=== PATIENT | female | born 1950 | race Caucasian/White ===

== ENCOUNTER 2017-03-09 10:30 | Outpatient (RCR) | payer SELFPAY | END 2017-03-15 23:59 | LOC: NS 10:30 | PROVIDERS: Family Provider Internal Medicine; PCP Internal Medicine; Visit Provider Physician Assistant | DX: E66.9 Obesity, unspecified (principal); Z68.42 Body mass index [BMI] 45.0-49.9, adult; Z71.3 Dietary counseling and surveillance | CPT/HCPCS: 97803 ==

== ENCOUNTER → 2017-03-24 15:15 | Outpatient (CLI) | payer MEDICARE, OTHER, SELFPAY ==
[2017-01-16 12:50] VITALS: BMI 50.8
[2017-01-16 14:20] VITALS: BP 115/55
--- NOTE | 2017-03-24 15:20 | RAD_ITS ---
STUDY: X-RAY - LUMBAR SPINE REASON FOR EXAM: Female, 66 years old. Pain TECHNIQUE: 5 view(s) of the lumbar spine were obtained. COMPARISON: None FINDINGS: Normal lumbar lordosis. There is no substantial scoliosis. There is a grade 1 spondylolisthesis at L4-5. Mild degenerative changes of the vertebral bodies with spurring at the endplates. Slightly narrowed disc space heights, more significant at L2-3. Vacuum phenomena at the disc spaces. The soft tissue structures are unremarkable. Colonic fecal retention. Mildly calcified aorta. RAD/L/S Spine Min 4 Views IMPRESSION: Grade 1 spondylolisthesis at L4-5. Degenerative changes of the lumbar spine, more significant at L2-3. Electronically Signed: Jose Skinner DO at 10:35 EST Tel [phone], Service support ,
== END ==
PROVIDERS: Family Provider Internal Medicine; PCP Internal Medicine; Visit Provider Nurse Practitioner Family
DX: M54.5 Low back pain (principal)
CPT/HCPCS: 72110

== ENCOUNTER 2017-04-03 10:27 | Day surgery (SDC) | payer MEDICARE, OTHER, SELFPAY ==
[2017-04-03] VITALS (7 sets, daily range): BP systolic 101–129; BP diastolic 56–75; PULSE 69–82; RESP 16–18; TEMP 37.2–37.4; O2SAT 93–98; BMI 50.3
--- NOTE | 2017-04-03 11:50 | RAD_ITS ---
STUDY: X-RAY - SACRUM/COCCYX REASON FOR EXAM: Female, 66 years old. Caudal block. TECHNIQUE: Single lateral coned-down view view(s) of the sacrum and coccyx were obtained. COMPARISON: None. FINDINGS: Fluoroscopic images provided for caudal block. RAD/Fluor Guidance for Spine Inj IMPRESSION: Fluoroscopic services provided for caudal block. Electronically Signed: Contreras Cook MD at 12:39 EST Tel [phone], Service support ,
[2017-04-03] MEDS: Bupivacaine 0.25% 30 ML Vial (11:51)
[2017-04-03] MEDS: MethylPREDNISolone Acetate 80 MG/ML Vial (11:51)
--- NOTE | 2017-04-03 15:59 | PCM.OPRPT ---
Problem List (1) Lumbosacral radiculopathy Status: Chronic (2) Disc disease, degenerative, lumbar or lumbosacral Status: Chronic Report of Operation Date of Procedure: 04/03/17 Pre-Operative Diagnosis: Lumbosacral radiculopathy, lumbosacral degenerative disc disease, lumbosacral spinal stenosis Post-Operative Diagnosis: Lumbosacral radiculopathy, lumbosacral degenerative disc disease, lumbosacral spinal stenosis Surgery/Procedure Performed:: Diagnostic/therapeutic caudal epidural steroid injection Description of Surgical Findings:: PROCEDURE: Diagnostic/therapeutic caudal epidural steroid injection PREOPERATIVE DIAGNOSIS: Lumbosacral radiculopathy, lumbosacral degenerative disc disease, lumbosacral spinal stenosis POSTOPERATIVE DIAGNOSIS: Lumbosacral radiculopathy, lumbosacral degenerative disc disease, lumbosacral spinal stenosis ANESTHESIA: MAC COMPLICATIONS: None BLOOD LOSS: Minimal PROCEDURE IN DETAIL: History and physical today was reviewed. Risks and benefits of the procedure were explained. The patient understood, agreed to our procedure, and informed consent was obtained. IV inserted per routine protocol. The patient was taken to the operating room, placed in a prone position with a pillow positioned underneath the abdomen. Under direct physician fluoroscopy on the lateral view the caudal space was identified the skin and subcutaneous tissue were anesthetized approximately 3 cc of 1% lidocaine using a 25-gauge regular needle under direct visualization with fluoroscopy on the lateral view using a 22-gauge 3-1/2 inch spinal needle the needle was advanced via the skin through the sacral hiatus tip of the needle passed through the sacrococcygeal ligament advanced approximately S4 area after negative aspiration for blood or CSF a total of 3 cc of contrast were injected to confirm correct placement of the needle as well as cephalad spread the spread was followed to approximately L5 area after confirmation AP as well as lateral view and repeated negative aspiration a total of 15 cc of preservative-free 0.125% Marcaine with 80 mg of Depo-Medrol were injected easily. The needles were then removed intact.The patient experienced no signs or symptoms intrathecal, intravascular injection. The patient experienced no paraesthesia. The procedure was completed without any apparent difficult, any complication. The patient appeared to tolerate well. ASSESSMENT AND PLAN: This is a 66-year-old female with lumbosacral radiculopathy, lumbosacral degenerative disc disease, lumbosacral spinal stenosis status post diagnostic/therapeutic caudal epidural steroid injection. The patient will continue his current medications. The patient will follow in approximately 2 weeks for possible repeat of the procedure if indicated.
--- NOTE | 2017-04-03 16:02 | OP.PCM_ITS ---
Problem List (1) Lumbosacral radiculopathy Status: Chronic (2) Disc disease, degenerative, lumbar or lumbosacral Status: Chronic Report of Operation Date of Procedure: 04/03/17 Pre-Operative Diagnosis: Lumbosacral radiculopathy, lumbosacral degenerative disc disease, lumbosacral spinal stenosis Post-Operative Diagnosis: Lumbosacral radiculopathy, lumbosacral degenerative disc disease, lumbosacral spinal stenosis Surgery/Procedure Performed:: Diagnostic/therapeutic caudal epidural steroid injection Description of Surgical Findings:: PROCEDURE: Diagnostic/therapeutic caudal epidural steroid injection PREOPERATIVE DIAGNOSIS: Lumbosacral radiculopathy, lumbosacral degenerative disc disease, lumbosacral spinal stenosis POSTOPERATIVE DIAGNOSIS: Lumbosacral radiculopathy, lumbosacral degenerative disc disease, lumbosacral spinal stenosis ANESTHESIA: MAC COMPLICATIONS: None BLOOD LOSS: Minimal PROCEDURE IN DETAIL: History and physical today was reviewed. Risks and benefits of the procedure were explained. The patient understood, agreed to our procedure, and informed consent was obtained. IV inserted per routine protocol. The patient was taken to the operating room, placed in a prone position with a pillow positioned underneath the abdomen. Under direct physician fluoroscopy on the lateral view the caudal space was identified the skin and subcutaneous tissue were anesthetized approximately 3 cc of 1% lidocaine using a 25-gauge regular needle under direct visualization with fluoroscopy on the lateral view using a 22- gauge 3-1/2 inch spinal needle the needle was advanced via the skin through the sacral hiatus tip of the needle passed through the sacrococcygeal ligament advanced approximately S4 area after negative aspiration for blood or CSF a total of 3 cc of contrast were injected to confirm correct placement of the needle as well as cephalad spread the spread was followed to approximately L5 area after confirmation AP as well as lateral view and repeated negative aspiration a total of 15 cc of preservative-free 0.125% Marcaine with 80 mg of Depo-Medrol were injected easily. The needles were then removed intact.The patient experienced no signs or symptoms intrathecal, intravascular injection. The patient experienced no paraesthesia. The procedure was completed without any apparent difficult, any complication. The patient appeared to tolerate well. ASSESSMENT AND PLAN: This is a 66-year-old female with lumbosacral radiculopathy, lumbosacral degenerative disc disease, lumbosacral spinal stenosis status post diagnostic/ therapeutic caudal epidural steroid injection. The patient will continue his current medications. The patient will follow in approximately 2 weeks for possible repeat of the procedure if indicated.
== END 2017-04-03 13:05 | disposition home or self-care (01) ==
LOC: SDC 10:28 → AC 10:29
PROVIDERS: Family Provider Internal Medicine; PCP Internal Medicine; Visit Provider Anesthesiology Pain Medicine
PROC: 3E0S3BZ Introduction of Anesthetic Agent into Epidural Space, Percutaneous Approach (ICD-10-PCS; CPT 62282; principal; 2017-04-03 11:45)
DX: M51.17 Intervertebral disc disorders with radiculopathy, lumbosacral region (principal); M47.27 Other spondylosis with radiculopathy, lumbosacral region; M43.16 Spondylolisthesis, lumbar region; M48.07 Spinal stenosis, lumbosacral region; M16.12 Unilateral primary osteoarthritis, left hip; M17.10 Unilateral primary osteoarthritis, unspecified knee; M79.7 Fibromyalgia; I10 Essential (primary) hypertension; E78.00 Pure hypercholesterolemia, unspecified; E07.9 Disorder of thyroid, unspecified; G47.30 Sleep apnea, unspecified; K21.9 Gastro-esophageal reflux disease without esophagitis; Z78.0 Asymptomatic menopausal state; Z79.891 Long term (current) use of opiate analgesic; Z79.82 Long term (current) use of aspirin; Z79.899 Other long term (current) drug therapy; Z87.891 Personal history of nicotine dependence; Z87.19 Personal history of other diseases of the digestive system; Z98.51 Tubal ligation status
CPT/HCPCS: 62323; 64483; 77003; J7120; J3490

== ENCOUNTER 2017-04-06 13:30 | Outpatient (RCR) | payer SELFPAY ==
[2017-01-16 12:50] VITALS: BMI 50.8
[2017-01-16 14:20] VITALS: BP 115/55
== END 2017-04-12 23:59 ==
LOC: NS 13:30
PROVIDERS: Family Provider Internal Medicine; PCP Internal Medicine; Visit Provider Physician Assistant
DX: E66.9 Obesity, unspecified (principal); Z68.42 Body mass index [BMI] 45.0-49.9, adult; Z71.3 Dietary counseling and surveillance
CPT/HCPCS: 97803

== ENCOUNTER 2017-05-04 14:00 | Outpatient (RCR) | payer MEDICARE, OTHER, SELFPAY | END 2017-05-13 23:59 | LOC: NS 14:00 | PROVIDERS: Family Provider Internal Medicine; PCP Internal Medicine; Visit Provider Physician Assistant | DX: E66.9 Obesity, unspecified (principal); Z68.42 Body mass index [BMI] 45.0-49.9, adult; Z71.3 Dietary counseling and surveillance | CPT/HCPCS: 97803 ==

== ENCOUNTER 2017-06-05 14:00 | Outpatient (RCR) | payer MEDICARE, OTHER, SELFPAY | END 2017-06-12 23:59 | LOC: NS 14:00 | PROVIDERS: Family Provider Internal Medicine; PCP Internal Medicine; Visit Provider Physician Assistant | DX: E66.9 Obesity, unspecified (principal); Z68.42 Body mass index [BMI] 45.0-49.9, adult; Z71.3 Dietary counseling and surveillance | CPT/HCPCS: 97803 ==

== ENCOUNTER 2017-06-19 09:16 | Day surgery (SDC) | payer MEDICARE, OTHER, SELFPAY ==
[2017-06-19] VITALS (7 sets, daily range): BP systolic 93–153; BP diastolic 57–74; PULSE 68–74; RESP 16–18; TEMP 36.6; O2SAT 95–99; BMI 50.8
--- NOTE | 2017-06-19 09:40 | RAD_ITS ---
PROCEDURE: Left L3-S1 facet joint block. DATE OF EXAMINATION: June 19, 2017. INDICATION: Female, 66 years old. Chronic low back pain. FLUOROSCOPY TIME (if supplied): (0:14) minutes/seconds Intraoperative fluoroscopic imaging provided for left L3-S1 facet joint block. RAD/L/S Spine Min 4 Views IMPRESSION: Intraoperative imaging provided for left L3-S1 facet joint block. Electronically Signed: Contreras Cook MD at 10:59 EDT Tel [phone], Service support ,
[2017-06-19] MEDS: Bupivacaine 0.25% 30 ML Vial (10:01)
[2017-06-19] MEDS: MethylPREDNISolone Acetate 80 MG/ML Vial (10:01)
--- NOTE | 2017-06-19 10:18 | OP.PCM_ITS ---
Problem List (1) Lumbosacral spondylosis Status: Chronic (2) Disc disease, degenerative, lumbar or lumbosacral Status: Chronic Report of Operation Date of Procedure: 06/19/17 Pre-Operative Diagnosis: Lumbosacral spondylosis, lumbosacral degenerative disc disease, lumbar facet arthropathy Post-Operative Diagnosis: Lumbosacral spondylosis, lumbosacral degenerative disc disease, lumbar facet arthropathy Surgery/Procedure Performed:: Left sided lumbar facet steroid injection L3, L4, L5, S1 Description of Surgical Findings:: PROCEDURE: Left-sided lumbar facet steroid injection L3, L4, L5, S1 PREOPERATIVE DIAGNOSIS: Lumbosacral spondylosis, lumbosacral degenerative disc disease, and lumbar facet arthropathy POSTOPERATIVE DIAGNOSIS: Lumbosacral spondylosis, lumbosacral degenerative disc disease, and lumbar facet arthropathy ANESTHESIA: MAC COMPLICATIONS: None BLOOD LOSS: Minimal PROCEDURE IN DETAIL: History and physical today was reviewed. Risks and benefits of the procedure were explained. The patient understood, agreed to our procedure, and informed consent was obtained. IV inserted per routine protocol. The patient was taken to the operating room, placed in a prone position with a pillow positioned underneath the abdomen. The left side of her lower back was prepped and draped in a sterile fashion using iodine x3. Under fluoroscopy guidance, on AP view, L3 through S1 vertebral bodies were visualized. Skin and subcutaneous tissues were anesthetized with approximately 5 mL of 1% lidocaine using a 25-gauge regular needle. Under direct visualization with fluoroscopy at approximately 25-degree angle, starting on the left L3, ending on the left S1, passing through the L4-L5 using a 22-gauge 5-inch spinal needle, the needle was advanced via the skin. The tip of the needle was maneuvered and directed towards the superior and medial gutter of the transverse process at the vicinity of the medial branch. Once the tip of the needle was in contact with the bone, the needle pulled approximately 2 mm off the bone. After negative aspiration of blood with CSF and confirmation of AP as well as oblique view, a total of 8 mL of preservative-free 0.25% Marcaine with 80 mg of Depo- Medrol was injection in divided doses between those 4 levels. The needles were then removed intact. The patient experienced no signs or symptoms intrathecal, intravascular injection. The patient experienced no paraesthesia. The procedure was completed without any apparent difficult, any complication. The patient appeared to tolerate well. ASSESSMENT AND PLAN: This is a 66-year-old female with lumbosacral spondylosis, lumbosacral degenerative disc disease and lumbar facet arthropathy, status post left-sided lumbar facet steroid injection L3 through S1. The patient will continue her current medications. The patient will follow in approximately 2 weeks for possible repeat of the procedure if indicated.
== END 2017-06-19 10:57 | disposition home or self-care (01) ==
LOC: SDC 09:16
PROVIDERS: Family Provider Internal Medicine; PCP Internal Medicine; Visit Provider Anesthesiology Pain Medicine
PROC: 3E0T3BZ Introduction of Anesthetic Agent into Peripheral Nerves and Plexi, Percutaneous Approach (ICD-10-PCS; CPT 64493; principal; 2017-06-19 10:05)
DX: M51.17 Intervertebral disc disorders with radiculopathy, lumbosacral region (principal); M47.27 Other spondylosis with radiculopathy, lumbosacral region; M48.07 Spinal stenosis, lumbosacral region; M17.10 Unilateral primary osteoarthritis, unspecified knee; M16.12 Unilateral primary osteoarthritis, left hip; I10 Essential (primary) hypertension; G47.30 Sleep apnea, unspecified; M79.7 Fibromyalgia; E78.00 Pure hypercholesterolemia, unspecified; K21.9 Gastro-esophageal reflux disease without esophagitis; Z78.0 Asymptomatic menopausal state; Z79.891 Long term (current) use of opiate analgesic; Z79.82 Long term (current) use of aspirin; Z79.899 Other long term (current) drug therapy; Z87.891 Personal history of nicotine dependence; Z98.51 Tubal ligation status
CPT/HCPCS: 64493; 64494; 64495; 64483; 72110; J7120

== ENCOUNTER 2017-06-20 14:05 | Outpatient (RCR) | payer MEDICARE, OTHER, SELFPAY | END 2017-06-20 14:06 | disposition home or self-care (01) | LOC: NS 14:05 | PROVIDERS: Family Provider Internal Medicine; PCP Internal Medicine; Visit Provider Physician Assistant | DX: E66.9 Obesity, unspecified (principal); Z68.42 Body mass index [BMI] 45.0-49.9, adult; Z71.3 Dietary counseling and surveillance | CPT/HCPCS: 97803 ==

== ENCOUNTER 2017-08-14 09:28 | Day surgery (SDC) | payer MEDICARE, OTHER, SELFPAY ==
[2017-08-14] VITALS (7 sets, daily range): BP systolic 96–141; BP diastolic 59–83; PULSE 63–72; RESP 16; TEMP 36.3–36.8; O2SAT 95–100; BMI 48.9
--- NOTE | 2017-08-14 10:50 | RAD_ITS ---
STUDY: INTRAOPERATIVE IMAGING FOR TRANSFORAMINAL BLOCK. REASON FOR EXAM: Female, 67 years old. Chronic back pain. FLUOROSCOPY TIME (if supplied): (0:23) minutes/seconds TECHNIQUE: Imaging provided for left L3-S5 transforaminal block. COMPARISON: None. FINDINGS: Imaging provided for left L3-L5 transforaminal block. RAD/Lumbar Spine 2 or 3 Views IMPRESSION: Imaging provided for left L3-L5 transforaminal block. Electronically Signed: Contreras Cook MD at 11:22 EDT Tel [phone], Service support ,
[2017-08-14] MEDS: Bupivacaine 0.25% 30 ML Vial (11:03)
[2017-08-14] MEDS: MethylPREDNISolone Acetate 80 MG/ML Vial (11:03)
--- NOTE | 2017-08-14 11:59 | OP.PCM_ITS ---
Problem List (1) Disc disease, degenerative, lumbar or lumbosacral Status: Chronic (2) Lumbosacral radiculopathy Status: Chronic Report of Operation Date of Procedure: 08/14/17 Pre-Operative Diagnosis: Lumbosacral radiculopathy, lumbosacral degenerative disc disease, lumbosacral spinal stenosis Post-Operative Diagnosis: Lumbosacral radiculopathy, lumbosacral degenerative disc disease, lumbosacral spinal stenosis Surgery/Procedure Performed:: Left-sided lumbar transforaminal epidural steroid injection L3-4, L4-5 Description of Surgical Findings:: PROCEDURE: Left sided lumbar transforaminal epidural steroid injection L3-4, L4-5 PREOPERATIVE DIAGNOSIS: Lumbosacral radiculopathy, lumbosacral degenerative disc disease, lumbosacral spinal stenosis POSTOPERATIVE DIAGNOSIS: Lumbosacral radiculopathy, lumbosacral degenerative disc disease, lumbosacral spinal stenosis ANESTHESIA: MAC COMPLICATIONS: None BLOOD LOSS: Minimal PROCEDURE IN DETAIL: History and physical today was reviewed. Risks and benefits of the procedure were explained. The patient understood, agreed to our procedure, and informed consent was obtained. IV inserted per routine protocol. The patient was taken to the operating room, placed in a prone position with a pillow positioned underneath the abdomen. The left side of her lower back was prepped and draped in a sterile fashion using iodine x3. Under fluoroscopy guidance, on AP view, L3 through S1 vertebral bodies were visualized. Skin and subcutaneous tissues were anesthetized with approximately 5 mL of 1% lidocaine using a 25-gauge regular needle. Under direct visualization with fluoroscopy at approximately 25-degree angle, starting on the left L3, ending on the left L4, using a 22- gauge 5-inch spinal needle, the needle was advanced via the skin. The tip of the needle was maneuvered and directed towards the inferior and medial gutter of the transverse process at the superiormost aspect of the neuroforamen once the tip of the needle is at the vicinity of the once the tip of the needle at the superiormost aspect of the neuroforamen on lateral as well as AP view after negative aspiration for blood or CSF a total of 1 cc of contrast were injected in divided doses between both levels to confirm correct placement of the needle as well as medial spread the confirmation was obtained on AP as well as lateral view after repeated negative aspiration and confirmation, a total of 6 mL of preservative-free 0.25% Marcaine with 80 mg of Depo-Medrol was injection in divided doses between those 2 levels. The needles were then removed intact. The patient experienced no signs or symptoms intrathecal, intravascular injection. The patient experienced no paraesthesia. The procedure was completed without any apparent difficult, any complication. The patient appeared to tolerate well. ASSESSMENT AND PLAN: This is a 67-year-old Female with lumbosacral radiculopathy lumbosacral degenerative disc disease lumbosacral spinal stenosis status post left-sided lumbar transforaminal epidural steroid injection L3-4, L4-5 the patient will continue her current medications. The patient will follow in approximately 2 weeks for possible repeat of the procedure if indicated.
== END 2017-08-14 12:15 | disposition home or self-care (01) ==
LOC: SDC 09:29 → AC 09:29
PROVIDERS: Family Provider Student in an Organized Health Care Education/Training Program; PCP Student in an Organized Health Care Education/Training Program; Visit Provider Anesthesiology Pain Medicine
PROC: 3E0S3BZ Introduction of Anesthetic Agent into Epidural Space, Percutaneous Approach (ICD-10-PCS; CPT 64484; principal; 2017-08-14 10:45)
DX: M51.17 Intervertebral disc disorders with radiculopathy, lumbosacral region (principal); M43.16 Spondylolisthesis, lumbar region; M48.07 Spinal stenosis, lumbosacral region; M51.37 Other intervertebral disc degeneration, lumbosacral region; M16.12 Unilateral primary osteoarthritis, left hip; M79.7 Fibromyalgia; I10 Essential (primary) hypertension; E07.9 Disorder of thyroid, unspecified; G47.30 Sleep apnea, unspecified; K21.9 Gastro-esophageal reflux disease without esophagitis; Z87.19 Personal history of other diseases of the digestive system; Z79.891 Long term (current) use of opiate analgesic; Z79.899 Other long term (current) drug therapy; Z96.651 Presence of right artificial knee joint; Z96.641 Presence of right artificial hip joint; Z87.891 Personal history of nicotine dependence; Z79.82 Long term (current) use of aspirin; E78.00 Pure hypercholesterolemia, unspecified
CPT/HCPCS: 01935; 64484; 64483; 72100; J7120

== ENCOUNTER 2017-09-18 09:26 | Day surgery (SDC) | payer MEDICARE, OTHER, SELFPAY ==
[2017-09-18] VITALS (7 sets, daily range): BP systolic 105–124; BP diastolic 57–81; PULSE 65–71; RESP 16–18; TEMP 36.4–36.8; O2SAT 96–100; BMI 49.1
--- NOTE | 2017-09-18 10:30 | RAD_ITS ---
STUDY: X-RAY - PELVIS AND LEFT HIP FLUOROSCOPY FOR PAIN MANAGEMENT INTRA-ARTICULAR STEROID INJECTION REASON FOR EXAM: Female, 67 years old. Intra-articular injection TECHNIQUE: Fluoroscopy for localization of needle tip and left hip joint space provided under supervision, direction and review of the intraoperative physician. Single AP fluoroscopic spot image submitted. COMPARISON: 01/16/2017. FINDINGS: A total of 27.2 seconds of fluoroscopy time along with accumulative dose 14.67 mGy was utilized. Contrast is seen in the left hip joint space with left lateral needle approach. RAD/Fluoro Guided Needle Placement IMPRESSION: Fluoroscopy for left hip injection as described. Please see intraoperative report for additional details. Electronically Signed: Cristi Gooden, at 9:35 EDT Tel , Service support ,
[2017-09-18] MEDS: Bupivacaine 0.25% 30 ML Vial (10:52)
[2017-09-18] MEDS: MethylPREDNISolone Acetate 80 MG/ML Vial (10:52)
--- NOTE | 2017-09-18 13:20 | PCM.OPRPT ---
Problem List (1) Primary osteoarthritis of left hip Status: Chronic Report of Operation Date of Procedure: 09/18/17 Pre-Operative Diagnosis: Osteoarthritis of the left hip Post-Operative Diagnosis: Osteoarthritis of the left hip Surgery/Procedure Performed:: Left hip intra-articular steroid injection under fluoroscopic guidance Description of Surgical Findings:: PROCEDURE: Left hip intra-articular steroid injection under fluoroscopic guidance PREOPERATIVE DIAGNOSIS: Osteoarthritis of the left hip POSTOPERATIVE DIAGNOSIS: Osteoarthritis of the left hip ANESTHESIA: MAC COMPLICATIONS: None BLOOD LOSS: Minimal PROCEDURE IN DETAIL: History and physical today was reviewed. Risks and benefits of the procedure were explained. The patient understood, agreed to our procedure, and informed consent was obtained. IV inserted per routine protocol. The patient was taken to the operating room, placed in a supine position the left hip area was prepped and draped in a sterile fashion using iodine ?3 under fluoroscopy guidance on AP view the left hip joint was visualized the skin and subcutaneous tissue and size approximately 3 cc of 1% lidocaine using a 25-gauge regular needle under direct visualization fluoroscopy on AP view using a 22-gauge 6 inch spinal needle using the lateral approach at approximately 3 cm cephalad to the left greater trochanter of the needle was advanced via the skin the tip of the needle was maneuvered and directed towards the superiormost aspect of the joint once the tip of the needle is at the vicinity of the joint after confirmation of AP as well as oblique view a total of 1 cc of contrast were injected to confirm correct placement of the needle as well as halo spread around the hip joint after repeated negative aspiration and confirmation a total of 10 cc of preservative-free 0.25% Marcaine with 80 mg of Depo-Medrol were injected easily. The needles were then removed intact. The patient experienced no signs or symptoms intrathecal, intravascular injection. The patient experienced no paraesthesia. The procedure was completed without any apparent difficult, any complication. The patient appeared to tolerate well. ASSESSMENT AND PLAN: This is a 67-year-old female with osteoarthritis of the left hip status post left hip intra-articular steroid injection under fluoroscopic guidance. The patient will continue her current medications. The patient will follow in approximately 2 weeks for reevaluation.
== END 2017-09-18 11:57 | disposition home or self-care (01) ==
LOC: SDC 09:27 → AC 09:28
PROVIDERS: Family Provider Student in an Organized Health Care Education/Training Program; PCP Student in an Organized Health Care Education/Training Program; Visit Provider Anesthesiology Pain Medicine
PROC: 3E0U3GC Introduction of Other Therapeutic Substance into Joints, Percutaneous Approach (ICD-10-PCS; CPT 20610; principal; 2017-09-18 10:25)
DX: M16.12 Unilateral primary osteoarthritis, left hip (principal); M51.17 Intervertebral disc disorders with radiculopathy, lumbosacral region; M48.07 Spinal stenosis, lumbosacral region; I10 Essential (primary) hypertension; M79.7 Fibromyalgia; E78.00 Pure hypercholesterolemia, unspecified; E07.9 Disorder of thyroid, unspecified; G47.30 Sleep apnea, unspecified; K21.9 Gastro-esophageal reflux disease without esophagitis; Z79.82 Long term (current) use of aspirin; Z79.891 Long term (current) use of opiate analgesic; Z79.899 Other long term (current) drug therapy; Z96.641 Presence of right artificial hip joint; Z96.651 Presence of right artificial knee joint; Z87.891 Personal history of nicotine dependence; Z87.19 Personal history of other diseases of the digestive system
CPT/HCPCS: 01200; 20610; 76000; 77002; J7120

== ENCOUNTER 2017-11-13 09:59 | Day surgery (SDC) | payer MEDICARE, OTHER, SELFPAY ==
[2017-11-13] VITALS (7 sets, daily range): BP systolic 104–152; BP diastolic 62–94; PULSE 67–72; RESP 16; TEMP 36.4–37.3; O2SAT 93–100; BMI 51.8
--- NOTE | 2017-11-13 11:00 | RAD_ITS ---
STUDY: X-RAY - LUMBAR SPINE REASON FOR EXAM: Female, 67 years old. Lumbar facet lock. TECHNIQUE: For cone-down intraoperative view(s) of the lumbar spine were obtained. COMPARISON: None FINDINGS: Intraoperative imaging was provided for left L3-S1 facet joint block. RAD/L/S Spine Min 4 Views IMPRESSION: Imaging provided for left L3-S1 facet joint block. Electronically Signed: Contreras Cook MD at 13:06 EDT Tel [phone], Service support ,
[2017-11-13] MEDS: MethylPREDNISolone Acetate 80 MG/ML Vial (11:05)
[2017-11-13] MEDS: Bupivacaine Mpf 0.5% 30 ML VIAL (11:07)
--- NOTE | 2017-11-13 15:29 | OP.PCM_ITS ---
Problem List (1) Disc disease, degenerative, lumbar or lumbosacral Status: Chronic (2) Lumbosacral spondylosis Status: Chronic Report of Operation Date of Procedure: 11/13/17 Pre-Operative Diagnosis: Lumbosacral spondylosis, lumbosacral degenerative disc disease, lumbar facet arthropathy Post-Operative Diagnosis: Lumbosacral spondylosis, lumbosacral degenerative disc disease, lumbar facet arthropathy Surgery/Procedure Performed:: Left-sided lumbar facet steroid injection L3, L4, L5, S1 Description of Surgical Findings:: PROCEDURE: Left-sided lumbar facet steroid injection L3, L4, L5, S1 PREOPERATIVE DIAGNOSIS: Lumbosacral spondylosis, lumbosacral degenerative disc disease, and lumbar facet arthropathy POSTOPERATIVE DIAGNOSIS: Lumbosacral spondylosis, lumbosacral degenerative disc disease, and lumbar facet arthropathy ANESTHESIA: MAC COMPLICATIONS: None BLOOD LOSS: Minimal PROCEDURE IN DETAIL: History and physical today was reviewed. Risks and benefits of the procedure were explained. The patient understood, agreed to our procedure, and informed consent was obtained. IV inserted per routine protocol. The patient was taken to the operating room, placed in a prone position with a pillow positioned underneath the abdomen. The left side of his lower back was prepped and draped in a sterile fashion using iodine x3. Under fluoroscopy guidance, on AP view, L3 through S1 vertebral bodies were visualized. Skin and subcutaneous tissues were anesthetized with approximately 5 mL of 1% lidocaine using a 25-gauge regular needle. Under direct visualization with fluoroscopy at approximately 25-degree angle, starting on the left L3, ending on the left S1, passing through the L4-L5 using a 22-gauge 3 1/2-inch spinal needle, the needle was advanced via the skin. The tip of the needle was maneuvered and directed towards the superior and medial gutter of the transverse process at the vicinity of the medial branch. Once the tip of the needle was in contact with the bone, the needle pulled approximately 2 mm off the bone. After negative aspiration of blood with CSF and confirmation of AP as well as oblique view, a total of 8 mL of preservative-free 0.25% Marcaine with 80 mg of Depo- Medrol was injection in divided doses between those 4 levels. The needles were then removed intact. The patient experienced no signs or symptoms intrathecal, intravascular injection. The patient experienced no paraesthesia. The procedure was completed without any apparent difficult, any complication. The patient appeared to tolerate well. ASSESSMENT AND PLAN: This is a 67-year-old female with lumbosacral spondylosis, lumbosacral degenerative disc disease, and lumbar facet arthropathy, status post left-sided lumbar facet steroid injection L3 through S1. The patient will continue her current medications. The patient will follow in approximately 2 weeks for possible repeat of the procedure if indicated.
== END 2017-11-13 11:56 | disposition home or self-care (01) ==
LOC: SDC 10:00 → AC 10:05
PROVIDERS: Family Provider Student in an Organized Health Care Education/Training Program; PCP Student in an Organized Health Care Education/Training Program; Referring Provider Anesthesiology Pain Medicine; Visit Provider Anesthesiology Pain Medicine
PROC: 3E0T3BZ Introduction of Anesthetic Agent into Peripheral Nerves and Plexi, Percutaneous Approach (ICD-10-PCS; CPT 64493; principal; 2017-11-13 10:55)
DX: M47.27 Other spondylosis with radiculopathy, lumbosacral region (principal); M51.17 Intervertebral disc disorders with radiculopathy, lumbosacral region; M46.96 Unspecified inflammatory spondylopathy, lumbar region; M50.30 Other cervical disc degeneration, unspecified cervical region; M47.812 Spondylosis without myelopathy or radiculopathy, cervical region; M43.16 Spondylolisthesis, lumbar region; M48.07 Spinal stenosis, lumbosacral region; M16.12 Unilateral primary osteoarthritis, left hip; M17.10 Unilateral primary osteoarthritis, unspecified knee; I10 Essential (primary) hypertension; G47.30 Sleep apnea, unspecified; M79.7 Fibromyalgia; G25.81 Restless legs syndrome; E78.00 Pure hypercholesterolemia, unspecified; E06.9 Thyroiditis, unspecified; K44.9 Diaphragmatic hernia without obstruction or gangrene; K58.9 Irritable bowel syndrome, unspecified; K21.9 Gastro-esophageal reflux disease without esophagitis; Z87.19 Personal history of other diseases of the digestive system; Z90.49 Acquired absence of other specified parts of digestive tract; Z79.891 Long term (current) use of opiate analgesic; Z79.82 Long term (current) use of aspirin; Z79.899 Other long term (current) drug therapy; Z87.891 Personal history of nicotine dependence
CPT/HCPCS: 64493; 64494; 64495; 64483; 72110; J7120; J3490

== ENCOUNTER → 2017-11-30 13:56 | Outpatient (CLI) | payer MEDICARE, OTHER, SELFPAY ==
--- NOTE | 2017-11-30 13:56 | FLU_PTH ---
PATIENT: CHAU KING LOC: [facility] U#:[id number] AGE/SX: 74/F ROOM: RE11/30/[address]: Dr. Judith Spaulding MD : 1950 BED: DIS: SPEC #: [id number] RECD: 12/01/17 10:57 STATUS: NATALEE EN #: [id number] ERMA: 11/30/17 13:[address]: Judith Spaulding DEPT: CYTOLOGY RECD BY: Sekou Rodney ENTERED: 12/01/17 10:58 SP TYPE: Fluid OTHR DR: Dr. Josep Huggins DO Tissues: A - Thyroid gland, NOS B - Thyroid gland, NOS C - Thyroid gland, NOS D - Thyroid gland, NOS Procedures: Pap Stain (control) Special Stain Group II Surgery Specimen Level IV Cell Block Cytospin Fluid Cytology Other HEADER OPERATION: Ultrasound-guided bilateral fine needle aspiration of thyroid PRE-OP DIAGNOSIS: Thyroid nodules, bilateral TISSUE SUBMITTED: A - FNA right thyroid fluid for cytology, B - FNA right thyroid 6 slides, C - FNA left thyroid fluid for cytology, D - FNA left thyroid 6 slides DIAGNOSIS CYTOLOGY A. Right thyroid nodule fluid for cytology, FNA (cytospin and cell block): A few benign follicular cells noted. B. Right thyroid nodule, FNA (smears): Consistent with benign follicular nodule. Adequate for evaluation. C. Left thyroid nodule fluid for cytology, FNA (cytospin and cell block): A few benign follicular cells noted. D. Left thyroid nodule, FNA (smears): Nondiagnostic specimen. See comment. SJ:rg 12/04/17 COMMENT D. The smears are bloody. Follicular cells are not identified. Correlation with clinical, radiologic findings and appropriate follow up are necessary. CYTOLOGY STUDY Slides are reviewed. CYTOLOGY GROSS A - Received is 60 ml of red cloudy fluid labeled with the patient's name and and designated per the requisition as right thyroid. Submitted for cytology preparation including cell block. B - Received are six smears labeled with the patient's name and designated per the requisition as right thyroid. Submitted for staining. C - Received is 60 ml of red cloudy fluid labeled with the patient's name and and designated per the requisition as left thyroid. Submitted for cytology preparation including cell block. D - Received are six smears labeled with the patient's name and designated per the requisition as left thyroid. Submitted for staining. 12/01/17 TC:5 CPT: 54827 x2, 57806 x2, 31482 x2
== END ==
PROVIDERS: Family Provider Student in an Organized Health Care Education/Training Program; PCP Student in an Organized Health Care Education/Training Program; Referring Provider Surgery; Visit Provider Surgery
DX: E04.1 Nontoxic single thyroid nodule (principal)
CPT/HCPCS: 88108; 88161; 88305; 88313

== ENCOUNTER 2018-01-21 23:41 | Inpatient (IN) | payer MEDICARE, OTHER, SELFPAY ==
[2018-01-16 11:44] VITALS: BMI 51.0
[2018-01-21 23:45] VITALS: BP 156/105; PULSE 91; RESP 26; TEMP 37.3; O2SAT 99; BMI 45.1
--- NOTE | 2018-01-21 23:50 | RAD_ITS ---
HISTORY: C/O BACK PAIN EXAM: XR Chest 1 View: Portable COMPARISON: None FINDINGS: EKG leads in place. Large body habitus. Minor elevation of the right hemidiaphragm. Normal heart size. No vascular congestion, pleural effusion, or pulmonary consolidation. No pneumothorax. Atherosclerotic thoracic aorta. The bony thorax appears intact. IMPRESSION: No acute cardiopulmonary disease. at 0016 Reported and signed by: Philip Bill MD Electronically Signed: Philip Bill, at 0:14 EST Tel , Service support , RAD/Chest 1 View (Portable)
--- NOTE | 2018-01-21 23:50 | EKG12_ITS ---
Test Reason : NEURO S/SX Blood Pressure : / mmHG Vent. Rate : 074 BPM Atrial Rate : 074 BPM P-R Int : 140 ms QRS Dur : 082 ms QT Int : 418 ms P-R-T Axes : 059 056 048 degrees QTc Int : 463 ms Normal sinus rhythm Nonspecific ST abnormality Abnormal ECG Confirmed by ELISA LEON, JOE ([id number]), editorial project manager JANNA CHIU ([id number] on 01/23/2018 9:00:32 AM Referred By: Nik Price Confirmed By:JOE PÉREZ MD
--- NOTE | 2018-01-21 23:50 | CT_ITS ---
HISTORY: PT STATED GENERALIZED BACK PAIN, UNABLE TO CONTROL PATIENT MOTION TECHNIQUE: Multiple axial images were obtained of the brain without intravenous contrast. A radiation dose optimization technique was used for this scan. IV Contrast dosage and agent: None. COMPARISON: None FINDINGS: Patient motion which partly limits detail. Normal ventricles. Mild cerebral cortical atrophy. No intracranial mass, hemorrhage, or acute disease identified. Evaluation of the posterior fossa is somewhat limited secondary to patient motion and streak artifact. No suspicious extra-axial fluid collection. As visualized, the mastoids and paranasal sinuses are clear. CT/Brain/Head without Contrast IMPRESSION: 1. No hemorrhage or acute disease identified. 2. Mild cerebral cortical atrophy. 3. Exam partly limited from patient motion. 4. If symptoms persist and remain unexplained, suggest follow-up CT or MRI exam. Individualized dose optimization techniques were used for this CT. at 0216 Reported and signed by: Philip Bill MD Electronically Signed: Philip Bill, at 2:14 EST Tel , Service support ,
--- NOTE | 2018-01-21 23:51 | CT_ITS ---
HISTORY: PT STATED GENERALIZED BACK PAIN, UNABLE TO CONTROL PATIENT MOTION TECHNIQUE: Helically acquired images were obtained of the abdomen and pelvis without oral or IV contrast as per renal stone protocol. A radiation dose optimization technique was used for this scan. IV Contrast dosage and agent: None. Oral contrast: None. COMPARISON: None FINDINGS: Large body habitus. Lower thorax: Small hiatal hernia. No pleural effusion. The gallbladder is nonvisualized. No biliary dilatation. Evaluation of the major abdominal organs is partly limited secondary to lack of IV contrast. Allowing for this, the liver, spleen, and pancreas show no CT abnormality. Both kidneys are normal in position. Right renal midpole 3.4 cm parapelvic cyst and additional smaller cortical cyst at the lower pole. Small exophytic cortical cyst at the lower pole of left kidney. No renal or ureteral calculi and no hydronephrosis or hydroureter. The adrenal glands are not enlarged. Abdominal aorta is atherosclerotic and is normal in caliber. No ascites or retroperitoneal lymphadenopathy. GI tract: Constipation pattern. No obstruction. Normal appendix. Diverticulosis coli. Pelvis: Right total hip prosthesis with secondary streak artifact. Hysterectomy. The pelvis shows no free fluid or lymphadenopathy. Bones: No acute osseous abnormality. CT/Abdomen/Pelvis without Cont IMPRESSION: 1. Constipation pattern. No acute disease seen. 2. Chronic findings include small hiatal hernia, bilateral renal cysts, and diverticulosis coli. 3. Postsurgical changes. Details above. Individualized dose optimization techniques were used for this CT. at 0923 Reported and signed by: Philip Bill MD Electronically Signed: Philip Bill, at 2:34 EST Tel , Service support ,
[2018-01-21 23:55] LABS: Bedside Glucose 119 mg/dL (70-110)
[2018-01-21] MEDS: Ondansetron 4 MG/2 ML Vial IV (23:59)
[2018-01-22] VITALS (9 sets, daily range): BP systolic 129–158; BP diastolic 65–96; PULSE 66–84; RESP 14–18; TEMP 36.7–37.2; O2SAT 94–99; BMI 46.4
[2018-01-22] MEDS: 0.9% Normal Saline 1,000 ML 1000 ML IV
[2018-01-22 00:08] LABS: Absolute Lymphocyte Count 1.89 X10^3/ul (0.83-4.51); Absolute Neutrophil Count 8.8 X10^3/uL (2.0-7.7); Basophil# 0.02 X10^3/uL; Basophil% 0.2 % (0-1); Hematocrit 41.1 % (37-47); Hemoglobin 13.6 g/dl (12.0-15.0); Lymphocyte # 1.89 X10^3/ul (4.0); Lymphocyte % 16.7 % (19-41); Mean Corp Hgb Conc 33.1 g/gl (32-36); Mean Corpuscular Hgb 29.8 pg (27.0-32.0); Mean Corpuscular Volume 89.9 fL (81-99); Mean Platelet Vol. 11.1 fl (6.2-12.0); Monocyte# 0.65 X10^3/uL; Monocyte% 5.7 % (0-10); Neutrophil # 8.75 X10^3/uL (2.7-7.7); Neutrophil % 77.2 % (47-70); Platelet Count 253 K/mm3 (150-450); RBC Distribution Width CV 14.8 % (11.6-14.6); Red Blood Count 4.57 M/mm3 (4.2-5.4); White Blood Count 11.3 K/mm3 (4.4-11.0)
[2018-01-22 00:09] LABS: POSITIVE COUNT NO; POSITIVE DIFFERENTIAL NO; POSITIVE MORPHOLOGY NO
[2018-01-22 00:16] LABS: AST(SGOT) 22 U/L (15-37); Alanine Aminotransfer ALT/SGPT 32 U/L (13-56); Albumin, Serum 3.6 g/dL (3.2-5.0); Alkaline Phosphatase 98 U/L (45-117); Anion Gap 9 (5-15); BUN 31 mg/dL (7-18); BUN/Creat Ratio 32.2 RATIO (10-20); Bilirubin, Direct 0.17 mg/dL (0.00-0.30); Calcium,Total 9.1 mg/dL (8.5-10.1); Chloride 105 mmol/L (98-107); Creatinine, Serum 0.96 mg/dL (0.55-1.02); EST Glomerular Filtration Rate 61 mL/min (>60); Est Glom Filt Rate - Afr Amer 74 mL/min (>60); Estimated Creatinine Clearance 53.23 ml/min; Globulin 3.8 g/dL (2.2-4.2); Glucose 129 mg/dL (74-106); Lipase 78 U/L (73-393); Potassium 3.1 mmol/L (3.5-5.1); Protein, Total 7.4 g/dL (6.4-8.2); Sodium Level 141 mmol/L (136-145)
[2018-01-22 00:30] LABS: International Normalized Ratio 1.1; Prothrombin Time (Protime)PT. 13.7 SECONDS (11.7-14.9)
[2018-01-22 00:34] LABS: Squamous Epithelial Cells - UA 0 SEEN /hpf (5-10)
--- NOTE | 2018-01-22 00:34 | ED.DCSUM_ITS ---
- ER Visit Summary Date of Service: 01/22/18 Chief Complaint: Back pain, vomiting History of Present Illness: The patient is a 67 F presenting with vomiting and back pain. She presented per EMS. On her arrival she was having garbled speech and difficulty finding words. This resolved after a few minutes. She states she has had vomiting all day today. She denies blood in her emesis. She has multiple bruises and is unsure if she has fallen at home. She complains of headache, back pain. She denies fever. She denies chest pain or shortness of breath. Her arrived and states that her back pain started on Monday. She had refused to come to the hospital until today. Today she had vomiting every hour and he had difficulty caring for her at home. She is in pain management for chronic back pain. He states this seemed worse than usual. He states that she has not fallen. Physical Examination: Vitals are stable. Temperature 99.1. Alert no acute distress. HEENT exam is unremarkable. Neck is supple. No meningismus Lungs are clear and equal bilaterally. Heart is regular rate and rhythm. Abdomen is soft diffuse tenderness with no rebound or guarding Back: diffuse tenderness with no stepoff Extremities are unremarkable. Skin is warm and dry. No focal neurologic deficit. NIH 0. Remainder of exam is unremarkable. Emergency Department Course and Treatment: Patient given IV fluids, Zofran. EKG is sinus rate is 74 with no acute ischemic changes. CBC shows white count 11.3. Chemistries show potassium 3.1, glucose 129, BUN 31. INR is 1.1. Troponin is negative. Urinalysis shows 10-25 white blood cells, 5-10 red blood cells, 0 epithelial cells. Urine culture was sent. She was given Rocephin IV. Chest x- ray shows no acute process. TLS spine shows no acute process, degenerative changes. CT abdomen pelvis shows chronic changes. CT head shows no acute process. Patient continues to have pain and was given a dose of Dilaudid IV. Discussed with the hospitalist for admission. Disposition: Admission Impression: UTI, intractable vomiting, chronic back pain This note was generated with [employer] dictation software. It may contain incorrect words, spelling, and punctuation that were not noted in review of the chart prior to signing ED Disposition - Plan for ED Patient: Chief Complaint: Neuro S/Sx Referrals: Josep Huggins DO [Primary Care Provider] -
--- NOTE | 2018-01-22 00:35 | RAD_ITS ---
HISTORY: C/O BACK PAIN FOR MORE THAN A MONTH. DENIES ANY FALL OR INJURYBEST IMAGES POSSIBLE DUE TO PATIENT NOT HOLDING STILL COMPARISON: None FINDINGS: XR Spine Lumbar 3 Views: Lower thoracic and upper lumbar minimal dextroscoliosis. Lumbar vertebra are normal in height. No fracture or acute disease. L-2-3 marked disc space narrowing accompanied by endplate spurring, reactive endplate sclerosis, and vacuum disc phenomenon. Degenerative disc disease to a lesser extent involving the L4-5 and L5-S1 levels. Lower lumbar facet joint arthritis with mild anterolisthesis of L4 on L5. Right total hip prosthesis. Atherosclerotic abdominal aorta. RAD/Lumbar Spine 2 or 3 Views IMPRESSION: 1. Multilevel degenerative changes, greatest at the L2-3 level. 2. Facet joint arthritis with mild anterolisthesis of L4 on L5. 3. Right total hip prosthesis. at 0134 Reported and signed by: Philip Bill MD Electronically Signed: Philip Bill, at 1:32 EST Tel , Service support ,
--- NOTE | 2018-01-22 00:35 | RAD_ITS ---
HISTORY: C/O BACK PAIN FOR MORE THAN A MONTH. DENIES ANY FALL OR INJURYBEST IMAGES POSSIBLE DUE TO PATIENT NOT HOLDING STILL COMPARISON: None FINDINGS: XR Spine Thoracic 3 Views: Minor thoracic levoscoliosis. Thoracic vertebra are normal in height. No fracture, acute disease, or suspicious lesion. Pedicles are preserved. Disc space narrowing of the mid and lower dorsal spine accompanied by anterolateral endplate spurring. RAD/Thoracic Spine 3 Views IMPRESSION: 1. No fracture or acute disease. 2. Degenerative disc disease and spondylosis of the mid and lower dorsal spine. at 0128 Reported and signed by: Philip Bill MD Electronically Signed: Philip Bill, at 1:26 EST Tel , Service support ,
[2018-01-22 00:37] LABS: Color, Urine Yellow (Yellow); Glucose, Dipstick Normal (Normal); Ketone-Dipstick 15 mg/dl (Negative); Leukocyte Esterase-Dipstick 100 /ul (Negative); Nitrite-Dipstick Negative (Negative); Occult Blood-Urine 250 /ul (Negative); Protein-Dipstick 30 mg/dl (Negative); Urine Bilirubin Dipstick Negative (Negative); Urine Clarity Cloudy (Clear); Urine Urobilinogen Normal (Normal); Urine pH 6.5 (5.0 - 8.0)
[2018-01-22 00:40] LABS: Lactic Acid 1.8 mmol/L (0.4-2.0)
[2018-01-22 00:46] LABS: Bacteria 3+ /hpf (None Seen); Mucous, Urine 2+ /hpf (<or=2+); Red Blood Cells-Urine 5-10 SEEN /hpf (0-5); White Blood Cells 10-25 SEEN /hpf (0-5)
[2018-01-22] MEDS: HYDROmorphone 1 MG/ML Syringe IV (02:48)
--- NOTE | 2018-01-22 03:06 | PCM.HP.STD ---
Problem List (1) Hypothyroidism Status: Chronic (2) Depression Status: Chronic (3) HTN (hypertension) Status: Chronic (4) HLD (hyperlipidemia) Status: Chronic (5) Lumbosacral radiculopathy Status: Chronic (6) Disc disease, degenerative, lumbar or lumbosacral Status: Chronic (7) UTI (urinary tract infection) Status: Acute History of Present Illness Date of Admission: 01/22/18 Chief Complaint: Back Pain The patient is a 67 year old F with PMH as below who presents with a 2-day history of worsening low back pain and a 1 day history of significant nausea and vomiting. She has had previous back surgeries for her back pain and she has chronic pain however on Monday the pain began to worsen. She has chronic urinary incontinence so was unable to say that she had increasing urinary frequency, she denies any fecal incontinence or saddle anesthesia. No fevers, chills, lightheadedness, dizziness, chest pain, shortness of breath. In the ER she was found to have a urinary tract infection based on the UA with positive leukocytosis, WBC, urine bacteria, 0 squamous cells. She was given IV fluids and a dose of Rocephin in the ER, CT of the abdomen and pelvis was negative for any acute pathology, CT brain was negative, thoracic spine and lumbar spine x-rays were also negative for any acute pathology did demonstrate chronic disc disease. Past Medical History Past Medical History (Chronic Problems): Chronic Problems Lumbosacral radiculopathy (Chronic) Disc disease, degenerative, lumbar or lumbosacral (Chronic) Lumbosacral spondylosis (Chronic) Hypothyroidism (Chronic) Depression (Chronic) HTN (hypertension) (Chronic) HLD (hyperlipidemia) (Chronic) Primary osteoarthritis of left hip (Chronic) Allergies morphine Adverse Reaction (Verified 01/21/18 23:49) Itching tetracycline Adverse Reaction (Verified 01/21/18 23:49) Other SKIN DISCOLORATION Home Medications: Ambulatory Orders Medication Instructions Recorded Amitriptyline HCl [Elavil] 30 mg PO QHS 12/05/12 Aspirin [Aspirin, Baby] 81 mg PO DAILY@0800 12/05/12 Biofiber 750 mg PO BID 12/05/12 Ergocalciferol [Vitamin D] 50,000 unit PO Q7D 12/05/12 Fluoxetine [Prozac] 60 mg PO DAILY 12/05/12 Fluticasone 0.05% [Flonase Nasal 2 spray NASAL BID 12/05/12 [place]] Gabapentin [Neurontin] 800 mg PO TIDCM 12/05/12 Levothyroxine [Synthroid] 75 mcg PO DAILY 12/05/12 Multivitamins,Therapeutic 1 tablet PO DAILY 12/05/12 [Multivitamin] [place]-3 Fatty Acids/Fish Oil [Fish 1 each PO BID 12/05/12 Oil 1,000 mg Capsule] Polyethylene Glycol 3350 [Miralax] 17 gm PO DAILY 12/05/12 Vitamin C Rocio 1,000 mg PO DAILY 12/05/12 Chromium/Herbal Complex No.238 1 each PO DAILY 05/26/16 [Green Tea Caplet] Curcumin 500 mg PO DAILY 05/26/16 Dicyclomine HCl [Bentyl] 10 mg PO PRN PRN 05/26/16 Lactobacillus Combination No.4 1 each PO DAILY 05/26/16 [Probiotic] Lisinopril/Hydrochlorothiazide 1 tablet PO DAILY 05/26/16 [Zestoretic 11/24.5 Tablet] Ranitidine [Zantac] 300 mg PO BID 05/26/16 Celecoxib [Celebrex] 200 mg PO BID 01/16/17 Azelastine HCl [Astelin] 1 spray NASAL BID 06/19/17 Lovastatin [Mevacor] 40 mg PO QHS 06/19/17 Ipratropium [place] 0.06% 2 spray NASAL 4X/DAY PRN 08/14/17 [ATROVENT NASAL SPRAY (g)] Surgical History: arthroscopy, knee, hysterectomy CASE FOLDER History: ovarian cysts Lives: Spouse/ Significant Other Smoking Status: Former smoker Alcohol: None Drugs: None - *Family History Maternal History Items: Cancer Review of Systems Constitutional: Denies: Chills, Fever, Weight Change HEENT: Denies: Head Aches, Sinus Congestion, Sinus Drainage Cardiovascular: Denies: Chest Pain, Palpitations Respiratory: Denies: Cough, Shortness of breath at rest, Sputum production Gastrointestinal: Reports: Nausea, Vomiting. Denies: Abdominal Pain Genitourinary: Reports: Incontinence. Denies: Dysuria Musculoskeletal: Reports: Back Pain. Denies: Joint Pain, Joint Tenderness Skin: Denies: Rash, Wounds Neurological: Denies: Numbness, Tingling, Focal weakness Psychiatric: Denies: Anxiety, Depression Hematologic/ Lymphatic: Denies: Easy Bruising, Easy Bleeding VTE Information - Inpt Only VTE Present on Admission: No Patient Problems: Active and Suspected Problems UTI (urinary tract infection) (Acute) - Physical Exam General: Alert, Oriented x3, Cooperative, No apparent distress HEENT: Atraumatic, PERRLA, EOMI, Normocephalic Oral: Dry Mucosa Neck: Supple, No JVD Lungs: Clear to auscultation, Normal air movement, No rhonchi, No wheeze, No rales Cardiovascular: Regular rate, Regular Rhythm, Normal S1, Normal S2, No murmurs Abdomen: Soft, Non Tender, Non-Distended, No Hepato-splenomegaly, Obese, - - Right CVA tenderness Extremities: No edema, Capillary Refill Less than 3 Seconds Skin: No rashes, No breakdown Neurological: Neuro grossly intact, Sensory exam intact to light touch and pain Psych/Mental Status: Normal Affect, Appropriate Vital Signs Temp Pulse Resp BP Pulse Ox 99.1 F 83 16 148/69 H 96 01/21/18 23:45 01/22/18 03:02 01/22/18 03:02 01/22/18 03:02 01/22/18 03:02 Oxygen Delivery Method Room Air Weight: 279 lb 5.211 oz Body Mass Index (BMI) 45.1 Finger Stick Blood Glucose 119 Laboratory Tests Past 24 Hrs 01/21/18 01/21/18 01/21/18 23:54 23:54 23:54 WBC 11.3 H RBC 4.57 Hgb 13.6 Hct 41.1 MCV 89.9 MCH 29.8 MCHC 33.1 RDW 14.8 H RDW Differential 48.0 H Plt Count 253 MPV 11.1 Immature Gran % (Auto) 0.200 Neut % (Auto) 77.2 H Lymph % (Auto) 16.7 L [place] % (Auto) 5.7 Eos % (Auto) 0.0 Baso % (Auto) 0.2 Absolute Neuts (auto) 8.8 H Absolute Lymphs (auto) 1.89 Total Counted Not Reportable PT 13.7 INR 1.1 Sodium 141 Potassium 3.1 L Chloride 105 Carbon Dioxide 27.0 Anion Gap 9 BUN 31 H Creatinine 0.96 Estim Creat Clear Calc 53.23 Est GFR (MDRD) Af Amer 74 Est GFR (MDRD) Non-Af 61 BUN/Creatinine Ratio 32.2 H Glucose 129 H Lactic Acid Calcium 9.1 Total Bilirubin 0.40 Direct Bilirubin 0.17 AST 22 ALT 32 Alkaline Phosphatase 98 Troponin I < 0.015 Total Protein 7.4 Albumin 3.6 Globulin 3.8 Lipase 78 Urine Color Urine Clarity Urine pH Ur Specific [place] Urine Protein Urine Glucose (UA) Urine Ketones Urine Occult Blood Urine Nitrite Urine Bilirubin Urine Urobilinogen Ur Leukocyte Esterase Urine RBC Urine WBC Ur Squamous Epith Cells Urine Bacteria Urine Mucus 01/21/18 01/22/18 23:56 00:18 WBC RBC Hgb Hct MCV MCH MCHC RDW RDW Differential Plt Count MPV Immature Gran % (Auto) Neut % (Auto) Lymph % (Auto) [place] % (Auto) Eos % (Auto) Baso % (Auto) Absolute Neuts (auto) Absolute Lymphs (auto) Total Counted PT INR Sodium Potassium Chloride Carbon Dioxide Anion Gap BUN Creatinine Estim Creat Clear Calc Est GFR (MDRD) Af Amer Est GFR (MDRD) Non-Af BUN/Creatinine Ratio Glucose Lactic Acid 1.8 Calcium Total Bilirubin Direct Bilirubin AST ALT Alkaline Phosphatase Troponin I Total Protein Albumin Globulin Lipase Urine Color Yellow Urine Clarity Cloudy Urine pH 6.5 Ur Specific [place] 1.020 Urine Protein 30 H Urine Glucose (UA) Normal Urine Ketones 15 H Urine Occult Blood 250 H Urine Nitrite Negative Urine Bilirubin Negative Urine Urobilinogen Normal Ur Leukocyte Esterase 100 H Urine RBC 5-10 SEEN Urine WBC 10-25 SEEN Ur Squamous Epith Cells 0 SEEN Urine Bacteria 3+ Urine Mucus 2+ POC Glucose 01/21/18 23:50 POC Glucose 119 H Assessment/Plan All Active Problems UTI (urinary tract infection) (Acute) 1. Nausea and vomiting/UTI/Hypokalemia - IVF@150 - Ancef 2 gm TID - She is due to have knee surgery next week , which she should still be able to have with treatment of her UTI - Zofran - Will replace potassium and check mag and phos 2. Chronic low back pain - back pain could be worse d/t UTI - Will resume her home pain medications 3. Hypothyroidism - Stable - c/w home synthroid 4. HTN/HLD - Stable - Will c/w lisinopril, HCTZ, Lovastatin DVT: Heparin/SCDs Code Visit Inpatient E&M: 73285 Init Hosp L3
[2018-01-22] MEDS: Ceftriaxone 1 GM/50 ML BAG IV (03:08)
--- NOTE | 2018-01-22 04:45 | NURSING ---
Pt stated she was just in here for PAT testing so I obtained her home med list from that visit. The home med list lines up with the one that was entered by ER for this visit, but we really cannot verify these meds are correct since pt is not a good historian at this time. Will need to verify with when he comes in along with date of her flu vaccination.
[2018-01-22] MEDS: Cefazolin 2 GM in 0.9% Normal Saline 100 ML IV (05:22)
[2018-01-22] MEDS: Heparin Injection (Vial) 5,000 UNIT/ML VIAL 5000 UNIT SC ×3 (06:09→21:13)
[2018-01-22 06:10] LABS: Absolute Lymphocyte Count 2.19 X10^3/ul (0.83-4.51); Basophil# 0.02 X10^3/uL; Basophil% 0.2 % (0-1); Eosinophil# 0.01 X10^3/uL; Eosinophils% 0.1 % (0-5); Hematocrit 38.7 % (37-47); Hemoglobin 12.6 g/dl (12.0-15.0); Lymphocyte # 2.19 X10^3/ul (4.0); Mean Corp Hgb Conc 32.6 g/gl (32-36); Mean Corpuscular Hgb 29.9 pg (27.0-32.0); Mean Corpuscular Volume 91.7 fL (81-99); Mean Platelet Vol. 11.1 fl (6.2-12.0); Monocyte# 0.77 X10^3/uL; Neutrophil # 7.95 X10^3/uL (2.7-7.7); Neutrophil % 72.5 % (47-70); Platelet Count 225 K/mm3 (150-450); RBC Distribution Width CV 14.8 % (11.6-14.6); RBC Distribution Width SD 48.6 fl (35.1-43.9); Red Blood Count 4.22 M/mm3 (4.2-5.4)
[2018-01-22 06:14] LABS: POSITIVE COUNT NO; POSITIVE DIFFERENTIAL NO; POSITIVE MORPHOLOGY NO
[2018-01-22] MEDS: 0.9% Normal Saline 1,000 ML 150 ML IV (06:19)
--- NOTE | 2018-01-22 06:30 | NURSING ---
Dr. Price came up to check on pt. He feels that it is her UTI that is causing her slowness and does not feel that she is experiencing anything like a stroke. He wants us to continue to monitor her but is hoping the antibiotic will help.
[2018-01-22 06:35] LABS: Anion Gap 9 (5-15); BUN 31 mg/dL (7-18); BUN/Creat Ratio 33.7 RATIO (10-20); Calcium,Total 8.6 mg/dL (8.5-10.1); Chloride 107 mmol/L (98-107); Creatinine, Serum 0.92 mg/dL (0.55-1.02); EST Glomerular Filtration Rate 65 mL/min (>60); Est Glom Filt Rate - Afr Amer 78 mL/min (>60); Estimated Creatinine Clearance 55.55 ml/min; Glucose 108 mg/dL (74-106); Magnesium 2.2 mg/dL (1.6-2.6); Phosphorus 3.4 mg/dL (2.5-4.9); Potassium 3.3 mmol/L (3.5-5.1); Sodium Level 145 mmol/L (136-145)
--- NOTE | 2018-01-22 09:24 | NURSING ---
requested med list from dr. rosas's office.
--- NOTE | 2018-01-22 10:50 | CASEMGMT ---
RN JACKLYN Face to Face with patient for initial transition planning/care coordination assessment. RN CM introduced self and role at [facility]. Patient lying in bed, alert and oriented. Patient willing to participate in assessment and is able to answer all questions appropriately. Care providers, pharmacy, and demographics verified. Patient wishes to discharge home, denies need for home health at this time. Patient states she has no further needs or concerns at this time. CM to follow for discharge planning needs that may arise. PCP: Joseluis Specialists: edwin Tanner Pharmacy: Last Insurance: [facility] [facility] [place]: yes Living Will/HPOA: Yes, HPOA LNOK: Living Arrangements: Patient lives with in 1 story house. assists with care Transportation: DME/HHC: Patient has shower chair, cane, walker, rollator, WC, cpap at home. Disposition Plan: Patient to discharge home with family support and follow-up plans in place. Will monitor for need for HHC Deepti CORREA, LIT, CM
--- NOTE | 2018-01-22 11:01 | PCM.PN.HOSP ---
Patient Problems: Active and Suspected Problems UTI (urinary tract infection) (Acute) Back pain (Acute) Subjective: still with back pain. Vitals/I&O's: Vital Signs Temp Pulse Resp BP Pulse Ox 36.8 C 76 18 129/77 H 98 01/22/18 08:28 01/22/18 08:28 01/22/18 08:28 01/22/18 08:28 01/22/18 08:28 Oxygen Delivery Method Room Air Weight: 131.1 kg Body Mass Index (BMI) 46.4 Finger Stick Blood Glucose 119 Intake and Output for Last 24 Hours 01/20/18 01/21/18 01/22/18 23:59 23:59 23:59 Intake Total 600 / 600 Balance 600 / 600 General: Confused, - - somnolent. afebrile. HEENT: Atraumatic, Normocephalic Oral: Moist Mucosa, No Gingival or Mucosal Lesions/ Ulcerations Abdomen: Obese Musculoskeletal: - - exquisite paraspinal muscle tenderness--out of proportion to exam. Laboratory Results 01/21/18 23:50: POC Glucose 119 H 01/21/18 23:54: WBC 11.3 H, RBC 4.57, Hgb 13.6, Hct 41.1, MCV 89.9, MCH 29.8, MCHC 33.1, RDW 14.8 H, RDW Differential 48.0 H, Plt Count 253, MPV 11.1, Immature Gran % (Auto) 0.200, Neut % (Auto) 77.2 H, Lymph % (Auto) 16.7 L, Jay % (Auto) 5.7, Eos % (Auto) 0.0, Baso % (Auto) 0.2, Absolute Neuts (auto) 8.8 H, Absolute Lymphs (auto) 1.89, Total Counted Not Reportable 01/21/18 23:54: PT 13.7, INR 1.1 01/21/18 23:54: Sodium 141, Potassium 3.1 L, Chloride 105, Carbon Dioxide 27.0, Anion Gap 9, BUN 31 H, Creatinine 0.96, Estim Creat Clear Calc 53.23, Est GFR (MDRD) Af Amer 74, Est GFR (MDRD) Non-Af 61, BUN/Creatinine Ratio 32.2 H, Glucose 129 H, Calcium 9.1, Total Bilirubin 0.40, Direct Bilirubin 0.17, AST 22, ALT 32, Alkaline Phosphatase 98, Troponin I < 0.015, Total Protein 7.4, Albumin 3.6, Globulin 3.8, Lipase 78 01/21/18 23:56: Lactic Acid 1.8 01/22/18 00:18: Urine Color Yellow, Urine Clarity Cloudy, Urine pH 6.5, Ur Specific [place] 1.020, Urine Protein 30 H, Urine Glucose (UA) Normal, Urine Ketones 15 H, Urine Occult Blood 250 H, Urine Nitrite Negative, Urine Bilirubin Negative, Urine Urobilinogen Normal, Ur Leukocyte Esterase 100 H, Urine RBC 5-10 SEEN, Urine WBC 10-25 SEEN, Ur Squamous Epith Cells 0 SEEN, Urine Bacteria 3+, Urine Mucus 2+ 01/22/18 05:53: Sodium 145, Potassium 3.3 L, Chloride 107, Carbon Dioxide 29.0, Anion Gap 9, BUN 31 H, Creatinine 0.92, Estim Creat Clear Calc 55.55, Est GFR (MDRD) Af Amer 78, Est GFR (MDRD) Non-Af 65, BUN/Creatinine Ratio 33.7 H, Glucose 108 H, Calcium 8.6, Phosphorus 3.4, Magnesium 2.2 01/22/18 05:53: WBC 11.0, RBC 4.22, Hgb 12.6, Hct 38.7, MCV 91.7, MCH 29.9, MCHC 32.6, RDW 14.8 H, RDW Differential 48.6 H, Plt Count 225, MPV 11.1, Immature Gran % (Auto) 0.200, Neut % (Auto) 72.5 H, Lymph % (Auto) 20.0, Jay % (Auto) 7.0, Eos % (Auto) 0.1, Baso % (Auto) 0.2, Absolute Neuts (auto) 8.0 H, Absolute Lymphs (auto) 2.19, Total Counted Not Reportable Current Medications Heparin Sodium (Porcine) (Heparin Na) 5,000 unit SC Q8 [facility] Last Admin: 01/22/18 06:09 Dose: 5,000 unit Sodium Chloride () 1,000 mls @ 150 mls/hr IV .[id number] [facility] Last Admin: 01/22/18 06:19 Dose: 150 mls/hr Cefazolin Sodium 2 gm/ Sodium (Chloride) 110 mls @ 150 mls/hr IV Q8 [facility] Last Admin: 01/22/18 05:22 Dose: 150 mls/hr Magnesium Hydroxide (Milk Of Magnesia) 30 ml PO DAILY PRN PRN PRN Reason: Constipation Ondansetron HCl (Zofran) 4 mg IV Q8H PRN PRN PRN Reason: NAUSEA/VOMITING Sodium Chloride () 5 - 15 ml IV UD PRN PRN Reason: SALINE FLUSH Medical Necessity - Tobacco Use Smoking Status: Former smoker Assessment/Plan All Active Problems UTI (urinary tract infection) (Acute) Back pain (Acute) 1. acute back pain Patient has had intermittent back pain similar to this for several years. Patient had been seeing Dr. Rogers but was having no relief with injections so was referred to Dr. Tanner. Patient has had 2 facet injections, most recently this summer. Patient told that she was can have an ablation if that failed. I spoke with Dr. Hernandez and explained the patient's case. He did recommend an MRI but stated that the patient previously stated that she could not do an MRI due to the pain. I told her that given her pain situation as it is right now that there is no possible way that she would lie still for an MRI at this time and sugar since we do not have conscious sedation available at this facility at this time. I did suggest steroids stated that he would follow-up with her as outpatient. Will try to optimize pain control early with no narcotics given her confused state at this time. 2. Toxic encephalopathy Very difficult to get history out of patient has responses were very delayed and patient would perseverate on bring up certain issues. Patient's states that she is normally very alert and with it. Patient did receive some hydromorphone around 2 AM. Patient does not take narcotics on a routine basis at home and but the stated that she did take an oxycodone that did cause her to be confused while she was at home. Patient may be very hypersensitive to narcotics as it appears that she may be opiate na?ve. Explained to the patient's as the patient is confused that it is a matter of pain control and function and right now with her confusion, patient is not functional. 3. Possible urinary tract infection Urinalysis was unimpressive patient is a continent Will change patient over to oral Cipro and follow-up culture results 4. Debility Physical and occupational therapy evaluate and treat may need SNF baseline poor performance status. 5. DVT proph: SQ heparin. Code Visit Procedures: Other Procedure - See Report - Non-billable rounding.
--- NOTE | 2018-01-22 11:08 | PN_ITS ---
Patient Problems: Active and Suspected Problems UTI (urinary tract infection) (Acute) Back pain (Acute) Subjective: still with back pain. Vitals/I&O's: Vital Signs Temp Pulse Resp BP Pulse Ox 36.8 C 76 18 129/77 H 98 01/22/18 08:28 01/22/18 08:28 01/22/18 08:28 01/22/18 08:28 01/22/18 08:28 Oxygen Delivery Method Room Air Weight: 131.1 kg Body Mass Index (BMI) 46.4 Finger Stick Blood Glucose 119 Intake and Output for Last 24 Hours 01/20/18 01/21/18 01/22/18 23:59 23:59 23:59 Intake Total 600 / 600 Balance 600 / 600 General: Confused, - - somnolent. afebrile. HEENT: Atraumatic, Normocephalic Oral: Moist Mucosa, No Gingival or Mucosal Lesions/ Ulcerations Abdomen: Obese Musculoskeletal: - - exquisite paraspinal muscle tenderness--out of proportion to exam. Laboratory Results 01/21/18 23:50: POC Glucose 119 H 01/21/18 23:54: WBC 11.3 H, RBC 4.57, Hgb 13.6, Hct 41.1, MCV 89.9, MCH 29.8, MCHC 33.1, RDW 14.8 H, RDW Differential 48.0 H, Plt Count 253, MPV 11.1, Immature Gran % (Auto) 0.200, Neut % (Auto) 77.2 H, Lymph % (Auto) 16.7 L, Door % (Auto) 5.7, Eos % (Auto) 0.0, Baso % (Auto) 0.2, Absolute Neuts (auto) 8.8 H, Absolute Lymphs (auto) 1.89, Total Counted Not Reportable 01/21/18 23:54: PT 13.7, INR 1.1 01/21/18 23:54: Sodium 141, Potassium 3.1 L, Chloride 105, Carbon Dioxide 27.0, Anion Gap 9, BUN 31 H, Creatinine 0.96, Estim Creat Clear Calc 53.23, Est GFR (MDRD) Af Amer 74, Est GFR (MDRD) Non-Af 61, BUN/Creatinine Ratio 32.2 H, Glucose 129 H, Calcium 9.1, Total Bilirubin 0.40, Direct Bilirubin 0.17, AST 22, ALT 32, Alkaline Phosphatase 98, Troponin I < 0.015, Total Protein 7.4, Albumin 3.6, Globulin 3.8, Lipase 78 01/21/18 23:56: Lactic Acid 1.8 01/22/18 00:18: Urine Color Yellow, Urine Clarity Cloudy, Urine pH 6.5, Ur Specific [place] 1.020, Urine Protein 30 H, Urine Glucose (UA) Normal, Urine Ketones 15 H, Urine Occult Blood 250 H, Urine Nitrite Negative, Urine Bilirubin Negative, Urine Urobilinogen Normal, Ur Leukocyte Esterase 100 H, Urine RBC 5-10 SEEN, Urine WBC 10-25 SEEN, Ur Squamous Epith Cells 0 SEEN, Urine Bacteria 3+, Urine Mucus 2+ 01/22/18 05:53: Sodium 145, Potassium 3.3 L, Chloride 107, Carbon Dioxide 29.0, Anion Gap 9, BUN 31 H, Creatinine 0.92, Estim Creat Clear Calc 55.55, Est GFR (MDRD) Af Amer 78, Est GFR (MDRD) Non-Af 65, BUN/Creatinine Ratio 33.7 H, Glucose 108 H, Calcium 8.6, Phosphorus 3.4, Magnesium 2.2 01/22/18 05:53: WBC 11.0, RBC 4.22, Hgb 12.6, Hct 38.7, MCV 91.7, MCH 29.9, MCHC 32.6, RDW 14.8 H, RDW Differential 48.6 H, Plt Count 225, MPV 11.1, Immature Gran % (Auto) 0.200, Neut % (Auto) 72.5 H, Lymph % (Auto) 20.0, Door % (Auto) 7.0, Eos % (Auto) 0.1, Baso % (Auto) 0.2, Absolute Neuts (auto) 8.0 H, Absolute Lymphs (auto) 2.19, Total Counted Not Reportable Current Medications Heparin Sodium (Porcine) (Heparin Na) 5,000 unit SC Q8 [facility] Last Admin: 01/22/18 06:09 Dose: 5,000 unit Sodium Chloride () 1,000 mls @ 150 mls/hr IV .[id number] [facility] Last Admin: 01/22/18 06:19 Dose: 150 mls/hr Cefazolin Sodium 2 gm/ Sodium (Chloride) 110 mls @ 150 mls/hr IV Q8 [facility] Last Admin: 01/22/18 05:22 Dose: 150 mls/hr Magnesium Hydroxide (Milk Of Magnesia) 30 ml PO DAILY PRN PRN PRN Reason: Constipation Ondansetron HCl (Zofran) 4 mg IV Q8H PRN PRN PRN Reason: NAUSEA/VOMITING Sodium Chloride () 5 - 15 ml IV UD PRN PRN Reason: SALINE FLUSH Medical Necessity - Tobacco Use Smoking Status: Former smoker Assessment/Plan All Active Problems UTI (urinary tract infection) (Acute) Back pain (Acute) 1. acute back pain * Patient has had intermittent back pain similar to this for several years. * Patient had been seeing Dr. Rogers but was having no relief with injections so was referred to Dr. Tanner. Patient has had 2 facet injections, most recently this summer. Patient told that she was can have an ablation if that failed. * I spoke with Dr. Hernandez and explained the patient's case. He did recommend an MRI but stated that the patient previously stated that she could not do an MRI due to the pain. I told her that given her pain situation as it is right now that there is no possible way that she would lie still for an MRI at this time and sugar since we do not have conscious sedation available at this facility at this time. I did suggest steroids stated that he would follow-up with her as outpatient. * Will try to optimize pain control early with no narcotics given her confused state at this time. 2. Toxic encephalopathy * Very difficult to get history out of patient has responses were very delayed and patient would perseverate on bring up certain issues. Patient's states that she is normally very alert and with it. Patient did receive some hydromorphone around 2 AM. * Patient does not take narcotics on a routine basis at home and but the stated that she did take an oxycodone that did cause her to be confused while she was at home. Patient may be very hypersensitive to narcotics as it appears that she may be opiate na?ve. * Explained to the patient's as the patient is confused that it is a matter of pain control and function and right now with her confusion, patient is not functional. 3. Possible urinary tract infection * Urinalysis was unimpressive patient is a continent * Will change patient over to oral Cipro and follow-up culture results 4. Debility * Physical and occupational therapy evaluate and treat * may need SNF * baseline poor performance status. 5. DVT proph: SQ heparin. Code Visit Procedures: Other Procedure - See Report - Non-billable rounding.
[2018-01-22] MEDS: predniSONE 20 MG Tablet 60 MG PO (11:52)
[2018-01-22] MEDS: Lidocaine 5% Patch 1 PATCH TOPICAL (11:52)
[2018-01-22] MEDS: Gabapentin 800 MG Tablet PO ×2 (11:52→17:05)
[2018-01-22] MEDS: Acetaminophen 500 MG Tablet 1000 MG PO ×2 (14:10→21:13)
[2018-01-22] MEDS: Ciprofloxacin 500 MG Tablet PO ×2 (14:11→21:14)
[2018-01-22] MEDS: Amitriptyline 10 MG Tablet 30 MG PO (21:14)
[2018-01-22] MEDS: Famotidine 20 MG Tablet 40 MG PO (21:14)
[2018-01-22] MEDS: Atorvastatin Calcium 10 MG Tablet PO (21:14)
[2018-01-22] MEDS: Celecoxib 200 MG Capsule PO (21:15)
[2018-01-22] MEDS: Azelastine HCl NASAL.SRY 1 SPRAY NASAL (21:16)
[2018-01-22] MEDS: Fluticasone 0.05% 1 SPRAY NASAL.SRY NASAL (21:26)
[2018-01-23 03:00] VITALS: BP 116/57; PULSE 60; RESP 16; TEMP 37; O2SAT 94
[2018-01-23] MEDS: Levothyroxine 75 MCG Tablet PO (06:10)
[2018-01-23] MEDS: Heparin Injection (Vial) 5,000 UNIT/ML VIAL 5000 UNIT SC (06:10)
[2018-01-23] MEDS: Acetaminophen 500 MG Tablet 1000 MG PO (06:10)
[2018-01-23 09:00] VITALS: BP 131/75; PULSE 72; RESP 18; TEMP 36.7; O2SAT 100
--- NOTE | 2018-01-23 09:47 | NURSING ---
BREAKFAST DIET ORDERED FOR PT THAT HAS RECEIVED NONE-
[2018-01-23] MEDS: Aspirin 81 MG TAB.CHEW PO (10:04)
[2018-01-23] MEDS: predniSONE 20 MG Tablet 40 MG PO (10:05)
[2018-01-23] MEDS: Gabapentin 800 MG Tablet PO (10:05)
[2018-01-23] MEDS: Ciprofloxacin 500 MG Tablet PO (10:06)
[2018-01-23] MEDS: Famotidine 20 MG Tablet 40 MG PO (10:06)
[2018-01-23] MEDS: hydroCHLOROthiazide 12.5mg 12.5 MG PO (10:06)
[2018-01-23] MEDS: Celecoxib 200 MG Capsule PO (10:06)
[2018-01-23] MEDS: Lidocaine 5% Patch 1 PATCH TOPICAL (10:07)
[2018-01-23] MEDS: Azelastine HCl NASAL.SRY 1 SPRAY NASAL (10:07)
[2018-01-23] MEDS: Fluticasone 0.05% 1 SPRAY NASAL.SRY NASAL (10:08)
[2018-01-23] MEDS: Lisinopril 10 MG Tablet PO (10:09)
[2018-01-23] MEDS: FLUoxetine 20 MG Capsule 60 MG PO (10:10)
--- NOTE | 2018-01-23 10:17 | DCINST_ITS ---
- Discharge Diagnoses Current Active Problems: Current Active and Chronic Problems Back pain (Acute) Hypothyroidism (Chronic) Depression (Chronic) HTN (hypertension) (Chronic) HLD (hyperlipidemia) (Chronic) UTI (urinary tract infection) (Acute) You will use the following diet at home:: No restrictions Your food should be the consistency of: Regular Your liquids should be the consistency of: Regular/Thin Discharge Activity: Return to Normal Activity, May not drive while taking narcotic pain medications., - - activity as tolerated Call your doctor if you observe: Uncontrolled pain - increased back pain. Allergies/Adverse Reactions: Allergies morphine Adverse Reaction (Verified 01/21/18 23:49) Itching tetracycline Adverse Reaction (Verified 01/21/18 23:49) Other SKIN DISCOLORATION Medications to take at Discharge Amitriptyline HCl [Elavil] 30 mg PO QHS 12/05/12 Aspirin [Aspirin, Baby] 81 mg PO DAILY@0800 12/05/12 Biofiber 750 mg PO BID 12/05/12 Ergocalciferol [Vitamin D] 50,000 unit PO Q7D 12/05/12 Fluoxetine [Prozac] 60 mg PO DAILY 12/05/12 Fluticasone 0.05% [Flonase Nasal [place]] 1 spray NASAL BID 12/05/12 Gabapentin [Neurontin] 800 mg PO TIDCM 12/05/12 Levothyroxine [Synthroid] 75 mcg PO DAILY 12/05/12 Multivitamins,Therapeutic [Multivitamin] 1 tablet PO DAILY 12/05/12 [place]-3 Fatty Acids/Fish Oil [Fish Oil 1,000 mg Capsule] 1 each PO BID 12/05/12 Polyethylene Glycol 3350 [Miralax] 17 gm PO DAILY 12/05/12 Vitamin C Rocio 1,000 mg PO DAILY 12/05/12 Chromium/Herbal Complex No.238 [Green Tea Caplet] 500 mg PO DAILY 05/26/16 Curcumin 500 mg PO DAILY 05/26/16 Dicyclomine HCl [Bentyl] 10 mg PO PRN PRN 05/26/16 Lactobacillus Combination No.4 [Probiotic] 1 each PO DAILY 05/26/16 Lisinopril/Hydrochlorothiazide [Zestoretic 11/24.5 Tablet] 1 tablet PO DAILY 05/26/16 Ranitidine [Zantac] 300 mg PO BID 04/13/17 Celecoxib [Celebrex] 200 mg PO BID 01/16/17 Azelastine HCl [Astelin] 1 spray NASAL BID 06/19/17 Lovastatin [Mevacor] 40 mg PO QHS 06/19/17 Ipratropium [place] 0.06% [ATROVENT NASAL SPRAY] 2 spray NASAL 4X/DAY PRN 08/14/17 Baclofen [Lioresal] 10 mg PO TID PRN PRN 01/22/18 Econazole [Spectazole] 1 applic TOPICAL DAILY 01/22/18 Ciprofloxacin [Cipro] 500 mg PO BID #10 tablet 01/23/18 predniSONE tablet 2 tab PO DAILY@0800 #6 tablet 01/23/18 The following prescriptions were given: predniSONE tablet 2 tab PO DAILY@0800 #6 tablet Ciprofloxacin [Cipro] 500 mg PO BID #10 tablet Orders to be completed after discharge: Physical Therapy Evaluation Time Frame: 1 Week, Location: None Selected Primary Care Physician: Josep Huggins DO [Primary Care Provider] - Within 2 Weeks Test Results: Test results from this visit will be discussed in further detail at your follow- up appointment, if applicable. Please Follow Up With: Pete Méndez DO - Left knee replacement When: 01/29/18 Please Follow Up With: Teo Tanner - pain management. When: 1-2 weeks. Proposed Discharge Date: 01/23/18
--- NOTE | 2018-01-23 10:18 | PCM.DC.SUM ---
Discharge Date and Diagnosis - Problem List Patient Problems: Active and Suspected Problems Back pain (Acute) UTI (urinary tract infection) (Acute) Date of Admission: 01/22/18 Date of Discharge: 01/23/18 - Primary Discharge Diagnosis Active and Suspected Problems Back pain (Acute) UTI (urinary tract infection) (Acute) - Secondary Discharge Diagnosis Chronic Problems Lumbosacral radiculopathy (Chronic) Disc disease, degenerative, lumbar or lumbosacral (Chronic) Lumbosacral spondylosis (Chronic) Hypothyroidism (Chronic) Depression (Chronic) HTN (hypertension) (Chronic) HLD (hyperlipidemia) (Chronic) Primary osteoarthritis of left hip (Chronic) Hospital Course and Treatment Imaging Results: Clinical Impression(s) from Imaging Studies Brain CT 01/21/18 23:50 IMPRESSION: 1. No hemorrhage or acute disease identified. 2. Mild cerebral cortical atrophy. 3. Exam partly limited from patient motion. 4. If symptoms persist and remain unexplained, suggest follow-up CT or MRI exam. Individualized dose optimization techniques were used for this CT. at 0216 Reported and signed by: Philip Bill MD Electronically Signed: Philip Bill, at 2:14 EST Tel , Service support , Chest X-Ray 01/21/18 23:50 Abdomen/Pelvis CT 01/21/18 23:51 IMPRESSION: 1. Constipation pattern. No acute disease seen. 2. Chronic findings include small hiatal hernia, bilateral renal cysts, and diverticulosis coli. 3. Postsurgical changes. Details above. Individualized dose optimization techniques were used for this CT. at 0923 Reported and signed by: Philip Bill MD Electronically Signed: Philip Bill, at 2:34 EST Tel , Service support , Lumbar Spine X-Ray 01/22/18 00:35 IMPRESSION: 1. Multilevel degenerative changes, greatest at the L2-3 level. 2. Facet joint arthritis with mild anterolisthesis of L4 on L5. 3. Right total hip prosthesis. at 0134 Reported and signed by: Philip Bill MD Electronically Signed: Philip Bill, at 1:32 EST Tel , Service support , Thoracic Spine X-Ray 01/22/18 00:35 IMPRESSION: 1. No fracture or acute disease. 2. Degenerative disc disease and spondylosis of the mid and lower dorsal spine. at 0128 Reported and signed by: Philip Bill MD Electronically Signed: Philip Bill, at 1:26 EST Tel , Service support , Operations: None Procedures: None Summary of Care Provided: The patient is a 67 year old F presents with back pain. Patient had issues with his back pain before but was having exacerbation of this. Patient received hydromorphone and then be came somnolent with that. Patient received no further hydromorphone and mental status improved but also her back pain improved. Did discuss case with Dr. Tanner, pain management, who is in agreement with prednisone and said that he would have follow-up the patient as outpatient. Additionally, patient did have possible urinary tract infection that showed E. coli. Patient will continue with ciprofloxacin. Patient does have a left knee replacement scheduled for January 29. Patient will be completed on antibiotics and steroids by then and would see no reason to hold surgery. 1. acute back pain improved Patient has had intermittent back pain similar to this for several years. Patient had been seeing Dr. Rogers but was having no relief with injections so was referred to Dr. Tanner. Patient has had 2 facet injections, most recently this summer. Patient told that she was can have an ablation if that failed. I spoke with Dr. Hernandez and explained the patient's case. He did recommend an MRI but stated that the patient previously stated that she could not do an MRI due to the pain. I told her that given her pain situation as it is right now that there is no possible way that she would lie still for an MRI at this time and sugar since we do not have conscious sedation available at this facility at this time. I did suggest steroids stated that he would follow-up with her as outpatient. follow up with Dr. Tanner 2. Toxic encephalopathy resolved Patient does not take narcotics on a routine basis at home and but the stated that she did take an oxycodone that did cause her to be confused while she was at home. Patient may be very hypersensitive to narcotics as it appears that she may be opiate na?ve. 3. Possible urinary tract infection Urinalysis was unimpressive patient is a continent +E.coli, sensitivities pending. Cipro 4. Debility Physical and occupational therapy evaluate and treat pt declines [facility], prefers outpt PT.. [] Patient Problems: Active and Suspected Problems Back pain (Acute) UTI (urinary tract infection) (Acute) Subjective: feeling much better. - Physical Exam General: Alert HEENT: Atraumatic, Normocephalic Musculoskeletal: - - no paraspinal muscle tenderness. Neurological: Neuro grossly intact, Motor Exam 5/5 strength throughout Vital Signs Temp Pulse Resp BP Pulse Ox 36.7 C 72 18 131/75 H 100 01/23/18 09:00 01/23/18 09:00 01/23/18 09:00 01/23/18 09:00 01/23/18 09:00 Oxygen Delivery Method Room Air Weight: 131.1 kg Body Mass Index (BMI) 46.4 Finger Stick Blood Glucose 119 Intake and Output for Last 24 Hours 01/21/18 01/22/18 01/23/18 23:59 23:59 23:59 Intake Total 2639 / 2639 1300 / 1300 Output Total 450 / 450 200 / 200 Balance 2189 / 2189 1100 / 1100 Microbiology Past 72 Hours 01/22/18 00:18 Urine Culture - Preliminary Urine Catheter - [place] Presumptive E. coli Discharge Diet: No Restrictions Discharge Activity: Return to Normal Activity, May not drive while taking narcotic pain medications., - - activity as tolerated Call your doctor if you observe: Uncontrolled pain - increased back pain. Home Medications: Medications to take at Discharge Amitriptyline HCl [Elavil] 30 mg PO QHS 12/05/12 Aspirin [Aspirin, Baby] 81 mg PO DAILY@0800 12/05/12 Biofiber 750 mg PO BID 12/05/12 Ergocalciferol [Vitamin D] 50,000 unit PO Q7D 12/05/12 Fluoxetine [Prozac] 60 mg PO DAILY 12/05/12 Fluticasone 0.05% [Flonase Nasal [place]] 1 spray NASAL BID 12/05/12 Gabapentin [Neurontin] 800 mg PO TIDCM 12/05/12 Levothyroxine [Synthroid] 75 mcg PO DAILY 12/05/12 Multivitamins,Therapeutic [Multivitamin] 1 tablet PO DAILY 12/05/12 [place]-3 Fatty Acids/Fish Oil [Fish Oil 1,000 mg Capsule] 1 each PO BID 12/05/12 Polyethylene Glycol 3350 [Miralax] 17 gm PO DAILY 12/05/12 Vitamin C Rocio 1,000 mg PO DAILY 12/05/12 Chromium/Herbal Complex No.238 [Green Tea Caplet] 500 mg PO DAILY 05/26/16 Curcumin 500 mg PO DAILY 05/26/16 Dicyclomine HCl [Bentyl] 10 mg PO PRN PRN 05/26/16 Lactobacillus Combination No.4 [Probiotic] 1 each PO DAILY 05/26/16 Lisinopril/Hydrochlorothiazide [Zestoretic 11/24.5 Tablet] 1 tablet PO DAILY 05/26/16 Ranitidine [Zantac] 300 mg PO BID 05/26/16 Celecoxib [Celebrex] 200 mg PO BID 01/16/17 Azelastine HCl [Astelin] 1 spray NASAL BID 06/19/17 Lovastatin [Mevacor] 40 mg PO QHS 06/19/17 Ipratropium [place] 0.06% [ATROVENT NASAL SPRAY] 2 spray NASAL 4X/DAY PRN 08/14/17 Baclofen [Lioresal] 10 mg PO TID PRN PRN 01/22/18 Econazole [Spectazole] 1 applic TOPICAL DAILY 01/22/18 Ciprofloxacin [Cipro] 500 mg PO BID #10 tablet 01/23/18 predniSONE tablet 2 tab PO DAILY@0800 #6 tablet 01/23/18 Following Prescrptions Were Given to Patient: predniSONE tablet 2 tab PO DAILY@0800 #6 tablet Ciprofloxacin [Cipro] 500 mg PO BID #10 tablet Other Amb Orders: Physical Therapy Evaluation Time Frame: 1 Week, Location: None Selected Primary Care Physician: Josep Huggins DO [Primary Care Provider] - Within 2 Weeks Please Follow Up With: Pete Méndez DO - Left knee replacement When: 01/29/18 Please Follow Up With: Teo Tanner - pain management. When: 1-2 weeks. Disposition: Home Minutes spent on discharge:: 32 Patient Condition:: Good Medical Necessity - Tobacco Use Smoking Status: Former smoker Meaningful Use Info Meaningful Use Diagnoses (Choose all that apply): None applicable Code Visit OBSV E&M: 67286 Observation care discharge
--- NOTE | 2018-01-23 10:23 | DS.PCM_ITS ---
Discharge Date and Diagnosis - Problem List Patient Problems: Active and Suspected Problems Back pain (Acute) UTI (urinary tract infection) (Acute) Date of Admission: 01/22/18 Date of Discharge: 01/23/18 - Primary Discharge Diagnosis Active and Suspected Problems Back pain (Acute) UTI (urinary tract infection) (Acute) - Secondary Discharge Diagnosis Chronic Problems Lumbosacral radiculopathy (Chronic) Disc disease, degenerative, lumbar or lumbosacral (Chronic) Lumbosacral spondylosis (Chronic) Hypothyroidism (Chronic) Depression (Chronic) HTN (hypertension) (Chronic) HLD (hyperlipidemia) (Chronic) Primary osteoarthritis of left hip (Chronic) Hospital Course and Treatment Imaging Results: Clinical Impression(s) from Imaging Studies Brain CT 01/21/18 23:50 IMPRESSION: 1. No hemorrhage or acute disease identified. 2. Mild cerebral cortical atrophy. 3. Exam partly limited from patient motion. 4. If symptoms persist and remain unexplained, suggest follow-up CT or MRI exam. Individualized dose optimization techniques were used for this CT. at 0216 Reported and signed by: Philip Bill MD Electronically Signed: Philip Bill, at 2:14 EST Tel , Service support , Chest X-Ray 01/21/18 23:50 Abdomen/Pelvis CT 01/21/18 23:51 IMPRESSION: 1. Constipation pattern. No acute disease seen. 2. Chronic findings include small hiatal hernia, bilateral renal cysts, and diverticulosis coli. 3. Postsurgical changes. Details above. Individualized dose optimization techniques were used for this CT. at 0923 Reported and signed by: Philip Bill MD Electronically Signed: Philip Bill, at 2:34 EST Tel , Service support , Lumbar Spine X-Ray 01/22/18 00:35 IMPRESSION: 1. Multilevel degenerative changes, greatest at the L2-3 level. 2. Facet joint arthritis with mild anterolisthesis of L4 on L5. 3. Right total hip prosthesis. at 0134 Reported and signed by: Philip Bill MD Electronically Signed: Philip Bill, at 1:32 EST Tel , Service support , Thoracic Spine X-Ray 01/22/18 00:35 IMPRESSION: 1. No fracture or acute disease. 2. Degenerative disc disease and spondylosis of the mid and lower dorsal spine. at 0128 Reported and signed by: Philip Bill MD Electronically Signed: Philip Bill, at 1:26 EST Tel , Service support , Operations: None Procedures: None Summary of Care Provided: The patient is a 67 year old F presents with back pain. Patient had issues with his back pain before but was having exacerbation of this. Patient received hydromorphone and then be came somnolent with that. Patient received no further hydromorphone and mental status improved but also her back pain improved. Did discuss case with Dr. Tanner, pain management, who is in agreement with prednisone and said that he would have follow-up the patient as outpatient. Additionally, patient did have possible urinary tract infection that showed E. coli. Patient will continue with ciprofloxacin. Patient does have a left knee replacement scheduled for January 29. Patient will be completed on antibiotics and steroids by then and would see no reason to hold surgery. 1. acute back pain * improved * Patient has had intermittent back pain similar to this for several years. * Patient had been seeing Dr. Rogers but was having no relief with injections so was referred to Dr. Tanner. Patient has had 2 facet injections, most recently this summer. Patient told that she was can have an ablation if that failed. * I spoke with Dr. Hernandez and explained the patient's case. He did recommend an MRI but stated that the patient previously stated that she could not do an MRI due to the pain. I told her that given her pain situation as it is right now that there is no possible way that she would lie still for an MRI at this time and sugar since we do not have conscious sedation available at this facility at this time. I did suggest steroids stated that he would follow-up with her as outpatient. * follow up with Dr. Tanner 2. Toxic encephalopathy * resolved * Patient does not take narcotics on a routine basis at home and but the stated that she did take an oxycodone that did cause her to be confused while she was at home. Patient may be very hypersensitive to narcotics as it appears that she may be opiate na?ve. 3. Possible urinary tract infection * Urinalysis was unimpressive patient is a continent * +E.coli, sensitivities pending. * Cipro 4. Debility * Physical and occupational therapy evaluate and treat * pt declines C, prefers outpt PT.. [] Patient Problems: Active and Suspected Problems Back pain (Acute) UTI (urinary tract infection) (Acute) Subjective: feeling much better. - Physical Exam General: Alert HEENT: Atraumatic, Normocephalic Musculoskeletal: - - no paraspinal muscle tenderness. Neurological: Neuro grossly intact, Motor Exam 5/5 strength throughout Vital Signs Temp Pulse Resp BP Pulse Ox 36.7 C 72 18 131/75 H 100 01/23/18 09:00 01/23/18 09:00 01/23/18 09:00 01/23/18 09:00 01/23/18 09:00 Oxygen Delivery Method Room Air Weight: 131.1 kg Body Mass Index (BMI) 46.4 Finger Stick Blood Glucose 119 Intake and Output for Last 24 Hours 01/21/18 01/22/18 01/23/18 23:59 23:59 23:59 Intake Total 2639 / 2639 1300 / 1300 Output Total 450 / 450 200 / 200 Balance 2189 / 2189 1100 / 1100 Microbiology Past 72 Hours 01/22/18 00:18 Urine Culture - Preliminary Urine Catheter - Wiley Presumptive E. coli Discharge Diet: No Restrictions Discharge Activity: Return to Normal Activity, May not drive while taking narcotic pain medications., - - activity as tolerated Call your doctor if you observe: Uncontrolled pain - increased back pain. Home Medications: Medications to take at Discharge Amitriptyline HCl [Elavil] 30 mg PO QHS 12/05/12 Aspirin [Aspirin, Baby] 81 mg PO DAILY@0800 12/05/12 Biofiber 750 mg PO BID 12/05/12 Ergocalciferol [Vitamin D] 50,000 unit PO Q7D 12/05/12 Fluoxetine [Prozac] 60 mg PO DAILY 12/05/12 Fluticasone 0.05% [Flonase Nasal [place]] 1 spray NASAL BID 12/05/12 Gabapentin [Neurontin] 800 mg PO TIDCM 12/05/12 Levothyroxine [Synthroid] 75 mcg PO DAILY 12/05/12 Multivitamins,Therapeutic [Multivitamin] 1 tablet PO DAILY 12/05/12 [place]-3 Fatty Acids/Fish Oil [Fish Oil 1,000 mg Capsule] 1 each PO BID 12/05/12 Polyethylene Glycol 3350 [Miralax] 17 gm PO DAILY 12/05/12 Vitamin C Roc[place] 1,000 mg PO DAILY 12/05/12 Chromium/Herbal Complex No.238 [Green Tea Caplet] 500 mg PO DAILY 05/26/16 Curcumin 500 mg PO DAILY 05/26/16 Dicyclomine HCl [Bentyl] 10 mg PO PRN PRN 05/26/16 Lactobacillus Combination No.4 [Probiotic] 1 each PO DAILY 05/26/16 Lisinopril/Hydrochlorothiazide [Zestoretic 11/24.5 Tablet] 1 tablet PO DAILY 05/26/16 Ranitidine [Zantac] 300 mg PO BID 05/26/16 Celecoxib [Celebrex] 200 mg PO BID 01/16/17 Azelastine HCl [Astelin] 1 spray NASAL BID 06/19/17 Lovastatin [Mevacor] 40 mg PO QHS 06/19/17 Ipratropium [place] 0.06% [ATROVENT NASAL SPRAY] 2 spray NASAL 4X/DAY PRN 08/14/17 Baclofen [Lioresal] 10 mg PO TID PRN PRN 01/22/18 Econazole [Spectazole] 1 applic TOPICAL DAILY 01/22/18 Ciprofloxacin [Cipro] 500 mg PO BID #10 tablet 01/23/18 predniSONE tablet 2 tab PO DAILY@0800 #6 tablet 01/23/18 Following Prescrptions Were Given to Patient: predniSONE tablet 2 tab PO DAILY@0800 #6 tablet Ciprofloxacin [Cipro] 500 mg PO BID #10 tablet Other Amb Orders: Physical Therapy Evaluation Time Frame: 1 Week, Location: None Selected Primary Care Physician: Josep Huggins DO [Primary Care Provider] - Within 2 Weeks Please Follow Up With: Pete Méndez DO - Left knee replacement When: 01/29/18 Please Follow Up With: Teo Tanner - pain management. When: 1-2 weeks. Disposition: Home Minutes spent on discharge:: 32 Patient Condition:: Good Medical Necessity - Tobacco Use Smoking Status: Former smoker Meaningful Use Info Meaningful Use Diagnoses (Choose all that apply): None applicable Code Visit OBSV E&M: 70652 Observation care discharge
== END 2018-01-23 16:00 | disposition home or self-care (01) | DRG 551 ==
LOC: ED 01-22 03:28 → MS3 01-22 03:35
PROVIDERS: Admitting Provider Family Medicine; Emergency Provider Emergency Medicine; Family Provider Student in an Organized Health Care Education/Training Program; PCP Student in an Organized Health Care Education/Training Program; Referring Provider Family Medicine
DX: M54.9 Dorsalgia, unspecified (principal); G92 Toxic encephalopathy; N39.0 Urinary tract infection, site not specified; Z68.42 Body mass index [BMI] 45.0-49.9, adult; M51.17 Intervertebral disc disorders with radiculopathy, lumbosacral region; G89.29 Other chronic pain; E03.9 Hypothyroidism, unspecified; E87.6 Hypokalemia; I10 Essential (primary) hypertension; E78.5 Hyperlipidemia, unspecified; Z79.899 Other long term (current) drug therapy; M47.27 Other spondylosis with radiculopathy, lumbosacral region; F32.9 Major depressive disorder, single episode, unspecified; R53.81 Other malaise; T40.2X5A Adverse effect of other opioids, initial encounter; Z87.891 Personal history of nicotine dependence; B96.20 Unspecified Escherichia coli [E. coli] as the cause of diseases classified elsewhere; E66.9 Obesity, unspecified
CPT/HCPCS: 36415; 70450; 71045; 72072; 72100; 74176; 80048; 80076; 81001; 82962; 83605; 83690; 83735; 84100; 84484; 85025; 85610; 87086; 87088; 87186; 93005; 97161; 97165; 97530; 99285; J7030; A4216; J2405

== ENCOUNTER 2018-02-09 17:11 | Observation (INO) | payer MEDICARE, OTHER, SELFPAY ==
[2018-01-22 04:00] VITALS: BMI 46.4
[2018-02-09] VITALS (7 sets, daily range): BP systolic 130–160; BP diastolic 67–86; PULSE 74–84; RESP 13–22; TEMP 36.6–36.9; O2SAT 95–99; BMI 50.6; BMI 49.2
[2018-02-09 18:13] LABS: Anion Gap 7 (5-15); BUN 17 mg/dL (7-18); BUN/Creat Ratio 17.6 RATIO (10-20); Calcium,Total 9.4 mg/dL (8.5-10.1); Chloride 107 mmol/L (98-107); Creatinine, Serum 0.97 mg/dL (0.55-1.02); EST Glomerular Filtration Rate 61 mL/min (>60); Est Glom Filt Rate - Afr Amer 74 mL/min (>60); Glucose 90 mg/dL (74-106); Potassium 3.6 mmol/L (3.5-5.1); Sodium Level 142 mmol/L (136-145)
[2018-02-09] MEDS: MethylPREDNISolone 125 MG/2 ML Vial IV (18:14)
[2018-02-09] MEDS: 0.9% Normal Saline 1,000 ML 150 ML IV (18:14)
[2018-02-09 18:31] LABS: Bacteria 0 SEEN /hpf (None Seen); Mucous, Urine 0 SEEN /hpf (<or=2+); Red Blood Cells-Urine 0 SEEN /hpf (0-5)
[2018-02-09 18:49] LABS: Color, Urine Yellow (Yellow); Glucose, Dipstick Normal (Normal); Ketone-Dipstick Negative (Negative); Leukocyte Esterase-Dipstick 25 /ul (Negative); Nitrite-Dipstick Negative (Negative); Occult Blood-Urine Negative /ul (Negative); Protein-Dipstick Negative (Negative); Urine Bilirubin Dipstick Negative (Negative); Urine Clarity Sl. Cloudy (Clear); Urine Urobilinogen Normal (Normal)
[2018-02-09 18:55] LABS: Squamous Epithelial Cells - UA 0-5 SEEN /hpf (5-10); White Blood Cells 0-5 SEEN /hpf (0-5)
[2018-02-09 18:55] LABS: Absolute Neutrophil Count 5.1 X10^3/uL (2.0-7.7); Basophil# 0.04 X10^3/uL; Basophil% 0.5 % (0-1); Eosinophil# 0.18 X10^3/uL; Eosinophils% 2.3 % (0-5); Hematocrit 43.3 % (37-47); Hemoglobin 14.1 g/dl (12.0-15.0); Lymphocyte % 24.5 % (19-41); Mean Corp Hgb Conc 32.6 g/gl (32-36); Mean Corpuscular Hgb 29.4 pg (27.0-32.0); Mean Corpuscular Volume 90.4 fL (81-99); Mean Platelet Vol. 10.4 fl (6.2-12.0); Monocyte# 0.48 X10^3/uL; Monocyte% 6.2 % (0-10); Neutrophil # 5.13 X10^3/uL (2.7-7.7); Neutrophil % 66.4 % (47-70); Platelet Count 231 K/mm3 (150-450); RBC Distribution Width CV 14.2 % (11.6-14.6); RBC Distribution Width SD 46.8 fl (35.1-43.9); Red Blood Count 4.79 M/mm3 (4.2-5.4); White Blood Count 7.7 K/mm3 (4.4-11.0)
[2018-02-09 18:58] LABS: POSITIVE COUNT NO; POSITIVE DIFFERENTIAL NO; POSITIVE MORPHOLOGY NO
--- NOTE | 2018-02-09 19:30 | CT_ITS ---
STUDY: CT BRAIN WITHOUT CONTRAST REASON FOR EXAM: Female, 67 years old. Headache. Dizziness. RADIATION DOSAGE (If Supplied By Facility): CTDIvol = ( 44.99 ) mGy, DLP = ( 779.24 ) mGycm TECHNIQUE: Transaxial CT imaging of the brain was performed without administration of intravenous contrast material. Individualized dose optimization techniques were used for this CT. COMPARISON: 01/22/2018 FINDINGS: There is no acute bleed or infarct. There are stable mild chronic ischemic changes. The ventricles are normal in configuration. There is no hydrocephalus. The visualized paranasal sinuses are clear. The mastoid air cells are well aerated. There is no skull fracture. CT/Brain/Head without Contrast IMPRESSION: No acute intracranial abnormality. Stable mild chronic ischemic changes. Electronically Signed: Jesus Schwarz, at 20:58 EST Tel , Service support ,
--- NOTE | 2018-02-09 21:45 | HP.PCM_ITS ---
Problem List (1) Generalized weakness Status: Acute (2) Hypothyroidism Status: Chronic (3) Depression Status: Chronic (4) HTN (hypertension) Status: Chronic (5) Back pain Status: Chronic (6) UTI (urinary tract infection) Status: Resolved History of Present Illness Date of Admission: 02/09/18 Chief Complaint: Generalized weakness The patient is a 67 year old F with a significant history of degenerative degenerative disc disease; lumbosacral radiculopathy; fibromyalgia; hypertension; hyperlipidemia; who was admitted at the hospital on 02/01/2018 and discharged on 01/23/2018 for UTI and back pain returning because of persistent weakness. Reportedly patient went to her PCPs office on the same of admission; and because she was so weak to the extent that she could not get up from her wheelchair; she was sent to the emergency department for further evaluation. Patient reported that on her previous admission she was discharged home on prednisone taper and as soon as her prednisone finished her symptoms returned. She reports lightheadedness; headache; and forgetfulness. When patient reached the [facility], her Nurse called stating that patient was having a headache and she had vomited. She sees Dr. Tanner for pain management. Past Medical History Past Medical History (Chronic Problems): Chronic Problems Back pain (Chronic) Lumbosacral radiculopathy (Chronic) Disc disease, degenerative, lumbar or lumbosacral (Chronic) Lumbosacral spondylosis (Chronic) Hypothyroidism (Chronic) Depression (Chronic) HTN (hypertension) (Chronic) HLD (hyperlipidemia) (Chronic) Primary osteoarthritis of left hip (Chronic) Allergies atorvastatin Allergy (Verified 02/09/18 17:12) Unknown morphine Adverse Reaction (Verified 02/09/18 17:12) Itching tetracycline Adverse Reaction (Verified 02/09/18 17:54) skin discoloration SKIN DISCOLORATION Home Medications: Ambulatory Orders Medication Instructions Recorded Amitriptyline HCl [Elavil] 30 mg PO QHS 12/05/12 Biofiber 750 mg PO BID 12/05/12 Ergocalciferol [Vitamin D] 50,000 unit PO MO 12/05/12 Fluoxetine [Prozac] 60 mg PO DAILY 12/05/12 Fluticasone 0.05% [Flonase Nasal 1 spray NASAL BID 12/05/12 [place]] Gabapentin [Neurontin] 800 mg PO TIDCM 12/05/12 Levothyroxine [Synthroid] 75 mcg PO DAILY 12/05/12 [place]-3 Fatty Acids/Fish Oil [Fish 1 each PO BID 12/05/12 Oil 1,000 mg Capsule] Polyethylene Glycol 3350 [Miralax] 17 gm PO DAILY 12/05/12 Chromium/Herbal Complex No.238 500 mg PO DAILY 05/26/16 [Green Tea Caplet] Curcumin 500 mg PO DAILY 05/26/16 Dicyclomine HCl [Bentyl] 10 mg PO PRN PRN 05/26/16 Lisinopril/Hydrochlorothiazide 1 tablet PO DAILY 05/26/16 [Zestoretic 11/24.5 Tablet] Ranitidine [Zantac] 300 mg PO BID 05/26/16 Celecoxib [Celebrex] 200 mg PO BID 01/16/17 Azelastine HCl [Astelin] 1 spray NASAL BID 06/19/17 Lovastatin [Mevacor] 40 mg PO QHS 06/19/17 Ipratropium [place] 0.06% 2 spray NASAL 4X/DAY PRN PRN 08/14/17 [ATROVENT NASAL SPRAY] Baclofen [Lioresal] 10 mg PO TID PRN PRN 01/22/18 Ascorbate Calcium/Bioflavonoid 1 tab PO DAILY 02/09/18 [Rocio-C 500 mg Tablet] Aspirin E.C. [Ecotrin] 81 mg PO DAILY@0800 02/09/18 Lactobacillus Acidophilus 1 cap PO DAILY 02/09/18 [Acidophilus] Multivitamin/Iron/Folic Acid 1 each PO DAILY 02/09/18 [Centrum Women Tablet] Surgical History: arthroscopy, knee, hysterectomy [employer] History: ovarian cysts Lives: Spouse/ Significant Other Smoking Status: Former smoker - *Family History Maternal History Items: Cancer Paternal History Items: Heart Disease Review of Systems Constitutional: Reports: Weakness HEENT: Reports: Head Aches. Denies: Sinus Congestion, Sinus Drainage Cardiovascular: Denies: Chest Pain, Palpitations Respiratory: Denies: Cough, Shortness of breath at rest, Sputum production Gastrointestinal: Reports: Nausea, Vomiting. Denies: Abdominal Pain Genitourinary: Denies: Dysuria Musculoskeletal: Reports: Back Pain Skin: Denies: Rash, Wounds Neurological: Reports: Headaches, Tremor Psychiatric: Reports: Depression - chronic. Denies: Homicidal Ideations, Suicidal Ideations Hematologic/ Lymphatic: Denies: Adenopathy VTE Information - Inpt Only VTE Present on Admission: No VTE Mechan Device Prophylaxis: None VTE Pharm Prophylaxis ordered?: Yes Patient Problems: Active and Suspected Problems Generalized weakness (Acute) - Physical Exam General: Alert, Oriented x3, Cooperative HEENT: Atraumatic, PERRLA, EOMI, Normocephalic Neck: Supple, No JVD, Negative Carotid Bruits Lungs: Clear to auscultation, Normal air movement Cardiovascular: Regular rate, No murmurs Abdomen: Bowel Sounds Present, Soft, Non Tender Extremities: No edema, Capillary Refill Less than 3 Seconds Skin: No rashes, No breakdown Musculoskeletal: Tenderness - Lower spinal process and paraspinal area. Neurological: Neuro grossly intact Psych/Mental Status: Normal Affect, Appropriate Vital Signs Temp Pulse Resp BP Pulse Ox 98.0 F 78 16 151/67 H 95 02/09/18 20:00 02/09/18 20:00 02/09/18 20:00 02/09/18 20:00 02/09/18 20:00 Oxygen Delivery Method Room Air Weight: 133.81 kg Body Mass Index (BMI) 50.6 Finger Stick Blood Glucose 119 Laboratory Tests Past 24 Hrs 02/09/18 02/09/18 02/09/18 17:55 17:55 18:15 WBC 7.7 RBC 4.79 Hgb 14.1 Hct 43.3 MCV 90.4 MCH 29.4 MCHC 32.6 RDW 14.2 RDW Differential 46.8 H Plt Count 231 MPV 10.4 Immature Gran % (Auto) 0.100 Neut % (Auto) 66.4 Lymph % (Auto) 24.5 [place] % (Auto) 6.2 Eos % (Auto) 2.3 Baso % (Auto) 0.5 Absolute Neuts (auto) 5.1 Absolute Lymphs (auto) 1.90 Total Counted Not Reportable Sodium 142 Potassium 3.6 Chloride 107 Carbon Dioxide 28.0 Anion Gap 7 BUN 17 Creatinine 0.97 Estim Creat Clear Calc 48.60 Est GFR (MDRD) Af Amer 74 Est GFR (MDRD) Non-Af 61 BUN/Creatinine Ratio 17.6 Glucose 90 Calcium 9.4 Urine Color Yellow Urine Clarity Sl. Cloudy Urine pH 6.0 Ur Specific [place] 1.010 Urine Protein Negative Urine Glucose (UA) Normal Urine Ketones Negative Urine Occult Blood Negative Urine Nitrite Negative Urine Bilirubin Negative Urine Urobilinogen Normal Ur Leukocyte Esterase 25 H Urine RBC 0 SEEN Urine WBC 0-5 SEEN Ur Squamous Epith Cells 0-5 SEEN Urine Bacteria 0 SEEN Urine Mucus 0 SEEN Assessment/Plan All Active Problems Generalized weakness (Acute) UTI (urinary tract infection) (Resolved) The patient is a 67 year old F with a significant history of degenerative degenerative disc disease; lumbosacral radiculopathy; fibromyalgia; hypertension; hyperlipidemia; who was admitted at the hospital on 02/01/2018 and discharged on 01/23/2018 for UTI and back pain returning because of nonspecific findings of persistent weakness; lightheadedness; nausea and headache. Generalized weakness The etiology of her generalized weakness and the rest of her symptoms is nonspecific at this time. Will consider debility at this time. PT and OT to work with patient for strengthening and balance. Vitamin D level ordered especially as patient is on home vitamin D. Vitamin B12 ordered. TSH ordered. We will check CPK and aldolase. Emergency department doctor discussed with me the possibility of patient having multiple sclerosis. Consider further evaluation for MS. Patient received NSS IV hydration at the emergency department. Patient placed on normal saline with 40 of potassium maintenance infusion for 1 L. Nausea and Vomiting Likely viral illness. IV hydration as above. We will get a comprehensive respiratory pathogen panel. Hypertension At admission blood pressure was not within goal. Home lisinopril continued As needed hydralazine added. Trend blood pressure and adjust blood pressure medication. Depression Elavil and Fluoxetine continued. Fibromyalgia and chronic back pain Elavil continued continued. Baclofen continued Gabapentin continued Tylenol as needed Received Solu-Medrol at emergency department. Because of concern for statin myopathy would hold off steroid at this time. Headache As needed Tylenol as above. Vitamin D Deficiency Vitamin D continued Hypothyroidism Synthroid continued GERD Pepcid continue Hyperlipidemia Lovastatin continued DVT prophylaxis Subcutaneous Lovenox 40 mg twice daily because of a high body mass index. Code Visit Inpatient E&M: 23003 Init Hosp L3
[2018-02-09] MEDS: 0.9% Normal Saline 1,000 ML 75 ML IV (23:21)
[2018-02-09] MEDS: Famotidine 20 MG Tablet 40 MG PO (23:38)
[2018-02-09] MEDS: Amitriptyline 10 MG Tablet 30 MG PO (23:38)
[2018-02-09] MEDS: Gabapentin 800 MG Tablet PO (23:38)
[2018-02-09] MEDS: Celecoxib 200 MG Capsule PO (23:38)
[2018-02-09] MEDS: Enoxaparin 40 MG/0.4 ML Syringe SC (23:39)
[2018-02-09] MEDS: Fluticasone 0.05% 1 SPRAY NASAL.SRY NASAL (23:39)
[2018-02-09] MEDS: Azelastine HCl NASAL.SRY 1 SPRAY NASAL (23:39)
[2018-02-09] MEDS: 0.9% NaCl Peripheral Flush Adult/Peds IV (23:41)
[2018-02-10] MEDS: Ondansetron 4 MG/2 ML Vial IV (00:03)
[2018-02-10] MEDS: 0.9% NaCl Peripheral Flush Adult/Peds IV (00:03)
[2018-02-10] MEDS: Acetaminophen 325 MG Tablet 650 MG PO (00:03)
[2018-02-10] MEDS: Potassium Chloride 40 MEQ in 0.9% Normal Saline 1,000 ML 75 MEQ IV (00:09)
--- NOTE | 2018-02-10 00:39 | ED.VISSUMM ---
- ER Visit Summary Date of Service: 02/09/18 Chief Complaint: Weakness History of Present Illness: The patient is a 67 F with generalized weakness, nausea, back pain. Patient was admitted January 2010 to the with UTI, back pain, and intractable vomiting. She was sent home with Cipro and prednisone for her back pain. She states her back pain was significantly improved while the prednisone, but since stopping that it is worsened. She is an appointment to see Dr. Tanner from pain management in the coming weeks. Has been noted intermittent confusion and increased weakness recently. She has had difficulty ambulating even with her walker. These were the same symptoms she had prior to being diagnosed with a UTI. She went to primary care's office today and reported was in so much pain she could not get out of her wheelchair. She was having chills and tremors. Physical Examination: Vital signs unremarkable. Patient is lying in bed no acute distress. She is nontoxic appearing. Head neck examination is normal. Heart is regular rate and rhythm. Lung sounds clear. Abdomen is soft with mild suprapubic tenderness. She reports chronic lower abdominal bladder irritation. Back examination was mild tenderness along the left sacral region. Neuro exam reveals no focal deficits. Test Results: CBC and chemistry studies are normal. Urinalysis is unremarkable. Emergency Department Course and Treatment: Patient was given IV fluids and Solu-Medrol as the steroids that helped her back pain significantly previously. On repeat evaluation she reported ongoing weakness and was complaining of more dizziness. CT the head was obtained at that time that showed no acute abnormality. At this time patient and do not feel that she is strong enough to go home without significant risk of fall. I spoke with hospitalist for overnight observation and evaluation by PT. Treatment Plan: [] Disposition: Discharge Impression: 1. Dizziness 2. Generalized weakness This note was generated with Retargetlyation software. It may contain incorrect words, spelling, and punctuation that were not noted in review of the chart prior to signing ED Disposition - Plan for ED Patient: Disposition: Acute Care Hospital [facility] Chief Complaint: General Illness
[2018-02-10 05:00] VITALS: BP 132/65; PULSE 78; RESP 16; TEMP 36.9; O2SAT 100
[2018-02-10] MEDS: Levothyroxine 75 MCG Tablet PO (05:08)
[2018-02-10 06:57] LABS: Basophil# 0.01 X10^3/uL; Basophil% 0.1 % (0-1); Hematocrit 39.7 % (37-47); Hemoglobin 12.8 g/dl (12.0-15.0); Lymphocyte % 19.4 % (19-41); Mean Corp Hgb Conc 32.2 g/gl (32-36); Mean Corpuscular Hgb 29.4 pg (27.0-32.0); Mean Corpuscular Volume 91.1 fL (81-99); Mean Platelet Vol. 10.5 fl (6.2-12.0); Monocyte# 0.17 X10^3/uL; Monocyte% 2.2 % (0-10); Neutrophil # 6.03 X10^3/uL (2.7-7.7); Platelet Count 225 K/mm3 (150-450); RBC Distribution Width CV 14.1 % (11.6-14.6); RBC Distribution Width SD 46.6 fl (35.1-43.9); Red Blood Count 4.36 M/mm3 (4.2-5.4); White Blood Count 7.7 K/mm3 (4.4-11.0)
[2018-02-10 07:00] LABS: POSITIVE COUNT NO; POSITIVE DIFFERENTIAL NO; POSITIVE MORPHOLOGY NO
[2018-02-10 07:27] LABS: Anion Gap 10 (5-15); BUN 17 mg/dL (7-18); BUN/Creat Ratio 17.4 RATIO (10-20); Calcium,Total 8.7 mg/dL (8.5-10.1); Chloride 108 mmol/L (98-107); Creatinine, Serum 0.98 mg/dL (0.55-1.02); EST Glomerular Filtration Rate 60 mL/min (>60); Est Glom Filt Rate - Afr Amer 73 mL/min (>60); Glucose 144 mg/dL (74-106); Sodium Level 144 mmol/L (136-145); Thyroid Stim Hormone (TSH) 0.39 uIU/mL (0.358-3.74)
[2018-02-10 07:59] VITALS: O2SAT 100
[2018-02-10] MEDS: Gabapentin 800 MG Tablet PO ×2 (08:36→11:13)
[2018-02-10] MEDS: Famotidine 20 MG Tablet 40 MG PO (08:37)
[2018-02-10] MEDS: Multivitamins,Ther W-Minerals Tablet 1 TABLET PO (08:37)
[2018-02-10] MEDS: Azelastine HCl NASAL.SRY 1 SPRAY NASAL (08:38)
[2018-02-10] MEDS: Omega-3 Acid Ethyl Esters 1 GM Capsule PO (08:38)
[2018-02-10] MEDS: FLUoxetine 20 MG Capsule 60 MG PO (08:39)
[2018-02-10] MEDS: Celecoxib 200 MG Capsule PO (08:39)
[2018-02-10] MEDS: Fluticasone 0.05% 1 SPRAY NASAL.SRY NASAL (08:39)
[2018-02-10] MEDS: Aspirin E.C. 81 MG Tablet PO (08:40)
[2018-02-10] MEDS: hydroCHLOROthiazide 12.5mg 12.5 MG PO (08:40)
[2018-02-10] MEDS: Enoxaparin 40 MG/0.4 ML Syringe SC (08:41)
[2018-02-10] MEDS: Lisinopril 10 MG Tablet PO (08:45)
[2018-02-10] MEDS: Ascorbic Acid 500 MG Tablet PO (08:48)
[2018-02-10 08:52] VITALS: BP 129/71; PULSE 73; RESP 16; TEMP 36.8; O2SAT 94
[2018-02-10 11:16] VITALS: BP 111/53; PULSE 75; RESP 16; TEMP 36.4; O2SAT 96
[2018-02-10 14:52] VITALS: BP 132/76; PULSE 77; RESP 16; TEMP 36.8; O2SAT 98
--- NOTE | 2018-02-10 15:15 | PCM.DC ---
- Discharge Diagnoses Current Active Problems: Current Active and Chronic Problems Generalized weakness (Acute) You will use the following diet at home:: Calorie/Carbohydrate Controlled (specify 1200, 1400, etc), Cardiac Your food should be the consistency of: Regular Your liquids should be the consistency of: Regular/Thin Discharge Activity: Return to Normal Activity Call your doctor if you observe: Numbness or Tingling, Change in Color, Inability to urinate, Inability to have a bowel movement, Shortness of breath, Dizziness, Fainting spells, Chest pain, Increased palpitations (irregular heartbeat) Allergies/Adverse Reactions: Allergies atorvastatin Allergy (Verified 02/09/18 17:12) Unknown morphine Adverse Reaction (Verified 02/09/18 17:12) Itching tetracycline Adverse Reaction (Verified 02/09/18 17:54) skin discoloration SKIN DISCOLORATION Medications to take at Discharge Amitriptyline HCl [Elavil] 30 mg PO QHS 12/05/12 Biofiber 750 mg PO BID 12/05/12 Ergocalciferol [Vitamin D] 50,000 unit PO MO 12/05/12 Fluoxetine [Prozac] 60 mg PO DAILY 12/05/12 Fluticasone 0.05% [Flonase Nasal [place]] 1 spray NASAL BID 12/05/12 Gabapentin [Neurontin] 800 mg PO TIDCM 12/05/12 Levothyroxine [Synthroid] 75 mcg PO DAILY 12/05/12 [place]-3 Fatty Acids/Fish Oil [Fish Oil 1,000 mg Capsule] 1 each PO BID 12/05/12 Polyethylene Glycol 3350 [Miralax] 17 gm PO DAILY 12/05/12 Chromium/Herbal Complex No.238 [Green Tea Caplet] 500 mg PO DAILY 05/26/16 Curcumin 500 mg PO DAILY 05/26/16 Dicyclomine HCl [Bentyl] 10 mg PO PRN PRN 05/26/16 Lisinopril/Hydrochlorothiazide [Zestoretic 11/24.5 Tablet] 1 tablet PO DAILY 05/26/16 Ranitidine [Zantac] 300 mg PO BID 05/26/16 Celecoxib [Celebrex] 200 mg PO BID 01/16/17 Azelastine HCl [Astelin] 1 spray NASAL BID 06/19/17 Lovastatin [Mevacor] 40 mg PO QHS 06/19/17 Ipratropium [place] 0.06% [ATROVENT NASAL SPRAY] 2 spray NASAL 4X/DAY PRN PRN 08/14/17 Baclofen [Lioresal] 10 mg PO TID PRN PRN 01/22/18 Ascorbate Calcium/Bioflavonoid [Rocio-C 500 mg Tablet] 1 tab PO DAILY 02/09/18 Aspirin E.C. [Ecotrin] 81 mg PO DAILY@0800 02/09/18 Lactobacillus Acidophilus [Acidophilus] 1 cap PO DAILY 02/09/18 Multivitamin/Iron/Folic Acid [Centrum Women Tablet] 1 each PO DAILY 02/09/18 Primary Care Physician: Josep Huggins DO [Primary Care Provider] - Please follow up with your Primary Care Physician in: 3-5 days Test Results: Test results from this visit will be discussed in further detail at your follow-up appointment, if applicable.
--- NOTE | 2018-02-10 16:00 | DS.PCM_ITS ---
Discharge Date and Diagnosis Date of Admission: 02/09/18 Date of Discharge: 02/10/18 - Secondary Discharge Diagnosis Chronic Problems Back pain (Chronic) Lumbosacral radiculopathy (Chronic) Disc disease, degenerative, lumbar or lumbosacral (Chronic) Lumbosacral spondylosis (Chronic) Hypothyroidism (Chronic) Depression (Chronic) HTN (hypertension) (Chronic) HLD (hyperlipidemia) (Chronic) Primary osteoarthritis of left hip (Chronic) Hospital Course and Treatment Imaging Results: CT Brain: IMPRESSION: No acute intracranial abnormality. Stable mild chronic ischemic changes. Consults: None Operations: None Procedures: None Summary of Care Provided: Per HPI: The patient is a 67 year old F with a significant history of degenerative degenerative disc disease; lumbosacral radiculopathy; fibromyalgia; hypertension; hyperlipidemia; who was admitted at the hospital on 02/01/2018 and discharged on 01/23/2018 for UTI and back pain returning because of persistent weakness. Reportedly patient went to her PCPs office on the same of admission; and because she was so weak to the extent that she could not get up from her wheelchair; she was sent to the emergency department for further evaluation. Patient reported that on her previous admission she was discharged home on pre dnisone taper and as soon as her prednisone finished her symptoms returned. She reports lightheadedness; headache; and forgetfulness. When patient reached the [facility], her Nurse called stating that patient was having a headache and she had vomited. She sees Dr. Tanner for pain management. General: Alert, Oriented x3, Cooperative, No apparent distress HEENT: Atraumatic, PERRLA, EOMI, Normocephalic Oral: Moist Mucosa Neck: Supple, No JVD Lungs: Clear to auscultation, Normal air movement, No rhonchi, No wheeze, No rales Cardiovascular: Regular rate, Regular Rhythm, Normal S1, Normal S2, No murmurs Abdomen: Soft, Non Tender, Non-Distended, No Hepato-splenomegaly Extremities: No edema, Capillary Refill Less than 3 Seconds Skin: No rashes, No breakdown Musculoskeletal: No Tenderness to Palpation of Joints or Extremities Neurological: Cranial nerves II-XII grossly intact, Motor Exam 5/5 strength throughout, Sensory exam intact to light touch and pain, no ataxia and she is able to ambulate with her walker as usual Psych/Mental Status: Normal Affect, Appropriate Hospital Course: 1. Viral gastritis/generalized weakness - She had a very similar episode to thi s earlier in January which was secondary to an acute UTI. After she completed her antibiotic course she did return somewhat to baseline though she has had a chronic low level of a headache since that time. Yesterday when she presented she had had 2 episodes of vomiting and had not been eating or drinking very well since [place]. This morning she states that she has been back to where she was before this illness, and all she has received his IV fluids indicating the likelihood of dehydration given that her renal function is stable at 0.98. She denies any muscle pain that she does have chronic fibromyalgia, and she denies having any difficulty getting up from a seated position, no proximal muscle weakness. Vitamin B12, aldolase, and CK isoenzymes are all pending however given her improvement with rehydration I discussed with her the possibility of going home and if any labs came back positive it would be communicated to her or she could spend the night for further observation and evaluation in the morning. She and her opted to go home. I did discuss with her she needs to follow-up with her primary care physician for these issues. We discussed possible diagnostic routes going forward, the majority of which can be done as an outpatient, including an MRI of the brain, possible heavy metal levels, referral to a neurologist. 2. Hypothyroidism - Her TSH was checked in an effort to determine a diagnosis for her symptoms, and her TSH was found to be 0.39, we have no other level in our system for comparison. 3. Headache -she has a history of migraines which she has not had in a while, but she does take Elavil which can help with migraines as well as the fibromyalgia and her chronic back pain. On admission her blood pressure was elevated and is uncertain if this is secondary to pain or if it was the cause of her headache. She was continued on her lisinopril and her hydrochlorothiazide and her blood pressure returned to goal on the day of discharge. 4. Her other medical diagnoses were evaluated and her home medications were continued where appropriate - Physical Exam Vital Signs Temp Pulse Resp BP Pulse Ox 98.3 F 77 16 132/76 H 98 02/10/18 14:52 02/10/18 14:52 02/10/18 14:52 02/10/18 14:52 02/10/18 14:52 Oxygen Delivery Method Room Air Weight: 286 lb 13.142 oz Body Mass Index (BMI) 49.2 Finger Stick Blood Glucose 119 Intake and Output for Last 24 Hours 02/08/18 02/09/18 02/10/18 23:59 23:59 23:59 Intake Total 1833 / 1833 Output Total 800 / 800 Balance 1033 / 1033 Microbiology Past 72 Hours 02/10/18 05:35 Respiratory Panel (PCR) - Final Mucosa - Nasopharyngeal Laboratory Tests Past 24 Hrs 02/09/18 02/09/18 02/09/18 17:55 17:55 18:15 WBC 7.7 RBC 4.79 Hgb 14.1 Hct 43.3 MCV 90.4 MCH 29.4 MCHC 32.6 RDW 14.2 RDW Differential 46.8 H Plt Count 231 MPV 10.4 Immature Gran % (Auto) 0.100 Neut % (Auto) 66.4 Lymph % (Auto) 24.5 [place] % (Auto) 6.2 Eos % (Auto) 2.3 Baso % (Auto) 0.5 Absolute Neuts (auto) 5.1 Absolute Lymphs (auto) 1.90 Total Counted Not Reportable Sodium 142 Potassium 3.6 Chloride 107 Carbon Dioxide 28.0 Anion Gap 7 BUN 17 Creatinine 0.97 Estim Creat Clear Calc 48.60 Est GFR (MDRD) Af Amer 74 Est GFR (MDRD) Non-Af 61 BUN/Creatinine Ratio 17.6 Glucose 90 Calcium 9.4 CK Isoenzymes CK-MM (CK-3) CK-MB (CK-2) CK-BB (CK-1) Aldolase Vitamin B12 Vitamin D 25-Hydroxy TSH Urine Color Yellow Urine Clarity Sl. Cloudy Urine pH 6.0 Ur Specific [place] 1.010 Urine Protein Negative Urine Glucose (UA) Normal Urine Ketones Negative Urine Occult Blood Negative Urine Nitrite Negative Urine Bilirubin Negative Urine Urobilinogen Normal Ur Leukocyte Esterase 25 H Urine RBC 0 SEEN Urine WBC 0-5 SEEN Ur Squamous Epith Cells 0-5 SEEN Urine Bacteria 0 SEEN Urine Mucus 0 SEEN 02/10/18 02/10/18 02/10/18 06:35 06:35 06:35 WBC 7.7 RBC 4.36 Hgb 12.8 Hct 39.7 MCV 91.1 MCH 29.4 MCHC 32.2 RDW 14.1 RDW Differential 46.6 H Plt Count 225 MPV 10.5 Immature Gran % (Auto) 0.300 Neut % (Auto) 78.0 H Lymph % (Auto) 19.4 [place] % (Auto) 2.2 Eos % (Auto) 0.0 Baso % (Auto) 0.1 Absolute Neuts (auto) 6.0 Absolute Lymphs (auto) 1.50 Total Counted Not Reportable Sodium 144 Potassium 4.0 Chloride 108 H Carbon Dioxide 26.0 Anion Gap 10 BUN 17 Creatinine 0.98 Estim Creat Clear Calc 48.10 Est GFR (MDRD) Af Amer 73 Est GFR (MDRD) Non-Af 60 BUN/Creatinine Ratio 17.4 Glucose 144 H Calcium 8.7 CK Isoenzymes CK-MM (CK-3) CK-MB (CK-2) CK-BB (CK-1) Aldolase Vitamin B12 Pending Vitamin D 25-Hydroxy Pending TSH 0.39 Urine Color Urine Clarity Urine pH Ur Specific [place] Urine Protein Urine Glucose (UA) Urine Ketones Urine Occult Blood Urine Nitrite Urine Bilirubin Urine Urobilinogen Ur Leukocyte Esterase Urine RBC Urine WBC Ur Squamous Epith Cells Urine Bacteria Urine Mucus 02/10/18 02/10/18 06:35 06:35 WBC RBC Hgb Hct MCV MCH MCHC RDW RDW Differential Plt Count MPV Immature Gran % (Auto) Neut % (Auto) Lymph % (Auto) [place] % (Auto) Eos % (Auto) Baso % (Auto) Absolute Neuts (auto) Absolute Lymphs (auto) Total Counted Sodium Potassium Chloride Carbon Dioxide Anion Gap BUN Creatinine Estim Creat Clear Calc Est GFR (MDRD) Af Amer Est GFR (MDRD) Non-Af BUN/Creatinine Ratio Glucose Calcium CK Isoenzymes Pending CK-MM (CK-3) Pending CK-MB (CK-2) Pending CK-BB (CK-1) Pending Aldolase Pending Vitamin B12 Vitamin D 25-Hydroxy TSH Urine Color Urine Clarity Urine pH Ur Specific [place] Urine Protein Urine Glucose (UA) Urine Ketones Urine Occult Blood Urine Nitrite Urine Bilirubin Urine Urobilinogen Ur Leukocyte Esterase Urine RBC Urine WBC Ur Squamous Epith Cells Urine Bacteria Urine Mucus Discharge Activity: Return to Normal Activity Call your doctor if you observe: Numbness or Tingling, Change in Color, Inability to urinate, Inability to have a bowel movement, Shortness of breath, Dizziness, Fainting spells, Chest pain, Increased palpitations (irregular heartbeat) Home Medications: Medications to take at Discharge Amitriptyline HCl [Elavil] 30 mg PO QHS 12/05/12 Biofiber 750 mg PO BID 12/05/12 Ergocalciferol [Vitamin D] 50,000 unit PO MO 12/05/12 Fluoxetine [Prozac] 60 mg PO DAILY 12/05/12 Fluticasone 0.05% [Flonase Nasal [place]] 1 spray NASAL BID 12/05/12 Gabapentin [Neurontin] 800 mg PO TIDCM 12/05/12 Levothyroxine [Synthroid] 75 mcg PO DAILY 12/05/12 [employer]-3 Fatty Acids/Fish Oil [Fish Oil 1,000 mg Capsule] 1 each PO BID 12/05/12 Polyethylene Glycol 3350 [Miralax] 17 gm PO DAILY 12/05/12 Chromium/Herbal Complex No.238 [Green Tea Caplet] 500 mg PO DAILY 05/26/16 Curcumin 500 mg PO DAILY 05/26/16 Dicyclomine HCl [Bentyl] 10 mg PO PRN PRN 05/26/16 Lisinopril/Hydrochlorothiazide [Zestoretic 11/24.5 Tablet] 1 tablet PO DAILY 05/26/16 Ranitidine [Zantac] 300 mg PO BID 05/26/16 Celecoxib [Celebrex] 200 mg PO BID 01/16/17 Azelastine HCl [Astelin] 1 spray NASAL BID 06/19/17 Lovastatin [Mevacor] 40 mg PO QHS 06/19/17 Ipratropium Antler 0.06% [ATROVENT NASAL SPRAY] 2 spray NASAL 4X/DAY PRN PRN 08/14/17 Baclofen [Lioresal] 10 mg PO TID PRN PRN 01/22/18 Ascorbate Calcium/Bioflavonoid [Rocio-C 500 mg Tablet] 1 tab PO DAILY 02/09/18 Aspirin E.C. [Ecotrin] 81 mg PO DAILY@0800 02/09/18 Lactobacillus Acidophilus [Acidophilus] 1 cap PO DAILY 02/09/18 Multivitamin/Iron/Folic Acid [Centrum Women Tablet] 1 each PO DAILY 02/09/18 Primary Care Physician: Josep Huggins DO [Primary Care Provider] - Please follow up with your Primary Care Physician in: 3-5 days Disposition: Home Minutes spent on discharge:: 35 Patient Condition:: Good Medical Necessity - Tobacco Use Smoking Status: Former smoker Meaningful Use Info Meaningful Use Diagnoses (Choose all that apply): None applicable Code Visit OBSV E&M: 21616 Observation care discharge
[2018-02-12 12:19] LABS: Vitamin B12 1095 pg/mL (211-911); Vitamin D,25 Hydroxy 64.3 ng/mL (29.95-100.01)
[2018-02-12 14:05] LABS: Creatine Kinase MB 0 % (0-3); Creatine Kinase MM 100 % (97-100); Creatine Kinase,Total,Serum 132 U/L (24-173); Macro I 0 % (Not Observed); Macro II 0 % (Not Observed)
[2018-02-13 13:22] LABS: Aldolase 4.1 U/L (3.3-10.3); Creatine Kinase BB 0 % (0)
== END 2018-02-10 15:37 | disposition home or self-care (01) ==
LOC: ED 18:28 → MS2 22:10
PROVIDERS: Admitting Provider Hospitalist; Emergency Provider Emergency Medicine; Family Provider Student in an Organized Health Care Education/Training Program; PCP Student in an Organized Health Care Education/Training Program; Visit Provider Family Medicine
DX: A08.4 Viral intestinal infection, unspecified (principal); R53.1 Weakness; E03.9 Hypothyroidism, unspecified; G43.909 Migraine, unspecified, not intractable, without status migrainosus; F32.9 Major depressive disorder, single episode, unspecified; I10 Essential (primary) hypertension; M79.7 Fibromyalgia; E78.5 Hyperlipidemia, unspecified; M51.16 Intervertebral disc disorders with radiculopathy, lumbar region; M16.12 Unilateral primary osteoarthritis, left hip; Z79.899 Other long term (current) drug therapy; Z79.82 Long term (current) use of aspirin; Z87.891 Personal history of nicotine dependence; E55.9 Vitamin D deficiency, unspecified; K21.9 Gastro-esophageal reflux disease without esophagitis; Z87.440 Personal history of urinary (tract) infections
CPT/HCPCS: 36415; 70450; 80048; 81001; 82085; 82306; 82550; 82552; 82607; 84443; 85025; 87633; 96361; 96372; 96374; 96375; 97162; 97166; 97802; 99218; 99251; 99283; J7030; A4216; G0378; G0463; J2405

== ENCOUNTER 2018-02-19 07:49 | Day surgery (SDC) | payer MEDICARE, OTHER, SELFPAY ==
[2018-01-22 04:00] VITALS: BMI 46.4
[2018-02-09 23:05] VITALS: BMI 49.2
[2018-02-19 08:20] VITALS: BP 138/78; PULSE 95; RESP 20; TEMP 36.4; O2SAT 98; BMI 49.8
--- NOTE | 2018-02-19 08:50 | RAD_ITS ---
PROCEDURE: Left L3-S1 radiofrequency ablation. DATE OF EXAMINATION: February 19, 2018. INDICATION: Female, 67 years old. Chronic low back pain. FLUOROSCOPY TIME (if supplied): (0:28) minutes/seconds. 8 images were obtained. Intraoperative imaging was provided for left L3-S1 radiofrequency ablation. The spinal needles are seen at the appropriate levels. RAD/L/S Spine Min 4 Views IMPRESSION: Intraoperative imaging provided for left L3-S1 radiofrequency ablation. Electronically Signed: Contreras Cook MD at 9:29 EST Tel [phone], Service support ,
[2018-02-19] MEDS: MethylPREDNISolone Acetate 80 MG/ML Vial (09:05)
[2018-02-19] MEDS: Bupivacaine 0.25% 30 ML Vial (09:05)
[2018-02-19 09:25] VITALS: BP 120/72; BP 138/78; PULSE 91; RESP 16; TEMP 36.6; O2SAT 99
[2018-02-19 09:30] VITALS: BP 128/83; BP 138/78; PULSE 88; RESP 16; O2SAT 94
[2018-02-19 09:35] VITALS: BP 128/74; BP 138/78; PULSE 88; RESP 16; O2SAT 98
[2018-02-19 09:40] VITALS: BP 126/62; BP 138/78; PULSE 87; RESP 16; TEMP 36.5; O2SAT 97
[2018-02-19 09:50] VITALS: BP 138/78
--- NOTE | 2018-02-19 09:58 | PCM.OPRPT ---
Problem List (1) Disc disease, degenerative, lumbar or lumbosacral Status: Chronic (2) Lumbosacral spondylosis Status: Chronic Report of Operation Date of Procedure: 02/19/18 Pre-Operative Diagnosis: Lumbosacral spondylosis, lumbosacral degenerative disc disease, lumbar facet arthropathy Post-Operative Diagnosis: Lumbosacral spondylosis, lumbosacral degenerative disc disease, lumbar facet arthropathy Surgery/Procedure Performed:: Left-sided lumbar radiofrequency ablation of the medial branch at L3,L4, L5, S1 Description of Surgical Findings:: PROCEDURE: Left-sided radiofrequency ablation of the medial branch L3, L4, L5, S1 PREOPERATIVE DIAGNOSES: Lumbosacral spondylosis, lumbosacral degenerative disc disease, lumbar facet arthropathy POSTOPERATIVE DIAGNOSES: Lumbosacral spondylosis, lumbosacral degenerative disc disease, lumbar facet arthropathy ANESTHESIA: MAC COMPLICATIONS: None BLOOD LOSS: Minimal PROCEDURE IN DETAIL: History and physical today was reviewed. Risks and benefits of procedure explained. The patient understood, agreed to the procedure and informed consent was obtained. IV inserted per routine protocol. The patient was taken to the operating room, placed in the prone position with a pillow positioned underneath the abdomen. The left side of the lower back was prepped and draped in a sterile fashion using iodine x 3. Under fluoroscopy guidance, on an oblique view, the L3 through S1 vertebral bodies were visualized. The skin and subcutaneous tissue was anesthetized with approximately 10 mL of 1% lidocaine using a 25-gauge regular needle. Under direct visualization with fluoroscopy at approximately 25-degree angle, starting on the left L3, ending on the left S1 passing through the L4-L5 using a 20-gauge 15 cm with a 10 mm curved active tip radiofrequency ablation needle the needle passed through the skin. The tip of the needle was maneuvered and directed towards the superior and medial gutter of the transverse process at the vicinity of the medial branch. Once the tip of the needle was in contact with the bone, the needle pulled approximately 2 mm up the bone. The stylet of each needle was then removed. After negative aspiration of blood with CSF and confirmation of AP as well as oblique view, radiofrequency ablation probe was then inserted at each level. Impedance was then recorded at L3 to be 278, at L4 297, at L5 211, at S1 256 ohm. Motor-evoked potential was then initiated to 1.5 volt without any motor response at each corresponding level. The probe was then removed intact and a total of 6 mL preservative-free 1% lidocaine was injected in divided doses between those 4 levels after negative aspiration of blood with CSF. The radiofrequency ablation probe was then reinserted after confirmation of AP, oblique as well as lateral view. Radiofrequency ablation was then initiated to 80 degrees Celsius for 90 seconds at each level. Once concluded, the probe was then removed intact and a total of 6 mL of preservative-free 0.25% Marcaine with 40 mg Depo-Medrol was injected in divided doses between those 4 levels. The needles were then removed intact. The patient experienced no signs or symptoms of intrathecal, intravascular injection. The patient experienced no paraesthesia. The procedure was completed without any apparent difficulty, any complication. The patient appeared to tolerate well. Sensory as well as motor exam was unchanged from prior to procedure. ASSESSMENT AND PLAN: This is a 67-year-old Female with lumbosacral spondylosis, lumbosacral degenerative disc disease, lumbar facet arthropathy, status post left-sided radiofrequency ablation of the medial branch L3 through S1. The patient will continue her current medications. The patient will follow up in approximately 2 weeks for reevaluation.
== END 2018-02-19 10:00 | disposition home or self-care (01) ==
LOC: SDC 07:50 → AC 07:52
PROVIDERS: Family Provider Student in an Organized Health Care Education/Training Program; PCP Student in an Organized Health Care Education/Training Program; Referring Provider Anesthesiology Pain Medicine; Visit Provider Anesthesiology Pain Medicine
PROC: (CPT 64635; principal; 2018-02-19 08:40)
DX: M47.817 Spondylosis without myelopathy or radiculopathy, lumbosacral region (principal); M51.37 Other intervertebral disc degeneration, lumbosacral region; M16.12 Unilateral primary osteoarthritis, left hip; M50.30 Other cervical disc degeneration, unspecified cervical region; M47.812 Spondylosis without myelopathy or radiculopathy, cervical region; M17.10 Unilateral primary osteoarthritis, unspecified knee; M46.96 Unspecified inflammatory spondylopathy, lumbar region; M43.16 Spondylolisthesis, lumbar region; I10 Essential (primary) hypertension; E07.9 Disorder of thyroid, unspecified; M79.7 Fibromyalgia; K58.0 Irritable bowel syndrome with diarrhea; M48.07 Spinal stenosis, lumbosacral region; E78.00 Pure hypercholesterolemia, unspecified; M79.10 Myalgia, unspecified site; Z78.0 Asymptomatic menopausal state; Z96.651 Presence of right artificial knee joint; Z79.82 Long term (current) use of aspirin; Z79.891 Long term (current) use of opiate analgesic; Z79.899 Other long term (current) drug therapy; Z87.891 Personal history of nicotine dependence; Z96.641 Presence of right artificial hip joint
CPT/HCPCS: 64635; 64636 ×2; 72110; 76000; J7120

== ENCOUNTER → 2018-02-20 05:21 | Outpatient (CLI) | payer MEDICARE, OTHER, SELFPAY ==
[2018-01-16 11:44] VITALS: BP 147/69; PULSE 71; RESP 18; TEMP 36.9; O2SAT 96; BMI 51.0
[2018-02-19 08:20] VITALS: BMI 49.8
== END ==
PROVIDERS: Family Provider Student in an Organized Health Care Education/Training Program; PCP Student in an Organized Health Care Education/Training Program; Referring Provider Orthopaedic Surgery; Visit Provider Orthopaedic Surgery
DX: Z01.818 Encounter for other preprocedural examination (principal); Z53.9 Procedure and treatment not carried out, unspecified reason
CPT/HCPCS: 87081

== ENCOUNTER → 2018-04-11 10:26 | Outpatient (CLI) | payer MEDICARE, OTHER, SELFPAY ==
[2018-04-06 13:20] VITALS: BMI 47.7
--- NOTE | 2018-04-11 13:20 | NEURO ---
NCS and/or EMG Patient Report Ordering Doctor: Teo Tanner DATE OF SERVICE: 04/11/18 Marlee Shin is a 67-year-old female who presents for electrodiagnostic testing of the upper limbs. She reports numbness and tingling in both hands. Electrodiagnostic findings: On nerve conduction study, the right median motor nerve demonstrates normal distal latency and amplitude. Left median motor nerve demonstrates normal distal latency, amplitude with reduced conduction velocity. Right ulnar motor distal latency is prolonged with reduced amplitude. Normal conduction velocity across the elbow. Left ulnar motor nerve demonstrates normal distal latency and amplitude with an approximately 23% drop in conduction velocity across the elbow. Prolonged left median sensory distal latency at the wrist is noted. Borderline prolonged left median left ulnar F wave. On needle EMG, all muscles tested in upper limb show no evidence of denervation with normal motor unit action potentials. Electrodiagnostic assessment: This is an abnormal study. 1. Electrodiagnostic findings demonstrate left-sided median mononeuropathy. This is consistent with a mild left carpal tunnel syndrome. 2. Electrodiagnostic findings are consistent with bilateral ulnar neuropathy. There is evidence of axonal loss on the right side. There is no evidence of conduction block at the elbow on the right side. The left side demonstrates a drop in conduction across the elbow, consistent with a mild left cubital tunnel syndrome. 3. No electrodiagnostic evidence for cervical radiculopathy. If there are any further questions, please do not hesitate to contact me.
== END ==
PROVIDERS: Family Provider Student in an Organized Health Care Education/Training Program; PCP Student in an Organized Health Care Education/Training Program; Referring Provider Nurse Practitioner Family; Visit Provider Nurse Practitioner Family
DX: R29.898 Other symptoms and signs involving the musculoskeletal system (principal)
CPT/HCPCS: 95886; 95913

== ENCOUNTER 2018-04-16 09:37 | Inpatient (IN) | payer MEDICARE, OTHER, SELFPAY ==
[2018-04-06 13:20] VITALS: BP 137/76; PULSE 74; RESP 18; TEMP 37; O2SAT 97; BMI 47.7
--- NOTE | 2018-04-06 13:45 | SDCEKG_ITS ---
Test Reason : Blood Pressure : / mmHG Vent. Rate : 074 BPM Atrial Rate : 074 BPM P-R Int : 130 ms QRS Dur : 078 ms QT Int : 400 ms P-R-T Axes : -19 063 037 degrees QTc Int : 444 ms Normal sinus rhythm Normal ECG Confirmed by SOHEILA LEON, BRANT ([id number]), commercial production editor ANUSHA KEENAN ([id number] on 04/11/2018 10:17:27 AM Referred By: Pete Méndez Confirmed By:BRANT PARNELL MD
[2018-04-06 14:26] LABS: Absolute Lymphocyte Count 2.11 X10^3/ul (0.83-4.51); Absolute Neutrophil Count 3.8 X10^3/uL (2.0-7.7); Basophil# 0.04 X10^3/uL; Basophil% 0.6 % (0-1); Eosinophil# 0.18 X10^3/uL; Eosinophils% 2.7 % (0-5); Hemoglobin 13.3 g/dl (12.0-15.0); Lymphocyte # 2.11 X10^3/ul (4.0); Lymphocyte % 32.1 % (19-41); Mean Corp Hgb Conc 31.7 g/gl (32-36); Mean Corpuscular Hgb 29.2 pg (27.0-32.0); Mean Corpuscular Volume 92.1 fL (81-99); Mean Platelet Vol. 10.8 fl (6.2-12.0); Monocyte# 0.44 X10^3/uL; Monocyte% 6.7 % (0-10); Neutrophil # 3.79 X10^3/uL (2.7-7.7); Neutrophil % 57.6 % (47-70); Platelet Count 210 K/mm3 (150-450); RBC Distribution Width SD 50.7 fl (35.1-43.9); Red Blood Count 4.56 M/mm3 (4.2-5.4); White Blood Count 6.6 K/mm3 (4.4-11.0)
[2018-04-06 14:27] LABS: POSITIVE COUNT NO; POSITIVE DIFFERENTIAL NO; POSITIVE MORPHOLOGY NO
[2018-04-06 14:45] LABS: Anion Gap 7 (5-15); BUN 17 mg/dL (7-18); Calcium,Total 8.9 mg/dL (8.5-10.1); Chloride 108 mmol/L (98-107); EST Glomerular Filtration Rate 67 mL/min (>60); Est Glom Filt Rate - Afr Amer 80 mL/min (>60); Estimated Creatinine Clearance 54.58 ml/min; Glucose 92 mg/dL (74-106); Potassium 3.9 mmol/L (3.5-5.1); Sodium Level 141 mmol/L (136-145); Thyroid Stim Hormone (TSH) 1.65 uIU/mL (0.358-3.74)
--- NOTE | 2018-04-10 12:49 | CASEMGMT ---
Call placed to patient to discuss discharge needs after upcoming surgery. Patient plans to return home with assistance from . Has initial outpatient physical therapy visit set up at [facility]. Patient has had previous hip and knee surgeries - has walker, toilet riser, grabber, shower seat. There are 2 steps into home from garage and a handrail to hold onto. Bedroom and bathroom are on 1st level of the home. Informed patient that RN-CM would likely follow up after surgery. Whitley Espino LPN Clinical Support
[2018-04-16] VITALS (11 sets, daily range): BP systolic 102–137; BP diastolic 51–83; PULSE 65–89; RESP 14–18; TEMP 36.3–37.7; O2SAT 97–100; BMI 47.7
[2018-04-16] MEDS: Celecoxib 200 MG Capsule 400 MG PO (10:30)
[2018-04-16] MEDS: oxyCODONE HCl Cr 10 MG Tablet PO (10:30)
[2018-04-16] MEDS: Acetaminophen 500 MG Tablet 1000 MG PO ×3 (10:31→20:52)
--- NOTE | 2018-04-16 11:35 | KNEE_PTH ---
PATIENT: CHAU KING LOC: [facility]3 U#:[id number] AGE/SX: 67/F ROOM: MS322 RE04/17/[address]: Dr. Pete Méndez DO : 1950 BED: 1 DIS: 04/18/2018 SPEC #: [id number] RECD: 04/16/18 15:18 STATUS: NATALEE REQ #: [id number] ERMA: 04/16/18 11:[address]: Pete Méndez DEPT: SURGICAL PATHOLOGY RECD BY: Beth Gardner ENTERED: 04/17/18 08:24 SP TYPE: TOTAL KNEE OTHR DR: Dr. Josep Huggins DO Tissues: Knee, NOS Procedures: Decalcification bone/plaque Surgery Specimen Level IV HEADER OPERATION: Total knee replacement PRE-OP DIAGNOSIS: Osteoarthritis, left knee TISSUE SUBMITTED: Bone and soft tissue MICROSCOPIC DIAGNOSIS Bone and soft tissue of left knee, total knee resection: Severe degenerative joint disease. Mild synovial hyperplasia with associated mild chronic inflammation. AM:radha 04/18/18 MICROSCOPIC DESCRIPTION Slides are reviewed. GROSS DESCRIPTION Received is one container designated bone and soft tissue left knee. The specimen consists of multiple fragments of hazel-yellow bone measuring in aggregate 12 x 10 x 4 cm. Also in the specimen container are multiple fragments of yellow-white soft tissue measuring in aggregate 10 x 9 x 3.5 cm. A number of bony fragments contain articular surfaces consistent with tibial plateau and femoral condyle and displaying prominent osteophyte formation, eburnation, and bone erosion. Booking Prizer sections are submitted in two cassettes as follows: 1 - soft tissue, 2 - bone after decalcification. / SJ:radha 04/17/18 TC:5 [facility]: [id number], [id number]
[2018-04-16] MEDS: Scopolamine 1mg/72hr Patch 1 PATCH TD (11:45)
--- NOTE | 2018-04-16 12:49 | PCM.OPRPT ---
Report of Operation Date of Procedure: 04/16/18 Pre-Operative Diagnosis: OA left knee Post-Operative Diagnosis: same Surgery/Procedure Performed:: Left TKR development consultant: Issa Estrada Type of Anesthesia:: Spinal Anesthesiologist: Daniel Hudson Specimen's removed: bone Drains: none Estimated Blood Loss (mL): 25 cc Description of Procedure: Primary Surgeon/Physician: Pete Méndez development consultant: Issa Estrada PA-C development consultant: Pre-Operative Diagnosis: OA left knee Post-Operative Diagnosis: same Surgery/Procedure Performed: Left TKR Estimated Blood Loss: 25 cc Specimen's Removed: bone Type of Anesthesia: spinal ASA Class: 3 Implants: [[place] Triathlon size 5 PS femur, size 5 tibia, 1 mm polyethylene spacer, 32 mm patella (all components cemented) ] Indications: Patient has severe end-stage osteoarthritis diagnosed via x-rays in the knee. They have failed all forms of conservative measures including activity modification, injections, anti-inflammatories, use of assistive device. The patient has pain that affects on a daily basis and prevents him from doing things that they enjoyed. They have elected to undergo the above procedure. The risks of the procedure were discussed at length and their questions were answered. Procedure Description: The patient was greeted in the preoperative area. The [left ] knee was then marked with a surgical marker. Patient was then taken to or Suite 1. They were administered a dose of antibiotics as well as tranexamic acid. Once adequate anesthesia was obtained and airway was secured to placed in supine position on the operating room table. A well-padded tourniquet was placed on the affected extremity. Leg was then prepped and draped in the usual sterile fashion from the knee down. Ioban was used on the skin. Surgical timeout was then performed and confirmed with all present. Six-inch Esmarch was used to examine the limb and tourniquet was then inflated to 300 mmHg. A longitudinal incision was then planned and carried out in the anterior aspect of the knee. The dissection was then carried the length of the incision the extensor mechanism was identified. Standard medial parapatellar arthrotomy was then performed revealing severe eburnation of bone and periarticular osteophytes. There is complete loss of cartilage especially in the medial compartment with varus alignment. Anterior fat pad was removed for visualization purposes and the anterior medial aspect of the tibia was skeletonized for exposure to the knee. The knee was then flexed the patella was inverted. Opening reamer was then used in the femur approximately 1 cm anterior to the attachment of the PCL. The intramedullary valgus wand was then placed in the femur set at 5? of valgus. The distal femoral cutting jig was then applied to the femur with anticipated resection of approximately 8 mm. This was then made with a oscillating saw. The sizing guide was then placed referencing off the posterior condyles and also reference off the epicondylar axis. This was measured and the appropriate size 4-in-1 cutting jig was then applied to the distal femur. Anterior posterior cuts were made followed by the anterior and posterior chamfer cuts. These bony pieces and fragments were removed and placed on the back table. Posterior retractor was then utilized and the tibia was subluxed anteriorly. Intramedullary tibial alignment jig was then applied to the tibia referencing off the medial one third of the tibial tubercle the anterior tibial spine the middle aspect of the tibiotalar joint. Also reference off patient's [place] slope. The tibial cutting jig was then pinned with anticipated resection of 2 mm off of the deficient medial tibial condyle. This cut was made with the oscillating saw. Once this was complete a laminar information officer was utilized in both medial lateral meniscus were removed and a posterior capsular osteophytes were also removed. Posterior capsule release was performed in the posterior capsule as well as the geniculate arteries are treated with the aqua Meryl. The tibia was incised and the appropriate sized tibial tray was then pinned. The femoral box cutting jig was then applied to the femur and the box was prepared removing a portion of the intercondylar notch. The femoral trial was then placed and the knee was trialed. Full flexion-extension were easily achieved. The knee seemed to balance quite nicely. Any remaining osteophytes were removed at this time. Once this was complete the patella was everted and the Alex patella reaming device was then utilized the patella was then placed in the appropriate jig and reamer was then used to remove approximately 9 mm of the undersurface of the patella. A soft tissue remaining was in the way was removed and patella trial was then placed listed maintain excellent tracking using the no thumbs technique. The tibial tray at this point was punched to accommodate the fins of the final implant. At this point cement was mixed on the back table. The trial components were removed and the knee was copiously irrigated. Did use a cocktail of injection for postoperative pain control. The final components were then cemented in the standard fashion and excess cement was removed with cement removal tools and patellar clamp is placed in the patella. As the cement had cured in full extension tourniquet was deflated and hemostasis was perfect with Bovie cautery as well as the aqua Manus. Needle is once again trialed with different size polyethylenes to ensure the full range of motion was achieved as well as excellent balancing ligamentously was achieved. At this point the knee was copiously irrigated. Final implant was then inserted locking mechanism was engaged and confirmed to be locked. The arthrotomy was then closed with #1 Vicryl aggravate type fashion interrupted. Subcutaneous tissue was closed with 0 Vicryl and surgical kendrick were placed in the skin. A occlusive silver impregnated dressing was then applied followed by well-padded sterile dressing secured with an Rivera wrap. The patient was taken to the PACU in stable condition. No complications known at this time. Postoperatively we will maintain standard total knee postoperative protocol. The use of the physician therapeutic assistant was integral during this procedure. They assisted with positioning placement of the tourniquet retracting closure and placement of the dressing. The procedure would have been much more difficult without their expertise and assistance - Admit VTE Documentation VTE Present on Admission: No VTE Mechan Device Prophylaxis: SCD's, Thigh High RYLAND Hose VTE Pharm Prophylaxis ordered?: Yes
--- NOTE | 2018-04-16 12:55 | OP.PCM_ITS ---
Report of Operation Date of Procedure: 04/16/18 Pre-Operative Diagnosis: OA left knee Post-Operative Diagnosis: same Surgery/Procedure Performed:: Left TKR waste minimization technician: Issa Estrada Type of Anesthesia:: Spinal Anesthesiologist: Daniel Hudson Specimen's removed: bone Drains: none Estimated Blood Loss (mL): 25 cc Description of Procedure: Primary Surgeon/Physician: Pete Méndez waste minimization technician: Issa Estrada PA-C waste minimization technician: Pre-Operative Diagnosis: OA left knee Post-Operative Diagnosis: same Surgery/Procedure Performed: Left TKR Estimated Blood Loss: 25 cc Specimen's Removed: bone Type of Anesthesia: spinal ASA Class: 3 Implants: [[place] Triathlon size 5 PS femur, size 5 tibia, 1 mm polyethylene spacer, 32 mm patella (all components cemented) ] Indications: Patient has severe end-stage osteoarthritis diagnosed via x-rays in the knee. They have failed all forms of conservative measures including activity modification, injections, anti-inflammatories, use of assistive device. The patient has pain that affects on a daily basis and prevents him from doing things that they enjoyed. They have elected to undergo the above procedure. The risks of the procedure were discussed at length and their questions were answered. Procedure Description: The patient was greeted in the preoperative area. The [left ] knee was then marked with a surgical marker. Patient was then taken to or Suite 1. They were administered a dose of antibiotics as well as tranexamic acid. Once adequate anesthesia was obtained and airway was secured to placed in supine position on the operating room table. A well-padded tourniquet was placed on the affected extremity. Leg was then prepped and draped in the usual sterile fashion from the knee down. Ioban was used on the skin. Surgical timeout was then performed and confirmed with all present. Six-inch Esmarch was used to examine the limb and tourniquet was then inflated to 300 mmHg. A longitudinal incision was then planned and carried out in the anterior aspect of the knee. The dissection was then carried the length of the incision the extensor mechanism was identified. Standard medial parapatellar arthrotomy was then performed revealing severe eburnation of bone and periarticular osteophytes. There is complete loss of cartilage especially in the medial compartment with varus alignment. Anterior fat pad was removed for visualization purposes and the anterior medial aspect of the tibia was skeletonized for exposure to the knee. The knee was then flexed the patella was inverted. Opening reamer was then used in the femur approximately 1 cm anterior to the attachment of the PCL. The intramedullary valgus wand was then placed in the femur set at 5? of valgus. The distal femoral cutting jig was then applied to the femur with anticipated resection of approximately 8 mm. This was then made with a oscillating saw. The sizing guide was then placed referencing off the posterior condyles and also reference off the epicondylar axis. This was measured and the appropriate size 4-in-1 cutting jig was then applied to the distal femur. Anterior posterior cuts were made followed by the anterior and posterior chamfer cuts. These bony pieces and fragments were removed and placed on the back table. Posterior retractor was then utilized and the tibia was subluxed anteriorly. Intramedullary tibial alignment jig was then applied to the tibia referencing off the medial one third of the tibial tubercle the anterior tibial spine the middle aspect of the tibiotalar joint. Also reference off patient's [place] slope. The tibial cutting jig was then pinned with anticipated resection of 2 mm off of the deficient medial tibial condyle. This cut was made with the oscillating saw. Once this was complete a laminar congregational care pastor was utilized in both medial lateral meniscus were removed and a posterior capsular osteophytes were also removed. Posterior capsule release was performed in the posterior capsule as well as the geniculate arteries are treated with the aqua Meryl. The tibia was incised and the appropriate sized tibial tray was then pinned. The femoral box cutting jig was then applied to the femur and the box was prepared removing a portion of the intercondylar notch. The femoral trial was then placed and the knee was trialed. Full flexion-extension were easily achieved. The knee seemed to balance quite nicely. Any remaining osteophytes were removed at this time. Once this was complete the patella was everted and the Alex patella reaming device was then utilized the patella was then placed in the appropriate jig and reamer was then used to remove approximately 9 mm of the undersurface of the patella. A soft tissue remaining was in the way was removed and patella trial was then placed listed maintain excellent tracking using the no thumbs technique. The tibial tray at this point was punched to accommodate the fins of the final implant. At this point cement was mixed on the back table. The trial components were removed and the knee was copiously irrigated. Did use a cocktail of injection for postoperative pain control. The final components were then cemented in the standard fashion and excess cement was removed with cement removal tools and patellar clamp is placed in the patella. As the cement had cured in full extension tourniquet was deflated and hemostasis was perfect with Bovie cautery as well as the aqua Manus. Needle is once again trialed with different size polyethylenes to ensure the full range of motion was achieved as well as e xcellent balancing ligamentously was achieved. At this point the knee was copiously irrigated. Final implant was then inserted locking mechanism was engaged and confirmed to be locked. The arthrotomy was then closed with #1 Vicryl aggravate type fashion interrupted. Subcutaneous tissue was closed with 0 Vicryl and surgical kendrick were placed in the skin. A occlusive silver impregnated dressing was then applied followed by well-padded sterile dressing secured with an Rivera wrap. The patient was taken to the PACU in stable condition. No complications known at this time. Postoperatively we will maintain standard total knee postoperative protocol. The use of the physician training and development assistant was integral during this procedure. They assisted with positioning placement of the tourniquet retracting closure and placement of the dressing. The procedure would have been much more difficult without their expertise and assistance - Admit VTE Documentation VTE Present on Admission: No VTE Mechan Device Prophylaxis: SCD's, Thigh High RYLAND Hose VTE Pharm Prophylaxis ordered?: Yes
[2018-04-16] MEDS: Lactated Ringers 1,000 ML 999 ML IV (13:30)
[2018-04-16 13:52] LABS: Hematocrit 39.8 % (37-47); Hemoglobin 12.5 g/dl (12.0-15.0); Mean Corp Hgb Conc 31.4 g/gl (32-36); Mean Corpuscular Hgb 29.6 pg (27.0-32.0); Mean Corpuscular Volume 94.1 fL (81-99); Mean Platelet Vol. 10.7 fl (6.2-12.0); Platelet Count 212 K/mm3 (150-450); RBC Distribution Width CV 14.9 % (11.6-14.6); RBC Distribution Width SD 49.7 fl (35.1-43.9); Red Blood Count 4.23 M/mm3 (4.2-5.4)
[2018-04-16 13:53] LABS: Scan Indicated on CBC? Y/N NO
[2018-04-16] MEDS: Lactated Ringers 1,000 ML 125 ML IV (15:31)
[2018-04-16] MEDS: Gabapentin 800 MG Tablet PO (15:35)
[2018-04-16] MEDS: Cefazolin 1 GM/50 ML BAG IV (19:13)
[2018-04-16] MEDS: Azelastine HCl NASAL.SRY 1 SPRAY NASAL (20:50)
[2018-04-16] MEDS: Fluticasone 0.05% 1 SPRAY NASAL.SRY NASAL (20:51)
[2018-04-16] MEDS: Senna/Docusate Sodium 1 Tablet 2 TABLET PO (20:53)
[2018-04-16] MEDS: Famotidine 20 MG Tablet 40 MG PO (20:53)
[2018-04-16] MEDS: Amitriptyline 10 MG Tablet 30 MG PO (20:54)
[2018-04-17 02:10] VITALS: BP 116/53; PULSE 64; RESP 18; TEMP 36.6; O2SAT 98
[2018-04-17] MEDS: Cefazolin 1 GM/50 ML BAG IV (03:54)
[2018-04-17] MEDS: Levothyroxine 75 MCG Tablet PO (06:11)
[2018-04-17] MEDS: Rivaroxaban 10 MG Tablet PO (06:11)
[2018-04-17] MEDS: 0.9% NaCl Peripheral Flush Adult/Peds IV (06:12)
[2018-04-17] MEDS: Acetaminophen 500 MG Tablet 1000 MG PO ×3 (06:12→22:13)
[2018-04-17 06:22] LABS: Hematocrit 36.1 % (37-47); Hemoglobin 11.3 g/dl (12.0-15.0); Mean Corp Hgb Conc 31.3 g/gl (32-36); Mean Corpuscular Hgb 29.3 pg (27.0-32.0); Mean Corpuscular Volume 93.5 fL (81-99); Mean Platelet Vol. 10.5 fl (6.2-12.0); Platelet Count 185 K/mm3 (150-450); RBC Distribution Width SD 50.9 fl (35.1-43.9); Red Blood Count 3.86 M/mm3 (4.2-5.4); White Blood Count 8.4 K/mm3 (4.4-11.0)
[2018-04-17 06:28] LABS: Scan Indicated on CBC? Y/N NO
[2018-04-17 06:33] LABS: Anion Gap 7 (5-15); BUN 19 mg/dL (7-18); Calcium,Total 7.9 mg/dL (8.5-10.1); Chloride 108 mmol/L (98-107); EST Glomerular Filtration Rate 66 mL/min (>60); Est Glom Filt Rate - Afr Amer 80 mL/min (>60); Estimated Creatinine Clearance 54.58 ml/min; Glucose 118 mg/dL (74-106); Potassium 3.8 mmol/L (3.5-5.1); Sodium Level 142 mmol/L (136-145)
--- NOTE | 2018-04-17 07:14 | PCM.PN.ORT ---
Subjective: Patient doing well this AM. Pain well controlled. Objective: Pt sitting up at bathroom sink brushing hair. - Physical Exam General: Alert, Oriented x3, Cooperative, No apparent distress Extremities: No clubbing, No cyanosis, No edema, Capillary Refill Less than 3 Seconds, No Calf Tenderness, Tenderness - Left knee as expected ROM: -5 to 80 Skin: No rashes, No breakdown, Incision - stable Vital Signs Temp Pulse Resp BP Pulse Ox 97.9 F 64 18 116/53 L 98 04/17/18 02:10 04/17/18 02:10 04/17/18 02:10 04/17/18 02:10 04/17/18 02:10 Oxygen Delivery Method CPAP Weight: 287 lb Body Mass Index (BMI) 47.7 Finger Stick Blood Glucose 119 Intake and Output for Last 24 Hours 04/15/18 04/16/18 04/17/18 23:59 23:59 23:59 Intake Total 1800 / 1800 2076 Balance 1800 / 1800 2076 Laboratory Tests Past 24 Hrs 04/16/18 04/17/18 04/17/18 13:40 05:56 05:56 WBC 10.0 8.4 RBC 4.23 3.86 L Hgb 12.5 11.3 L Hct 39.8 36.1 L MCV 94.1 93.5 MCH 29.6 29.3 MCHC 31.4 L 31.3 L RDW 14.9 H 15.0 H RDW Differential 49.7 H 50.9 H Plt Count 212 185 MPV 10.7 10.5 Sodium 142 Potassium 3.8 Chloride 108 H Carbon Dioxide 27.0 Anion Gap 7 BUN 19 H Creatinine 0.90 Estim Creat Clear Calc 54.58 Est GFR (MDRD) Af Amer 80 Est GFR (MDRD) Non-Af 66 BUN/Creatinine Ratio 21.0 H Glucose 118 H Calcium 7.9 L Medical Necessity - Tobacco Use Smoking Status: Former smoker Assessment/Plan All Active Problems Generalized weakness (Acute) UTI (urinary tract infection) (Resolved) s/p Left TKR -- PT today, home tomorrow
[2018-04-17 08:10] VITALS: BP 150/64; PULSE 79; RESP 16; TEMP 37.1; O2SAT 98
[2018-04-17] MEDS: Azelastine HCl NASAL.SRY 1 SPRAY NASAL ×2 (08:15→22:14)
[2018-04-17] MEDS: Fluticasone 0.05% 1 SPRAY NASAL.SRY NASAL ×2 (08:15→22:14)
[2018-04-17] MEDS: FLUoxetine 20 MG Capsule 60 MG PO (08:16)
[2018-04-17] MEDS: Gabapentin 800 MG Tablet PO ×3 (08:16→18:20)
[2018-04-17] MEDS: oxyCODONE 5 MG Tablet PO ×3 (08:16→18:18)
[2018-04-17] MEDS: Famotidine 20 MG Tablet 40 MG PO ×2 (08:17→22:13)
[2018-04-17] MEDS: Lisinopril 10 MG Tablet PO (08:17)
[2018-04-17] MEDS: Multivitamins,Ther W-Minerals Tablet 1 TABLET PO (08:17)
[2018-04-17] MEDS: hydroCHLOROthiazide 12.5mg 12.5 MG PO (08:18)
[2018-04-17] MEDS: Senna/Docusate Sodium 1 Tablet 2 TABLET PO ×2 (08:20→22:14)
--- NOTE | 2018-04-17 10:30 | CASEMGMT ---
[facility] Face to Face with patient for initial transition planning/care coordination assessment. RN CM introduced self and role at [facility]. Patient lying in bed, alert and oriented, at bedside. Patient willing to participate in assessment and is able to answer all questions appropriately. Care providers, pharmacy, and demographics verified. Patient wishes to discharge home and is setup with [facility] for outpatient therapy. Patient states she has no further needs or concerns at this time. CM to follow for discharge planning needs that may arise. PCP: [facility] Specialists: wesley Méndez; edwin Tanner Preferred Pharmacy: Last Insurance: [facility] Pres[facility] Benefit: Yes, [employer] Living Will/HPOA: Yes, Kane Shin HPOA LNOK: Living Arrangements: Patient lives with in 1 story home with 2 steps to enter the home. Patient independent for self care. Transportation: DME/HHC: Patient has tub bench, raised toilet seat, hip kit, walker, oxygen concentrator, cpap at home. Patient denies previous HHC/SNF. Disposition Plan: Patient to discharge home with outpatient therapy, family support, and follow-up plans in place. Deepti CORREA, RN, CM
[2018-04-17 18:15] VITALS: BP 118/53; PULSE 80; RESP 14; TEMP 37; O2SAT 98
[2018-04-17] MEDS: Amitriptyline 10 MG Tablet 30 MG PO (22:13)
[2018-04-18] VITALS: BP 115/69; PULSE 87; RESP 16; TEMP 36.8; O2SAT 98
[2018-04-18] MEDS: Ketorolac 15 MG/ML Vial IV (01:39)
--- NOTE | 2018-04-18 01:47 | NURSING ---
pt c/o laft knee pain, prn toradol given iv, site started leaking after, dc'd
[2018-04-18] MEDS: Acetaminophen 500 MG Tablet 1000 MG PO ×2 (06:27→13:12)
[2018-04-18] MEDS: Levothyroxine 75 MCG Tablet PO (06:27)
[2018-04-18] MEDS: Rivaroxaban 10 MG Tablet PO (06:27)
[2018-04-18] MEDS: oxyCODONE 5 MG Tablet PO ×2 (06:27→13:12)
[2018-04-18 09:10] VITALS: BP 111/56; PULSE 78; RESP 18; TEMP 37; O2SAT 99
[2018-04-18] MEDS: Gabapentin 800 MG Tablet PO ×2 (09:17→13:12)
[2018-04-18] MEDS: Fluticasone 0.05% 1 SPRAY NASAL.SRY NASAL (09:17)
[2018-04-18] MEDS: Azelastine HCl NASAL.SRY 1 SPRAY NASAL (09:17)
[2018-04-18] MEDS: Multivitamins,Ther W-Minerals Tablet 1 TABLET PO (09:17)
[2018-04-18] MEDS: hydroCHLOROthiazide 12.5mg 12.5 MG PO (09:18)
[2018-04-18] MEDS: FLUoxetine 20 MG Capsule 60 MG PO (09:18)
[2018-04-18] MEDS: Famotidine 20 MG Tablet 40 MG PO (09:19)
[2018-04-18] MEDS: Lisinopril 10 MG Tablet PO (09:19)
[2018-04-18] MEDS: Senna/Docusate Sodium 1 Tablet 2 TABLET PO (09:19)
--- NOTE | 2018-04-18 11:25 | PCM.PN.ORT ---
Subjective: Patient sitting at bedside, pain well managed. Patient ready for discharge home. No complaints. Objective: Dressings clean dry intact. Negative signs and symptoms of DVT. Vital signs labs within normal limits. Patient is afebrile neurovascular intact. No respiratory distress, speaking full sentences. - Physical Exam General: Alert, Oriented x3, Cooperative HEENT: PERRLA Oral: Moist Mucosa Neurological: Cranial nerves II-XII grossly intact Psych/Mental Status: Normal Affect, Alert and oriented to time, place, person, mood and affect Vital Signs Temp Pulse Resp BP Pulse Ox 98.2 F 87 16 115/69 98 04/18/18 00:00 04/18/18 00:00 04/18/18 00:00 04/18/18 00:00 04/18/18 00:00 Oxygen Delivery Method CPAP Weight: 130.181 kg Body Mass Index (BMI) 47.7 Finger Stick Blood Glucose 119 Intake and Output for Last 24 Hours 04/16/18 04/17/18 04/18/18 23:59 23:59 23:59 Intake Total 1800 / 1800 3177 / 3177 250 / 250 Balance 1800 / 1800 3177 / 3177 250 / 250 Medical Necessity - Tobacco Use Smoking Status: Former smoker Assessment/Plan All Active Problems Generalized weakness (Acute) UTI (urinary tract infection) (Resolved) Status post left total knee arthroplasty Plan 1. Continue all pain medications as prescribed 2. Continue outpatient physical therapy at [facility] 3. Xarelto 10 mg 1 p.o. daily for postop DVT prophylaxis. Patient then will return to [facility] aspirin 81 mg 1 p.o. daily 4. Follow-up as scheduled, see pink sheet 5. Discharge home today
--- NOTE | 2018-04-18 11:28 | PN.ORTHO_ITS ---
Subjective: Patient sitting at bedside, pain well managed. Patient ready for discharge home. No complaints. Objective: Dressings clean dry intact. Negative signs and symptoms of DVT. Vital signs labs within normal limits. Patient is afebrile neurovascular intact. No respiratory distress, speaking full sentences. - Physical Exam General: Alert, Oriented x3, Cooperative HEENT: PERRLA Oral: Moist Mucosa Neurological: Cranial nerves II-XII grossly intact Psych/Mental Status: Normal Affect, Alert and oriented to time, place, person, mood and affect Vital Signs Temp Pulse Resp BP Pulse Ox 98.2 F 87 16 115/69 98 04/18/18 00:00 04/18/18 00:00 04/18/18 00:00 04/18/18 00:00 04/18/18 00:00 Oxygen Delivery Method CPAP Weight: 130.181 kg Body Mass Index (BMI) 47.7 Finger Stick Blood Glucose 119 Intake and Output for Last 24 Hours 04/16/18 04/17/18 04/18/18 23:59 23:59 23:59 Intake Total 1800 / 1800 3177 / 3177 250 / 250 Balance 1800 / 1800 3177 / 3177 250 / 250 Medical Necessity - Tobacco Use Smoking Status: Former smoker Assessment/Plan All Active Problems Generalized weakness (Acute) UTI (urinary tract infection) (Resolved) Status post left total knee arthroplasty Plan 1. Continue all pain medications as prescribed 2. Continue outpatient physical therapy at [facility] 3. Xarelto 10 mg 1 p.o. daily for postop DVT prophylaxis. Patient then will return to [facility] aspirin 81 mg 1 p.o. daily 4. Follow-up as scheduled, see pink sheet 5. Discharge home today
--- NOTE | 2018-04-18 11:34 | DCINST_ITS ---
Discharge Diet: No Restrictions Discharge Activity: May Not Drive, May Shower, Use Walker May shower in (days): 1 Ice area for (Minutes): 20 - each hour while awake. Weight Bearing Status: Weight bearing as tolerated Elevate: Operative Extremity Additional Activity Instructions:: Wear elastic stockings for 2 weeks after your surgery. Call your doctor if your incision/area has: Continuous Slow Oozing, Sudden Increased Bleeding, Increased Pain/ Swelling, Increased Redness, Foul Smelling Discharge Call your doctor if you observe: Fever of 101 or Higher, Coldness, Increased Pain - in extremity, Numbness or Tingling, Change in Color, Calf discomfort, Uncontrolled pain Change Dressing in (Days):: 0 - and daily as needed. Remove Dressing in (days):: 8 Cleanse incision/area with: Soap & Water Allergies/Adverse Reactions: Allergies atorvastatin Allergy (Verified 04/16/18 10:06) Unknown morphine Adverse Reaction (Verified 04/16/18 10:06) Itching tetracycline Adverse Reaction (Verified 04/16/18 10:06) skin discoloration SKIN DISCOLORATION Medications to take at Discharge Amitriptyline HCl [Elavil] 30 mg PO QHS 12/05/12 Ergocalciferol [Vitamin D] 50,000 unit PO MO 12/05/12 Fluoxetine [Prozac] 60 mg PO DAILY 12/05/12 Fluticasone 0.05% [Flonase Nasal [place]] 1 spray NASAL BID 12/05/12 Gabapentin [Neurontin] 800 mg PO TIDCM 12/05/12 Levothyroxine [Synthroid] 75 mcg PO DAILY 12/05/12 [place]-3 Fatty Acids/Fish Oil [Fish Oil 1,000 mg Capsule] 1 each PO BID 12/05/12 Polyethylene Glycol 3350 [Miralax] 17 gm PO DAILY 12/05/12 Curcumin 500 mg PO DAILY 05/26/16 Dicyclomine HCl [Bentyl] 10 mg PO PRN PRN 05/26/16 Lisinopril/Hydrochlorothiazide [Zestoretic 11/24.5 Tablet] 1 tablet PO DAILY 05/26/16 Ranitidine [Zantac] 300 mg PO BID 05/26/16 Celecoxib [Celebrex] 200 mg PO BID 01/16/17 Azelastine HCl [Astelin] 1 spray NASAL BID 06/19/17 Lovastatin [Mevacor] 40 mg PO QHS 06/19/17 Ipratropium [place] 0.06% [ATROVENT NASAL SPRAY] 2 spray NASAL 4X/DAY PRN PRN 08/14/17 Ascorbate Calcium/Bioflavonoid [Rocio-C 500 mg Tablet] 1 tab PO DAILY 02/09/18 Lactobacillus Acidophilus [Acidophilus] 1 cap PO DAILY 02/09/18 Multivitamin/Iron/Folic Acid [Centrum Women Tablet] 1 each PO DAILY 02/09/18 Baclofen 10 mg PO TID PRN 04/06/18 Wheat Dextrin [Benefiber] 1 each PO DAILY 04/06/18 Acetaminophen [Tylenol] 1,000 mg PO Q8 #90 tab 04/18/18 Oxycodone [Oxyir] 5 - 10 mg PO Q4H PRN PRN 7 Days #85 tab 04/18/18 Rivaroxaban [Xarelto] 10 mg PO DAILY@0600 #14 tab 04/18/18 The following prescriptions were given: Oxycodone [Oxyir] 5 - 10 mg PO Q4H PRN PRN 7 Days #85 tab PRN Reason: Mod-Severe Pain (4-10/10) Acetaminophen [Tylenol] 1,000 mg PO Q8 #90 tab Rivaroxaban [Xarelto] 10 mg PO DAILY@0600 #14 tab Primary Care Physician: Josep Huggins DO [Primary Care Provider] - Test Results: Test results from this visit will be discussed in further detail at your follow- up appointment, if applicable. Please Follow Up With: Pete Méndez DO When: see pink sheet
[2018-04-18 13:15] VITALS: BP 139/81; PULSE 81; RESP 16; TEMP 37.2; O2SAT 100
== END 2018-04-18 13:31 | disposition home or self-care (01) | DRG 470 ==
PROVIDERS: Admitting Provider Orthopaedic Surgery; Family Provider Student in an Organized Health Care Education/Training Program; PCP Student in an Organized Health Care Education/Training Program; Referring Provider Orthopaedic Surgery; Visit Provider Orthopaedic Surgery
PROC: (CPT 27447; principal; 2018-04-16 11:10)
DX: M17.12 Unilateral primary osteoarthritis, left knee (principal); Z68.42 Body mass index [BMI] 45.0-49.9, adult; Z96.651 Presence of right artificial knee joint; I10 Essential (primary) hypertension; E66.01 Morbid (severe) obesity due to excess calories; Z87.891 Personal history of nicotine dependence; G47.30 Sleep apnea, unspecified
CPT/HCPCS: 36415; 80048; 84443; 85025; 85027; 87077; 87081; 88305; 88311; 93005; 97110; 97116; 97162; 97166; 97530; 97535; C1776; J7120; A4216

== ENCOUNTER 2018-07-02 08:11 | Day surgery (SDC) | payer MEDICARE, OTHER, SELFPAY ==
[2018-04-16 15:20] VITALS: BMI 47.7
[2018-07-02 08:45] VITALS: BP 144/65; PULSE 73; RESP 18; TEMP 36.8; O2SAT 100; BMI 51.9
--- NOTE | 2018-07-02 09:20 | RAD_ITS ---
STUDY: X-RAY - PELVIS AND LEFT HIP REASON FOR EXAM: Female, 68 years old. Left hip injection TECHNIQUE: 1 view of the pelvis and hip. COMPARISON: None. FINDINGS: There is opacification of the left hip joint. The needle is in good position. There are osteoarthritic changes of the femoral head with marginal osteophyte formation. There is cortical sclerosis with sub-cortical cyst formation of the acetabulum. is severe articular joint space narrowing of the hip. RAD/Fluoro Guided Needle Placement IMPRESSION: Severe degenerative osteoarthrosis. Electronically Signed: Sahil Melendrez, at 7:52 EDT Tel , Service support ,
[2018-07-02] MEDS: Bupivacaine 0.25% 30 ML Vial (09:58)
[2018-07-02] MEDS: MethylPREDNISolone Acetate 80 MG/ML Vial (09:58)
[2018-07-02 10:05] VITALS: BP 117/65; BP 144/65; PULSE 82; RESP 16; O2SAT 100
[2018-07-02 10:10] VITALS: BP 125/63; BP 144/65; PULSE 72; RESP 16; TEMP 36.6; O2SAT 99
[2018-07-02 10:15] VITALS: BP 132/65; BP 144/65; PULSE 65; RESP 16; O2SAT 99
[2018-07-02 10:17] VITALS: BP 132/84; BP 144/65; PULSE 65; RESP 16; TEMP 36.4; O2SAT 100
[2018-07-02 10:44] VITALS: BP 144/65
--- NOTE | 2018-07-02 13:19 | OP.PCM_ITS ---
Problem List (1) Primary osteoarthritis of left hip Status: Chronic Report of Operation Date of Procedure: 07/02/18 Pre-Operative Diagnosis: Osteoarthritis of the left hip Post-Operative Diagnosis: Osteoarthritis of the left hip Surgery/Procedure Performed:: Left hip intra-articular steroid injection under fluoroscopic guidance Description of Surgical Findings:: PROCEDURE: Left hip intra-articular steroid injection under fluoroscopic guidance PREOPERATIVE DIAGNOSIS: Osteoarthritis of the left hip POSTOPERATIVE DIAGNOSIS: Osteoarthritis of the left hip ANESTHESIA: MAC COMPLICATIONS: None BLOOD LOSS: Minimal PROCEDURE IN DETAIL: History and physical today was reviewed. Risks and benefits of the procedure were explained. The patient understood, agreed to our procedure, and informed consent was obtained. IV inserted per routine protocol. The patient was taken to the operating room, placed in a supine position left hip area was prepped and draped in a sterile fashion using iodine x3 and fluoroscopy guidance AP view the left hip joint was visualized the skin and subcutaneous tissue and size approximately 3 cc of 1% lidocaine using a 25-gauge regular needle approximately 3 cm cephalad to the right greater trochanter under direct visualization fluoroscopy using a lateral approach using a 22-gauge 5 inch spinal needle needle as well as was advanced via the skin tip of the needle was maneuvered and directed towards the superiormost aspect of the hip joint once the tip of the needle was at the vicinity of the hip joint after negative aspiration for blood positive as piration of synovial fluid a total of 2 cc of contrast were injected to confirm correct placement of the needle as well as halo spread around the hip joint after repeated negative aspiration confirmation a total of 9 cc of 0.25% Marcaine with 80 mg of Depo-Medrol were injected easily. The needles were then removed intact. The patient experienced no signs or symptoms intrathecal, intravascular inje ction. The patient experienced no paraesthesia. The procedure was completed without any apparent difficult, any complication. The patient appeared to tolerate well. ASSESSMENT AND PLAN: This is a 68-year-old female with osteoarthritis of the left hip status post left hip intra-articular steroid injection under fluoroscopic guidance. The patient will continue her current medications. The patient will follow in approximately 2 weeks for reevaluation.
== END 2018-07-02 10:45 | disposition home or self-care (01) ==
LOC: SDC 08:13 → AC 08:13
PROVIDERS: Family Provider Student in an Organized Health Care Education/Training Program; PCP Student in an Organized Health Care Education/Training Program; Referring Provider Anesthesiology Pain Medicine; Visit Provider Anesthesiology Pain Medicine
PROC: 3E0U3GC Introduction of Other Therapeutic Substance into Joints, Percutaneous Approach (ICD-10-PCS; CPT 20610; principal; 2018-07-02 09:15)
DX: M16.12 Unilateral primary osteoarthritis, left hip (principal); I10 Essential (primary) hypertension; E07.9 Disorder of thyroid, unspecified; M79.7 Fibromyalgia; M51.37 Other intervertebral disc degeneration, lumbosacral region; M54.17 Radiculopathy, lumbosacral region; M50.30 Other cervical disc degeneration, unspecified cervical region; M47.812 Spondylosis without myelopathy or radiculopathy, cervical region; M47.817 Spondylosis without myelopathy or radiculopathy, lumbosacral region; M43.16 Spondylolisthesis, lumbar region; M48.07 Spinal stenosis, lumbosacral region; M46.96 Unspecified inflammatory spondylopathy, lumbar region; M17.10 Unilateral primary osteoarthritis, unspecified knee; K58.9 Irritable bowel syndrome, unspecified; E78.00 Pure hypercholesterolemia, unspecified; K21.9 Gastro-esophageal reflux disease without esophagitis; F32.9 Major depressive disorder, single episode, unspecified; Z78.0 Asymptomatic menopausal state; F41.9 Anxiety disorder, unspecified; Z79.82 Long term (current) use of aspirin; Z79.891 Long term (current) use of opiate analgesic; Z79.899 Other long term (current) drug therapy; Z87.891 Personal history of nicotine dependence; Z96.641 Presence of right artificial hip joint; Z96.653 Presence of artificial knee joint, bilateral
CPT/HCPCS: 20610; 76000; 77002; J7120

== ENCOUNTER 2018-10-01 05:24 | Inpatient (IN) | payer MEDICARE, OTHER, SELFPAY ==
[2018-09-17 13:24] VITALS: BP 124/70; PULSE 71; RESP 17; TEMP 37.5; O2SAT 97; BMI 52.7
[2018-09-17 14:11] LABS: Absolute Neutrophil Count 4.7 X10^3/uL (2.0-7.7); Basophil# 0.05 X10^3/uL; Basophil% 0.6 % (0-1); Eosinophil# 0.23 X10^3/uL; Eosinophils% 2.9 % (0-5); Hematocrit 41.8 % (37-47); Hemoglobin 13.3 g/dL (12.0-15.0); Mean Corp Hgb Conc 31.8 g/dL (32-36); Mean Corpuscular Hgb 28.9 pg (27.0-32.0); Mean Corpuscular Volume 90.9 fL (81-99); Mean Platelet Vol. 10.3 fl (6.2-12.0); Monocyte# 0.57 X10^3/uL; Monocyte% 7.2 % (0-10); NRBC Flagged by Analyzer 0 % (0-5); Neutrophil # 4.74 X10^3/uL (2.7-7.7); Neutrophil % 59.9 % (47-70); Platelet Count 229 K/mm3 (150-450); RBC Distribution Width SD 49.6 fl (35.1-43.9); White Blood Count 7.9 K/mm3 (4.4-11.0)
[2018-09-17 14:33] LABS: Anion Gap 5 (5-15); BUN 25 mg/dL (7-18); BUN/Creat Ratio 26.2 RATIO (10-20); Calcium,Total 9.4 mg/dL (8.5-10.1); Chloride 106 mmol/L (98-107); Creatinine, Serum 0.95 mg/dL (0.55-1.02); EST Glomerular Filtration Rate 62 mL/min (>60); Est Glom Filt Rate - Afr Amer 75 mL/min (>60); Estimated Creatinine Clearance 46.88 ml/min; Glucose 100 mg/dL (74-106); Sodium Level 140 mmol/L (136-145); Thyroid Stim Hormone (TSH) 1.86 uIU/mL (0.358-3.74)
[2018-10-01] VITALS (13 sets, daily range): BP systolic 90–150; BP diastolic 43–77; PULSE 61–81; RESP 16–79; TEMP 36.2–37.4; O2SAT 99–100; BMI 52.7; BMI 55.8
[2018-10-01 06:21] LABS: Bedside Glucose 102 mg/dL (70-110)
[2018-10-01] MEDS: Acetaminophen 500 MG Tablet 1000 MG PO ×3 (06:24→21:27)
[2018-10-01] MEDS: Magnesium Sulfate 4gm/100mL 4 GM/100 ML IV.SOLN. IV (06:25)
[2018-10-01] MEDS: Gabapentin 600 MG Tablet PO (06:25)
--- NOTE | 2018-10-01 07:15 | HIP_PTH ---
PATIENT: CHAU KING LOC: MS3 U#:[id number] AGE/SX: 68/F ROOM: MS305 RE10/01/[address]: Dr. Pete Méndez DO : 1950 BED: 1 DIS: 10/02/2018 SPEC #: [id number] RECD: 10/01/18 10:42 STATUS: NATALEE REQ #: [id number] ERMA: 10/01/18 07:[address]: Pete Méndez DEPT: SURGICAL PATHOLOGY RECD BY: Beth Gardner ENTERED: 10/01/18 11:09 SP TYPE: TOTAL HIP OTHR DR: Dr. Josep Huggins DO Tissues: Hip, NOS Procedures: Decalcification bone/plaque Surgery Specimen Level IV HEADER OPERATION: Total hip replacement PRE-OP DIAGNOSIS: Severe end-stage arthritis, left hip TISSUE SUBMITTED: Left hip bone and soft tissue MICROSCOPIC DIAGNOSIS Left hip bone and soft tissue, total hip replacement/resection: Femoral head with degenerative osteoarthritic changes. VERONICA:radha 10/04/18 MICROSCOPIC DESCRIPTION Slides are reviewed. GROSS DESCRIPTION Received is one container labeled with the patient's name and designated left hip bone and soft tissue. The specimen consists of a femoral head, partly deformed, measuring 5.5 x 5.5 x 4 cm. The portion of femoral neck measures 0.5 cm in greatest length. The articular surface displays prominent osteophyte formation, eburnation and bone erosion. No soft tissue is identified. Information Assurance Officer sections are submitted in one cassette after decalcification. / VERONICA:radha 10/01/18 TC:5 CPT: 71557, 79071
--- NOTE | 2018-10-01 07:23 | RAD_ITS ---
STUDY: X-RAY - PELVIS AND LEFT HIP REASON FOR EXAM: Female, 68 years old. Postoperative total hip TECHNIQUE: 3 views of the pelvis and hip. COMPARISON: None. FINDINGS: Left hip arthroplasty. The prosthetic components appear to be normally seated and articulated. No acute fracture. Expected postsurgical features in the surrounding soft tissues. RAD/Hip Min 2 Views (Portable) IMPRESSION: Appropriate postsurgical features. Correlate with operative technique. Electronically Signed: Sekou Mallory MD at 11:19 EDT Tel , Service support ,
[2018-10-01] MEDS: Lactated Ringers 1,000 ML 125 ML IV ×2 (07:25→12:42)
--- NOTE | 2018-10-01 09:06 | OP.PCM_ITS ---
Report of Operation Date of Procedure: 10/01/18 Pre-Operative Diagnosis: OA left hip Post-Operative Diagnosis: same Surgery/Procedure Performed:: Left THR cold mill supervisor: Issa Estrada Type of Anesthesia:: Spinal Anesthesiologist: Rui Serrano Specimen's removed: bone Estimated Blood Loss (mL): 100 cc Description of Procedure: Primary Surgeon/Physician: Pete Méndez cold mill supervisor: Issa Estrada PA-C cold mill supervisor: Pre-Operative Diagnosis: OA left hip Post-Operative Diagnosis: same Surgery/Procedure Performed: Left THR Estimated Blood Loss: 100cc Specimen's Removed: bone Type of Anesthesia: spinal ASA Class: ASA3 Severe Disease Implants: [[place] Titanium cup size 52, MD head with+4 neck length, size 4 Accolade 2 stem ] Surgical Indications: Patient has severe end-stage osteoarthritic changes in the [left ] hip. They have failed conservative measures including activity modification, anti-inflammatories, use of assistive devices. This to the point where the pain affects their ability to enjoy life and complete activities of daily living without discomfort. Patient has elected to undergo the above procedure Procedure Description: The patient was greeted in the preoperative area the [left ] hip was marked with surgical marker preoperative antibiotics administered. The patient was then taken to or suite in stable condition. Preoperative tranexamic acid was also utilized. Once the patient was placed in the supine position on the operating room table and once adequate anesthesia was obtained they were then placed in the lateral decubitus position with the surgical hip facing the field. All bony prominences were well-padded. A commercial hip position was utilized. The appropriate extremity was then prepped and draped in usual sterile fashion. Ioban was placed on the skin. Surgical timeout was performed and surgery was commenced. A standard posterior approach to the hip was then performed. Incision was planned and carried out w ith a #10 blade scalpel. Dissection was then carried length of the incision to the IT band which was split proximally and distally. A Charnley retractor was then placed for soft tissue retraction exposing the piriformis. A standard posterior capsulotomy was performed. Severe eburnation of bone was noted and periarticular osteophytes were identified consistent with severe end-stage osteoarthritis. A femoral neck osteotomy guide was used to woody the proximal femur. A femoral osteotomy was then created approximately 1 fingerbreadth above the lesser trochanter. This was measured and placed on the back table. Once this was complete acetabular retractors were placed anteriorly and posteriorly. Labrum was then removed from the acetabulum exposing the entire cup of the acetabulum. Sequential reaming was then commenced and the acetabulum was medialized and sequentially widened in order to accommodate appropriate size cup. The acetabular cup was then impacted into position to the appropriate depth referencing approximately 30? anteversion and 45? of inclination. Excellent purchase was obtained. [2] appropriate sized cancellous screws were placed in the cup. An appropriate size MDM liner was then placed. Attention was then turned to the femoral preparation. The hip was placed in the 90/90 position and a lateralizing box osteotome was utilized. Femoral starting awl was used followed by sequential broaching to the appropriate size. Excellent purchase was obtained with the stem no stem subsidence and excellent rotational stability was confirmed. A calcar reamer was then used in the trial head neck was placed on the broach. The hip was then located and taken through full range of motion flexion internal and external rotation as well as extension. Excellent stability was noted no impingement was identified of the components and leg lengths appear to be appropriate. The hip was at this point dislocated and the trial femoral components were removed. The final femoral stem was then implanted and impacted to the appropriate depth. Again excellent purchase was obtained no stem subsidence or rotational instability was noted. The hip was once again trialed and confirmation of leg length and stability was performed. Soft tissue tension also appeared to be appropriate. At this point the hip was redislocated and the trunnion was cleaned and dried meticulously in the appropriate size MDM femoral head was placed on the clean dry trunnion using a 12/14 Trimble taper. The hip was once again relocated and again taken through full range of motion. I did inject a cocktail of postoperative pain medication in the deep and superficial tissues. Copious irrigation was performed. Anatomic closure of the piriformis tendon was performed through drill holes in the greater trochanter. A #1 Vicryl 0 Vicryl was utilized in subcutaneous tissue and surgical kendrick were placed in the skin. A well-padded nonadherent dressing was applied. Patient was taken to PACU in stable condition. No complications were identified. Will follow standard postop protocol for total hip arthroplasty. My therapeutic recreation assistant played a vital role in the procedure beginning with positioning, holding retraction of soft tissues, positioning the leg to optimize visualization during the procedure and assisting with wound closure.
[2018-10-01] MEDS: Gabapentin 800 MG Tablet PO ×2 (12:44→21:26)
[2018-10-01] MEDS: Cefazolin 1 GM/50 ML BAG IV (14:18)
[2018-10-01] MEDS: oxyCODONE 5 MG Tablet PO ×3 (14:50→21:58)
[2018-10-01] MEDS: Aspirin 325 MG Tablet PO (16:53)
[2018-10-01] MEDS: Senna/Docusate Sodium 1 Tablet 2 TABLET PO (21:26)
[2018-10-01] MEDS: Amitriptyline 10 MG Tablet 30 MG PO (21:26)
[2018-10-01] MEDS: Famotidine 20 MG Tablet 40 MG PO (21:28)
[2018-10-01] MEDS: Azelastine HCl NASAL.SRY 1 SPRAY NASAL (21:30)
[2018-10-01] MEDS: Fluticasone 0.05% 1 SPRAY NASAL.SRY NASAL (21:30)
[2018-10-02] MEDS: Cefazolin 1 GM/50 ML BAG IV (00:10)
[2018-10-02 04:00] VITALS: BP 131/77; PULSE 84; RESP 16; TEMP 37.4; O2SAT 99
[2018-10-02] MEDS: Acetaminophen 500 MG Tablet 1000 MG PO ×2 (05:05→13:40)
[2018-10-02] MEDS: Levothyroxine 75 MCG Tablet PO (05:06)
[2018-10-02 05:13] LABS: Hematocrit 34.7 % (37-47); Mean Corp Hgb Conc 31.7 g/dL (32-36); Mean Corpuscular Hgb 28.4 pg (27.0-32.0); Mean Corpuscular Volume 89.7 fL (81-99); Mean Platelet Vol. 9.7 fl (6.2-12.0); Platelet Count 247 K/mm3 (150-450); RBC Distribution Width CV 15.2 % (11.6-14.6); RBC Distribution Width SD 49.7 fl (35.1-43.9); Red Blood Count 3.87 M/mm3 (4.2-5.4); White Blood Count 10.4 K/mm3 (4.4-11.0)
[2018-10-02] MEDS: oxyCODONE 5 MG Tablet PO ×2 (05:15→12:07)
[2018-10-02 05:27] LABS: Anion Gap 5 (5-15); BUN 25 mg/dL (7-18); BUN/Creat Ratio 23.8 RATIO (10-20); Calcium,Total 8.2 mg/dL (8.5-10.1); Chloride 106 mmol/L (98-107); Creatinine, Serum 1.05 mg/dL (0.55-1.02); EST Glomerular Filtration Rate 55 mL/min (>60); Est Glom Filt Rate - Afr Amer 67 mL/min (>60); Estimated Creatinine Clearance 42.42 ml/min; Glucose 131 mg/dL (74-106); Potassium 4.1 mmol/L (3.5-5.1); Sodium Level 140 mmol/L (136-145)
--- NOTE | 2018-10-02 07:51 | PCM.PN.ORT ---
Subjective: Patient sitting at bedside eating breakfast. Patient states pain is very well managed. Patient denies chest pain, shortness breath, calf pain, nausea vomiting. Patient states she is ready for discharge home today. Patient states she plans on doing outpatient therapy at [facility] [place] Objective: Dressing is clean dry intact. Negative signs or symptoms of DVT. Patient good plantar flexion dorsiflexion of the bilateral feet and ankle. Patient has good flexion extension of the left knee. Patient's labs and vitals are within normal limits. Patient is afebrile, neurovascular is otherwise intact, patient speaking in full sentences with no obvious respiratory distress. - Physical Exam General: Alert, Oriented x3, Cooperative HEENT: PERRLA Oral: Moist Mucosa Neurological: Cranial nerves II-XII grossly intact Psych/Mental Status: Normal Affect, Alert and oriented to time, place, person, mood and affect Vital Signs Temp Pulse Resp BP Pulse Ox 99.3 F H 84 16 131/77 H 99 10/02/18 04:00 10/02/18 04:00 10/02/18 04:00 10/02/18 04:00 10/02/18 04:00 Oxygen Flow Rate (L/min) 6 Oxygen Delivery Method CPAP Weight: 143 kg Body Mass Index (BMI) 55.8 Finger Stick Blood Glucose 119 Intake and Output for Last 24 Hours 09/30/18 10/01/18 10/02/18 23:59 23:59 23:59 Intake Total 1500 / 1500 Balance 1500 / 1500 Laboratory Tests Past 24 Hrs 10/02/18 10/02/18 05:00 05:00 WBC 10.4 RBC 3.87 L Hgb 11.0 L Hct 34.7 L MCV 89.7 MCH 28.4 MCHC 31.7 L RDW Std Deviation 49.7 H RDW Coeff of Beatrice 15.2 H Plt Count 247 MPV 9.7 Sodium 140 Potassium 4.1 Chloride 106 Carbon Dioxide 29.0 Anion Gap 5 BUN 25 H Creatinine 1.05 H Estim Creat Clear Calc 42.42 Est GFR (MDRD) Af Amer 67 Est GFR (MDRD) Non-Af 55 L BUN/Creatinine Ratio 23.8 H Glucose 131 H Calcium 8.2 L Medical Necessity - Tobacco Use Smoking Status: Former smoker Assessment/Plan All Active Problems Generalized weakness (Acute) UTI (urinary tract infection) (Resolved) Status post left total hip arthroplasty Morbid obesity Plan 1. Continue all pain medications as prescribed. 2. Continue physical therapy today, weight-bear as tolerated with walker. Discharge after p.m. therapy 3. Continue aspirin 3 and 25 mg 1 p.o. every 12 hours x30 days for postop DVT prophylaxis 4. Encourage incentive spirometry 5. Discharge home today 6. Follow-up as scheduled see pink sheet. 7. Continue outpatient physical therapy at [facility] [place]
--- NOTE | 2018-10-02 08:00 | PCM.DC.THR ---
Discharge Diet: No Restrictions Discharge Activity: May Not Drive, May Shower, Use Walker May shower in (days): 3 - only if incision is dry and without drainage. Do NOT soak/submerge in tub/pool/jaeger/stream/hot tub. May resume sexual activity in: No Restrictions Ice area for (Minutes): 20 - every hour while awake Weight Bearing Status: Weight bearing as tolerated Lifting Restrictions: 20 pounds Elevate: Operative Extremity Call your doctor if your incision/area has: Continuous Slow Oozing, Sudden Increased Bleeding, Increased Pain/ Swelling, Increased Redness, Foul Smelling Discharge Call your doctor if you observe: Fever of 101 or Higher, Inability to urinate, Inability to have a bowel movement, Shortness of breath, Fainting spells, Chest pain, Increased palpitations (irregular heartbeat), Calf discomfort, Uncontrolled pain Change Dressing in (Days):: 8 - Change daily and as needed. Cleanse incision/area with: Soap & Water Allergies/Adverse Reactions: Allergies atorvastatin Allergy (Verified 10/01/18 06:14) Unknown morphine Adverse Reaction (Verified 10/01/18 06:14) Itching tetracycline Adverse Reaction (Verified 10/01/18 06:14) skin discoloration SKIN DISCOLORATION Medications to take at Discharge Amitriptyline HCl [Elavil] 30 mg PO QHS 12/05/12 Ergocalciferol [Vitamin D] 50,000 unit PO MO 12/05/12 Fluoxetine [Prozac] 60 mg PO DAILY 12/05/12 Fluticasone 0.05% [Flonase Nasal [place]] 1 spray NASAL BID 12/05/12 Gabapentin [Neurontin] 800 mg PO TIDCM 12/05/12 Levothyroxine [Synthroid] 75 mcg PO DAILY 12/05/[address] [place]-3 Fatty Acids/Fish Oil [Fish Oil 1,000 mg Capsule] 1 each PO BID 12/05/12 Polyethylene Glycol 3350 [Miralax] 17 gm PO DAILY 12/05/12 Curcumin 500 mg PO DAILY 05/26/16 Dicyclomine HCl [Bentyl] 10 mg PO PRN PRN 05/26/16 Lisinopril/Hydrochlorothiazide [Zestoretic 11/24.5 Tablet] 1 tablet PO DAILY 05/26/16 Ranitidine [Zantac] 300 mg PO BID 05/26/16 Celecoxib [Celebrex] 200 mg PO BID 01/16/17 Azelastine HCl [Astelin] 1 spray NASAL BID 06/19/17 Lovastatin [Mevacor] 40 mg PO QHS 06/19/17 Ascorbate Calcium/Bioflavonoid [Rocio-C 500 mg Tablet] 1 tab PO DAILY 02/09/18 Lactobacillus Acidophilus [Acidophilus] 1 cap PO DAILY 02/09/18 Multivitamin/Iron/Folic Acid [Centrum Women Tablet] 1 each PO DAILY 02/09/18 Baclofen 10 mg PO TID PRN 04/06/18 Wheat Dextrin [Benefiber] 1 each PO DAILY 04/06/18 Vitamin B Complex 1 ea PO DAILY 09/17/18 Acetaminophen [Tylenol] 1,000 mg PO Q8 #90 tab 10/02/18 Aspirin 325 mg PO BIDCM #60 tab 10/02/18 Oxycodone [Oxyir] 5 - 10 mg PO Q4H PRN PRN 7 Days #90 tab 10/02/18 The following prescriptions were given: Aspirin 325 mg PO BIDCM #60 tab Prescription Printed Oxycodone [Oxyir] 5 - 10 mg PO Q4H PRN PRN 7 Days #90 tab PRN Reason: Mod-Severe Pain (4-10) Prescription Printed Acetaminophen [Tylenol] 1,000 mg PO Q8 #90 tab Prescription Printed Primary Care Physician: Josep Huggins DO [Primary Care Provider] - Test Results: Test results from this visit will be discussed in further detail at your follow-up appointment, if applicable. Please Follow Up With: Pete Méndez DO When: see pink sheet
[2018-10-02] MEDS: Vitamin B Comp W-C Capsule 1 CAP PO (09:02)
[2018-10-02] MEDS: Aspirin 325 MG Tablet PO (09:02)
[2018-10-02] MEDS: Gabapentin 800 MG Tablet PO ×2 (09:02→12:08)
[2018-10-02] MEDS: Multivitamins,Ther W-Minerals Tablet 1 TABLET PO (09:03)
[2018-10-02 09:17] VITALS: BP 131/62; PULSE 88; RESP 18; TEMP 36.7; O2SAT 97
[2018-10-02] MEDS: Famotidine 20 MG Tablet 40 MG PO (09:39)
[2018-10-02] MEDS: FLUoxetine 20 MG Capsule 60 MG PO (09:39)
[2018-10-02] MEDS: hydroCHLOROthiazide 12.5mg 12.5 MG PO (09:40)
[2018-10-02] MEDS: Lisinopril 10 MG Tablet PO (09:41)
[2018-10-02] MEDS: Fluticasone 0.05% 1 SPRAY NASAL.SRY NASAL (09:42)
[2018-10-02] MEDS: Azelastine HCl NASAL.SRY 1 SPRAY NASAL (09:42)
--- NOTE | 2018-10-02 10:15 | CASEMGMT ---
LIT VILLASENOR Face to Face with patient for initial transition planning/care coordination assessment. RN JACKLYN introduced self and role at [facility]. Patient sitting in chair, alert and oriented, at bedside. Patient willing to participate in assessment and is able to answer all questions appropriately. Care providers, pharmacy, and demographics verified. Patient wishes to discharge home with outpatient setup with [facility]. Patient states she has no further needs or concerns at this time. CM to follow for discharge planning needs that may arise. PCP: Joseluis Specialists: wesley Méndez; edwin Tanner Preferred Pharmacy: Last Insurance: [facility], Diligent Board Member Services Prescription Benefit: yes, [employer] Living Will/HPOA: Yes, Kane Shin LNOK: , daughter Living Arrangements: Patient lives with in 1 story home with 2 steps with railing to enter the home. Transportation: , daughter DME/HHC: Patient states she has shower chair, raised toilet, cane, walker, rollator, grab bars, and cpap at home. Patient states she has outpatient therapy setup for 10/05/18. Disposition Plan: Patient to discharge home with outpatient therapy, family support, and follow-up plans in place. Deepti CORREA, RN, CM
[2018-10-02 13:49] VITALS: BP 146/49; PULSE 87; RESP 16; TEMP 37.5; O2SAT 95
== END 2018-10-02 13:55 | disposition home or self-care (01) | DRG 470 ==
LOC: ACINP 05:25 → MS3 05:32
PROVIDERS: Anesthesiology; Admitting Provider Orthopaedic Surgery; Family Provider Student in an Organized Health Care Education/Training Program; PCP Student in an Organized Health Care Education/Training Program; Referring Provider Orthopaedic Surgery; Visit Provider Orthopaedic Surgery
PROC: 0SRB0JZ Replacement of Left Hip Joint with Synthetic Substitute, Open Approach (ICD-10-PCS; CPT 27130; principal; 2018-10-01 06:50)
DX: M16.12 Unilateral primary osteoarthritis, left hip (principal); Z68.43 Body mass index [BMI] 50.0-59.9, adult; I12.9 Hypertensive chronic kidney disease with stage 1 through stage 4 chronic kidney disease, or unspecified chronic kidney disease; N18.3 Chronic kidney disease, stage 3 (moderate); E78.00 Pure hypercholesterolemia, unspecified; K58.9 Irritable bowel syndrome, unspecified; M79.7 Fibromyalgia; F32.9 Major depressive disorder, single episode, unspecified; E66.01 Morbid (severe) obesity due to excess calories; Z78.0 Asymptomatic menopausal state; Z79.82 Long term (current) use of aspirin; Z79.899 Other long term (current) drug therapy; Z96.652 Presence of left artificial knee joint; Z87.891 Personal history of nicotine dependence
CPT/HCPCS: 36415; 73502; 80048; 82962; 84443; 85025; 85027; 87081; 88305; 88311; 97110; 97162; 97166; 97530; 97535; C1776; J7120

== ENCOUNTER → 2018-12-26 13:30 | Outpatient (CLI) | payer MEDICARE, OTHER, SELFPAY ==
[2018-10-01 12:00] VITALS: BMI 55.8
--- NOTE | 2018-12-26 13:30 | ASPSI_PTH ---
PATIENT: CHAU KING LOC: [facility] U#:[id number] AGE/SX: 74/F ROOM: RE12/26/[address]: Dr. Judith Spaulding MD : 1950 BED: DIS: SPEC #: [id number] RECD: 12/26/18 16:52 STATUS: NATALEE EN #: [id number] ERMA: 12/26/18 13:[address]: Judith Spaulding DEPT: CYTOLOGY RECD BY: Beth Gardner ENTERED: 12/27/18 09:49 SP TYPE: JULIANNA GUERRA DR: Dr. Josep Huggins, DO Tissues: A - Thyroid gland, NOS B - Thyroid gland, NOS Procedures: Surgery Specimen Level IV Cytospin Fluid Cytology Other HEADER OPERATION: Ultrasound guided fine needle aspiration, right thyroid PRE-OP DIAGNOSIS: Thyroid nodules TISSUE SUBMITTED: A. FNA right thyroid fluid for cytology, B. FNA right thyroid slides DIAGNOSIS CYTOLOGY A. Fine needle aspiration, right thyroid nodule (cytospin and cell block): Negative for malignant cells. Consistent with benign follicular/colloid nodule. B. Fine needle aspiration, right thyroid nodule (smears): Adequate for evaluation. Negative, consistent with benign follicular/colloid nodule. AM:radha 12/28/18 COMMENT Immediate cytologic evaluation to determine adequacy is not applicable. CYTOLOGY STUDY Slides are reviewed. CYTOLOGY GROSS A. Received is 35 ml of hazy light red fluid labeled with the patient's name and and designated per the requisition as FNA right thyroid. Submitted for cytology preparation including cell block B. Received are 8 smears labeled with the patient's name and designated per the requisition as FNA right thyroid. Submitted for staining. /CC:cc 12/27/18 TC:5 CPT: 41866, 14396, 07098
== END ==
PROVIDERS: Family Provider Student in an Organized Health Care Education/Training Program; PCP Student in an Organized Health Care Education/Training Program; Referring Provider Surgery; Visit Provider Surgery
DX: E04.1 Nontoxic single thyroid nodule (principal)
CPT/HCPCS: 88108; 88161; 88305

== ENCOUNTER 2019-01-28 09:08 | Day surgery (SDC) | payer MEDICARE, OTHER, SELFPAY ==
[2018-10-01 12:00] VITALS: BMI 55.8
[2019-01-28] MEDS: Lactated Ringers 1,000 ML 100 ML IV (09:43)
[2019-01-28 09:51] VITALS: BP 142/78; PULSE 72; RESP 16; TEMP 36.5; O2SAT 98; BMI 51.8
--- NOTE | 2019-01-28 10:40 | RAD_ITS ---
PROCEDURE: Caudal block. DATE OF EXAMINATION: January 28, 2019. INDICATION: Female, 68 years old. Caudal block. FLUOROSCOPY TIME (if supplied): (6.3 seconds) minutes/seconds. 2 coned-down images were obtained. Intraoperative imaging provided for caudal block. RAD/Fluor Guidance for Spine Inj IMPRESSION: Intraoperative imaging provided for caudal block. Electronically Signed: Contreras Cook, at 13:22 EST , Service support ,
[2019-01-28] MEDS: Bupivacaine 0.25% 30 ML Vial (10:47)
[2019-01-28] MEDS: MethylPREDNISolone Acetate 80 MG/ML Vial (10:47)
[2019-01-28 10:55] VITALS: BP 115/58; BP 142/78; PULSE 67; RESP 14; TEMP 36.6; O2SAT 95
[2019-01-28 11:00] VITALS: BP 129/68; BP 142/78; PULSE 67; RESP 16; O2SAT 96
[2019-01-28 11:05] VITALS: BP 126/72; BP 142/78; PULSE 73; RESP 16; O2SAT 98
[2019-01-28 11:10] VITALS: BP 129/76; BP 142/78; PULSE 67; RESP 16; TEMP 36.2; O2SAT 96
[2019-01-28 11:27] VITALS: BP 142/78
--- NOTE | 2019-01-28 12:37 | PCM.OPRPT ---
Report of Operation Date of Procedure: 01/28/19 Description of Surgical Findings:: PREOPERATIVE DIAGNOSIS: Lumbosacral radiculopathy, lumbosacral degenerative disc disease, lumbosacral spinal stenosis POSTOPERATIVE DIAGNOSIS: Lumbosacral radiculopathy, lumbosacral degenerative disc disease, lumbosacral spinal stenosis PROCEDURE PERFORMED: Caudal epidural steroid injection. ANESTHESIA: MAC. BLOOD LOSS: Minimal. COMPLICATIONS: None. DESCRIPTION OF PROCEDURE: History and physical of today was reviewed. Risks and benefits of the procedure were explained. The patient understood and agreed to proceed. Informed consent was obtained. IV inserted per routine protocol. The patient was taken to the operating room and placed in the prone position with a pillow positioned underneath the abdomen. The lower back and tailbone area was prepped and draped in a sterile fashion using iodine x3. Under fluoroscopy guidance on a lateral view, the caudal space was identified. The skin and subcutaneous tissue was anesthetized with approximately 3 mL of 1% lidocaine using a 25-gauge regular needle. Under direct visualization with fluoroscopy, using a 22-gauge 3-1/2-inch spinal needle, the needle was advanced via the skin through the sacral hiatus. The tip of the needle was passed through the sacrococcygeal ligament and advanced to approximately S4 area. After negative aspiration of blood or CSF, a total of 3 mL of contrast was injected to confirm correct placement of the needle as well as cephalad spread. The spread was followed to approximately L5 area. After confirmation on AP as well as lateral view and repeated negative aspiration, a total of 15 mL of preservative-free 0.125% Marcaine with 80 mg of Depo-Medrol was injected easily. The needle was then removed intact. The patient experienced no sign or symptoms of intrathecal or intravascular injection. The patient experienced no paresthesia. The procedure was completed without any apparent difficulty or any complications. The patient appeared to tolerate it well. ASSESSMENT AND PLAN: This is a 68-year-old female with lumbosacral radiculopathy, lumbosacral degenerative disc disease, lumbosacral spinal stenosis status post caudal epidural steroid injection patient will continue her current medications patient will follow approximately 2 weeks for reevaluation.
== END 2019-01-28 11:36 | disposition home or self-care (01) ==
LOC: SDC 09:08 → AC 09:11
PROVIDERS: Family Provider Student in an Organized Health Care Education/Training Program; PCP Student in an Organized Health Care Education/Training Program; Referring Provider Anesthesiology Pain Medicine; Visit Provider Anesthesiology Pain Medicine
PROC: 3E0S3BZ Introduction of Anesthetic Agent into Epidural Space, Percutaneous Approach (ICD-10-PCS; CPT 62282; principal; 2019-01-28 10:35)
DX: M51.17 Intervertebral disc disorders with radiculopathy, lumbosacral region (principal); M48.07 Spinal stenosis, lumbosacral region; I12.9 Hypertensive chronic kidney disease with stage 1 through stage 4 chronic kidney disease, or unspecified chronic kidney disease; N18.3 Chronic kidney disease, stage 3 (moderate); E78.00 Pure hypercholesterolemia, unspecified; E06.9 Thyroiditis, unspecified; M79.7 Fibromyalgia; G47.30 Sleep apnea, unspecified; K21.9 Gastro-esophageal reflux disease without esophagitis; F32.9 Major depressive disorder, single episode, unspecified; F41.9 Anxiety disorder, unspecified; M16.12 Unilateral primary osteoarthritis, left hip; Z79.82 Long term (current) use of aspirin; Z79.891 Long term (current) use of opiate analgesic; Z79.899 Other long term (current) drug therapy; Z87.891 Personal history of nicotine dependence
CPT/HCPCS: 62323; 64483; 77003; J7120; J3490

== ENCOUNTER 2019-06-17 09:13 | Day surgery (SDC) | payer MEDICARE, OTHER, SELFPAY ==
--- NOTE | 2019-06-17 10:00 | RAD_ITS ---
PROCEDURE: Caudal block. DATE OF EXAMINATION: June 17, 2019 INDICATION: Female, 68 years old. Chronic low back pain. FLUOROSCOPY TIME (if supplied): (10.8 seconds) minutes/seconds Intraoperative imaging provided for caudal block. RAD/Fluoro Guided Needle Placement IMPRESSION: Intraoperative imaging provided for caudal block Electronically Signed: Contreras Cook, at 13:43 EDT , Service support ,
[2019-06-17 10:11] VITALS: BP 145/75; PULSE 74; RESP 16; TEMP 36.9; O2SAT 97; BMI 53.5
[2019-06-17] MEDS: Lactated Ringers 1,000 ML 100 ML IV (10:17)
[2019-06-17] MEDS: 0.9% Normal Saline (Pres. free 10 ML Vial (11:15)
[2019-06-17] MEDS: Bupivacaine 0.25% 30 ML Vial (11:15)
[2019-06-17] MEDS: MethylPREDNISolone Acetate 80 MG/ML Vial (11:15)
--- NOTE | 2019-06-17 11:17 | PCM.OPRPT ---
Report of Operation Date of Procedure: 06/17/19 Description of Surgical Findings:: PREOPERATIVE DIAGNOSIS: Lumbosacral radiculopathy, lumbosacral degenerative disc disease, lumbosacral spinal stenosis POSTOPERATIVE DIAGNOSIS: Lumbosacral radiculopathy, lumbosacral degenerative disc disease, lumbosacral spinal stenosis PROCEDURE PERFORMED: caudal epidural steroid injection. ANESTHESIA: MAC. BLOOD LOSS: Minimal. COMPLICATIONS: None. DESCRIPTION OF PROCEDURE: History and physical of today was reviewed. Risks and benefits of the procedure were explained. The patient understood and agreed to proceed. Informed consent was obtained. IV inserted per routine protocol. The patient was taken to the operating room and placed in the prone position with a pillow positioned underneath the abdomen. The lower back and tailbone area was prepped and draped in a sterile fashion using iodine x3. Under fluoroscopy guidance on a lateral view, the caudal space was identified. The skin and subcutaneous tissue was anesthetized with approximately 3 mL of 1% lidocaine using a 25-gauge regular needle. Under direct visualization with fluoroscopy, using a 22-gauge 3-1/2-inch spinal needle, the needle was advanced via the skin through the sacral hiatus. The tip of the needle was passed through the sacrococcygeal ligament and advanced to approximately S4 area. After negative aspiration of blood or CSF, a total of 3 mL of contrast was injected to confirm correct placement of the needle as well as cephalad spread. The spread was followed to approximately L5 area. After confirmation on AP as well as lateral view and repeated negative aspiration, a total of 15 mL of preservative-free 0.125% Marcaine with 80 mg of Depo-Medrol was injected easily. The needle was then removed intact. The patient experienced no sign or symptoms of intrathecal or intravascular injection. The patient experienced no paresthesia. The procedure was completed without any apparent difficulty or any complications. The patient appeared to tolerate it well. ASSESSMENT AND PLAN: This is a 68-year-old female with lumbosacral radiculopathy, lumbosacral degenerative disc disease, lumbosacral spinal stenosis status post caudal epidural steroid injection, patient will continue her current medications, patient will follow approximately 2 weeks for reevaluation.
[2019-06-17 11:25] VITALS: BP 128/73; BP 145/75; PULSE 65; RESP 16; TEMP 36.6; O2SAT 100
[2019-06-17 11:30] VITALS: BP 134/64; BP 145/75; PULSE 70; RESP 16; O2SAT 97
[2019-06-17 11:35] VITALS: BP 110/64; BP 145/75; PULSE 65; RESP 16; O2SAT 94
[2019-06-17 11:40] VITALS: BP 127/71; BP 145/75; PULSE 66; RESP 18; TEMP 37.1; O2SAT 97
[2019-06-17 11:59] VITALS: BP 145/75
== END 2019-06-17 12:16 | disposition home or self-care (01) ==
LOC: SDC 09:15 → AC 09:15
PROVIDERS: PCP Student in an Organized Health Care Education/Training Program; Referring Provider Anesthesiology Pain Medicine; Visit Provider Anesthesiology Pain Medicine
PROC: 3E0S3BZ Introduction of Anesthetic Agent into Epidural Space, Percutaneous Approach (ICD-10-PCS; CPT 62282; principal; 2019-06-17 10:25)
DX: M51.17 Intervertebral disc disorders with radiculopathy, lumbosacral region (principal); M48.07 Spinal stenosis, lumbosacral region; M79.7 Fibromyalgia; I12.9 Hypertensive chronic kidney disease with stage 1 through stage 4 chronic kidney disease, or unspecified chronic kidney disease; N18.3 Chronic kidney disease, stage 3 (moderate); G47.33 Obstructive sleep apnea (adult) (pediatric); K21.9 Gastro-esophageal reflux disease without esophagitis; E78.00 Pure hypercholesterolemia, unspecified; E06.9 Thyroiditis, unspecified; F32.9 Major depressive disorder, single episode, unspecified; F41.9 Anxiety disorder, unspecified; Z79.82 Long term (current) use of aspirin; Z79.891 Long term (current) use of opiate analgesic; Z79.899 Other long term (current) drug therapy; Z87.891 Personal history of nicotine dependence
CPT/HCPCS: 62323; 64483; 77002; J7120; J3490

== ENCOUNTER 2019-08-20 12:31 | Day surgery (SDC) | payer MEDICARE, OTHER, SELFPAY ==
--- NOTE | 2019-08-20 07:54 | HP.PCM_ITS ---
History and Physical Date of Admission: 08/20/19 HISTORY AND PHYSICAL ? Marlee Shin 1950 ? REFERRING PHYSICIAN: Valery Etienne APRN.C* ? CHIEF COMPLAINT: Hemorrhoids ? HPI: The patient is a 69 year old female referred for endoscopy. Marlee notes a change in bowel habits over the last several weeks, with a couple of episodes of fecal urgency and loss of stool control. She has also noted increased abdominal gas. She notes a long-standing history of hemorrhoids, and these have flared up and being slightly uncomfortable over the last few weeks. She states they are painful with bowel movements but are not generally painful at rest or with walking or sitting. She notes that over the counter hemorrhoid creams are helping somewhat. She has tried a prescription suppository but had trouble inserting this. Denies family history of colon issues. ? Marlee has undergone prior endoscopy. Most recent colonoscopy was performed by Dr. Cristi Jo in 2017 under [facility], report reviewed. Patient was noted to have a very tortuous colon and had a polyp removed at that time. ? Patient's past medical history is significant for chronic kidney disease, degenerative disc disease, hypertension, fibromyalgia, obesity, sleep apnea, Patient follows with Dr. Huggins in primary care. ? Patient was evaluated by Betty Etienne CNP in Gastroenterology. She was referred to general surgery due to her complaint of symptomatic hemorrhoids. ? ? PAST MEDICAL HISTORY ? Abdominal pain, left upper quadrant ? ? Benign neoplasm of colon ? ? CKD (chronic kidney disease) stage 3, GFR 30-59 ml/min (HCC) ? ? DDD (degenerative disc disease), lumbar ? ? Diverticulosis of colon (without mention of hemorrhage) ? ? Fibromyalgia syndrome ? ? HTN (hypertension) ? ? Hypothyroidism ? ? Migraine without aura ? ? Morbid obesity (HCC) ? ? Myalgia and myositis, unspecified ? ? Other acne ? ? Rectal bleeding 05/2016 ? Rosacea ? ? Sleep apnea ? ? cpap with o2. ? Spinal stenosis ? ? Unspecified constipation ? ? Unspecified vitamin D deficiency 12/20/2007 ? Vit D-18.5 on 02/16/07 PAST SURGICAL HISTORY ? COLONOSCOP W/ OR W/O [facility] SPEC ? 2001 ? Colonoscopy ? COLONOSCOP W/ OR W/O [facility] SPEC ? 2002 ? Colonoscopy ? COLONOSCOP W/ OR W/O [facility] SPEC ? 12/13/05 ? COLONOSCOP W/ OR W/O [facility] SPEC ? 02/24/2011 ? Colonoscopy ? COLONOSCOPY ? 06/01/2016 ? FNA WITH IMAGING ? 03/04/10 ? U/S FNA right thyroid x 2 and left x 1 ? LAP CHOLECYSTECT/CHOLANGIOGRAPHY ? 07-25-11 ? PAST SURGICAL HISTORY OF ? 1973 ? removal tumors ana ovaries ? PAST SURGICAL HISTORY OF ? x 2 ? ingrown toenails ? PAST SURGICAL HISTORY OF ? ? ? cystoscopy x2 and tumors removed from both ovaries. ? TOTAL ABDOM HYSTERECTOMY ? 09/17/92 ? Hysterectomy, [facility] Dr Schmitt ? TOTAL HIP REPLACEMENT ? 2009 ? right ? TOTAL HIP REPLACEMENT Left 10/01/2018 ? Dr. Pete Méndez ? TOTAL KNEE REPLACEMENT ? 2007 ? right ? TOTAL KNEE REPLACEMENT ? 04/16/2018 CURRENT MEDICATIONS ? famotidine (PEPCID) 20 mg tablet Take 1 tablet by mouth twice daily. ? hydrocortisone (ANUSOL-HC) 2.5 % rectal cream by RECTAL route twice daily for 14 days. ? levothyroxine (SYNTHROID) 75 mcg tablet Take 1 tablet by mouth once daily. ? lisinopril-hydrochlorothiazide (PRINZIDE,ZESTORETIC) 10-12.5 mg per tablet Take 1 tablet by mouth once daily. ? ergocalciferol 50,000 unit capsule (VITAMIN D2, DRISDOL) Take 1 capsule by mouth one time a week. ? hydrocortisone (HEMORRHOIDAL HC) 25 mg suppository 1 Suppository by RECTAL route twice daily. ? CPAP Mask (per patient preference) optional chin strap (if indicated) , filters, tubing, humidifier and lifetime supplies. G47.33 ? gabapentin (NEURONTIN) 800 mg tablet Take 1 tablet by mouth three times daily. ? magnesium oxide,aspartate,citr 400 mg magnesium cap Take 1 capsule by mouth once daily. ? potassium gluconate 600 mg (99 mg) tab Take 1 tablet by mouth once daily. ? latanoprost (XALATAN) 0.005 % ophthalmic solution Use 1 Drop in both eyes daily at bedtime. TO AFFECTED EYE(S) ? FLUoxetine (PROZAC) 20 mg capsule Take 3 capsules by mouth once daily. ? amitriptyline (ELAVIL) 10 mg tablet Take 3 tablets by mouth daily at bedtime. ? fluconazole (DIFLUCAN) 150 mg tablet One tablet every 72 hours X 3. ? B Complex Vitamins capsule Take 1 capsule by mouth once daily. ? Lovastatin 40 mg tablet Take 1 tablet by mouth daily at bedtime. ? azelastine (ASTELIN,ASTEPRO) 0.1% nasal spray Use 1 [place] in each nostril twice daily. ? fluticasone (FLONASE) 50 mcg/actuation nasal spray Use 2 Sprays in each nostril once daily. ? baclofen (LIORESAL) 10 mg tablet Take 10 mg by mouth as needed. ? ? celecoxib (CELEBREX) 200 mg capsule Take 1 capsule by mouth twice daily. ? Ipratropium [place] (ATROVENT) 0.03 % nasal spray Use 2 Sprays in each nostril four times daily. As needed for runny nose. ? L.ACID/L.CASEI/B.BIF/B.PONCHO/FOS (PROBIOTIC BLEND ORAL) Take by mouth once daily. ? TURMERIC (CURCUMIN MISC) 500 mg twice daily. ? ? Cetirizine (ZYRTEC) 10 mg cap Take by mouth once daily. ? dicyclomine (BENTYL) 10 mg capsule Take 1 capsule by mouth once daily. as needed if severe take 20 mg ? Polyethylene Glycol 3350 (MIRALAX) 17 gram/dose ORAL powder Take 17 g by mouth. Drink a mix of 1 scoop in 8oz of water/beverage once daily as needed for constipation. ? multivitamin ORAL tablet Take one(1) tablet daily. ? omega-3 fatty acids/vitamin e(FISH OIL 1,000 MG CAP) 2 cap daily ? ascorbic acid(VITAMIN C 500 MG TAB) 500 mg once daily ? FIBER TAB 1000 mg daily ? ALLERGIES: Atorvastatin; Morphine; Tetracycline ? PERSONAL HISTORY: ?Tobacco Use ? Smoking status: Former Smoker ? ? Last attempt to quit: 07/05/1980 ? ? Years since quittin.0 ? Smokeless tobacco: Never Used Substance Use Topics ? Alcohol use: Yes ? ? Frequency: 2-4 times a month ? ? Drinks per session: 1 or 2 ? ? Binge frequency: Never ? ? Comment: rarely ? Drug use: No ? FAMILY HISTORY: ? Heart Father ? ? MD / PE ? Coronary Artery Disease Father ? ? MD ? Cancer Mother ? ? bladder ? Coronary Artery Disease Brother ? ? stent x 5 on 2 occasions ? REVIEW OF SYMPTOMS: The review of systems data was entered by the nurse and reviewed by me ? Nursing Notes: Guadalupe Whitten VICKY 07/26/2019 4:01 PM Signed REVIEW OF SYSTEMS: General: The patient NOTES fatigue, denies weight loss, denies weight gain, NOTES feeling hot, and denies feelings of cold. Eyes: The patient NOTES glaucoma, NOTES eye injury/surgery, does not wear glasses or contacts. Ear/Nose/Throat: The patient NOTES allergies, denies hayfever, denies ear infections, and denies bloody noses. Cardiovascular: The patient denies chest pain, denies heart disease, NOTES high blood pressure,denies cardiac stent, denies prior heart attack, denies irregular heart beat, NOTES high cholesterol, denies poor circulation, denies heart failure, other cardiac issues, denies claudication, denies cold feet, denies peripheral arterial stent. Respiratory: The patient denies tuberculosis, denies pneumonia, denies frequent cough, denies pulmonary embolism, denies shortness of breath, and denies coughing up blood. Gastrointestinal: The patient denies difficulty swallowing, NOTES acid reflux, denies ulcers, denies vomiting, denies jaundice/hepatitis, NOTES gallbladder problems, denies black or tarry stools, NOTES hemorrhoids, NOTES bleeding from rectum, denies diverticulitis, NOTES constipation, denies diarrhea, NOTES loss of stool control, and denies hernias. Kidney/Bladder: The patient denies kidney stones, denies urine infections, and denies bloody urine. Skin: The patient denies a history of skin cancer, denies bleeding/changing moles, and denies a history of skin rash. Neurologic: The patient denies a history of epilepsy/convulsions, NOTES headaches, denies head/spinal injuries, and denies stroke/TIA. Psychiatric: The patient denies psychiatric medications, denies depression, and denies voices, denies substance abuse. Endocrine: The patient NOTES thyroid disorders, denies diabetes, and denies hormonal problems. Hematologic: The patient denies a history of bruising, denies bleeding, and denies anemia, blood clots. Infections: The patient NOTES a history of measles and mumps, denies rheumatic fever, and denies sexually transmitted diseases. Musculoskeletal: The patient NOTES back pain/injury, NOTES back problems, denies sciatica, denies knee/foot trouble, NOTES arthritis, or denies gout. ? ? When was patient's last Mammogram screening? 2019 ? Last Colonoscopy: 2017 ? Guadalupe Whitten LPN I have confirmed and edited as necessary, the PFSH and ROS obtained by others. ? PHYSICAL EXAMINATION: ? General: The patient is 69 year old female, well nourished, well hydrated in no acute distress. The patient is oriented to time, place, and person. ? VITALS: Blood pressure 110/65, pulse 94, temperature 37.2 ?C (99 ?F), temperature source Temporal, resp. rate 24, weight (!) 137.9 kg (304 lb), SpO2 97 %. Body mass index is 53.01 kg/m?. ? HEENT: Normal cephalic, ataumatic, pupils are equally round, sclera are anicteric, mucous membranes are moist, oropharynx is clear. Neck has no masses, asymmetry or lymphadenopathy. ? Respiratory: Clear to auscultation and percussion. Normal respiratory excursion and pattern. ? Cardiac: Examination is regular rate and rhythm. Normal S1/S2 ? Abdominal exam: Soft, nontender, with no palpable masses. No hepatosplenomegaly. No palpable hernias. ? Extremities: no clubbing, cyanosis or edema. No adenopathy. ? Rectal exam: +numerous non-thrombosed irritated external hemorrhoids ? LABORATORY VALUES: As Noted ? RADIOLOGIC STUDIES: As Noted ? IMPRESSION: change in bowel habits, abdominal gas, loss of stool control, hemorrhoids ? PLAN: I have reviewed my findings with the surgeon. Will plan for upper and lower endoscopy. Would defer this by 2 weeks due to flared hemorrhoids-will treat with anusol cream, recommended plenty of fiber and fluids. ? We discussed the risks and benefits of the planned endoscopy. I have informed the patient that complications can occur including failure to complete the endoscopy and perforation. The patient had the opportunity to ask questions concerning the planned endoscopy. My staff has also explained the procedure to the patient in understandable terms and has given the patient printed material concerning the procedure. The patient freely consents to surgery. ? I plan to use Golytely bowel preparation ? The patient was offered a surgery/procedure at a [facility] facility, but patient chose to have the procedure done at [facility] instead. The provider and patient have discussed in detail the risk of exposure to and/or potential harm posed by the COVID-19 virus with having a surgery/procedure at this time versus the risk of? delaying the surgery/procedure. It is not possible to know either the risk of delaying the surgery or procedure or chance of getting an infection with perfect accuracy, but a joint decision was made between the patient and the provider ?to proceed at this time with endoscopy. ? Patient aware that she will need COVID testing prior to endoscopy ? Diagnoses: (K64.4) External hemorrhoids without complication (primary encounter diagnosis) (R19.4) Change in bowel habits (R14.0) Abdominal distension (gaseous) (Q43.8) Tortuous colon ? ? Marleni Shaffer PA-C
[2019-08-20 12:55] VITALS: BP 156/73; PULSE 75; RESP 16; TEMP 37; O2SAT 97; BMI 53.4
[2019-08-20] MEDS: Lactated Ringers 1,000 ML 100 ML IV (13:04)
--- NOTE | 2019-08-20 13:30 | EGD_PTH ---
PATIENT: CHAU KING LOC: EN U#:[id number] AGE/SX: 69/F ROOM: RE08/20/[address]: Dr. Judith Spaulding MD : 1950 BED: DIS: 08/20/2019 SPEC #: [id number] RECD: 08/20/19 14:53 STATUS: NATALEE REMargret #: [id number] ERMA: 08/20/19 13:[address]: Judith Spaulding DEPT: SURGICAL PATHOLOGY RECD BY: [place] ENTERED: 08/21/19 09:18 SP TYPE: EGD BIOPSY OTHR DR: Dr. Josep Huggins DO Tissues: A - Gastric mucous membrane B - Gastric mucous membrane C - COLON BIOPSY Procedures: Special Stain Group II Surgery Specimen Level IV Alcian Blue/PAS (control) HEADER OPERATION: Colonoscopy, EGD ([facility] [place]) PRE-OP DIAGNOSIS: Abdominal distension, change in bowel habits, tortuous colon TISSUE SUBMITTED: A - Antral biopsy for H. pylori and pathology, B - GE junction biopsy, C - Random colon biopsies MICROSCOPIC DIAGNOSIS A. Gastric antrum, biopsy: Fragments of benign superficial gastric mucosa. See comment. B. Gastroesophageal junction, biopsy: Gastric mucosa with mild chronic inflammation. No evidence of goblet cell metaplasia. See comment. C. Colon, random biopsy: No significant pathologic change. No evidence of colitis. AM:radha 08/22/19 COMMENT A. The results of immunohistochemistry for Helicobacter pylori will be reported separately ([id number]). B. Alcian blue/PAS stain with matched control is used in the evaluation of the specimen. MICROSCOPIC DESCRIPTION Slides are reviewed. GROSS DESCRIPTION A - Received in fixative is one container labeled with the patient's name and designated antral biopsy. The specimen consists of one irregular fragment of light hazel soft tissue that measures 0.2 x 0.1 x 0.1 cm. The specimen is totally submitted in one cassette. B - Received in fixative is one container labeled with the patient's name and designated GE junction biopsy. The specimen consists of one irregular fragment of light hazel soft tissue that measures 0.2 x 0.2 x 0.1 cm. The specimen is totally submitted in one cassette. C - Received in fixative is one container labeled with the patient's name and designated random colon biopsy. The specimen consists of multiple irregular fragments of light hazel soft tissue that in aggregate measure 2 x 0.5 x 0.1 cm. The specimen is totally submitted in one cassette. / SJ:rg 08/21/19 TC:3 CPT: 32546 x3, 83367
--- NOTE | 2019-08-20 13:30 | IMM_PTH ---
PATIENT: CHAU KING LOC: EN U#:[id number] AGE/SX: 69/F ROOM: RE08/20/[address]: Dr. Judith Spaulding MD : 1950 BED: DIS: 08/20/2019 SPEC #: [id number] RECD: 08/21/19 12:08 STATUS: NATALEE REQ #: [id number] ERMA: 08/20/19 13:[address]: Judith Spaulding DEPT: IMMUNOHISTOCHEMISTRY RECD BY: Kristal Boyce ENTERED: 08/21/19 12:08 SP TYPE: IMMUNO OTHR DR: Dr. Josep Huggins DO Tissues: A - Stomach, NOS Procedures: H Pylori (initial) PHYSICIAN & INSTITUTION [place] [id number] SPECIMEN INFORMATION: Tissue Source: A - Antral biopsy Clinical Info: Abdominal distension, changes in bowel habits, tortuous colon Specimen Number: [id number] CPT code: 56691 METHODOLOGY: Deparaffinized sections of prefer/formalin-fixed tissue or PAP/DQ stained slides are incubated with monoclonal/polyclonal antibodies/oligonucleotide probes. Localization is made via biotin free immunoperoxidase method. Appropriate controls are performed and reacted as expected. Results on target cell population are indicated in the following table: RESULTS: ANTIBODY / CLONE RESULT Block A H Pylori (polyclonal) negative These tests were developed and their performance characteristics determined by [facility]. They may not have been cleared or approved by the U.S. Food and Drug Administration. The FDA has determined that such clearance or approval is not necessary. INTERPRETATION: A. Antral biopsy: Negative for Helicobacter pylori organisms. AM:radha 08/22/19
[2019-08-20 14:28] VITALS: BP 123/65; BP 156/73; PULSE 74; RESP 18; TEMP 36.8; O2SAT 100
--- NOTE | 2019-08-20 14:28 | OP.EGD_ITS ---
Patient Name: Marlee Shin Procedure Date: 08/20/2019 1:32 PM Date of : 1950 Age: 69 Procedure: Upper GI endoscopy Indications: Epigastric abdominal pain Providers: Judith Spaulding MD Referring MD: Josep Huggins Medicines: See the Anesthesia note for documentation of the administered medications Patient Profile: Refer to note in patient chart for documentation of history and physical. Complications: No immediate complications. Procedure: Pre-Anesthesia Assessment: - see anesthesia note After obtaining informed consent, the endoscope was passed under direct vision. Throughout the procedure, the patient's blood pressure, pulse, and oxygen saturations were monitored continuously. The gastroscope was introduced through the mouth, and advanced to the second part of duodenum. The upper GI endoscopy was accomplished without difficulty. The patient tolerated the procedure well. Scope In: 1:52:31 PM Scope Out: 1:55:11 PM Total Procedure Duration Time 0 hours 2 minutes 40 seconds Findings: The first portion of the duodenum and second portion of the duodenum were normal. The entire examined stomach was normal. Biopsies were taken with a cold forceps for histology. LA Grade A (one or more mucosal breaks less than 5 mm, not extending between tops of 2 mucosal folds) esophagitis with no bleeding was found. Biopsies were taken with a cold forceps for histology. Verification of patient identification for the specimen was done by the nurse. Estimated blood loss was minimal. Impression: - Normal first portion of the duodenum and second portion of the duodenum. - Normal stomach. Biopsied. - LA Grade A reflux esophagitis. Biopsied. Recommendation: - My office will set up a [facility] health appointment for discussion of pathology results in 1-2 weeks - Continue present medications. Procedure Code(s): --- Professional --- 58809, Esophagogastroduodenoscopy, flexible, transoral; with biopsy, single or multiple Diagnosis Code(s): --- Professional --- K21.0, Gastro-esophageal reflux disease with esophagitis R10.13, Epigastric pain CPT copyright 2017 [employer]. All rights reserved. The codes documented in this report are preliminary and upon baffle mounter review may be revised to meet current compliance requirements. MD Judith Baugh MD 08/20/2019 2:27:40 PM This report has been signed electronically. Number of Addenda: 0 Note Initiated On: 08/20/2019 1:32 PM
--- NOTE | 2019-08-20 14:28 | OP.CCLET_ITS ---
08/20/2019 Josep Huggins [address] [phone] Re : Upper GI endoscopy procedure for Marlee Shin Dear Dr. Huggins This procedure was performed on Tuesday, August 20, 2019. My impressions and recommendations are as follows: Impressions : - Normal first portion of the duodenum and second portion of the duodenum. - Normal stomach. Biopsied. - LA Grade A reflux esophagitis. Biopsied. Recommendations : - My office will set up a [facility] health appointment for discussion of pathology results in 1-2 weeks - Continue present medications. My findings are described in the full procedure note, which is enclosed. If I can be of further assistance, please feel free to contact me at Doctor phone number(s): , Work: . Sincerely, MD Judith Baugh MD 08/20/2019 2:27:40 PM This report has been signed electronically.
--- NOTE | 2019-08-20 14:33 | OP.CCLET_ITS ---
08/20/2019 Josep Huggins [address] [phone] Re : Colonoscopy procedure for Marlee Shin Dear Dr. Huggins This procedure was performed on Tuesday, August 20, 2019. My impressions and recommendations are as follows: Impressions : - Preparation of the colon was poor. - Non-bleeding external and internal hemorrhoids. - Diverticulosis in the left, sigmoid, and transverse colon. - Random mucosal biopsies done throughout colon. Recommendations : - Discharge patient to home (ambulatory). - Resume previous diet. - Continue present medications. - Await pathology results. - My office will set up [facility] appointment to discuss pathology results in 1-2 weeks - Repeat colonoscopy is recommended. The colonoscopy date will be determined after pathology results from today's exam become available for review. My findings are described in the full procedure note, which is enclosed. If I can be of further assistance, please feel free to contact me at Doctor phone number(s): , Work: . Sincerely, MD Judith Baugh MD 08/20/2019 2:33:00 PM This report has been signed electronically.
--- NOTE | 2019-08-20 14:33 | OP.COLON_ITS ---
Patient Name: Marlee Shin Procedure Date: 08/20/2019 1:56 PM Date of : 1950 Age: 69 Procedure: Colonoscopy Indications: Generalized abdominal pain, Change in bowel habits Providers: Judith Spaulding MD Referring MD: Josep Huggins Medicines: See the Anesthesia note for documentation of the administered medications Patient Profile: Refer to note in patient chart for documentation of history and physical. Last Colonoscopy: date unknown. Complications: No immediate complications. Procedure: Pre-Anesthesia Assessment: - see anesthesia note After I obtained informed consent, the scope was passed under direct vision. Throughout the procedure, the patient's blood pressure, pulse, and oxygen saturations were monitored continuously. The pediatric colonoscope was introduced through the anus and advanced to the ileocecal valve. The colonoscopy was somewhat difficult due to inadequate bowel prep. The patient tolerated the procedure well. The quality of the bowel preparation was poor. Scope In: 1:57:57 PM Scope Withdrawal Time 0 hours 8 minutes 19 seconds Scope Out: 2:22:02 PM Total Procedure Duration Time 0 hours 24 minutes 5 seconds Findings: The perianal and digital rectal examinations were normal. Non-bleeding external and internal hemorrhoids were found. Multiple small and large-mouthed diverticula were found in the left colon. Impression: - Preparation of the colon was poor. - Non-bleeding external and internal hemorrhoids. - Diverticulosis in the left, sigmoid, and transverse colon. - Random mucosal biopsies done throughout colon. Recommendation: - Discharge patient to home (ambulatory). - Resume previous diet. - Continue present medications. - Await pathology results. - My office will set up Distance Health appointment to discuss pathology results in 1-2 weeks - Repeat colonoscopy is recommended. The colonoscopy date will be determined after pathology results from today's exam become available for review. Procedure Code(s): --- Professional --- 39788, Colonoscopy, flexible; diagnostic, including collection of specimen(s) by brushing or washing, when performed (separate procedure) Diagnosis Code(s): --- Professional --- K64.8, Other hemorrhoids R10.84, Generalized abdominal pain R19.4, Change in bowel habit K57.30, Diverticulosis of large intestine without perforation or abscess without bleeding CPT copyright 2017 [employer]. All rights reserved. The codes documented in this report are preliminary and upon auditing coder review may be revised to meet current compliance requirements. MD Judith Baugh MD 08/20/2019 2:33:00 PM This report has been signed electronically. Number of Addenda: 0 Note Initiated On: 08/20/2019 1:56 PM
[2019-08-20 14:34] VITALS: BP 123/69; BP 156/73; PULSE 73; RESP 18; O2SAT 100
[2019-08-20 14:40] VITALS: BP 133/64; BP 156/73; PULSE 70; RESP 18; O2SAT 100
[2019-08-20 14:45] VITALS: BP 130/68; BP 156/73; PULSE 69; RESP 18; TEMP 36.8; O2SAT 100
[2019-08-20 15:31] VITALS: BP 156/73
== END 2019-08-20 15:33 | disposition home or self-care (01) ==
LOC: EN 12:34 → AC 12:34
PROVIDERS: Anesthesiology; PCP Student in an Organized Health Care Education/Training Program; Referring Provider Student in an Organized Health Care Education/Training Program; Visit Provider Surgery
PROC: 0DJD8ZZ Inspection of Lower Intestinal Tract, Via Natural or Artificial Opening Endoscopic (ICD-10-PCS; CPT 45378; principal; 2019-08-20 13:25)
DX: K21.0 Gastro-esophageal reflux disease with esophagitis (principal); K57.30 Diverticulosis of large intestine without perforation or abscess without bleeding; K64.4 Residual hemorrhoidal skin tags; K64.8 Other hemorrhoids; R19.4 Change in bowel habit; R14.0 Abdominal distension (gaseous); R10.84 Generalized abdominal pain; Z11.59 Encounter for screening for other viral diseases; I12.9 Hypertensive chronic kidney disease with stage 1 through stage 4 chronic kidney disease, or unspecified chronic kidney disease; N18.3 Chronic kidney disease, stage 3 (moderate); E78.00 Pure hypercholesterolemia, unspecified; E03.9 Hypothyroidism, unspecified; E55.9 Vitamin D deficiency, unspecified; G47.30 Sleep apnea, unspecified; M79.7 Fibromyalgia; F32.9 Major depressive disorder, single episode, unspecified; E66.01 Morbid (severe) obesity due to excess calories; Z68.43 Body mass index [BMI] 50.0-59.9, adult; Z86.010 Personal history of colon polyps; Z99.81 Dependence on supplemental oxygen; Z79.899 Other long term (current) drug therapy; Z87.891 Personal history of nicotine dependence
CPT/HCPCS: 43239; 45380; 87635; 88305; 88313; 88342; G2023; J7120; J2405; U0003

== ENCOUNTER 2020-04-13 06:42 | Day surgery (SDC) | payer MEDICARE, OTHER, SELFPAY ==
[2020-04-13] VITALS (7 sets, daily range): BP systolic 93–143; BP diastolic 65–96; PULSE 54–77; RESP 16; TEMP 36.1–36.6; O2SAT 92–98; BMI 54.5
[2020-04-13] MEDS: Lactated Ringers 1,000 ML 100 ML IV (07:16)
--- NOTE | 2020-04-13 07:52 | RAD_ITS ---
STUDY: X-RAY - LUMBAR SPINE REASON FOR EXAM: Female, 69 years old. LUMBAR FACET INJECTION, L3-S1,RIGHT TECHNIQUE: 4 intraoperative view(s) of the lumbar spine were obtained. COMPARISON: None FINDINGS: Intraoperative imaging provided for right L3-S1 lumbar facet injection. RAD/L/S Spine Min 4 Views IMPRESSION: Intraoperative imaging provided for right L3-S1 lumbar facet joint injection. Electronically Signed: Contreras Cook MD at 10:39 EST , Service support ,
[2020-04-13] MEDS: Bupivacaine 0.25% 30 ML Vial (08:00)
[2020-04-13] MEDS: MethylPREDNISolone Acetate 40 MG/ML Vial IM (08:00)
[2020-04-13] MEDS: Lidocaine 1% (5 ml sdv) 5 ML Vial (08:00)
--- NOTE | 2020-04-13 12:13 | OP.PCM_ITS ---
Report of Operation Date of Procedure: 04/13/20 Description of Surgical Findings:: PREOPERATIVE DIAGNOSIS: Lumbosacral spondylosis, lumbosacral degenerative disc disease, lumbar facet arthropathy POSTOPERATIVE DIAGNOSIS: Lumbosacral spondylosis, lumbosacral degenerative disc disease, lumbar facet arthropathy PROCEDURE PERFORMED: Right-sided lumbar facet steroid injection, L3, L4, L5, and S1. ANESTHESIA: MAC. BLOOD LOSS: Minimal. COMPLICATIONS: None. DESCRIPTION OF PROCEDURE: History and physical of today was reviewed. Risks and benefits of the procedure were explained. The patient understood and agreed to proceed. Informed consent was obtained. IV inserted per routine protocol. The patient was taken to the operating room and placed in the prone position with a pillow positioned underneath the abdomen. The Right side of her lower back was prepped and draped in a sterile fashion using iodine x3. Under fluoroscopy on oblique view, the L3 through S1 vertebral bodies were visualized. The skin and subcutaneous tissue was anesthetized with approximately 5 mL of 1% lidocaine using a 25-gauge regular needle. Under direct visualization with fluoroscopy, at approximately 25-degree angle starting on the Right L3, ending on the Right S1, passing through the L4 and L5, using a 22-gauge 5-inch spinal needle, the needle was advanced via the skin. The tip of the needle was maneuvered and directed towards the superior medial gutter of the transverse process at the vicinity of the medial branch. Once tip of the needle was in contact with the bone, the needle was pulled approximately 2 mm off the bone. A fter negative aspiration of blood or CSF and confirmation on AP as well as oblique view, a total of 8 mL of preservative-free 0.25% Marcaine with 80 mg of Depo-Medrol was injected in divided doses between those four levels. The needles were then removed intact. The patient experienced no sign or symptoms of intrathecal or intravascular injection. The patient experienced no paresthesia. The procedure was completed without any apparent difficulty or any complications. The patient appeared to tolerate it well. ASSESSMENT AND PLAN: 69-year-old female with lumbosacral spondylosis, lumbosacral degenerative disc disease, lumbar facet arthropathy status post right-sided lumbar facet steroid injection L3-S1, patient will continue her current medications, patient will follow in approximately 2 weeks for reevaluation.
== END 2020-04-13 09:10 | disposition home or self-care (01) ==
LOC: SDC 06:44 → AC 06:45
PROVIDERS: PCP Student in an Organized Health Care Education/Training Program; Referring Provider Anesthesiology Pain Medicine; Visit Provider Anesthesiology Pain Medicine
PROC: 3E0T3BZ Introduction of Anesthetic Agent into Peripheral Nerves and Plexi, Percutaneous Approach (ICD-10-PCS; CPT 64493; principal; 2020-04-13 07:55)
DX: M47.817 Spondylosis without myelopathy or radiculopathy, lumbosacral region (principal); M51.37 Other intervertebral disc degeneration, lumbosacral region; M46.96 Unspecified inflammatory spondylopathy, lumbar region; M79.7 Fibromyalgia; I12.9 Hypertensive chronic kidney disease with stage 1 through stage 4 chronic kidney disease, or unspecified chronic kidney disease; N18.30 Chronic kidney disease, stage 3 unspecified; E78.00 Pure hypercholesterolemia, unspecified; G47.33 Obstructive sleep apnea (adult) (pediatric); K21.9 Gastro-esophageal reflux disease without esophagitis; F32.9 Major depressive disorder, single episode, unspecified; Z79.899 Other long term (current) drug therapy; Z87.891 Personal history of nicotine dependence
CPT/HCPCS: 64493; 64494; 64495; 64483; 72110; J7120

== ENCOUNTER → 2020-05-05 | Outpatient (CLI) | payer MEDICARE, OTHER, SELFPAY ==
[2020-04-13 07:12] VITALS: BMI 54.5
--- NOTE | 2020-05-05 | LES_PTH ---
PATIENT: CHAU KING LOC: [facility]#:[id number] AGE/SX: 69/F ROOM: RE05/05/[address]: Dr. Rui Agarwal MD : 1950 BED: DIS: 05/05/2020 SPEC #: [id number] RECD: 05/05/20 15:05 STATUS: NATALEE REQ #: [id number] ERMA: 05/05/20 00:[address]: Rui Agarwal DEPT: SURGICAL PATHOLOGY RECD BY: Beth Gardner ENTERED: 05/06/20 08:50 SP TYPE: Lesion OTHR DR: Dr. Josep Huggins, DO Tissues: Skin of lip, NOS Procedures: Surgery Specimen Level IV HEADER OPERATION: Lip excisional biopsy PRE-OP DIAGNOSIS: Nonhealing lesion lower lip; mucocele vs granuloma TISSUE SUBMITTED: Lower left lip inner portion MICROSCOPIC DIAGNOSIS Lesion of left lower lip, biopsy: Focal ulceration with associated acute and chronic inflammation and granulation. Negative for fungal organisms. AM:radha 05/07/2020 MICROSCOPIC DESCRIPTION Slides are reviewed. GROSS DESCRIPTION Received in fixative is one container labeled with the patient's name and designated inner lower lip lesion left. The specimen consists of a piece of hazel mucosal tissue measuring 0.8 x 0.6 cm and up to 0.3 cm in thickness. The specimen is inked, bisected and submitted entirely in one cassette. / VERONICA:radha 05/06/20 TC:2 CPT: 62236
== END | disposition home or self-care (01) ==
LOC: LABSPEC 15:18
PROVIDERS: PCP Student in an Organized Health Care Education/Training Program; Visit Provider Otolaryngology
DX: K13.0 Diseases of lips (principal)
CPT/HCPCS: 88305

== ENCOUNTER 2020-06-15 06:01 | Day surgery (SDC) | payer MEDICARE, OTHER, SELFPAY ==
[2020-04-13 07:12] VITALS: BMI 54.5
[2020-06-15 06:43] VITALS: BP 140/68; PULSE 76; RESP 18; TEMP 36.4; O2SAT 97; BMI 54.5
[2020-06-15] MEDS: Lactated Ringers 1,000 ML 100 ML IV (06:52)
--- NOTE | 2020-06-15 07:30 | RAD_ITS ---
PROCEDURE: Left L3-S1 radiofrequency ablation. DATE OF EXAMINATION: 06/15/2020. INDICATION: Female, 69 years old. Chronic low back pain. FLUOROSCOPY TIME (if supplied): (32 seconds) minutes/seconds. 8 intraoperative images were obtained. RAD/L/S Spine Min 4 Views IMPRESSION: Intraoperative imaging provided for left L3-S1 radiofrequency ablation. Electronically Signed: Contreras Cook MD at 12:59 EDT , Service support ,
--- NOTE | 2020-06-15 07:34 | PCM.OPRPT ---
Report of Operation Date of Procedure: 06/15/20 Description of Surgical Findings:: PROCEDURE: Right-sided lumbar radiofrequency ablation of the medial branch L3, L4, L5, S1 PREOPERATIVE DIAGNOSES: Lumbosacral spondylosis, lumbosacral degenerative disc disease, lumbar facet arthropathy POSTOPERATIVE DIAGNOSES: Lumbosacral spondylosis, lumbosacral degenerative disc disease, lumbar facet arthropathy ANESTHESIA: MAC COMPLICATIONS: None BLOOD LOSS: Minimal PROCEDURE IN DETAIL: History and physical today was reviewed. Risks and benefits of procedure explained. The patient understood, agreed to the procedure and informed consent was obtained. IV inserted per routine protocol. The patient was taken to the operating room, placed in the prone position with a pillow positioned underneath the abdomen. The right side of the lower back was prepped and draped in a sterile fashion using iodine x 3. Under fluoroscopy guidance, on an oblique view, the L3 through S1 vertebral bodies were visualized. The skin and subcutaneous tissue was anesthetized with approximately 10 mL of 1% lidocaine using a 25-gauge regular needle. Under direct visualization with fluoroscopy at approximately 25-degree angle, starting on the right L3, ending on the right S1 passing through the L4-L5 using a 20-gauge 15 cm with a 10 mm curved active tip radiofrequency ablation needle the needle passed through the skin. The tip of the needle was maneuvered and directed towards the superior and medial gutter of the transverse process at the vicinity of the medial branch. Once the tip of the needle was in contact with the bone, the needle pulled approximately 2 mm up the bone. The stylet of each needle was then removed. After negative aspiration of blood with CSF and confirmation of AP as well as oblique view, radiofrequency ablation probe was then inserted at each level. Impedance was then recorded at L3 to be 273, at L4 453, at L5 217, at S1 266 ohm. Motor-evoked potential was then initiated to 1.5 volt without any motor response at each corresponding level. The probe was then removed intact and a total of 6 mL preservative-free 1% lidocaine was injected in divided doses between those 4 levels after negative aspiration of blood with CSF. The radiofrequency ablation probe was then reinserted after confirmation of AP, oblique as well as lateral view. Radiofrequency ablation was then initiated to 80 degrees Celsius for 90 seconds at each level. Once concluded, the probe was then removed intact and a total of 6 mL of preservative-free 0.25% Marcaine with 40 mg Depo-Medrol was injected in divided doses between those 4 levels. The needles were then removed intact. The patient experienced no signs or symptoms of intrathecal, intravascular injection. The patient experienced no paraesthesia. The procedure was completed without any apparent difficulty, any complication. The patient appeared to tolerate well. Sensory as well as motor exam was unchanged from prior to procedure. ASSESSMENT AND PLAN: This is a 69-year-old female with lumbosacral spondylosis, lumbosacral degenerative disc disease, lumbar facet arthropathy, status post right-sided radiofrequency ablation of the medial branch L3 through S1. The patient will continue current medications. The her patient will follow up in approximately 2 weeks for reevaluation.
[2020-06-15] MEDS: Bupivacaine 0.25% 30 ML Vial (07:44)
[2020-06-15] MEDS: Lidocaine 1% (30 ml sdv) 30 ML Vial (07:44)
[2020-06-15] MEDS: MethylPREDNISolone Acetate 40 MG/ML Vial IM (07:44)
[2020-06-15 07:57] VITALS: BP 106/92; BP 140/68; PULSE 70; RESP 16; TEMP 36.7; O2SAT 96
--- NOTE | 2020-06-15 07:57 | EX.PCM.DISCH ---
Discharge Instructions Follow Up Care Test Results: Test results from this visit will be discussed in further detail at your follow-up appointment, if applicable. Discharge Plan Admission Attending Provider: Milo Cruz Primary Care Provider: Josep Huggins Discharge Orders/Prescriptions Prescriptions: No Action polyethylene glycol 3350 17 GM powder in packet 17 g PO DAILY RF: 0 levothyroxine 75 MCG tablet 75 mcg PO DAILY RF: 0 gabapentin 800 MG tablet 800 mg PO TIDCM RF: 0 amitriptyline 10 MG tablet 30 mg PO QHS RF: 0 ergocalciferol (vitamin D2) [Vitamin D2] 50,000 UNIT capsule 50,000 unit PO MO RF: 0 fluoxetine 20 MG capsule 60 mg PO DAILY RF: 0 fluticasone propionate 1 SPRAY spray,suspension 1 spray NASAL BID RF: 0 Fish Oil 1 EACH capsule 1 ea PO BID RF: 0 lisinopril-hydrochlorothiazide [Zestoretic] 1 TABLET tablet 1 tab PO DAILY RF: 0 dicyclomine 10 MG capsule 10 mg PO PRN PRN (Reason: Gi Cramping) RF: 0 celecoxib 200 MG capsule 200 mg PO DAILY RF: 0 azelastine 1 SPRAY aerosol,spray 1 spray NASAL DAILY RF: 0 Lovastatin [Mevacor] 40 MG tablet 40 mg PO QHS RF: 0 Rocio-C with Bioflavonoids 1 EACH tablet 1 tab PO DAILY RF: 0 Centrum Women 1 EACH tablet 1 ea PO DAILY RF: 0 Benefiber Clear SF (dextrin) 1 EACH powder in packet 1 ea PO DAILY RF: 0 Baclofen 10 MG tablet 10 mg PO TID PRN (Reason: Spasms) RF: 0 vitamin B complex 1 EACH capsule 0.5 ea PO DAILY RF: 0 ipratropium bromide 1 SPRAY spray,non-aerosol 2 spray NASAL BID PRN (Reason: Nasal Congestion) RF: 0 turmeric root extract 500 MG capsule 500 mg PO BID RF: 0 potassium gluconate 99 MG tablet 99 mg PO DAILY RF: 0 L.acidoph, paracasei,B. lactis 1 EACH capsule 1 ea PO DAILY RF: 0 magnesium carbonate (bulk) 500 GM powder 330 gm PO DAILY RF: 0 omeprazole 20 MG tablet,delayed release (DR/EC) 20 mg PO DAILY RF: 0 nystatin 100,000 unit/mL Suspension 1 ml PO 4X/DAY RF: 0 Referrals: Josep Huggins DO [Primary Care Provider] - Disposition Patient Disposition: Home, self care
[2020-06-15 08:00] VITALS: BP 110/65; BP 140/68; PULSE 70; RESP 16; O2SAT 97
[2020-06-15 08:05] VITALS: BP 125/60; BP 140/68; PULSE 67; RESP 16; O2SAT 97
[2020-06-15 08:10] VITALS: BP 119/65; BP 140/68; PULSE 69; RESP 16; TEMP 36.7; O2SAT 97
[2020-06-15 09:00] VITALS: BP 140/68; BP 153/58; PULSE 83; RESP 18; TEMP 36.8; O2SAT 98
== END 2020-06-15 09:16 | disposition home or self-care (01) ==
LOC: SDC 06:02 → AC 06:03
PROVIDERS: PCP Student in an Organized Health Care Education/Training Program; Referring Provider Anesthesiology Pain Medicine; Visit Provider Anesthesiology Pain Medicine
PROC: (CPT 64635; principal; 2020-06-15 07:25)
DX: M47.817 Spondylosis without myelopathy or radiculopathy, lumbosacral region (principal); M51.37 Other intervertebral disc degeneration, lumbosacral region; M46.96 Unspecified inflammatory spondylopathy, lumbar region; M16.12 Unilateral primary osteoarthritis, left hip; M79.7 Fibromyalgia; G89.29 Other chronic pain; I10 Essential (primary) hypertension; K21.9 Gastro-esophageal reflux disease without esophagitis; E03.9 Hypothyroidism, unspecified; G47.30 Sleep apnea, unspecified; Z79.891 Long term (current) use of opiate analgesic; Z79.899 Other long term (current) drug therapy; Z87.891 Personal history of nicotine dependence
CPT/HCPCS: 01992; 64635; 64636 ×2; 72110; 76000; J7120

== ENCOUNTER → 2020-06-22 | Outpatient (CLI) | payer MEDICARE, OTHER, SELFPAY ==
[2020-06-15 06:43] VITALS: BMI 54.5
--- NOTE | 2020-06-22 | FLU_PTH ---
PATIENT: CHAU KING LOC: [facility] U#:[id number] AGE/SX: 69/F ROOM: RE06/22/[address]: Dr. Judith Spaulding MD : 1950 BED: DIS: 06/22/2020 SPEC #: [id number] RECD: 06/22/20 13:18 STATUS: NATALEE REQ #: [id number] ERMA: 06/22/20 00:[address]: Judith Spaulding DEPT: CYTOLOGY RECD BY: Murtaza Robert ENTERED: 06/22/20 13:19 SP TYPE: Fluid OTHR DR: Dr. Josep Huggins DO Tissues: A - Thyroid gland, NOS B - Thyroid gland, NOS Procedures: Special Stain Group II Surgery Specimen Level IV Cytospin Fluid HEADER OPERATION: Ultrasound-guided fine needle aspiration right thyroid PRE-OP DIAGNOSIS: Thyroid nodules TISSUE SUBMITTED: A ? Right thyroid nodule fluid for cytology, B ? Right thyroid slides x8 DIAGNOSIS CYTOLOGY A. Right thyroid nodule fluid for cytology (cytospin and cell block): Negative for malignant cells. See comment. B. Right thyroid nodule, ultrasound-guided FNA (smears): Consistent with benign colloid nodule with cystic changes. Adequate for evaluation. See comment. SJ:radha 06/23/2020 COMMENT A. The specimen predominantly consists of macrophages. B. Correlation with clinical, radiologic findings and appropriate follow up are necessary. CYTOLOGY STUDY Slides are reviewed. CYTOLOGY GROSS A - Received is 30 ml of brown bloody fluid labeled with the patient's name and and designated per the requisition as right thyroid. Submitted for cytology preparation including cell block. B - Received are eight smears labeled with the patient's name and designated per the requisition as right thyroid. Submitted for staining. / radha 06/22/2020 TC:5 CPT: 91876, 31731, 24424
== END | disposition home or self-care (01) ==
LOC: LABSPEC 12:43
PROVIDERS: PCP Student in an Organized Health Care Education/Training Program; Referring Provider Surgery; Visit Provider Surgery
DX: E04.1 Nontoxic single thyroid nodule (principal)
CPT/HCPCS: 88108; 88305; 88313

== ENCOUNTER 2021-05-03 08:12 | Day surgery (SDC) | payer MEDICARE, OTHER, SELFPAY ==
[2021-05-03] MEDS: Lactated Ringers 1,000 ML 15 ML IV (09:15)
[2021-05-03 09:26] VITALS: BP 122/57; PULSE 67; RESP 17; TEMP 36.8; O2SAT 98; BMI 54.7
[2021-05-03 09:41] LABS: Bedside Glucose 124 mg/dL (74-106)
--- NOTE | 2021-05-03 10:06 | RAD_ITS ---
PROCEDURE: Caudal block. DATE OF EXAMINATION: 05/03/2021. INDICATION: Female, 70 years old. Chronic low back pain. FLUOROSCOPY TIME (if supplied): (7 seconds) minutes/seconds. 2 images were submitted. RAD/Fluor Guidance for Spine Inj IMPRESSION: Intraoperative imaging provided for caudal block. Electronically Signed: Contreras Cook MD at 14:00 EDT ,
[2021-05-03] MEDS: Lidocaine 1% (5 ml sdv) 5 ML Vial (10:14)
[2021-05-03] MEDS: 0.9% Normal Saline (Pres. free 10 ML Vial (10:14)
[2021-05-03] MEDS: MethylPREDNISolone Acetate 80 MG/ML Vial (10:14)
[2021-05-03] MEDS: Bupivacaine 0.25% 30 ML Vial (10:14)
[2021-05-03 10:20] VITALS: BP 101/64; BP 122/57; PULSE 70; RESP 18; TEMP 36.9; O2SAT 100
[2021-05-03 10:25] VITALS: BP 111/66; BP 122/57; PULSE 74; RESP 18; O2SAT 98
[2021-05-03 10:30] VITALS: BP 122/53; BP 122/57; PULSE 75; RESP 18; O2SAT 100
[2021-05-03 10:35] VITALS: BP 122/57; BP 126/82; PULSE 89; RESP 18; TEMP 36.7; O2SAT 98
[2021-05-03 10:51] VITALS: BP 122/57
--- NOTE | 2021-05-03 16:08 | OP.PCM_ITS ---
Report of Operation Date of Procedure: 05/03/21 Pre-Operative Diagnosis: Lumbosacral radiculopathy, lumbosacral degenerative di sc disease, lumbosacral spinal stenosis Post-Operative Diagnosis: Lumbosacral radiculopathy, lumbosacral degenerative disc disease, lumbosacral spinal stenosis Surgery/Procedure Performed:: Caudal epidural steroid injection under fluoroscopic guidance Type of Anesthesia: MAC Estimated Blood Loss (mL): Minimal Description of Procedure: DESCRIPTION OF PROCEDURE: History and physical of today was reviewed. Risks and benefits of the procedure were explained. The patient understood and agreed to proceed. Informed consent was obtained. IV inserted per routine protocol. The patient was taken to the operating room and placed in the prone position with a pillow positioned underneath the abdomen. The lower back and tailbone area was prepped and draped in a sterile fashion using iodine x3. Under fluoroscopy guidance on a lateral view, the caudal space was identified. The skin and subcutaneous tissue was anesthetized with approximately 3 mL of 1% lidocaine using a 25-gauge regular needle. Under direct visualization with fluoroscopy, using a 22-gauge 3-1/2-inch spinal needle, the needle was advanced via the skin through the sacral hiatus. The tip of the needle was passed through the sacrococcygeal ligament and advanced to approximately S4 area. After negative aspiration of blood or CSF, a total of 3 mL of contrast was injected to confirm correct placement of the needle as well as cephalad spread. The spread was followed to approximately L5 area. After confirmation on AP as well as lateral view and repeated negative aspiration, a total of 15 mL of preservative-free 0.125% Marcaine with 80 mg of Depo-Medrol was injected easily. The needle was then removed intact. The patient experienced no sign or symptoms of intrathecal or intravascular injection. The patient experienced no paresthesia. The procedure was completed without any apparent difficulty or any complications. The patient appeared to tolerate it well. ASSESSMENT AND PLAN: This is a 70-year-old female with lumbosacral radiculopathy, lumbosacral degenerative disc disease, lumbosacral spinal stenosis status post caudal epidural steroid injection, patient will continue her current medications, patient will follow in approximately 2 weeks for reevaluation. Complications None
== END 2021-05-03 23:59 | disposition home or self-care (01) ==
LOC: SDC 08:17 → AC 08:48
PROVIDERS: PCP Student in an Organized Health Care Education/Training Program; Referring Provider Anesthesiology Pain Medicine; Visit Provider Anesthesiology Pain Medicine
PROC: 3E0S3BZ Introduction of Anesthetic Agent into Epidural Space, Percutaneous Approach (ICD-10-PCS; CPT 62282; principal; 2021-05-03 09:35)
DX: M51.17 Intervertebral disc disorders with radiculopathy, lumbosacral region (principal); N18.30 Chronic kidney disease, stage 3 unspecified; I12.9 Hypertensive chronic kidney disease with stage 1 through stage 4 chronic kidney disease, or unspecified chronic kidney disease; M48.07 Spinal stenosis, lumbosacral region; E03.9 Hypothyroidism, unspecified; K21.9 Gastro-esophageal reflux disease without esophagitis; K58.9 Irritable bowel syndrome, unspecified; M79.7 Fibromyalgia; G47.30 Sleep apnea, unspecified; Z79.891 Long term (current) use of opiate analgesic; Z79.899 Other long term (current) drug therapy; Z99.81 Dependence on supplemental oxygen; Z87.891 Personal history of nicotine dependence
CPT/HCPCS: 62323; 01992; 64483; 77003; 82962; J7120; J3490

== ENCOUNTER 2021-06-14 05:55 | Day surgery (SDC) | payer MEDICARE, OTHER, SELFPAY ==
[2021-06-14 06:32] VITALS: BP 120/59; PULSE 73; RESP 16; TEMP 37.5; O2SAT 100; BMI 54.4
[2021-06-14] MEDS: Lactated Ringers 1,000 ML 15 ML IV (06:46)
--- NOTE | 2021-06-14 07:25 | RAD_ITS ---
STUDY: X-RAY - LUMBAR SPINE REASON FOR EXAM: Female, 70 years old. RADIO FREQ ABLATION L4-S1, LEFT TECHNIQUE: 9 view(s) of the lumbar spine were obtained. COMPARISON: None FINDINGS: Localizing images for radiofrequency ablation from L4 through S1 on the left side. RAD/Lumbar Spine 2 or 3 Views IMPRESSION: Radiofrequency ablation localizer images as noted of the lumbar spine. Electronically Signed: Jose Skinner DO at 11:19 EDT ,
[2021-06-14] MEDS: 0.9% Normal Saline (Pres. free 10 ML Vial (07:40)
[2021-06-14] MEDS: MethylPREDNISolone Acetate 40 MG/ML Vial IM (07:40)
[2021-06-14] MEDS: Lidocaine 1% (20 ml mdv) 20 ML Vial (07:40)
[2021-06-14 07:54] VITALS: BP 120/59; BP 146/70; PULSE 73; RESP 16; TEMP 36.1; O2SAT 100
[2021-06-14 08:00] VITALS: BP 120/59; BP 126/64; PULSE 69; RESP 16; O2SAT 98
[2021-06-14 08:05] VITALS: BP 120/59; BP 131/64; PULSE 69; RESP 16; O2SAT 97
[2021-06-14 08:10] VITALS: BP 119/66; BP 120/59; PULSE 69; RESP 16; TEMP 36.5; O2SAT 98
[2021-06-14 08:30] VITALS: BP 120/59
--- NOTE | 2021-06-14 09:14 | PCM.OPRPT ---
Report of Operation Date of Procedure: 06/14/21 Pre-Operative Diagnosis: Lumbosacral spondylosis, lumbosacral degenerative disc disease, lumbar facet arthropathy Post-Operative Diagnosis: Lumbosacral spondylosis, lumbosacral degenerative disc disease, lumbar facet arthropathy Surgery/Procedure Performed:: Left-sided lumbar radiofrequency ablation of the medial branch L3, L4, L5, S1 Type of Anesthesia: MAC Estimated Blood Loss (mL): Minimal Description of Procedure: History and physical today was reviewed. Risks and benefits of procedure explained. The patient understood, agreed to the procedure and informed consent was obtained. IV inserted per routine protocol. The patient was taken to the operating room, placed in the prone position with a pillow positioned underneath the abdomen. The left side of the lower back was prepped and draped in a sterile fashion using iodine x 3. Under fluoroscopy guidance, on an oblique view, the L3 through S1 vertebral bodies were visualized. The skin and subcutaneous tissue was anesthetized with approximately 10 mL of 1% lidocaine using a 25-gauge regular needle. Under direct visualization with fluoroscopy at approximately 25-degree angle, starting on the left L3, ending on the left S1 passing through the L4-L5 using a 20-gauge 15 cm with a 10 mm curved active tip radiofrequency ablation needle the needle passed through the skin. The tip of the needle was maneuvered and directed towards the superior and medial gutter of the transverse process at the vicinity of the medial branch. Once the tip of the needle was in contact with the bone, the needle pulled approximately 2 mm up the bone. The stylet of each needle was then removed. After negative aspiration of blood with CSF and confirmation of AP as well as oblique view, radiofrequency ablation probe was then inserted at each level. Impedance was then recorded at L3 to be 267, at L4 311, at L5 224, at S1 217 ohm. Motor-evoked potential was then initiated to 1.5 volt without any motor response at each corresponding level. The probe was then removed intact and a total of 6 mL preservative-free 1% lidocaine was injected in divided doses between those 4 levels after negative aspiration of blood with CSF. The radiofrequency ablation probe was then reinserted after confirmation of AP, oblique as well as lateral view. Radiofrequency ablation was then initiated to 80 degrees Celsius for 90 seconds at each level. Once concluded, the probe was then removed intact and a total of 6 mL of preservative-free 0.25% Marcaine with 40 mg Depo-Medrol was injected in divided doses between those 4 levels. The needles were then removed intact. The patient experienced no signs or symptoms of intrathecal, intravascular injection. The patient experienced no paraesthesia. The procedure was completed without any apparent difficulty, any complication. The patient appeared to tolerate well. Sensory as well as motor exam was unchanged from prior to procedure. ASSESSMENT AND PLAN: This is a 70-year-old female with lumbosacral spondylosis, lumbosacral degenerative disc disease, lumbar facet arthropathy, status post left-sided lumbar radiofrequency ablation of the medial branch L3 through S1. The patient will continue her current medications. The patient will follow up in approximately 2 weeks for reevaluation. Complications None
== END 2021-06-14 08:49 | disposition home or self-care (01) ==
LOC: SDC 05:57 → AC 05:58
PROVIDERS: PCP Student in an Organized Health Care Education/Training Program; Referring Provider Anesthesiology Pain Medicine; Visit Provider Anesthesiology Pain Medicine
PROC: (CPT 64635; principal; 2021-06-14 07:15)
DX: M47.817 Spondylosis without myelopathy or radiculopathy, lumbosacral region (principal); M46.96 Unspecified inflammatory spondylopathy, lumbar region; M51.37 Other intervertebral disc degeneration, lumbosacral region; G47.30 Sleep apnea, unspecified; I10 Essential (primary) hypertension; E03.9 Hypothyroidism, unspecified; M79.7 Fibromyalgia; G89.29 Other chronic pain; Z79.891 Long term (current) use of opiate analgesic; Z79.899 Other long term (current) drug therapy; Z87.891 Personal history of nicotine dependence
CPT/HCPCS: 64635; 01992; 72100; 76000; J7120; J3490

== ENCOUNTER → 2021-10-22 | Outpatient (CLI) | payer MEDICARE, OTHER, SELFPAY ==
[2021-10-22 11:35] LABS: Erythrocyte Sedimentation Rate 27 mm/hr (0-30)
[2021-10-22 11:39] LABS: Absolute Lymphocyte Count 2.22 X10^3/uL (0.83-4.51); Absolute Neutrophil Count 4.6 X10^3/uL (2.0-7.7); Basophil# 0.06 X10^3/uL; Basophil% 0.8 % (0-1); Eosinophils% 2.6 % (0-5); Hematocrit 42.3 % (37-47); Hemoglobin 13.8 g/dL (12.0-15.0); Lymphocyte # 2.22 X10^3/ul (0.83-4.51); Lymphocyte % 29.1 % (19-41); Mean Corp Hgb Conc 32.6 g/dL (32-36); Mean Corpuscular Hgb 30.5 pg (27.0-32.0); Mean Corpuscular Volume 93.6 fL (81-99); Mean Platelet Vol. 10.1 fl (6.2-12.0); Monocyte# 0.57 X10^3/uL; Monocyte% 7.5 % (0-10); NRBC Flagged by Analyzer 0 % (0-5); Neutrophil # 4.55 X10^3/uL (2.7-7.7); Neutrophil % 59.6 % (47-70); Platelet Count 233 K/mm3 (150-450); RBC Distribution Width CV 14.1 % (11.6-14.6); RBC Distribution Width SD 48.9 fl (35.1-43.9); Red Blood Count 4.52 M/mm3 (4.2-5.4); White Blood Count 7.6 K/mm3 (4.4-11.0)
[2021-10-22 12:11] LABS: ALB/GLOB Ratio 0.9 RATIO (0.9-2.4); AST(SGOT) 33 U/L (15-37); Alanine Aminotransfer ALT/SGPT 61 U/L (13-56); Albumin, Serum 3.4 g/dL (3.2-5.0); Alkaline Phosphatase 74 U/L (45-117); Anion Gap 8 (5-15); BUN 20 mg/dL (7-18); BUN/Creat Ratio 16.1 RATIO (10-20); Calcium,Total 8.9 mg/dL (8.5-10.1); Chloride 103 mmol/L (98-107); Creatinine, Serum 1.24 mg/dL (0.55-1.02); EST Glomerular Filtration Rate 45 mL/min (>60); Est Glom Filt Rate - Afr Amer 55 mL/min (>60); Ferritin 98 ng/mL (8-252); Globulin 3.8 g/dL (2.2-4.2); Glucose 111 mg/dL (74-106); LDH 317 U/L (84-246); Potassium 3.8 mmol/L (3.5-5.1); Protein, Total 7.2 g/dL (6.4-8.2); Sodium Level 140 mmol/L (136-145)
[2021-10-22 12:20] LABS: Hemoglobin A1c 5.6 % (3.8-5.6)
[2021-10-22 12:37] LABS: HIV - WCH Non-Reactive (Nonreactive)
[2021-10-25 13:07] LABS: Anti-Centromere B Ab <0.2 AI (0.0-0.9); Anti-Chromatin <0.2 AI (0.0-0.9); Anti-Jo <0.2 AI (0.0-0.9); Anti-Scleroderma-70 AB <0.2 AI (0.0-0.9); RNP Ab 0.2 AI (0.0-0.9); SJOGREN'S Anti-SS-A test < 0.2 AI (0.0-0.9); SJOGREN'S Anti-SS-B test < 0.2 AI (0.0-0.9); Smith Ab <0.2 AI (0.0-0.9)
[2021-10-26 15:15] LABS: Anti-Mitochondrial AB <20.0 Units (0.0-20.0); Anti-dsDNA Ab <1 IU/mL (0-9)
[2021-10-27 08:10] LABS: Angiotensin Convert Enzyme 17 U/L (14-82); Ceruloplasmin 23.5 mg/dL (19.0-39.0); Cytoplasmic Ab (C-ANCA) <1:20 titer (Neg:<1:20); HEPATITIS B SURFACE AG Negative (Negative); Hep C Antibodies <0.1 s/co ratio (0.0-0.9); Hepatitis A IgM Antibody Negative (Negative); Hepatitis B Core AB IgM Negative (Negative)
[2021-10-27 10:37] LABS: Anti-Smooth Muscle ABS 7 Units (0-19); Copper, Serum or Plasma 108 ug/dL (80-158); Haptoglobin 45 mg/dL (42-346); Perinuclear Ab (P-ANCA) <1:20 titer (Neg:<1:20)
== END | disposition home or self-care (01) ==
PROVIDERS: PCP Student in an Organized Health Care Education/Training Program; Referring Provider Internal Medicine Gastroenterology; Visit Provider Internal Medicine Gastroenterology
DX: K76.0 Fatty (change of) liver, not elsewhere classified (principal); R53.1 Weakness; R73.09 Other abnormal glucose
CPT/HCPCS: 36415; 80053; 80074; 82140; 82164; 82390; 82525; 82728; 83010; 83036; 83516; 83615; 85025; 85652; 86140; 86225; 86235; 86256; 86703

== ENCOUNTER → 2021-11-02 | Outpatient (CLI) | payer MEDICARE, OTHER, SELFPAY ==
--- NOTE | 2021-11-02 09:53 | US_ITS ---
STUDY: ABDOMINAL ULTRASOUND - ELASTOGRAPHY REASON FOR VISIT: Female, 71 years old. Fatty infiltration of the liver. TECHNIQUE: Liver stiffness measurements were obtained on a enymotion RS 85 ultrasound machine using a CA 1-7 probe following the SRU guidelines. 3 measurements were obtained using a 2-D-SWE method. The IQR/M was 21% suggesting a quality data set. TECHNICAL QUALITY: Adequate. COMPARISON: Comparison is made with prior study done earlier today. FINDINGS: Liver: Diffuse fatty infiltration of the liver. Median liver stiffness measured 10.8 kPa. US/Elastography Parenchyma/Organ IMPRESSION: Liver stiffness measures 10.8 kPa compatible with F2-F3 (Mild to moderate liver fibrosis) Metavir score. Electronically Signed: Contreras Cook MD at 9:59 EDT ,
--- NOTE | 2021-11-02 09:53 | US_ITS ---
STUDY: ABDOMINAL ULTRASOUND - RIGHT UPPER QUADRANT REASON FOR VISIT: Female, 71 years old abnormal liver enzymes. TECHNIQUE: Ultrasound evaluation of the right upper quadrant was performed with real-time and static dotson-scale imaging. TECHNICAL QUALITY: Limited. Examination limited due to a combination of factors including obesity and bowel gas. COMPARISON: None. FINDINGS: Liver: The liver measures 17 cm. There is increased echogenicity consistent with fatty infiltration. The bile ducts are within normal limits. There is hepatic color flow. The direction of portal flow is hepatopetal. There is no demonstrated mass lesion. Gallbladder: The patient is status post cholecystectomy. Common Bile Duct (C.B.D.): The common bile duct measures 3 mm. Pancreas: Normal size of the head, body and tail of the pancreas. There is no demonstrated pancreatic mass or cyst. Right Kidney: Normal size of the right kidney. The right kidney measures 12.8 cm x 5.7 cm x 5.4 cm. Normal renal cortex. The right cortex measures 1.1 cm. There is a 3.3 cm x 3.5 cm x 2.9 cm right parapelvic cyst. There is no right hydronephrosis. US/Abdomen Limited IMPRESSION: Mild hepatomegaly and fatty infiltration of the liver. Right parapelvic renal cyst. Electronically Signed: Contreras Cook MD at 9:58 EDT ,
== END | disposition home or self-care (01) ==
LOC: US 09:51
PROVIDERS: PCP Student in an Organized Health Care Education/Training Program; Referring Provider Internal Medicine Gastroenterology; Visit Provider Internal Medicine Gastroenterology
DX: K76.0 Fatty (change of) liver, not elsewhere classified (principal)
CPT/HCPCS: 76705; 76981

== ENCOUNTER → 2022-01-03 | Outpatient (CLI) | payer MEDICARE, OTHER, SELFPAY ==
--- NOTE | 2022-01-03 17:36 | NEURO_ITS ---
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 Findings: Nerve conduction studies were performed in the right and left upper extremity. The right median motor study recording the abductor pollicis brevis showed a normal amplitude, normal distal latency and normal conduction velocity. The right ulnar motor study recording the abductor digiti minimi showed a normal amplitude, normal distal latency and normal conduction velocity. No conduction block or focal slowing was present across the elbow. Right median ulnar lumbrical / interosseous motor latencies showed no significant difference. The right median sensory response recording digit two showed a normal amplitude, latency and conduction velocity. The right ulnar sensory response recording digit five showed a normal amplitude, latency and conduction velocity. The right radial sensory response recording over the extensor snuff box showed a normal amplitude, latency and conduction velocity. The left median motor study recording the abductor pollicis brevis showed a normal amplitude, normal distal latency and normal conduction velocity. The left ulnar motor study recording the abductor digiti minimi showed a normal amplitude, normal distal latency and normal conduction velocity. No conduction block or focal slowing was present across the elbow. Left median ulnar lumbrical / interosseous motor latencies showed no significant difference. The left median sensory response recording digit two showed a normal amplitude, latency and conduction velocity. The left ulnar sensory response recording digit five showed a normal amplitude, latency and conduction velocity. The left radial sensory response recording over the extensor snuff box showed a normal amplitude, latency and conduction velocity. Needle EMG of the right upper extremity and cervical paraspinal muscles was abnormal. Active denervation was seen in the first dorsal interosseous muscle. Motor units were large amplitude, long duration with reduced recruitment in the first dorsal interosseous, abductor pollicis brevis and extensor indicis proprius. Needle EMG of the left upper extremity and cervical paraspinal muscles was abnormal. Active denervation was seen in the abductor pollicis brevis muscle. Motor units were large amplitude, long duration with reduced recruitment in the first dorsal interosseous and abductor pollicis brevis. Impression: This is an abnormal study. There is electrophysiologic evidence of active and chronic, bilateral C8/T1 radiculopathies. There is no evidence of a superimposed entrapment neuropathy in either upper extremity. Timothy Noble D.O. Multi Select Codes Neurology Neurology Interp Codes: 56341-02 [facility] tst done w/nerv tst toribio (interp) (Qty:2) and 03502-78 Nrv cndj test 13/> studies (interp)
== END | disposition home or self-care (01) ==
LOC: PSN 15:19
PROVIDERS: PCP Student in an Organized Health Care Education/Training Program; Referring Provider Orthopaedic Surgery; Visit Provider Orthopaedic Surgery
DX: M19.042 Primary osteoarthritis, left hand (principal); G56.03 Carpal tunnel syndrome, bilateral upper limbs
CPT/HCPCS: 95885; 95913

== ENCOUNTER → 2022-02-02 | Outpatient (CLI) | payer MEDICARE, OTHER, SELFPAY ==
--- NOTE | 2022-02-02 16:00 | MRI_ITS ---
STUDY: MRI CERVICAL SPINE REASON FOR EXAM: Female, 71 years old. STENOSIS,SPONDYLOSIS WITH RADICULOPATHY TECHNIQUE: MRI examination of the cervical spine obtained was sent protocol including multiplanar multiecho noncontrast imaging. Contrast: No contrast administered. COMPARISON: None FINDINGS: Vertebral bodies and alignment: 1. Vertebral body height is maintained, there is straightening of cervical lordosis. Heterogeneous marrow signal is present. 2. There is Modic type I endplate edema at C5-C6. No paraspinal fluid collections or epidural fluid collections noted. 3. Prevertebral soft tissue planes have normal appearance. 4. Normal appearance the odontoid process and alignment of the craniocervical junction. 5. Normal appearance the posterior muscular fascial planes of the cervical spine, and the posterior ligamentous support structure the cervical spine is intact. Intervertebral disc levels: C2-3: Disc desiccation without disc herniation or canal stenosis. Mild LEFT foraminal narrowing contributed by facet and uncovertebral joint hypertrophic changes. C3-4: Disc desiccation, broad-based posterior disc bulge and osteophyte complex with deformity the anterior epidural space, central canal maintained at approximately 9 mm. There is however narrowing of the neural foramina bilaterally due to facet and uncovertebral joint hypertrophic changes. C4-5: Disc desiccation, broad-based posterior disc bulge and osteophyte complex, deformity the intervertebral space, thecal sac maintained at approximately 9 mm. There is narrowing of neural foramina bilaterally greater on the LEFT than RIGHT due to facet and uncovertebral joint hypertrophic changes. Potential nerve root impingement within the LEFT neural foramen. C5-6: Disc desiccation, broad-based posterior disc protrusion osteophyte complex, deformity the intervertebral space and cord contact is noted. Central canal maintained at 7 mm. Cord contact and mild displacement without acute cord compression. Bilateral foraminal narrowing contributed by facet and a stable joint hypertrophic changes greater on the LEFT than RIGHT. C6-7: Disc desiccation, broad-based posterior disc bulge/protrusion osteophyte complex, deformity the anterior epidural space, central canal is narrowed to approximately 6 mm up. There is cord contact without acute cord compression. Bilateral foraminal narrowing greater on LEFT than RIGHT due to facet and uncovertebral joint hypertrophic changes. Nerve root impingement within the LEFT neural foramen is noted. C7-T1: Disc desiccation, subtle degenerative grade 1 anterolisthesis is noted. There is maintenance of the central canal at approximately 8 mm of. There is narrowing however of neural foramina bilaterally with potential nerve root impingement bilaterally. No evidence cord compression. C7-T1: Broad-based disc bulge/protrusion with mild asymmetry greater on the LEFT than RIGHT, deformity the anterior epidural space and cord contact noted, central thecal sac maintained at 8 mm. Narrowing of neural foramina greater on LEFT than RIGHT. Spinal CORD: Spinal cord has normal configuration, multilevel disc changes with cord contact, mild cord displacement without evidence of acute cord compression. No evidence of intramedullary signal abnormality. Normal appearance the cervical medullary junction. MRI/Spine Cervical (Routine) IMPRESSION: 1. Multilevel cervical spondylosis. There is grade 1 Modic endplate edema at C5-6. 2. Multilevel disc bulge/protrusion osteophyte complexes with multilevel moderate foraminal stenosis. Multilevel cord contact and mild cord displacement without cord flattening or acute compression. 3. Multilevel foraminal narrowing due to facet and uncovertebral joint hypertrophic changes, greater on the LEFT than RIGHT. Electronically Signed: Sekou Harrington MD at 17:24 EST ,
== END | disposition home or self-care (01) ==
LOC: MRI 15:31
PROVIDERS: PCP Student in an Organized Health Care Education/Training Program; Referring Provider Orthopaedic Surgery; Visit Provider Orthopaedic Surgery
DX: M47.22 Other spondylosis with radiculopathy, cervical region (principal); M46.82 Other specified inflammatory spondylopathies, cervical region; M48.02 Spinal stenosis, cervical region
CPT/HCPCS: 72141

== ENCOUNTER 2022-03-21 12:20 | Day surgery (SDC) | payer MEDICARE, OTHER, SELFPAY ==
[2022-03-21] MEDS: Lactated Ringers 1,000 ML 15 ML IV (12:45)
[2022-03-21 13:12] VITALS: BP 142/80; PULSE 70; RESP 16; TEMP 37.1; O2SAT 95; BMI 54.3
--- NOTE | 2022-03-21 14:27 | RAD_ITS ---
STUDY: X-RAY - LUMBAR SPINE REASON FOR EXAM: Female, 71 years old. Epidural steroid injection. TECHNIQUE: 3 intraoperative view(s) of the lumbar spine were obtained. Fluoroscopy time was not provided. COMPARISON: Lumbar spine, June 14, 2021. FINDINGS: Images demonstrate placement of a needle at the right facet joint of what appears to be T10-11. There is injection of contrast about the facet joint. Please refer to the procedural report for further details. RAD/Spine 1 View Any Level IMPRESSION: Fluoroscopy provided during an epidural steroid injection. Electronically Signed: Yandel Mead DO at 19:30 EST ,
[2022-03-21] MEDS: MethylPREDNISolone Acetate 80 MG/ML Vial (14:34)
--- NOTE | 2022-03-21 15:08 | OP.PCM_ITS ---
Report of Operation Date of Procedure: 03/21/22 Description of Surgical Findings:: PREOPERATIVE DIAGNOSES: Cervical radiculopathy, cervical degenerative disc disease, cervical spinal stenosis POSTOPERATIVE DIAGNOSES: Cervical radiculopathy, cervical degenerative disc disease, cervical spinal stenosis PROCEDURE PERFORMED: Cervical epidural steroid injection, interlaminar at C7-T1 under fluoroscopic guidance. ANESTHESIA: Local. BLOOD LOSS: Minimal. COMPLICATIONS: None. DESCRIPTION OF PROCEDURE: History and physical of today was reviewed. Risks and benefits of the procedure were explained. The patient understood and agreed to proceed. Informed consent was obtained. IV inserted per routine protocol. The patient was taken to the operating room and placed in the prone position with a pillow positioned underneath the chest. The neck area was prepped and draped in a sterile fashion using iodine x3. Under fluoroscopy guidance on an AP view, the C7-T1 interlaminar space was identified. The skin and subcutaneous tissue was anesthetized with approximately 3 mL of 1% lidocaine using a 25-gauge regular needle. Under direct visualization on fluoroscopy, on AP view, using a 20-gauge 2-1/2-inch Tuohy needle, the needle was advanced via the skin. The tip of the needle was maneuvered and directed towards the interlaminar space at C7- T1. Loss of resistance technique was carried to air. Loss of resistance technique was encountered. Once encountered, after negative aspiration for blood and CSF, a total of 1 mL of contrast was injected to confirm correct placement of the needle as well as cephalocaudal spread of the contrast. Confirmation was obtained on AP as well as lateral view. After repeated negative aspiration and confirmation, a total of 3 mL of preservative-free normal saline and 80 mg of Depo-Medrol was injected easily. The needle was then removed intact. The patient experienced no sign or symptoms of intrathecal or intravascular injection. The patient experienced no paresthesia. The procedure was completed without any apparent difficulty or any complications. The patient appeared to tolerate it well. ASSESSMENT AND PLAN: This is a 71-year-old female with cervical radiculopathy, cervical degenerative disc disease, cervical spinal stenosis status post cervical epidural steroid injection interlaminar at C7-T1 under fluoroscopic guidance, patient will continue her current medications, patient will follow approximately 2 weeks for reevaluation.
== END 2022-03-21 15:16 | disposition home or self-care (01) ==
LOC: SDC 12:21 → AC 12:21
PROVIDERS: PCP Student in an Organized Health Care Education/Training Program; Referring Provider Anesthesiology Pain Medicine; Visit Provider Anesthesiology Pain Medicine
PROC: 3E0S3BZ Introduction of Anesthetic Agent into Epidural Space, Percutaneous Approach (ICD-10-PCS; CPT 62320; principal; 2022-03-21 13:55)
DX: M50.13 Cervical disc disorder with radiculopathy, cervicothoracic region (principal); M48.02 Spinal stenosis, cervical region; G47.30 Sleep apnea, unspecified; K76.0 Fatty (change of) liver, not elsewhere classified; N18.9 Chronic kidney disease, unspecified; Z99.81 Dependence on supplemental oxygen
CPT/HCPCS: 62321; 64490; 72020; J7120; J3490

== ENCOUNTER 2022-04-22 15:30 | Outpatient (RCR) | payer MEDICARE, OTHER, SELFPAY ==
--- NOTE | 2022-03-10 12:51 | HP.PTEVAL ---
Patient's Visit Information CHAU KING is a 71 year old F referred to Physical Therapy by Dr. Milo Cruz MD with a diagnosis of CERVICAL DEFORMITY AND LUMBOSACRAL SPONDYLOSIS, STENOSIS, SPONDYLOLISTHESIS. Date of Evaluation: 03/10/22 Physical Therapist: Mariel Yan, PT, Cert MDT - Visit Plan Frequency: 2-3x /Week Duration: 4-6 Weeks Plan: RECOMMEND OT CONSULT FOR HAND DEXTERITY. GAIT TRAINING. POSTURE CORRECTION/STRENGTHENING, INSTRUCTION IN APPROPRIATE BODY MECHANICS AND ACTIVITY MODIFICATIONS. DLS AND POSTURE STRENGTHENING WITH A NEUTRAL SPINE ONLY. DELTA LE ROM, STRETCHING AND STRENGTHENING. HEP INSTRUCTION. CONSIDER AQUATIC THRAPY DEPENDING ON LAND TOLERANCE. PATIENT AGREEABLE. COORDINATE POSTURE AND UE STRENGTHEING WITH OT. OT CONSULT PENDING OK BY DR. FRANCISCO. - Subjective DX'S: CERVICAL DEFORMITY FROM DR. FRANCISCO. DR TORRES: LUMBOSACRAL SPONDYLOSIS AND STENOSIS, LUMBAR SPONDYLOLISTHESIS, FACET ARTHROPATHY, MYOFASCIAL PAIN AND MUSCLE PAIN. THIS PATIENT PRESENTS TO PT WITH C/O NECK, LOW BACK, UE AND LE SX'S. SHE HAS REFERRALS FROM DR. TORRES AND DR. FRANCISCO. Work/Leisure: RETIRED. Present symptoms: BASICALLY ITS MY HANDS AND I NEED TO LOSE WEIGHT. PATIENT REPORTS SHE IS EXTREMELY WEAK IN HER ARMS AND LEGS FROM HAND AND BACK PAIN. DELTA UE AND LE NUMBNESS AND TINGLING. I DON'T HAVE PAIN IN MY NECK. Present since: HAS HAD LOW BACK PAIN FOR YEARS AND HAND SX'S FOR JUST A COUPLE YEARS. PATIENT REPORTS DEXTERITY AND NUMBNESS IN HANDS IS THE BIGGEST PROBLEM - NOT SO MUCH PAIN. Pain Scale: LOW BACK/LEG PAIN: WORSE 8/10, LEAST 0/10. Currently: 0/10. Is it getting better, worse or staying the same: GETTING WORSE. Symptoms at onset: LOW BACK PAIN AND LEFT 4TH DIGIT PAIN/ARTHRITIS. Worse: STANDING, WALKING. Better: SITTING. Previous history/Previous treatment: NO SPINE SURGERY. BUTCH IN LOW BACK - NO LONGER HELPING. TRIED PT LAST FALL AT [facility] FOR HANDS AND DID NOT HELP. Treatment this episode: NECK BUTCH PENDING MAR 21 2022. Gait: GETS AROUND HOUSE WITH ROLLATOR. MAINLY WALKING HOUSEHOLD DISTANCES BUT SOMETIMES CAN GET INTO SOME STORES AND BACK OUT. CAME BACK TO PT IN W/C TODAY DUE TO DISTANCE. NO FALLS IN THE LAST YEAR. SOMETIMES WALKS AROUND THE HOUSE WITHOUT ROLLATOR BUT NOT MUCH. Bowel or Bladder Dysfunction: URINARY INCONTINENCE. DENIES BOWEL INCONTINENCE. PATIENT REPORTS PCP IS AWARE OF PELVIC PAIN AND HAS HAD TESTING. Imaging: PATIENT BROUGHT NECK X-RAY RESULTS FROM [facility] 02/21/22: NO ACUTE FX. MIN C2 ON C3 ANTEROLISTHESIS, NO CHANGE IN ALIGNMENT OF C/S WITH LATERAL EXT AND LATERAL FLEX. GENERALIZED DISC SPACE NARROWING C3-C7. SIGNIFICANT OSTEOPHYTE FORMATION WITH FACET ARTHROSIS AND DEG CHANGES DELTA LUSCHKA JOINTS. NECK MRI SEE [facility] EMR. PMH: SEE BELOW - FATTY LIVER DZ AND ON MEDICATION. DELTA TKR'S. DELTA THR'S. OTHER: NCT 01/03/22: ACTIVE AND CHRONIC DELTA C8/T1 RADICULOPATHIES. ALSO NCS 04/11/18 - SEE [facility] EMR. - Objective Sitting/Standing Posture: POOR. FH. RS'S. REDUCED LUMBAR LORDOSIS. Other Observations: THIS PATIENT WAS BROUGHT BACK TO PT IN A W/C BY HER AND PRESENT THROUGHOUT SESSION. PATIENT WALKED INDEP'LY FROM HALLWAY TO CHAIR IN TREATMENT ROOM ABOUT 10 FEET. PATIENT WALKS WITH EXCESSIVE TRUNK FLEXION, SLOW CADANCE AND SHORT DELTA STRIDE LENGTH. DELTA UE DEPENDENT TO TRANSFER FROM SIT TO STAND BUT INDEP. ALSO WALKED BACK OUT OF TREATMENT ROOM TO W/C AFTER EVAL. Sensory deficit: DELTA LE LIGHT TOUCH SENSATION GROSSLY INTACT AND SYMMETRICAL BUT PATIENT REPORTS NUMBNESS. UE'S NT - DEFERRED TO OT. ROM deficit: DELTA UE AROM WFL BUT HANDS NOT TESTED - DEFERRED TO OT. TIGHT DELTA HIP FLEXORS, HS'S AND GASTROCS. Motor deficit: DELTA SHLDS GROSSLY 4/5 WITH MMT'ING - OTHERWISE DEFERRED TO OT. DELTA LE: HIPS 4-/5, KNEE'S 4-/5 ANKLE DORSIFLEXION 5/5. Dural Signs: NEGATIVE DELTA LE'S AND UE'S. Lumbar mvmt loss: flex - MIN. ext - JEWEL. CERVICAL MVMT LOSS: FLEX - NIL. EXT - MOD. PRO - NIL. RET - MOD. R SB - MIN. L SB - MIN. R ROT - MIN. L ROT - MIN. PATIENT DENIES NECK AND DELTA UE SX'S WITH CERVICAL ROM TESTING ALL PLANES. SHE REPORTS BRIEF DIZZINESS WITH TESTING AND REPORTS INTERMITTENT DIZZINESS FOR A LONG TIME. Core strength: POOR. POSTUREAL STRENGTH: POOR - Balance/Special Test Scores Oswestry Low Back Score: 22 Oswestry Neck Score: 6 - Goals Goal 1:: DECREASE C/O LOW BACK AND DELTA LE PAIN. Goal Time Frame: 4-6 Weeks Goal 2:: IMPROVE STANDING AND WALKING FUNCTION Goal Time Frame: 4-6 Weeks Goal 3:: PATIENT WILL COMPLETE 6 STANDS IN 30 SECS TO DEMONSTRATE IMPROVED FUNCTIONAL STRENGTH Goal Time Frame: 4-6 Weeks Goal 4:: PATIENT WILL COMPLETE TUG IN < 25 SECS TO DEMONSTRATE IMPROVED GAIT STABILITY Goal Time Frame: 4-6 Weeks Goal 5:: PATIENT WILL BE INDEP WITH A HEP WITH OR WITHOUT THE HELP OF CAREGIVER FOR CONTINUED IMPROVEMENT ONCE FORMAL PHYSICAL THERPAY CONCLUDES. Goal Time Frame: 4-6 Weeks - Rehabilitation Potential Physical Therapy Diagnosis: PHYSICIAN DX CONT: FACET ARTHROPATHY, MYOFASCIAL PAIN AND MUSCLE PAIN. - Anticipated Interventions Patient/Client Instruction: Educate patient on: Condition, Plan of Care, Risk Factors For the Purpose of:: To improve self management Therapeutic Exercise to Include: Strength training, Body mechanics, Postural training, Flexibilty training, Neuromotor development, In an aquatic setting, Dynamic Lumbar Stabilization, Scapular Strength/Stabilization For the Purpose of:: To decrease pain, To increase ROM, To improve muscle performance and motor function, To increase tolerance to activity/condition/position, To improve ability of physical actions for home/community/work/leisure Thank you for the opportunity to evaluate your patient. For Medicare and Medicare HMO plans, please review the plan of care and approve it. It will need to be FAXED BACK to us at [phone] for Medicare purposes. For Medicare only, by signing this I certify the plan of care. Please let me know if there are questions or concerns regarding this plan of care. Physician Signature: Date:
--- NOTE | 2022-03-16 16:19 | HP.OTEVAL ---
Patient's Visit Information CHAU KING is a 71 year old F, referred to Occupational Therapy by Dr. Milo Cruz MD, with a diagnosis of Cervical vertebra deformity/ bilateral hand tingling/numbness. Date of Evaluation: 03/16/22 Occupational Therapist: Briseida Scales, ADDY/Megan, CHT - Subjective This 71 year old female was seen for OT eval with dx of deformity of cervical vertebra with loss of bilateral hand dexterity. pt states she started having issues with her right side in 2019. has had nerve conduction in 2019 and again 2021. Most recent see [facility] EMR. PT states she has had constant tingling/numbness of fingers for sometime. reports she drops items and has noticed increase difficulty with holding objects. PATIENT BROUGHT NECK X-RAY RESULTS FROM [facility] 02/21/22: NO ACUTE FX. MIN C2 ON C3 ANTEROLISTHESIS, NO CHANGE IN ALIGNMENT OF C/S WITH LATERAL EXT AND LATERAL FLEX. GENERALIZED DISC SPACE NARROWING C3-C7. SIGNIFICANT OSTEOPHYTE FORMATION WITH FACET ARTHROSIS AND DEG CHANGES DELTA LUSCHKA JOINTS. NECK MRI SEE [facility] EMR. PMH: SEE BELOW - FATTY LIVER DZ AND ON MEDICATION. DELTA TKR'S. DELTA THR'S. OTHER: NCT 01/03/22: ACTIVE AND CHRONIC DELTA C8/T1 RADICULOPATHIES. ALSO NCS 04/11/18 - SEE [facility] EMR. - ADLs Dressing: Socks, Earrings Fasteners: Buttons, Zippers Bathing: Squeeze shampoo bottle Comments: use of pump bottle Grooming: Trim nails Kitchen: Chop with knife, Peel fruits & vegetables, Open jars, Open bottle caps, Ziplock bags Miscellaneous: Write, Turn pages in book, Operate aerosol cans, Sew, Darcy/knit/needlework Comments: pt states her does most home task - ROM Elbow: right/left WNL Forearm: right/left WNL Wrist: right/left WNL ROM Comments: pt demo bilateral OA deformities at CMCJ, and DIP and PIP of right and left hand - Strength Christian Education Director: right 42# left 30# Lateral Pinch: right 2# left 2# Tripod Pinch: right/left unable Strength Comments: pt demo with bilateral thumb instability with shoulder sign - Sensation Thumb: right 3.22 left 3.22 Index: right 3.22 left 3.22 Middle: right 3.22 left 3.22 Ring: right 3.22 left 3.22 Little: right 3.22 left 3.22 - Nine Hole Peg Right: 26.56 Left: 24.21 - Quick DASH-Disab of Arm,Shoulder& Hand Quick DASH Score: 56.8175 - Goals Goal:: pt will demo a understanding of visual compensation tasks when using hands to grab cup, plate etec. to avoid injury to hands or dropping objects by visit 3. pt will report a reduction in tingling sensation by 50% Goal:: Pt will demo understanding of joint protection and ergonomics when performing BADLs and IADLs by d/c. Pt will demo understanding of adaptive Equipment use to decrease stress on joints to allow pt to perform BADSL and IADLS at ALLY level. - Rehabilitation General Assessment: pt demo with limited use of bilateral hands due to constant tingling. pt limited with ADLs and other tasks because she drops items or can not feel them in her hands. pt would benefit from skilled OT services 1-2x week for 4 weeks to ed. pt on visual compensation tasks, use of adaptive equipment for ADLS and IADLS. Therapy will ed. pt on nerve glides for median and ulnar nerves but will consult with PT to ensure the nerve glides will not increase symptoms at her neck level. pt demo understanding and agree to POC. Rehabilitation Potential: Questionable - Anticipated Interventions A/AAROM/PROM, Modalities, Orthoses, Joint Protection/Energy Conservation, Ergonomic Education, Fine Motor Coord/Abad, Neuro Reeducation, Education re assistive Equipment, Education re Diagnosis, Caregiver Training, Home Program Other Interventions: nerve glides - Visit Plan Frequency: 1-2x /Week Duration: 4 Weeks TEXT: Thank you for the opportunity to evaluate your patient. For Medicare and Medicare HMO plans, please review the plan of care and approve it. It will need to be FAXED BACK to us at [phone] for Medicare purposes. Please let me know if there are questions or concerns regarding this plan of care. Physician Signature: Date:
--- NOTE | 2022-04-22 16:31 | HP.PTREVAL_ITS ---
Dr. Milo Cruz MD, It has been my pleasure to treat CHAU KING over the last 10 visits for CERVICAL DEFORMITY AND LUMBOSACRAL SPONDYLOSIS, STENOSIS, SPONDYLOLISTHESIS. Please see the progress note below for an update on the physical therapy plan of care! Subjective: WE ARE GOING TO HAVE TO BACK OFF BECAUSE I AM GETTING INCREASED BACK AND LEG PAIN AFTER. PATIENT REPORTS FEELING SORE ALL OVER. SAW NEUROSURGEON YESTERDAY. PATIENT REPORTS HE SAID THERAPY IS GOOD. SHE REPORTS HE ALSO SAID NECK SURGERY ISN'T RECOMMENDED AT THIS TIME. SHE STATES THAT HE SAID HE WOULD WANT HER TO BE AT 150 LBS TO OPERATE IF NEEDED IN THE FUTURE. Objective/Function: PATIENT WAS SEEN TODAY FOR RE-ASSESSMENT OF PROGRESS TOWARD THE SET PT GOALS AND THE NEED FOR FURTHER PHYSICAL THERAPY VS READINESS FOR DISCHARGE. PATIENT IS INDEP WITH CURRENT LEVEL OF EX BUT DOES NOT HAVE ENOUGH KNOWLEDGE YET IN HOW TO SAFELY PROGRESS. SHE IS STARTING TO PLATE[place] AND IS APPROPRIATE TO CONTINUE PT WHILE TRYING TO TRANSITION TO INDEP EX. PATIENT IS AGREEABLE. PATIENT COMMUNICATES A GOOD UNDERSTANDING OF CURRENT APPROPRIATE EX ABOVE AND IS AGREEABLE TO CONTINUEING WITH DAILY HEP AND TO COMING IN TO [facility] [employer] WITH HER MEMBERSHIP INDEP'LY ONE TO TWO TIMES A WK IN ADDITION TO CONTINUING PT ONCE A WK FOR EX PROGRESSION. UPON EXAM TODAY: DELTA LE: HIPS 4- /5, KNEE'S 4-/5 ANKLE DORSIFLEXION 5/5. UNABLE TO DO DELTA HEEL RAISE IN STANDING. Dural Signs: NEGATIVE DELTA LE'S. Lumbar mvmt loss: flex - NIL. ext - JEWEL. R SG - JEWEL. L SG - JEWEL. Core strength: POOR. POSTUREAL STRENGTH: POOR Plan Plan: CONTINUE PT ONCE A WK FOR EX PROGRESSION TOLERATED X 8 VISITS. GAIT TRAINING. POSTURE CORRECTION/STRENGTHENING, INSTRUCTION IN APPROPRIATE BODY MECHANICS AND ACTIVITY MODIFICATIONS. DLS AND POSTURE STRENGTHENING WITH A NEUTRAL SPINE ONLY. DELTA LE ROM, STRETCHING AND STRENGTHENING. HEP INSTRUCTION. CONSIDER AQUATIC THRAPY DEPENDING ON LAND TOLERANCE. PATIENT AGREEABLE. Balance/Gait/Functional tests - Balance/Special Test Scores Oswestry Low Back Score: 18 Oswestry Neck Score: 6 Goals Goal 1:: DECREASE C/O LOW BACK AND DELTA LE PAIN. Goal Time Frame: 4-6 Weeks Goal Progress: Not Progressing Goal 2:: IMPROVE STANDING AND WALKING FUNCTION Goal Time Frame: 4-6 Weeks Goal Progress: Progressing Goal 3:: PATIENT WILL COMPLETE 6 STANDS IN 30 SECS TO DEMONSTRATE IMPROVED FUNCTIONAL STRENGTH Goal Time Frame: 4-6 Weeks Goal Progress: Goal Met Goal 4:: PATIENT WILL COMPLETE TUG IN < 25 SECS TO DEMONSTRATE IMPROVED GAIT STABILITY Goal Time Frame: 4-6 Weeks Goal Progress: Progressing Goal 5:: PATIENT WILL BE INDEP WITH A HEP WITH OR WITHOUT THE HELP OF CAREGIVER FOR CONTINUED IMPROVEMENT ONCE FORMAL PHYSICAL THERPAY CONCLUDES. Goal Time Frame: 4-6 Weeks Goal Progress: Progressing Anticipated Interventions Patient/Client Instruction: Educate patient on: Condition, Plan of Care, Risk Factors For the Purpose of:: To improve self management Therapeutic Exercise to Include: Strength training, Body mechanics, Postural training, Flexibilty training, Neuromotor development, In an aquatic setting, Dynamic Lumbar Stabilization, Scapular Strength/Stabilization For the Purpose of:: To decrease pain, To increase ROM, To improve muscle performance and motor function, To increase tolerance to activity/ condition/position, To improve ability of physical actions for home/community/work/leisure Please do not hesitate to contact me at [phone] by phone or if you have questions or concerns regarding this new plan of care! Sincerely, Mariel Yan, PT, Cert MDT
--- NOTE | 2022-08-08 18:52 | HP.PT.NRP ---
CHAU KING was seen in my office for initial evaluation on 03/10/22. The following Plan of Care was established for this patient: Initial Frequency: 2-3x /Week Initial Duration: 4-6 Weeks Patient/Client Instruction: Educate patient on: Condition, Plan of Care, Risk Factors For the Purpose of:: To improve self management Therapeutic Exercise to Include: Strength training, Body mechanics, Postural training, Flexibilty training, Neuromotor development, In an aquatic setting, Dynamic Lumbar Stabilization, Scapular Strength/Stabilization For the Purpose of:: To decrease pain, To increase ROM, To improve muscle performance and motor function, To increase tolerance to activity/condition/position, To improve ability of physical actions for home/community/work/leisure This patient was last seen in our office 04/22/22. Pertinent comments regarding their Physical therapy will appear below: This patient has not returned to Physical Therapy and is appropriate to return to MD for further follow-up as needed. At this point I will be discontinuing this patient from physical therapy. I would be happy to see this patient again in the future if found appropriate by the physician. Thank you! Mariel Yan, PT, Cert MDT Balance/Gait/Functional tests - Balance/Special Test Scores Oswestry Low Back Score: 18 Oswestry Neck Score: 6
== END 2022-04-22 19:00 | disposition home or self-care (01) ==
LOC: PT 15:30
PROVIDERS: PCP Student in an Organized Health Care Education/Training Program; Visit Provider Anesthesiology Pain Medicine
DX: M47.817 Spondylosis without myelopathy or radiculopathy, lumbosacral region (principal); M43.16 Spondylolisthesis, lumbar region; M48.07 Spinal stenosis, lumbosacral region; M46.96 Unspecified inflammatory spondylopathy, lumbar region; M79.10 Myalgia, unspecified site
CPT/HCPCS: 97110; 97163; 97164; 97166; 97530

== ENCOUNTER → 2022-05-25 | Outpatient (CLI) | payer MEDICARE, OTHER, SELFPAY ==
[2022-05-25 16:36] LABS: Absolute Lymphocyte Count 3.25 X10^3/uL (0.83-4.51); Absolute Neutrophil Count 4.6 X10^3/uL (2.0-7.7); Basophil# 0.08 X10^3/uL; Basophil% 0.9 % (0-1); Eosinophil# 0.15 X10^3/uL; Eosinophils% 1.7 % (0-5); Hematocrit 43.7 % (37-47); Hemoglobin 13.4 g/dL (12.0-15.0); Lymphocyte # 3.25 X10^3/ul (0.83-4.51); Lymphocyte % 37.3 % (19-41); Mean Corp Hgb Conc 30.7 g/dL (32-36); Mean Corpuscular Hgb 29.4 pg (27.0-32.0); Mean Corpuscular Volume 95.8 fL (81-99); Mean Platelet Vol. 10.2 fl (6.2-12.0); Monocyte% 6.9 % (0-10); NRBC Flagged by Analyzer 0 % (0-5); Neutrophil # 4.59 X10^3/uL (2.7-7.7); Neutrophil % 52.6 % (47-70); Platelet Count 253 K/mm3 (150-450); RBC Distribution Width CV 15.5 % (11.6-14.6); RBC Distribution Width SD 54.9 fl (35.1-43.9); Red Blood Count 4.56 M/mm3 (4.2-5.4); White Blood Count 8.7 K/mm3 (4.4-11.0)
[2022-05-25 17:03] LABS: Erythrocyte Sedimentation Rate 17 mm/hr (0-30)
[2022-05-25 17:30] LABS: AST(SGOT) 27 U/L (15-37); Alanine Aminotransfer ALT/SGPT 44 U/L (13-56); Albumin, Serum 3.4 g/dL (3.2-5.0); Alkaline Phosphatase 77 U/L (45-117); Anion Gap 2 (5-15); BUN 20 mg/dL (7-18); BUN/Creat Ratio 19.4 RATIO (10-20); CRP 6.29 mg/L (0.0-3.0); Calcium,Total 9.3 mg/dL (8.5-10.1); Chloride 105 mmol/L (98-107); Creatinine, Serum 1.03 mg/dL (0.55-1.02); EST Glomerular Filtration Rate 56 mL/min (>60); Est Glom Filt Rate - Afr Amer 68 mL/min (>60); Globulin 3.4 g/dL (2.2-4.2); Glucose 111 mg/dL (74-106); LDH 244 U/L (84-246); Potassium 4.3 mmol/L (3.5-5.1); Protein, Total 6.8 g/dL (6.4-8.2); Sodium Level 138 mmol/L (136-145)
== END | disposition home or self-care (01) ==
LOC: LAB 16:11
PROVIDERS: PCP Student in an Organized Health Care Education/Training Program; Referring Provider Nurse Practitioner Adult Health; Visit Provider Nurse Practitioner Adult Health
DX: M54.9 Dorsalgia, unspecified (principal); K76.0 Fatty (change of) liver, not elsewhere classified
CPT/HCPCS: 36415; 80053; 83615; 85025; 85652; 86140

== ENCOUNTER → 2022-06-06 | Outpatient (CLI) | payer MEDICARE, OTHER, SELFPAY ==
--- NOTE | 2022-06-06 09:52 | US_ITS ---
STUDY: ABDOMINAL ULTRASOUND - ELASTOGRAPHY REASON FOR VISIT: Female, 71 years old. NAFLD TECHNIQUE: Liver stiffness measurements were obtained on a [employer] RS 85 ultrasound machine using a CA 1-7 probe following the SRU guidelines. 3 measurements were obtained using a 2-D-SWE method. TheIQR/M was 20 % suggesting a quality data set. TECHNICAL QUALITY: Adequate. COMPARISON: Comparison is made with prior study dated November 02, 2021. FINDINGS: Liver: Hepatomegaly and diffuse fatty infiltration of the liver. Median liver stiffness measured 12 kPa. Abdomen: There is no demonstrated mass lesion. US/Elastography Parenchyma/Organ IMPRESSION: Liver stiffness measures 12 kPa compatible with F2-F3 (Mild to moderate liver fibrosis) Metavir score. Electronically Signed: Contreras Cook MD at 15:24 EDT ,
--- NOTE | 2022-06-06 09:52 | US_ITS ---
STUDY: ABDOMINAL ULTRASOUND - RIGHT UPPER QUADRANT REASON FOR VISIT: Female, 71 years old elastography -- FATTY LIVER TECHNIQUE: Ultrasound evaluation of the right upper quadrant was performed with real-time and static dotson-scale imaging. TECHNICAL QUALITY: Adequate. COMPARISON: Comparison is made with prior study dated November 02, 2021. FINDINGS: Liver: The liver is enlarged and measures 20.2 cm. There is increased echogenicity consistent with fatty infiltration. The bile ducts are within normal limits. There is hepatic color flow. The direction of portal flow is hepatopetal. There is no demonstrated mass lesion. Gallbladder: The patient is status post cholecystectomy. Common Bile Duct (C.B.D.): The common bile duct measures 3.8 mm. Pancreas: Normal size of the head, body and tail of the pancreas. There is increased echogenicity of the pancreas. There is no demonstrated pancreatic mass or cyst. Right Kidney: Normal size of the right kidney. The right kidney measures 12.8 cm x 4.5 cm x 4.9 cm. Normal renal cortex. The right cortex measures 2.0 cm. There is a 3.5 cm x 2.9 cm x 2.8 cm renal cysts. There is no right hydronephrosis. US/Abdomen Limited IMPRESSION: Hepatomegaly. Diffuse fatty infiltration of the liver. Stable right renal cyst. Electronically Signed: Contreras Cook MD at 15:22 EDT ,
== END | disposition home or self-care (01) ==
LOC: US 09:52
PROVIDERS: PCP Student in an Organized Health Care Education/Training Program; Referring Provider Nurse Practitioner Adult Health; Visit Provider Nurse Practitioner Adult Health
DX: K76.0 Fatty (change of) liver, not elsewhere classified (principal); N28.1 Cyst of kidney, acquired
CPT/HCPCS: 76705; 76981

== ENCOUNTER → 2022-06-15 | Outpatient (CLI) | payer MEDICARE, OTHER, SELFPAY ==
[2022-06-15] VITALS (10 sets, daily range): BP systolic 100–139; BP diastolic 53–82; PULSE 70–85; RESP 12–18; TEMP 36.9; O2SAT 91–97; BMI 54.1
--- NOTE | 2022-06-15 | LIVB_PTH ---
PATIENT: CHAU KING LOC: CT U#:[id number] AGE/SX: 71/F ROOM: RE06/15/[address]: SURY Costa : 1950 BED: DIS: 06/15/2022 SPEC #: [id number] RECD: 06/15/22 10:25 STATUS: NATALEE REMargret #: [id number] ERMA: 06/15/22 00:[address]: Deepa Del Real NP DEPT: SURGICAL PATHOLOGY RECD BY: Beth Gardner ENTERED: 06/15/22 11:29 SP TYPE: LIVER BX OTHR DR: Dr. Josep Huggins DO Tissues: Liver, NOS Procedures: PAS with Diastase (control) Trichrome (control) Special Stain Group II PAS Stain (control) Surgery Specimen Level V Retic (control) Iron Stain (control) HEADER OPERATION: CT-guided liver biopsy PRE-OP DIAGNOSIS: NAFLD TISSUE SUBMITTED: Liver 18-gauge x3 MICROSCOPIC DIAGNOSIS Liver, CT-guided core biopsy: Macrovesicular steatosis. Focal septal expansion with fibrosis. No definite evidence of cirrhosis. See comment. AM:radha 06/16/2022 COMMENT Iron stain does not reveal accumulation of abnormal proteins. Reticulin and trichrome stains reveal focal broadband fibrosis. PAS and PASD stains do not reveal accumulation of abnormal proteins. All matched controls are appropriate. MICROSCOPIC DESCRIPTION Slides are reviewed. GROSS DESCRIPTION Received in fixative is one container labeled with the patient's name and designated liver. The specimen consists of three elongated fragments of hazel soft tissue measuring 0.5 to 1.5 cm in length and 0.1 cm in diameter. The specimen is totally submitted in one cassette. / VERONICA:radha 06/15/2022 TC:3 CPT: 29149, 49046 x5
--- NOTE | 2022-06-15 08:57 | CT_ITS ---
PROCEDURE: CT DIRECTED CORE LIVER BIOPSY INDICATION: Female, 71 years old. NAFLD, worsening stiffness per elastography PHYSICIAN: Dr. Joey Palmer CONSENT: Written informed consent was obtained having explained the risks, benefits and alternatives in detail with the patient who accepted the risks and agreed to proceed. Laboratory review and clinical assessment was performed. CONSCIOUS SEDATION PROTOCOL: The Drugs used were: 2 mg Versed, IV., and 50 mcg Fentanyl, IV. The sedation time was: 21 minutes. Conscious sedation was started at 9:46 AM and terminated at 10:07 AM. The conscious sedation protocol was independently monitored. RADIATION DOSAGE (If Supplied By Facility): CTDIvol = ( 34 ) mGy, DLP = ( 711.17 ) mGycm Individualized dose optimization techniques were used for this CT. TECHNIQUE: Using CT image guidance with image documentation, a suitable location in the right lobe of the liver was identified. Using an anterior approach, puncture of the liver was uneventful with an 18-gauge core needle system. 3, 18-gauge core samples were obtained, and submitted in formalin to the pathologist for further assessment. Followup CT scan revealed no distinct sequelae. CT/Biopsy/Inj or Needle Placement IMPRESSION: 1. CT directed core needle biopsy of the liver, using CT image guidance with image documentation as described. 2. Conscious Sedation protocol utilized with independent monitoring. Electronically Signed: Contreras Cook MD at 10:55 EDT ,
[2022-06-15 08:58] LABS: Platelet Count 258 K/mm3 (150-450)
[2022-06-15 09:07] LABS: Prothrombin Time (Protime)PT. 12.9 SECONDS (11.7-14.9)
[2022-06-15 09:08] LABS: Partial Thromboplast Time 25.5 Seconds (24.1-36.2)
[2022-06-15] MEDS: 0.9% Saline Lock 10 ML Syringe IV (09:15)
[2022-06-15] MEDS: Midazolam 2 MG/2 ML Syringe IV (09:46)
[2022-06-15] MEDS: fentaNYL 100 MCG/2 ML Ampul IV (09:49)
[2022-06-15] MEDS: Lidocaine 2% (20 ml mdv) 20 ML Vial INFILT (10:00)
== END | disposition home or self-care (01) ==
PROVIDERS: PCP Student in an Organized Health Care Education/Training Program; Referring Provider Nurse Practitioner Adult Health; Visit Provider Nurse Practitioner Adult Health
DX: J84.10 Pulmonary fibrosis, unspecified (principal); K76.0 Fatty (change of) liver, not elsewhere classified
CPT/HCPCS: 47000; 36415; 77012; 85049; 85610; 85730; 88307; 88313; 99156; J7050; A4216

== ENCOUNTER 2022-06-28 10:33 | Emergency (ER) | payer MEDICARE, OTHER, SELFPAY ==
[2022-06-28 10:34] VITALS: TEMP 36.9; BMI 55.1
--- NOTE | 2022-06-28 10:51 | RAD_ITS ---
STUDY: X-RAY - PELVIS REASON FOR EXAM: Female, 72 years old. Low back pain. TECHNIQUE: One view of the pelvis was obtained. COMPARISON: None. FINDINGS: Fecal material is seen throughout the colon. Normal visualized soft tissue structures. Normal bilateral iliac wings, sacroiliac joints and visualized sacrum. Normal visualized bilateral superior and inferior pubic rami. Normal pubic symphysis. Normal ischial tuberosities. The patient is status post bilateral total hip replacement. RAD/Pelvis 1 or 2 Views IMPRESSION: Status post bilateral total hip replacement. Electronically Signed: Contreras Cook MD at 12:01 EDT ,
--- NOTE | 2022-06-28 10:53 | EX.ED.DYSGE1 ---
HPI History of Present Illness Chief Complaint: Back Informant: patient Onset/Context/Timing Onset: Days (2 days) Narrative Narrative: Sees aPatient presents secondary to low back pain. She has a history of chronic back pain and sees Dr Hernandez for pain management. She has had injections in the past and is on gabapentin and baclofen regularly. Patient reports lower back pain over the tailbone region for the past 2 days. There was no fall or injury. She denies any infection or wound to the area. Sitting at rest she is comfortable but with any movement she has significant pain. [facility] Medical History Abdominal pain Benign neoplasm of colon Chronic pain CKD (chronic kidney disease) Constipation CPAP (continuous positive airway pressure) dependence DDD (degenerative disc disease) Diverticulosis of colon Elevated LFTs Fatty liver Fibromyalgia Former smoker GERD (gastroesophageal reflux disease) Hypertension Hypothyroidism Irritable bowel On home oxygen therapy Rectal bleeding Renal disease Sleep apnea Spinal stenosis Vitamin D deficiency Home Medications amitriptyline 10 mg tablet 30 mg PO QHS sleep 12/05/12 [History Last Taken 02/08/18] ergocalciferol (vitamin D2) 1,250 mcg (50,000 unit) capsule (Vitamin D2) 50,000 unit PO MO supplement 12/05/12 [History Last Taken 02/05/18] fluoxetine 20 mg capsule 60 mg PO DAILY depression 12/05/12 [History Last Taken 02/09/18] fluticasone propionate 50 mcg/actuation nasal spray,suspension 1 spray BID nasal congestion 12/05/12 [History Last Taken 02/09/18] gabapentin 800 mg tablet 800 mg PO TIDCM nerve pain 12/05/12 [History Last Taken 07/02/18] levothyroxine 75 mcg tablet 75 mcg PO DAILY thyroid disease 12/05/12 [History Last Taken 10/01/18 05:00] omega-3 fatty acids-fish oil 340 mg-1,000 mg capsule (Fish Oil) 1 ea PO BID supplement 12/05/12 [History Last Taken 02/09/18] dicyclomine 10 mg capsule 10 mg PO PRN PRN Gi Cramping 05/26/16 [History Last Taken Unknown] lisinopril 10 mg-hydrochlorothiazide 12.5 mg tablet (Zestoretic) 1 tab PO DAILY bp 05/26/16 [History Last Taken 02/09/18] Lovastatin [Mevacor] 40 mg PO QHS cholesterol 06/19/17 [History Last Taken 02/08/18] ascorbate calcium-bioflavonoid 500 mg-200 mg tablet (Rocio-C with Bioflavonoids) 1 tab PO DAILY SUPPLEMENT 02/09/18 [History Last Taken 02/09/18] multivitamin-ferrous fumarate-folic acid 18 mg-400 mcg tablet (Centrum Women) 1 ea PO DAILY SUPPLEMENT 02/09/18 [History Last Taken 02/09/18] Baclofen 10 mg PO TID PRN Spasms 04/06/18 [History Last Taken Unknown] wheat dextrin 3 gram/3.5 gram oral powder packet (Benefiber Clear Sugar Free(dextrin)) 1 ea PO DAILY STOOL SOFTNER 04/06/18 [History Last Taken Unknown] vitamin B complex 0.5 ea PO DAILY SUPPLEMENT 09/17/18 [History Last Taken Unknown] turmeric root extract 500 mg capsule 500 mg PO BID 01/28/19 [History Last Taken Unknown] L.acidoph, paracasei,B. lactis 10 billion cell capsule 1 ea PO DAILY 08/07/19 [History Last Taken Unknown] potassium gluconate 595 mg (99 mg) tablet 99 mg PO DAILY 08/07/19 [History Last Taken Unknown] magnesium carbonate (bulk) 330 g PO DAILY 04/07/20 [History Last Taken Unknown] omeprazole 20 mg tablet,delayed release 20 mg PO DAILY 04/07/20 [History Last Taken Unknown] ursodiol 250 mg tablet 250 mg PO BID #60 tabs 11/09/21 [Rx Last Taken Unknown] vitamin E (dl, acetate) 180 mg (400 unit) capsule 360 mg PO DAILY #60 caps 11/09/21 [Rx Last Taken Unknown] pioglitazone 15 mg tablet (Actos) 15 mg PO DAILY #30 tabs 06/23/22 [Rx Last Taken Unknown] cyclobenzaprine 10 mg tablet 10 mg PO TID PRN Muscle Spasm #20 TABLETS 06/28/22 [Rx Last Taken Unknown] hydrocodone-acetaminophen 5-325mg 5mg-325mg 1 tab PO Q6H PRN PRN Pain 3 days #10 TABLETS 06/28/22 [Rx Last Taken Unknown] Allergy/AdvReac Type Severity Reaction Status Date / Time atorvastatin AdvReac Intermediate INCEASED Verified 05/25/22 15:35 MUSCLE PAIN morphine AdvReac Itching Verified 05/25/22 15:35 tetracycline AdvReac skin Verified 05/25/22 15:35 discoloration Family History Father Heart disease Mother Bladder cancer Brother CAD (coronary artery disease) Surgical History History of cholecystectomy S/P hysterectomy Social History number of children: 1 Smoking Status: Never smoker alcohol intake: current ROS ROS ED Constitutional Constitutional ED: Denies chills or fever(s) Eyes Eyes: Denies change in vision or discharge from eye(s) ENT ENT ED: Denies discharge from eye(s), rhinorrhea or sore throat Cardiovascular Cardiovascular: Denies chest pain Respiratory/Chest Respiratory/Chest: Denies cough or dyspnea Gastrointestinal Gastrointestinal: Denies abdominal pain, nausea or vomiting Genitourinary Genitourinary ED: Denies difficulty urinating or dysuria Musculoskeletal Musculoskeletal: Reports back pain; Denies extremity pain Integumentary Denies Abrasions or rash Neurologic Neurologic: Denies headache(s), paresthesias or weakness Psychiatric Psychiatric: Denies anxiety or depression Allergic/Immunologic Allergic/Immunologic ED: Denies lip swelling or urticaria EXAM Physical Exam Const Vital Signs: 06/28/22 10:34 06/28/22 11:09 Temperature 98.5 F Temperature Source Temporal Pulse Rate 72 Respiratory Rate 18 Pulse Ox 98 Oxygen Delivery Method Room Air Positive well nourished and well developed General Appearance ED: well developed HEENT Reports normocephalic and head/scalp atraumatic Eyes PERRL and EOMs intact bilaterally Neck supple Chest Wall inspection of chest normal and palpation of chest normal Resp normal respiratory effort and clear to auscultation bilaterally Cardio regular rate and regular rhythm GI non-tender Palpation: soft Back/Spine Back/Spine Narrative: Tenderness over the SI joints bilaterally. No erythema or skin wounds noted. No evidence of pilonidal abscess. Extremity normal to inspection Neuro oriented x3 and no sensory deficits noted Neuro Narrative: No focal deficits in the lower extremities, but patient does have increased back pain with movement of her legs. Sensorium / Orientation: alert Psych mental status grossly normal Skin no rashes or lesions noted MDM MDM MDM Narrative Medical decision making narrative: Patient was given Dilaudid and Zofran for pain control. X-rays of the lumbar spine and pelvis obtained to evaluate for bony injury. Radiography Diagnostic Testing: Clinical Impression(s) from Imaging Studies Pelvis X-Ray 06/28/22 10:51 IMPRESSION: Status post bilateral total hip replacement. Electronically Signed: Contreras Cook MD at 12:01 EDT , Lumbar Spine X-Ray 06/28/22 11:15 IMPRESSION: Degenerative changes of the spine, as detailed above. Electronically Signed: Contreras Cook MD at 12:00 EDT , Treatment and Re-Evaluation :: X-rays of the pelvis and lumbar spine per my interpretation reveal arthritic changes with no evidence of acute fracture. Radiology interpretation is reviewed and agrees. On repeat evaluation patient is sleepy from the pain medicine, but otherwise her back pain does seem to be improved. She was able to get up with nursing staff and walk. She would like to try treatment at home. I will write her a short course of Spelter as well as Flexeril as she states she took the last of her baclofen and noted it was not really helping her anyway. She was advised that she is welcome to return at any time if she cannot get around at home. Discharge Plan Triage Chief Complaint: Back ED Provider: Sarah Kirby Dx/Rx/DC Orders Clinical Impression: Acute exacerbation of chronic low back pain Instructions: ED Back Pain (Acute or Chronic) Prescriptions: New hydrocodone-acetaminophen 5-325 mg tablet 1 tab PO Q6H PRN PRN (Reason: Pain) 3 Days Qty: 10 0RF cyclobenzaprine 10 mg tablet 10 mg PO TID PRN (Reason: Muscle Spasm) Qty: 20 0RF No Action levothyroxine 75 MCG tablet 75 mcg PO DAILY gabapentin 800 MG tablet 800 mg PO TIDCM amitriptyline 10 MG tablet 30 mg PO QHS ergocalciferol (vitamin D2) [Vitamin D2] 50,000 UNIT capsule 50,000 unit PO MO fluoxetine 20 MG capsule 60 mg PO DAILY fluticasone propionate 1 SPRAY spray,suspension 1 spray NASAL BID Fish Oil 1 EACH capsule 1 ea PO BID lisinopril-hydrochlorothiazide [Zestoretic] 1 TABLET tablet 1 tab PO DAILY Label Comments: HTN dicyclomine 10 MG capsule 10 mg PO PRN PRN (Reason: Gi Cramping) Lovastatin [Mevacor] 40 MG tablet 40 mg PO QHS Rocio-C with Bioflavonoids 1 EACH tablet 1 tab PO DAILY Centrum Women 1 EACH tablet 1 ea PO DAILY Benefiber Clear SF (dextrin) 1 EACH powder in packet 1 ea PO DAILY Baclofen 10 MG tablet 10 mg PO TID PRN (Reason: Spasms) vitamin B complex 1 EACH capsule 0.5 ea PO DAILY turmeric root extract 500 MG capsule 500 mg PO BID potassium gluconate 99 MG tablet 99 mg PO DAILY L.acidoph, paracasei,B. lactis 1 EACH capsule 1 ea PO DAILY magnesium carbonate (bulk) 500 GM powder 330 g PO DAILY omeprazole 20 MG tablet,delayed release (DR/EC) 20 mg PO DAILY ursodiol 250 mg tablet 250 mg PO BID Qty: 60 11RF vitamin E (dl, acetate) 180 mg (400 unit) capsule 360 mg PO DAILY Qty: 60 11RF pioglitazone [Actos] 15 mg tablet 15 mg PO DAILY Qty: 30 5RF Primary Care Provider: Josep Huggins Referrals: Josep Huggins DO [Primary Care Provider] - Milo Cruz MD [Med Staff - Active Staff] - 5-7 Days Disposition Disposition: Home, Self Care Discharge Date/Time: 06/28/22 13:35
[2022-06-28] MEDS: Ondansetron 4 MG/2 ML Vial IV (11:08)
[2022-06-28] MEDS: HYDROmorphone 1 MG/ML Syringe 0.5 MG IV (11:08)
[2022-06-28 11:09] VITALS: PULSE 72; RESP 18; O2SAT 98
--- NOTE | 2022-06-28 11:15 | RAD_ITS ---
STUDY: X-RAY - LUMBAR SPINE REASON FOR EXAM: Female, 72 years old. Atraumatic low back pain. TECHNIQUE: 2 view(s) of the lumbar spine were obtained. COMPARISON: Comparison is made with prior study March 21, 2022. FINDINGS: There is straightening of the normal lumbar lordosis. There is no substantial scoliosis. Minimal anterolisthesis of L4 on L5. There is multilevel endplate spondylosis of the lumbar vertebrae. There is multi-level degenerative disc disease with multi-level disc space narrowing. There is atherosclerotic calcification of the abdominal aorta without a demonstrated aneurysm. Status post bilateral hip replacement. RAD/Lumbar Spine 2 or 3 Views IMPRESSION: Degenerative changes of the spine, as detailed above. Electronically Signed: Contreras Cook MD at 12:00 EDT ,
--- NOTE | 2022-06-28 11:36 | CM.ED ---
Social Work SW reviewed patient's chart, AD documents not on file. SW met with patient and patient's and introduced herself and role as [facility]. Patient agreeable to speak to SW with present. Patient verified she has completed a Living Will as well as HCPOA, patient's is her HCPOA. SW encouraged patient to bring in copies to add to her file, patient reports understanding. Yolanda AWAN, MARINA
== END 2022-06-28 13:35 | disposition home or self-care (01) ==
PROVIDERS: Emergency Provider Emergency Medicine; PCP Student in an Organized Health Care Education/Training Program; Visit Provider Emergency Medicine
DX: M54.50 Low back pain, unspecified (principal); G89.29 Other chronic pain; N18.9 Chronic kidney disease, unspecified; G47.30 Sleep apnea, unspecified; Z99.81 Dependence on supplemental oxygen
CPT/HCPCS: 72100; 72170; 96374; 96375; 99284; A4216; J2405

== ENCOUNTER → 2023-01-23 | Outpatient (CLI) | payer MEDICARE, OTHER, SELFPAY ==
--- NOTE | 2023-01-23 10:41 | US_ITS ---
STUDY: ABDOMINAL ULTRASOUND - RIGHT UPPER QUADRANT REASON FOR VISIT: Female, 72 years old fatty liver TECHNIQUE: Ultrasound evaluation of the right upper quadrant was performed with real-time and static dotson-scale imaging. TECHNICAL QUALITY: Limited. Examination limited due to a combination of factors including obesity and bowel gas. COMPARISON: 06/06/2022. FINDINGS: Liver: The liver measures 17.4 cm. There is a heterogeneous echogenicity of the liver. The bile ducts are within normal limits. There is hepatic color flow. The direction of portal flow is hepatopetal. There is no demonstrated mass lesion. Gallbladder: The patient is status post cholecystectomy. Common Bile Duct (C.B.D.): The common bile duct measures 3 mm. Pancreas: Normal size of the head, body and tail of the pancreas. There is normal echogenicity of the pancreas. There is no demonstrated pancreatic mass or cyst. Right Kidney: Normal size of the right kidney. The right kidney measures 10.3 cm. Normal renal cortex. The right cortex measures 1.1 cm. There is a 3.7 cm mid renal cyst. There is no right hydronephrosis. US/Abdomen Limited IMPRESSION: Significantly limited because of patient size. No definite acute abnormality seen. Electronically Signed: Kane Velez MD at 21:47 EST ,
== END | disposition home or self-care (01) ==
LOC: US 10:40
PROVIDERS: PCP Student in an Organized Health Care Education/Training Program; Referring Provider Internal Medicine Gastroenterology; Visit Provider Internal Medicine Gastroenterology
DX: K76.0 Fatty (change of) liver, not elsewhere classified (principal)
CPT/HCPCS: 76705

== ENCOUNTER → 2023-03-10 | Outpatient (CLI) | payer MEDICARE, OTHER, SELFPAY ==
--- OUTSIDE RECORDS SUMMARY | 2023-03-10 11:46 | XMS RPT_ITS | CCD ---
Author Name Unknown Address [address] [place] [address] Organization [facility] Care Team Providers Care 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 Name Role Phone Elin Sharma MD Unavailable Josep Al DO Primary Care Provider Josep Al DO Primary Care Provider Josep Al DO Primary Care Provider [phone] DEREK FRANCISCO Attending Unavailable JOSEP AL Primary Care Unavailable DEREK FRANCISCO Attending Unavailable JOSEP AL Primary Care Unavailable JOSEP AL Primary Care Unavailable JOSEP AL Primary Care Unavailable DEREK FRANCISCO Referring Unavailable JOSEP AL Primary Care Unavailable JOSEP AL Referring Unavailable LUDMILA RAMON Attending Unavailable ALJOSEP BANSAL Primary Care Unavailable LUDMILA RAMON Attending Unavailable JOSEP AL Primary Care Unavailable AL, JOSEP Guzman Referring Unavailable JOSEP AL Primary Care Unavailable JOSEP AL Attending Unavailable JOSEP AL Primary Care Unavailable Allergies Allergy Classification Reported Allergen(s) Allergy Type Date of Onset Reaction(s) Facility (20 sources) atorvastatin; Translations: [ATORVASTATIN] Drug Allergy 4 Other: See Comments [facility] Work Phone: (1 source) Angela albicans extract; Translations: [YEAST] Drug Allergy 0 [facility] Work Phone: (1 source) Chocolate; Translations: [CHOCOLATE] food allergy 0 [facility] Work Phone: (1 source) corn extract; Translations: [CORN] Drug Allergy 0 [facility] Work Phone: (1 source) egg; Translations: [EGGS] food allergy 0 [facility] Work Phone: (1 source) House dust mite; Translations: [DUST MITES] allergy to substance 0 sneezing [facility] Work Phone: (1 source) Kingdom Animalia; Translations: [ANIMALS] allergy to substance 0 [facility] Work Phone: (1 source) Malt; Translations: [MALT] food allergy 0 [facility] Work Phone: (1 source) Mold Extract; Translations: [MOLD] Drug Allergy 0 sneezing [facility] Work Phone: (1 source) Morphine Drug Allergy 0 rash [facility] Work Phone: (1 source) Soy protein; Translations: [SOY] food allergy 0 [facility] Work Phone: (3 sources) Tetracycline; Translations: [TETRACYCLINE] Drug Allergy 2 brown spots [facility] Work Phone: (1 source) Wheat preparation; Translations: [WHEAT] Drug Allergy 0 [facility] Work Phone: (1 source) DAIRY; Translations: [DAIRY] food allergy 0 [facility] Work Phone: (1 source) PLANT POLLENS; Translations: [PLANT POLLENS] allergy to substance 0 hay fever [facility] Work Phone: (1 source) TOMATOES; Translations: [TOMATOES] food allergy 0 [facility] Work Phone: (20 sources) Morphine; Translations: [MORPHINE] Drug Allergy 5 Itching [facility] Work Phone: (20 sources) Tetracycline Drug Allergy 2 Other: See Comments [facility] Medications Current Medications Medication Drug Class(es) Dates Sig (Normalized) Sig (Original) dulaglutide (TRULICITY) 3 mg/0.5 mL pen injector (3 sources) Start: 12-15-2022 End: 03-15-2023 inject 3 mg by subcutaneous injection every week dulaglutide (TRULICITY) 3 mg/0.5 mL pen injector Indications: Dysmetabolic syndrome , Central obesity , Hyperinsulinemia , Hyperglycemia , Obesity, morbid, BMI 50 or higher (HCC) Inject 3 mg subcutaneously one time a week. 2 mL 2 12/15/2022 03/15/2023 Active Completed/Discontinued Medications Medication Drug Class(es) Dates Sig (Normalized) Sig (Original) amitriptyline hydrochloride 10 mg oral tablet (20 sources) Tricyclic Antidepressant Start: 12-21-2022 take 3 tablets by mouth once daily at bedtime amitriptyline (ELAVIL) 10 mg tablet Take 3 tablets by mouth daily at bedtime. 270 tablet 3 12/21/2022 Active Problems Active Problems Problem Classification Problem Date Documented Da te Episodic/Chronic Adjustment disorders (20 sources) Stress; Translations: [Reaction to severe stress, unspecified] Onset: 04-09-2012 04-09-2012 Chronic Anxiety disorders (20 sources) Generalized anxiety disorder; Translations: [Generalized anxiety disorder] Onset: 12-04-2019 12-04-2019 Chronic Chronic kidney disease (20 sources) Chronic kidney disease stage 3; Translations: [Stage 3 chronic kidney disease] Onset: 01-23-2017 01-23-2017 Chronic Disorders of lipid metabolism (20 sources) Mixed hyperlipidemia; Translations: [Mixed hyperlipidemia] Onset: 09-25-2007 09-25-2020 Chronic Disorders of teeth and jaw (2 sources) Infection of tooth; Translations: [Periapical abscess without sinus] Episodic Essential hypertension (20 sources) Essential hypertension; Translations: [Essential (primary) hypertension] Onset: 05-09-2016 05-09-2016 Chronic Genitourinary symptoms and ill-defined conditions (20 sources) Urinary incontinence; Translations: [Unspecified urinary incontinence] Onset: 03-15-2016 03-15-2016 Chronic Hepatitis (10 sources) Nonalcoholic steatohepatitis; Translations: [Nonalcoholic steatohepatitis (MENDEZ)] Onset: 07-26-2022 07-27-2022 Chronic Mood disorders (8 sources) Recurrent depression; Translations: [Major depressive disorder, recurrent, unspecified] Onset: 07-27-2022 07-27-2022 Chronic Nutritional deficiencies (20 sources) Vitamin D deficiency; Translations: [Vitamin D deficiency, unspecified] Onset: 12-20-2007 01-06-2017 Chronic Nutritional deficiencies (1 source) Cobalamin deficiency; Translations: [Deficiency of other specified B group vitamins] Episodic Osteoarthritis (20 sources) Degenerative joint disease involving multiple joints; Translations: [Polyosteoarthritis, unspecified] Onset: 09-25-2007 03-20-2015 Chronic Other acquired deformities (2 sources) Deformity of cervical vertebra; Translations: [Deforming dorsopathy, unspecified] Episodic Other connective tissue disease (20 sources) History of total knee arthroplasty; Translations: [Presence of unspecified artificial knee joint] Onset: 01-14-2010 01-14-2010 Chronic Other diseases of veins and lymphatics (20 sources) Edema; Translations: [Chronic venous hypertension (idiopathic) without complications of unspecified lower extremity] Onset: 01-14-2010 01-14-2010 Chronic Other endocrine disorders (1 source) Hyperinsulinism; Translations: [Other hypoglycemia] 01-25-2023 Chronic Other endocrine disorders (1 source) Other hypoglycemia; Translations: [Hyperinsulinemia] Onset: 07-26-2022 Chronic Other gastrointestinal disorders (20 sources) Irritable bowel syndrome; Translations: [Irritable bowel syndrome without diarrhea] Onset: 10-17-2012 10-17-2012 Chronic Other inflammatory condition of skin (20 sources) Rosacea; Translations: [Rosacea, unspecified] Onset: 09-04-2005 09-04-2005 Chronic Other liver diseases (20 sources) Steatosis of liver; Translations: [Fatty (change of) liver, not elsewhere classified] Onset: 01-25-2022 Chronic Other liver diseases (8 sources) Hepatic fibrosis; Translations: [Liver fibrosis] Onset: 07-27-2022 07-27-2022 Chronic Other non-traumatic joint disorders (1 source) Arthropathy of multiple joints; Translations: [Arthropathy, unspecified] Chronic Other nutritional; endocrine; and metabolic disorders (1 source) Body mass index 40+ - severely obese; Translations: [Body mass index (BMI) 45.0-49.9, adult] Onset: 07-11-2019 07-14-2019 Chronic Other nutritional; endocrine; and metabolic disorders (20 sources) Localized adiposity; Translations: [Localized adiposity] Onset: 09-04-2005 09-04-2005 Chronic Other nutritional; endocrine; and metabolic disorders (20 sources) Morbid obesity; Translations: [Morbid (severe) obesity due to excess calories] Onset: 03-15-2016 03-15-2016 Chronic Other nutritional; endocrine; and metabolic disorders (10 sources) Central obesity; Translations: [Localized adiposity] Onset: 09-04-2005 07-27-2022 Chronic Other nutritional; endocrine; and metabolic disorders (9 sources) Metabolic syndrome X; Translations: [Metabolic syndrome] Onset: 07-27-2022 07-27-2022 Chronic Other nutritional; endocrine; and metabolic disorders (1 source) Metabolic syndrome; Translations: [Dysmetabolic syndrome] Onset: 07-26-2022 Chronic Other nutritional; endocrine; and metabolic disorders (1 source) Localized adiposity; Translations: [Central obesity] Onset: 07-26-2022 Chronic Other nutritional; endocrine; and metabolic disorders (1 source) Morbid (severe) obesity due to excess calories; Translations: [Obesity, morbid, BMI 50 or higher (HCC)] Onset: 07-26-2022 Chronic Other skin disorders (1 source) Eruption; Translations: [Other skin changes] Episodic Other upper respiratory disease (20 sources) Non-allergic rhinitis; Translations: [Chronic rhinitis] Onset: 05-19-2017 05-19-2017 Chronic Residual codes; unclassified (20 sources) Obstructive sleep apnea syndrome; Translations: [Obstructive sleep apnea (adult) (pediatric)] Onset: 05-09-2016 05-09-2016 Chronic Residual codes; unclassified (1 source) Edema of foot; Translations: [Localized edema] 01-25-2023 Episodic Spondylosis; intervertebral disc disorders; other back problems (20 sources) Degeneration of lumbar intervertebral disc; Translations: [Other intervertebral disc degeneration, lumbar region] Onset: 10-14-2010 10-14-2010 Chronic Spondylosis; intervertebral disc disorders; other back problems (1 source) Spinal stenosis of lumbar region; Translations: [Spinal stenosis, lumbar region with neurogenic claudication] Onset: 07-11-2019 07-14-2019 Episodic Thyroid disorders (20 sources) Multinodular goiter; Translations: [Nontoxic multinodular goiter] Onset: 03-04-2010 03-04-2010 Chronic Past or Other Problems Problem Classification Problem Date Documented Date Episodic/Chronic Biliary tract disease (20 sources) Biliary calculus; Translations: [Calculus of gallbladder with chronic cholecystitis without obstruction] Onset: 07-08-2011 07-08-2011 Episodic Diabetes mellitus without complication (11 sources) Increased glucose level; Translations: [Other abnormal glucose] Onset: 07-26-2022 Episodic Diseases of mouth; excluding dental (20 sources) Xerostomia; Translations: [Dry mouth, unspecified] Onset: 01-06-2021 01-06-2021 Episodic Genitourinary symptoms and ill-defined conditions (20 sources) Urgent desire to urinate; Translations: [Urgency of urination] Onset: 04-05-2016 04-05-2016 Episodic Other acquired deformities (2 sources) Deforming dorsopathy, unspecified; Translations: [Deformity of cervical vertebra] Onset: 02-21-2022 Episodic Other connective tissue disease (20 sources) Fibromyalgia; Translations: [Fibromyalgia] Onset: 10-14-2010 10-14-2010 Episodic Other connective tissue disease (20 sources) Pain of bilateral hands; Translations: [Pain in right hand] Onset: 09-25-2020 09-25-2020 Episodic Other inflammatory condition of skin (20 sources) Seborrheic dermatitis; Translations: [Other seborrheic dermatitis] Onset: 09-04-2005 09-04-2005 Episodic Other nervous system disorders (20 sources) Taste sense altered; Translations: [Parageusia] Onset: 09-25-2020 09-25-2020 Episodic Other screening for suspected conditions (not mental disorders or infectious disease) (20 sources) Patient encounter status; Translations: [Encounter for screening mammogram for malignant neoplasm of breast] Onset: 01-25-2022 Episodic Other skin disorders (20 sources) Hirsutism; Translations: [Hirsutism] Onset: 09-04-2005 09-04-2005 Episodic Other skin disorders (20 sources) Seborrheic keratosis; Translations: [Other seborrheic keratosis] Onset: 01-25-2022 Episodic Other skin disorders (20 sources) Skin tag; Translations: [Other hypertrophic disorders of the skin] Onset: 01-25-2022 Episodic Unclassified (1 source) Problem Results Test Name Value Interpretation Reference Range Facil ity Vital Signs Date Time Vital Sign Value Performing Clinician Facility 05-01-2022 13:25-0400 Body temperature 99.3 [degF] Kellie Athy PA-C Work Phone: [facility] 05-01-2022 13:25-0400 Body weight 141.98 kg Kellie Athy PA-C Work Phone: [facility] 05-01-2022 13:25-0400 Diastolic blood pressure 74 mm[Hg] Kellie Athy PA-C Work Phone: [facility] 05-01-2022 13:25-0400 Heart rate 88 /min Kellie Athy PA-C Work Phone: [facility] 05-01-2022 13:25-0400 Respiratory rate 20 /min Kellie Athy PA-C Work Phone: [facility] 05-01-2022 13:25-0400 SaO2% (BldA) [Mass fraction] 97 % Kellie Athy PA-C Work Phone: [facility] 05-01-2022 13:25-0400 Systolic blood pressure 138 mm[Hg] Kellie Athy PA-C Work Phone: [facility] 04-21-2022 10:58-0500 Body height 160 cm Derek Francisco MD, PhD Work Phone: [facility] 04-21-2022 10:58-0500 Body weight 143 kg Derek Francisco MD, PhD Work Phone: [facility] 04-21-2022 10:58-0500 Diastolic blood pressure 72 mm[Hg] Derek Francisco MD, PhD Work Phone: [facility] 04-21-2022 10:58-0500 Heart rate 76 /min Derek Francisco MD, PhD Work Phone: [facility] 04-21-2022 10:58-0500 SaO2% (BldA) [Mass fraction] 98 % Derek Francisco MD, PhD Work Phone: [facility] 04-21-2022 10:58-0500 Systolic blood pressure 146 mm[Hg] Derek Francisco MD, PhD Work Phone: [facility] 02-09-2022 11:31-0500 Body weight 144.7 kg Derek Francisco MD, PhD Work Phone: [facility] 02-09-2022 11:31-0500 Diastolic blood pressure 52 mm[Hg] Derek Francisco MD, PhD Work Phone: [facility] 02-09-2022 11:31-0500 Heart rate 79 /min Derek Francisco MD, PhD Work Phone: [facility] 02-09-2022 11:31-0500 Respiratory rate 20 /min Derek Frnacisco MD, PhD Work Phone: [facility] 02-09-2022 11:31-0500 SaO2% (BldA) [Mass fraction] 98 % Derek Francisco MD, PhD Work Phone: [facility] 02-09-2022 11:31-0500 Systolic blood pressure 134 mm[Hg] Derek Francisco MD, PhD Work Phone: [facility] 01-25-2022 11:56-0500 Body temperature 98.6 [degF] Josep Al DO Work Phone: [facility] 01-25-2022 11:56-0500 Body weight 142.88 kg Josep Al DO Work Phone: [facility] 01-25-2022 11:56-0500 Diastolic blood pressure 80 mm[Hg] Josep Al DO Work Phone: [facility] 01-25-2022 11:56-0500 Heart rate 80 /min Josep Al DO Work Phone: [facility] 01-25-2022 11:56-0500 Respiratory rate 20 /min Josep Al DO Work Phone: [facility] 01-25-2022 11:56-0500 Systolic blood pressure 130 mm[Hg] Josep Al DO Work Phone: [facility] 07-26-2021 11:00-0400 Body temperature 97.5 [degF] Josep Al DO Work Phone: [facility] 07-26-2021 11:00-0400 Body weight 144.7 kg Josep Al DO Work Phone: [facility] 07-26-2021 11:00-0400 Diastolic blood pressure 80 mm[Hg] Josep Al DO Work Phone: [facility] 07-26-2021 11:00-0400 Heart rate 80 /min Josep Al DO Work Phone: [facility] 07-26-2021 11:00-0400 Respiratory rate 16 /min Josep Al DO Work Phone: [facility] 07-26-2021 11:00-0400 Systolic blood pressure 120 mm[Hg] Josep Al DO Work Phone: [facility] NEGATED: Highlighted [id number] 11:13-0400 BMI (Body Mass Index) 49.96 kg/m2 Lisa Crabtree AT [facility] Work Phone: NEGATED: Highlighted [id number] 11:13-0400 Body weight 131.54 kg Lisa Crabtree AT [facility] Work Phone: NEGATED: Highlighted [id number] 11:13-0400 Body weight 132 kg Lisa Lorence AT [facility] Work Phone: NEGATED: Highlighted [id number] 11: Height 162.56 cm Lisa Lorence AT [facility] Work Phone: NEGATED: Highlighted [id number] 11:13 Height 163 cm Lisa Lorence AT [facility] Work Phone: Encounters Encounter Date Encounter Type Care Provider Facility Start: 01-25-2023 End: 01-25-2023 ambulatory Ludmilaashley Ramon METAL FABRICATOR APPRENTICE.CROCHETER Work Phone: [facility] Procedures Date Procedure Procedure Detail Performing Clinician Start: 07-26-2022 Lipid 1996 panel - S michelle or Plasma Ludmila Ramon METAL FABRICATOR APPRENTICE.CROCHETER Work Phone: Start: 02-21-2022 End: 02-21-2022 Mammography Josep Megan Al DO Work Phone: Start: 07-29-2021 End: 07-29-2021 Us abdominal real time w/image limited Josep Megan CamposAl DO Work Phone: Start: 07-24-2021 Adult depression screening assessment Josep Camposrison DO Work Phone: Start: 02-08-2021 Mammography Ian hurt Start: 05-05-2020 Adult depression screening assessment Ian Clark Start: 08-20-2019 Colonoscopy Ian hurt Start: 07-11-2019 End: 07-14-2019 Blood pressure screening not performed - reason not given Elin Sharma MD Work Phone: Start: 07-11-2019 End: 07-14-2019 BMI documented as above normal parameters - follow-up documented Elin Sharma MD Work Phone: Start: 07-11-2019 End: 07-14-2019 Documentation of current medications Elin Sharma MD Work Phone: Start: 07-11-2019 End: 07-14-2019 Pain assessment not documented - reason not given Elin Sharma MD Work Phone: Start: 07-11-2019 End: 07-11-2019 Radex spine lumbosacral minimum 4 views Elin Sharma MD Work Phone: Start: 07-11-2019 End: 07-14-2019 Tobacco non-user Elin Sharma MD Work Phone: Start: 01-14-2010 H/O: artificial joint THR (tot al hip replacement) Ian Clark NEGATED: Highlighted rowStart: 07-11-2019 End: 07-11-2019 Documentation of current medications Lisa Crabtree AT Plan of Treatment Date Care Activity Detail Author Start: 03-10-2032 Urine microalbumin profile [facility] Start: 07-27-2027 Lipid 1996 panel - Serum or Plasma Lipid Screening [facility] Start: 07-27-2027 Lipid panel Lipid Screening [facility] Start: 07-27-2027 LIPID SCREEN LIPID SCREEN [facility] Start: 07-26-2026 LIPID SCREEN LIPID SCREEN [facility] Start: 07-26-2025 DIABETES SCREEN DIABETES SCREEN [facility] Start: 07-26-2025 Diabetes Screening Diabetes Screening [facility] Start: 06-02-2025 LIPID SCREEN LIPID SCREEN [facility] Start: 08-19-2024 Colonoscopy COLONOSCOPY [facility] Start: 08-19-2024 COLORECTAL CANCER SCREENING COLORECTAL CANCER SCREENING [facility] Start: 08-19-2024 Screening for malignant neoplasm of colon [facility] Start: 07-26-2024 DIABETES SCREEN DIABETES SCREEN [facility] Start: 01-26-2024 Annual PCP Team Chronic Disease Visit Annual PCP Team Chronic Disease Visit [facility] Start: 01-07-2024 DIABETES SCREEN DIABETES SCREEN [facility] Start: 10-27-2023 Annual PCP Team Chronic Disease Visit Annual PCP Team Chronic Disease Visit [facility] Start: 07-27-2023 ANNUAL PCP TEAM CHRONIC DISEASE VISIT ANNUAL PCP TEAM CHRONIC DISEASE VISIT [facility] Start: 07-27-2023 Creatinine measurement Serum Creatinine [facility] Start: 07-27-2023 SERUM CREATININE SERUM CREATININE [facility] Start: 02-21-2023 Mammography [facility] Start: 02-21-2023 Screening for malignant neoplasm of breast Mammogram Screening [facility] Start: 01-25-2023 ANNUAL PCP TEAM CHRONIC DISEASE VISIT ANNUAL PCP TEAM CHRONIC DISEASE VISIT [facility] Start: 10-14-2022 Influenza vaccination INFLUENZA (#1) [facility] Start: 07-26-2022 ANNUAL PCP TEAM CHRONIC DISEASE VISIT ANNUAL PCP TEAM CHRONIC DISEASE VISIT [facility] Start: 07-26-2022 BP CONTROLLED (<130/80) BP CONTROLLED (<130/80) [facility] Start: 07-26-2022 HEMOGLOBIN/HEMATOCRIT HEMOGLOBIN/HEMATOCRIT [facility] Start: 07-26-2022 SERUM CREATININE SERUM CREATININE [facility] Start: 07-24-2022 Adult depression screening assessment DEPRESSION SCREENING [facility] Start: 05-05-2022 SHINGRIX VACCINE (3 of 3) SHINGRIX VACCINE (3 of 3) [facility] Start: 05-01-2022 End: 07-01-2022 Bacteria identified in Wound by Culture ABSCESS AND WOUND CULTURE WITH GRAM STAIN Microbiology Routine Vesicular rash Expected: 05/01/2022, Expires: 07/01/2022 [facility] Work Phone: Immunizations Immunization Date Immunization Notes Care Provider Darren [email or web address] 12-03-2022 COVID-19 vaccine, ag e 12+ yr, season (MODERNA) [facility] METAL FABRICATOR APPRENTICE.CROCHETER Work Phone: [facility] 12-03-2022 influenza (aIIV4) vaccine, age 65+ yr, quadrivalent, PF (FLUAD QUAD) [facility] METAL FABRICATOR APPRENTICE.CROCHETER Work Phone: [facility] 12-03-2022 respiratory syncytia l virus (RSV) vaccine, adjuvanted (AREXVY) [facility] METAL FABRICATOR APPRENTICE.CROCHETER Work Phone: [facility] 08-02-2022 zoster vaccine recombinant Josep Al DO Work Phone: [facility] 03-10-2022 tetanus toxoid, redu selena diphtheria toxoid, and acellular pertussis vaccine, adsorbed Derek Francisco MD, PhD Work Phone: [facility] 03-10-2022 zoster vaccine recombinant Derek Francisco MD, PhD Work Phone: [facility] 11-30-2021 COVID-19 booster vaccine, age 12+ yr, bivalent (PFIZER-Fe3 MedicalNTEachpal) Josep Al DO Work Phone: [facility] 11-30-2021 influenza, high dose seasonal, preservative-free Josep Al DO Work Phone: [facility] 12-23-2020 COVID-19 vaccine, fu ll dose (MODERNA) [facility] Work Phone: 12-23-2020 influenza, high dose seasonal, preservative-free [facility] Work Phone: 04-29-2020 COVID-19 vaccine, fu ll dose (MODERNA) [facility] Work Phone: 04-02-2020 COVID-19 vaccine, fu ll dose (MODERNA) [facility] Work Phone: 10-26-2019 influenza virus vacc ine, unspecified formulation [facility] Work Phone: 11-06-2018 influenza, high dose seasonal, preservative-free [facility] Work Phone: 11-03-2017 influenza, high dose seasonal, preservative-free [facility] Work Phone: 10-27-2017 influenza, seasonal, injectable, preservative free [facility] Work Phone: 04-25-2017 pneumococcal conjuga te vaccine, 13 valent [facility] Work Phone: 11-11-2016 influenza, high dose seasonal, preservative-free [facility] Work Phone: 01-08-2016 pneumococcal polysaccharide vaccine, 23 valent [facility] 12-16-2015 influenza, high dose seasonal, preservative-free [facility] Work Phone: 11-15-2014 influenza, seasonal, injectable [facility] 11-21-2013 influenza, seasonal, injectable [facility] 02-06-2012 zoster vaccine, live [facility] 01-31-2012 tetanus toxoid, redu selena diphtheria toxoid, and acellular pertussis vaccine, adsorbed [facility] 11-25-2011 influenza virus vacc ine, unspecified formulation [facility] 01-07-2006 tetanus and diphther ia toxoids, adsorbed, preservative free, for adult use (2 Lf of tetanus toxoid and 2 Lf of diphtheria toxoid) [facility] Payers Date Payer Category Payer Medicare [id number] 2018 Unknown MMO MMO MEDICARE SUPPLEMENT [id number] 2018-Present [phone] [address] [place] [address] Indemnity [id number] 2018 Unknown MMO MMO MEDICARE SUPPLEMENT [id number] 2018-Present [phone] [address] [place] [address] Indemnity [id number] 2015 Medicare MEDICARE MEDICAR E A AND B [id number] 2015-Present [phone] [place] [address] Medicare [id number] 2015 Medicare MEDICARE MEDICAR E A AND B [id number] 2015-Present [phone] [place] [address] Medicare [id number] 2015 Medicare [id number] Social History Date Type Detail Facility Start: 07-14-2019 End: 07-14-2019 Assertion Unknown if ever smoked [facility] Work Phone: Start: 01-23-2017 End: 01-25-2022 Tobacco smoking status NHIS Ex-smoker [facility] End: 07-05-1980 History of tobacco use Current smoker [facility] Start: 01-06-2021 End: 10-26-2022 Alcohol intake Current drinker of alcohol (finding) [facility] Start: 04-09-2019 End: 01-24-2022 History SDOH Alcohol Frequency 3 [facility] Start: 04-09-2019 End: 01-24-2022 History SDOH Alcohol Std Drinks 1 [facility] Start: 04-09-2019 End: 01-24-2022 History SDOH Social Connections Membership 2 [facility] Start: 04-09-2019 End: 01-24-2022 History SDOH Physical Activity DPW 0 [facility] Start: 07-29-2019 End: 01-24-2022 History SDOH Financial 5 [facility] Start: 04-09-2019 Education 21 [facility] Start: 1950 Sex Assigned At Female [facility] End: 07-05-1980 History of tobacco use Cigarette Smoker [facility] Work Phone: Start: 01-23-2017 End: 01-25-2022 Tobacco use and exposure Smokeless tobacco non-user [facility] Work Phone: Start: 01-19-2020 End: 01-24-2022 History of Social function [facility] Start: 01-19-2020 End: 01-24-2022 Social connection and isolation panel [facility] Do you belong to any clubs or organizations such as christianity groups, unions, fraternal or athletic groups, or school groups? No [facility] Are you now , , , , never or living with a partner? [facility] How often to you hav e a drink containing alcohol? 2-4 times a month [facility] How many standard dr inks containing alcohol do you have on a typical day? 1 or 2 [facility] How often do you hav e 6 or more drinks on 1 occasion? Never [facility] How hard is it for y ou to pay for the very basics like food, housing, medical care, and heating Not hard at all [facility] Do you feel stress - tense, restless, nervous, or anxious, or unable to sleep at night because your mind is troubled all the time - these days [OSQ] To some extent [facility] (I/We) worried phuc er (my/our) food would run out before (I/we) got money to buy more. Never true [facility] Start: 12-02-2019 Gender identity Identifies as female gender (finding) [facility] Start: 12-02-2019 Sexual orientation Heterosexual (finding) [facility] How often to you hav e a drink containing alcohol? Monthly or less [facility] Do you feel stress - tense, restless, nervous, or anxious, or unable to sleep at night because your mind is troubled all the time - these days [OSQ] Only a little [facility] Clinical Notes 04-13-2010 to 01-25-2023 Ludmila Ramon APRN.ELLIOTT - 01/25/2023 1:10 PM ESTTelephone Encounter - Tanja Moise LPN - 01/23/2023 1:13 PM ESTTelephone Encounter - Lidia Dee LPN - 12/20/2022 12:06 PM EST Note Date & Type Note Facility 01-25-2023 Note HNO ID: [id number] Author: Ludmila Ramon APRN.ELLIOTT Service: ? Author Type: Nurse Practitioner Type: Progress Notes Filed: 01/25/2023 1:48 PM Note Text: VIRTUAL VISIT PROGRESS NOTE This is a virtual visit using CommProveom Video Visit. It required patient-provider interaction for the medical decision making as documented below. I have communicated my name and active licensure. The patient's identity and physical location were verified at the time of this visit. Either the patient or their legal national sales representative has been informed of the risks and benefits of -- and alternatives to -- treatment through a remote evaluation and consents to proceed with the evaluation remotely. Marlee Shin is a 72 year old female seen for DM medication follow up. Today: Since the increase in Trulicity to 3mg weekly, hasn't seen any change in her weight. On did notice that she had a decreased appetite that day. But that seemed to be the only day this happened. Weight today is 314 pounds. Does feel like she has had some more energy than she had previously-doesn't get as fatigued as quickly. Dr. Anderson (GI) started her on Actos. This is supposed to help with her liver. In the morning typically eats a bagel with peanut butter on it. Doesn't eat much until dinner in the evening. Very rare fleeing nausea. The last couple weeks her ankles have been swelling. When in dependent position. When feet are elevated, especially at night the swelling does improve but doesn't go away completely. HISTORY REVIEWED (electronic chart updated): PAST MEDICAL HISTORY Diagnosis Date Abdominal pain, left upper quadrant Benign neoplasm of colon CKD (chronic kidney disease) stage 3, GFR 30-59 ml/min (HCC) DDD (degenerative disc disease), lumbar Diverticulosis of colon (without mention of hemorrhage) Fibromyalgia syndrome HTN (hypertension) Hypothyroidism Migraine without aura Morbid obesity (HCC) Myalgia and myositis, unspecified Other acne Rectal bleeding 05/2016 Rosacea Sleep apnea cpap with o2. Spinal stenosis Unspecified constipation Unspecified vitamin D deficiency 12/20/2007 Vit D-18.5 on 02/16/07 PAST SURGICAL HISTORY Procedure Laterality Date ARTHRP ACETBLR/PROX FEM PROSTC AGRFT/ALGRFT 2010 right ARTHRP ACETBLR/PROX FEM PROSTC AGRFT/ALGRFT Left 10/01/2018 Dr. Pete Méndez ARTHRP KNE CONDYLEANDPLATU MEDIALANDLAT COMPARTMENTS 2007 right ARTHRP KNE CONDYLEANDPLATU MEDIALANDLAT COMPARTMENTS 04/16/2018 COLONOSCOPY 06/01/2016 COLONOSCOPY FLX DX W/COLLJ SPEC WHEN PFRMD 2001 Colonoscopy COLONOSCOPY FLX DX W/COLLJ SPEC WHEN PFRMD 2002 Colonoscopy COLONOSCOPY FLX DX W/COLLJ SPEC WHEN PFRMD 12/13/05 COLONOSCOPY FLX DX W/COLLJ SPEC WHEN PFRMD 02/24/2011 Colonoscopy COLONOSCOPY W/BIOPSY SINGLE/MULTIPLE 08/20/2019 EGD 08/20/2019 FNA WITH IMAGING 03/04/10 U/S FNA right thyroid x 2 and left x 1 LAPS SURG CHOLECYSTECTOMY W/CHOLANGIOGRAPHY 07-25-11 PAST SURGICAL HISTORY OF 1973 removal tumors ana ovaries PAST SURGICAL HISTORY OF x 2 ingrown toenails PAST SURGICAL HISTORY OF cystoscopy x2 and tumors removed from both ovaries. TOTAL ABDOMINAL HYSTERECT W/WO RMVL TUBE OVARY 09/17/92 Hysterectomy, SAE Dr Schmitt FAMILY HISTORY Problem Relation Age of Onset Heart Father OR / PE Coronary Artery Disease Father OR Cancer Mother bladder Coronary Artery Disease Brother stent x 5 on 2 occasions Social History Tobacco Use Smoking status: Former Types: Cigarettes Quit date: 07/05/1980 Years since quittin.5 Smokeless tobacco: Never Substance Use Topics Alcohol use: Yes Comment: rarely Drug use: No Current Outpatient Medications Medication Sig lisinopril-hydroCHLOROthiazide (ZESTORETIC) 10-12.5 mg per tablet Take 1 tablet by mouth once daily. amitriptyline (ELAVIL) 10 mg tablet Take 3 tablets by mouth daily at bedtime. levothyroxine (SYNTHROID) 75 mcg tablet Take 1 tablet by mouth once daily. dulaglutide (TRULICITY) 3 mg/0.5 mL pen injector Inject 3 mg subcutaneously one time a week. FLUoxetine (PROZAC) 20 mg capsule Take 3 capsules by mouth once daily. CPAP Mask (per patient preference) optional chin strap (if indicated) , filters, tubing, humidifier and lifetime supplies. G47.33 gabapentin (NEURONTIN) 800 mg tablet Take 1 tablet by mouth three times daily. lovastatin 40 mg tablet Take 1 tablet by mouth daily at bedtime. fluticasone (FLONASE) 50 mcg/actuation nasal spray Use 1 Putnam in each nostril twice daily. ergocalciferol 50,000 unit capsule (VITAMIN D2, DRISDOL) Take 1 capsule by mouth one time a week. ursodiol (HERBER) 250 mg tablet Take 250 mg by mouth twice daily. Vitamin E, dl, acetate, (VITAMIN E) 400 unit capsule Take 400 Units by mouth twice daily. dicyclomine (BENTYL) 10 mg capsule Take 1 capsule by mouth once daily. as needed if severe take 20 mg magnesium oxide (MAG-OX) 400 mg (241.3 mg magn (more content not included)... [facility] 01-25-2023 History of Present illness Narrative VIRTUAL VISIT PROGRESS NOTE This is a virtual visit using CommProveom Video Visit. It required patient-provider interaction for the medical decision making as documented below. I have communicated my name and active licensure. The patient's identity and physical location were verified at the time of this visit. Either the patient or their legal national sales representative has been informed of the risks and benefits of -- and alternatives to -- treatment through a remote evaluation and consents to proceed with the evaluation remotely. Marlee Shin is a 72 year old female seen for DM medication follow up. Today: Since the increase in Trulicity to 3mg weekly, hasn't seen any change in her weight. On did notice that she had a decreased appetite that day. But that seemed to be the only day this happened. Weight today is 314 pounds. Does feel like she has had some more energy than she had previously-doesn't get as fatigued as quickly. Dr. Anderson (GI) started her on Actos. This is supposed to help with her liver. In the morning typically eats a bagel with peanut butter on it. Doesn't eat much until dinner in the evening. Very rare fleeing nausea. The last couple weeks her ankles have been swelling. When in dependent position. When feet are elevated, especially at night the swelling does improve but doesn't go away completely. HISTORY REVIEWED (electronic chart updated): PAST MEDICAL HISTORY Diagnosis Date Abdominal pain, left upper quadrant Benign neoplasm of colon CKD (chronic kidney disease) stage 3, GFR 30-59 ml/min (HCC) DDD (degenerative disc disease), lumbar Diverticulosis of colon (without mention of hemorrhage) Fibromyalgia syndrome HTN (hypertension) Hypothyroidism Migraine without aura Morbid obesity (HCC) Myalgia and myositis, unspecified Other acne Rectal bleeding 05/2016 Rosacea Sleep apnea cpap with o2. Spinal stenosis Unspecified constipation Unspecified vitamin D deficiency 12/20/2007 Vit D-18.5 on 02/16/07 PAST SURGICAL HISTORY Procedure Laterality Date ARTHRP ACETBLR/PROX FEM PROSTC AGRFT/ALGRFT 2010 right ARTHRP ACETBLR/PROX FEM PROSTC AGRFT/ALGRFT Left 10/01/2018 Dr. Pete Méndez ARTHRP KNE CONDYLE&PLATU MEDIAL&LAT COMPARTMENTS 2007 right ARTHRP KNE CONDYLE&PLATU MEDIAL&LAT COMPARTMENTS 04/16/2018 COLONOSCOPY 06/01/2016 COLONOSCOPY FLX DX W/COLLJ SPEC WHEN PFRMD 2001 Colonoscopy COLONOSCOPY FLX DX W/COLLJ SPEC WHEN PFRMD 2002 Colonoscopy COLONOSCOPY FLX DX W/COLLJ SPEC WHEN PFRMD 12/13/05 COLONOSCOPY FLX DX W/COLLJ SPEC WHEN PFRMD 02/24/2011 Colonoscopy COLONOSCOPY W/BIOPSY SINGLE/MULTIPLE 08/20/2019 EGD 08/20/2019 FNA WITH IMAGING 03/04/10 U/S FNA right thyroid x 2 and left x 1 LAPS SURG CHOLECYSTECTOMY W/CHOLANGIOGRAPHY 07-25-11 PAST SURGICAL HISTORY OF 1973 removal tumors ana ovaries PAST SURGICAL HISTORY OF x 2 ingrown toenails PAST SURGICAL HISTORY OF cystoscopy x2 and tumors removed from both ovaries. TOTAL ABDOMINAL HYSTERECT W/WO RMVL TUBE OVARY 09/17/92 Hysterectomy, SAE Dr Schmitt FAMILY HISTORY Problem Relation Age of Onset Heart Father OR / PE Coronary Artery Disease Father OR Cancer Mother bladder Coronary Artery Disease Brother stent x 5 on 2 occasions Social History Tobacco Use Smoking status: Former Types: Cigarettes Quit date: 07/05/1980 Years since quittin.5 Smokeless tobacco: Never Substance Use Topics Alcohol use: Yes Comment: rarely Drug use: No Current Outpatient Medications Medication Sig lisinopril-hydroCHLOROthiazide (ZESTORETIC) 10-12.5 mg per tablet Take 1 tablet by mouth once daily. amitriptyline (ELAVIL) 10 mg tablet Take 3 tablets by mouth daily at bedtime. levothyroxine (SYNTHROID) 75 mcg tablet Take 1 tablet by mouth once daily. dulaglutide (TRULICITY) 3 mg/0.5 mL pen injector Inject 3 mg subcutaneously one time a week. FLUoxetine (PROZAC) 20 mg capsule Take 3 capsules by mouth once daily. CPAP Mask (per patient preference) optional chin strap (if indicated) , filters, tubing, humidifier and lifetime supplies. G47.33 gabapentin (NEURONTIN) 800 mg tablet Take 1 tablet by mouth three times daily. lovastatin 40 mg tablet Take 1 tablet by mouth daily at bedtime. fluticasone (FLONASE) 50 mcg/actuation nasal spray Use 1 Putnam in each nostril twice daily. ergocalciferol 50,000 unit capsule (VITAMIN D2, DRISDOL) Take 1 capsule by mouth one time a week. ursodiol (HERBER) 250 mg tablet Take 250 mg by mouth twice daily. Vitamin E, dl, acetate, (VITAMIN E) 400 unit capsule Take 400 Units by mouth twice daily. dicyclomine (BENTYL) 10 mg capsule Take 1 capsule by mouth once daily. as needed if severe take 20 mg magnesium oxide (MAG-OX) 400 mg (241.3 mg magnesium) tablet Take 400 mg by mouth once daily. potassium gluconate 600 mg (99 mg) tab Take 1 tablet by mouth once daily. latanoprost (XALATAN) 0.005 % ophthalmic solution Use 1 Drop in both eyes daily at bedtime. TO AFFECTED EYE(S) B Complex Vitamins capsule Take 1 capsule by mouth once daily. L.ACID/L.CASEI/B.BIF/B.PONCHO/FOS (PROBIOTIC BLEND ORAL) Take by mouth once daily. TURMERIC (CURCUMIN MISC) 500 mg twice daily. multivitamin ORAL tablet Take one(1) tablet daily. omega-3 fatty acids/vitamin e(FISH OIL 1,000 MG CAP) 2 cap daily ascorbic acid(VITAMIN C 500 MG TAB) 500 mg once daily FIBER TAB 1000 mg daily No current facility-administered medications for this visit. 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 Will start Ozempic, rx sent through [facility]. Follow up in 4-6 for reassessment of weight, tolerance of Ozempic, BP/pedal edema. Ludmila Ramon APRN.ELLIOTT documented in this encounter [facility] 01-23-2023 Miscellaneous Notes Patient has been identified by name and date of : . Patient phones for refill(s): Requested Prescriptions Pending Prescriptions Disp Refills lisinopril-hydroCHLOROthiazide (ZESTORETIC) 11-24.5 mg per tablet 90 tablet 1 Sig: Take 1 tablet by mouth once daily. Date of last office visit in primary care: 07/26/2022 Date of next office visit in primary care: 01/25/2023 Last 2 Encounter Wt Readings: Date: Wt: 07/26/2022 142.9 kg (315 lb) 05/01/2022 142 kg (313 lb) Previous labs/tests for medication: Not applicable Please advise. Thank you. Tanja Moise LPN. documented in this encounter [facility] 12-20-2022 Miscellaneous Notes Patient has been identified by name and date of : Yes, Patient phones for refill(s): Requested Prescriptions Pending Prescriptions Disp Refills amitriptyline (ELAVIL) 10 mg tablet 270 tablet 3 Sig: Take 3 tablets by mouth daily at bedtime. levothyroxine (SYNTHROID) 75 mcg tablet 90 tablet 1 Sig: Take 1 tablet by mouth once daily. Date of last office visit in primary care: 07/26/2022 Date of next office visit in primary care: 01/25/2023 Last 2 Encounter Wt Readings: Date: Wt: 07/26/2022 142.9 kg (315 lb) 05/01/2022 142 kg (313 lb) Previous labs/tests for medication: Thyroid: TSH Date Value 07/26/2022 2.290 mIU/L 01/06/2021 2.300 uU/mL Please advise. Thank you. Lidia Dee LPN. documented in this encounter [facility] 12-13-2022 Miscellaneous Notes Provider out of the office until Monday. Will review when she returns. Nikky Solano Ma Patient is calling in today to check on this? If you can please let the patient know. She takes this on Saturdays. Please contact patient at [phone]. Cathryn Gerber documented in this encounter [facility] 10-26-2022 Note HNO ID: [id number] Author: Ludmila Ramon APRN.CROCHETER Service: ? Author Type: Nurse Practitioner Type: Progress Notes Filed: 10/26/2022 11:36 AM Note Text: VIRTUAL VISIT PROGRESS NOTE This is a virtual visit using Videostir video visit. It required patient-provider interaction for the medical decision making as documented below. I have communicated my name and active licensure. The patient's identity and physical location were verified at the time of this visit. Either the patient or their legal national sales representative has been informed of the risks and benefits of -- and alternatives to -- treatment through a remote evaluation and consents to proceed with the evaluation remotely. Marlee Shin is a 72 year old female seen for medication follow up. Today: Was started on Trulicity about [address] Al. Takes on Saturdays. Spent 3 months on the 0.75mg, this past Monday (4 days ago) started with her first increased dose of 1.5mg. Has only lost 3 pounds. Has ravenous appetite but doesn't snack or overeat. Denies any side effects. HISTORY REVIEWED (electronic chart updated): PAST MEDICAL HISTORY Diagnosis Date Abdominal pain, left upper quadrant Benign neoplasm of colon CKD (chronic kidney disease) stage 3, GFR 30-59 ml/min ([facility]) DDD (degenerative disc disease), lumbar Diverticulosis of colon (without mention of hemorrhage) Fibromyalgia syndrome HTN (hypertension) Hypothyroidism Migraine without aura Morbid obesity (HCC) Myalgia and myositis, unspecified Other acne Rectal bleeding 05/2016 Rosacea Sleep apnea cpap with o2. Spinal stenosis Unspecified constipation Unspecified vitamin D deficiency 12/20/2007 Vit D-18.5 on 02/16/07 PAST SURGICAL HISTORY Procedure Laterality Date ARTHRP ACETBLR/PROX FEM PROSTC AGRFT/ALGRFT 2010 right ARTHRP ACETBLR/PROX FEM PROSTC AGRFT/ALGRFT Left 10/01/2018 Dr. Pete Méndez ARTHRP JANETH CONDYLEANDPLATU MEDIALANDLAT COMPARTMENTS 2008 right ARTHRP KNE CONDYLEANDPLATU MEDIALANDLAT COMPARTMENTS 04/16/2018 COLONOSCOPY 06/01/2016 COLONOSCOPY FLX DX W/COLLJ SPEC WHEN PFRMD 2001 Colonoscopy COLONOSCOPY FLX DX W/COLLJ SPEC WHEN PFRMD 2002 Colonoscopy COLONOSCOPY FLX DX W/COLLJ SPEC WHEN PFRMD 12/13/05 COLONOSCOPY FLX DX W/COLLJ SPEC WHEN PFRMD 02/24/2011 Colonoscopy COLONOSCOPY W/BIOPSY SINGLE/MULTIPLE 08/20/2019 EGD 08/20/2019 FNA WITH IMAGING 03/04/10 U/S FNA right thyroid x 2 and left x 1 LAPS SURG CHOLECYSTECTOMY W/CHOLANGIOGRAPHY 07-25-11 PAST SURGICAL HISTORY OF 1973 removal tumors ana ovaries PAST SURGICAL HISTORY OF x 2 ingrown toenails PAST SURGICAL HISTORY OF cystoscopy x2 and tumors removed from both ovaries. TOTAL ABDOMINAL HYSTERECT W/WO RMVL TUBE OVARY 09/17/92 Hysterectomy, SAE Schimtt FAMILY HISTORY Problem Relation Age of Onset Heart Father OR / PE Coronary Artery Disease Father OR Cancer Mother bladder Coronary Artery Disease Brother stent x 5 on 2 occasions Social History Tobacco Use Smoking status: Former Types: Cigarettes Quit date: 07/05/1980 Years since quittin.3 Smokeless tobacco: Never Substance Use Topics Alcohol use: Yes Comment: rarely Drug use: No Current Outpatient Medications Medication Sig dulaglutide (TRULICITY) 1.5 mg/0.5 mL pen injector Inject 1.5 mg subcutaneously one time a week. Inject dose once per week. Discard Pen After FLUoxetine (PROZAC) 20 mg capsule Take 3 capsules by mouth once daily. CPAP Mask (per patient preference) optional chin strap (if indicated) , filters, tubing, humidifier and lifetime supplies. G47.33 gabapentin (NEURONTIN) 800 mg tablet Take 1 tablet by mouth three times daily. lovastatin 40 mg tablet Take 1 tablet by mouth daily at bedtime. lisinopril-hydroCHLOROthiazide (ZESTORETIC) 10-12.5 mg per tablet Take 1 tablet by mouth once daily. fluticasone (FLONASE) 50 mcg/actuation nasal spray Use 1 Putnam in each nostril twice daily. ergocalciferol 50,000 unit capsule (VITAMIN D2, DRISDOL) Take 1 capsule by mouth one time a week. levothyroxine (SYNTHROID) 75 mcg tablet Take 1 tablet by mouth once daily. ursodiol (HERBER) 250 mg tablet Take 250 mg by mouth twice daily. Vitamin E, dl, acetate, (VITAMIN E) 400 unit capsule Take 400 Units by mouth twice daily. amitriptyline (ELAVIL) 10 mg tablet Take 3 tablets by mouth daily at bedtime. dicyclomine (BENTYL) 10 mg capsule Take 1 capsule by mouth once daily. as needed if severe take 20 mg magnesium oxide (MAG-OX) 400 mg (241.3 mg magnesium) tablet Take 400 mg by mouth once daily. potassium gluconate 600 mg (99 mg) tab Take 1 tablet by mouth once daily. latanoprost (XALATAN) 0.005 % ophthalmic solution Use 1 Drop in both eyes daily at bedtime. TO AFFECTED EYE(S) B Complex Vitamins capsule Take 1 capsule by mouth once daily. L.ACID/L.CASEI/B.BIF/B.PONCHO/FOS (PROBIOTIC BLEND ORAL) Take by mouth once daily. TURMERIC (CURCUMIN MISC) 500 m (more content not included)... [facility] 10-19-2022 Miscellaneous Notes Detailed VM left on pt's identified voicemail of information below. Lisa Howell LPN 1.5mg dose sent to pharmacy for patient. Keep follow up as scheduled. Vandana Ceja PA-C Patient calls and states that she is due for a refill on medication. Patient is currently taking 0.75 mg every Monday. Patient asking if provider would send in new prescription? Also asking if provider would increase Trulicity dosage? Patient has been on 0.75 mg dosage x 3 months and has been tolerating it well. Please review and advise, Wendy Stafford RN documented in this encounter [facility] 07-17-2023 Miscellaneous Notes Refill printed. Please fax below. The following approved medication requests have been transmitted electronically. Requested Prescriptions Signed Prescriptions Disp Refills CPAP 1 Each 0 Sig: Mask (per patient preference) optional chin strap (if indicated) , filters, tubing, humidifier and lifetime supplies. G47.33 Authorizing Provider: MAGALI WOODWARD PA-C Copied from my chart message: Ct, Please have Dr. Al refill my prescription for my CPAP mask and supplies at: [facility], [address], [place], [place] [address], I will filler picker the supplies there. Thank you! Marlee Shin documented in this encounter [facility] 08-29-2022 Miscellaneous Notes Copied to a phone note. documented in this encounter [facility] 07-27-2022 Miscellaneous Notes Spoke with pt gave information provided. She is willing to try this. Does not look as though med was sent . I pended for you I hope I chose the correct one. Please inform patient that her labs are all overall stable, continues to show hyperglycemia. Would recommend seeing if able to get insurance to approve GLP1 agonist such as trulicity to help with glucose and weight loss. Prescription sent to pharmacy Josep Al DO documented in this encounter [facility] 07-26-2022 Note HNO ID: [id number] Author: Josep Al, DO Service: ? Author Type: Physician Type: Progress Notes Filed: 07/27/2022 7:23 AM Note Text: CC: Marlee Shin is a 72 year old female who presents to the office for follow up HPI: Seen in office last on 01/25/2022, at that time Spinal stenosis and DDD and DJD cervical spine, chronic, will be seeing spine surgeon specialist due to the concerns seen on her EMG/Nerve conduction which was ordered by Dr. Méndez in orthopedics- has this upcoming opinion coming up. HTN, taking medication as prescribed, well controlled. Hypothyroidism, taking levothyroxine, no SE with medication. No recent falls, still using Rollator walker. Found to have fatty liver disease and elevated LFTs, seeing Gastroenterology specialist Dr. Anderson recently - was started on Urosidiol and Vitamin E Skin lesions, around side and flank and getting caught on her bra and clothes, would like to have them removed if able Currently Spinal stenosis, DJD and DDD cervical spine, has been seen by orthopedics and neurosurgery, unable to do surgery unless she loses weight. HTN, taking medication as prescribed, well controlled. Hypothyroidism, taking levothyroxine, no SE with medication. No recent falls, still using Rollator walker. Continues to have chronic muscle pain and weakness Recently diagnosed with MENDEZ as well as early liver fibrosis, no signs of cirrhosis on recent liver biopsy in July that she just completed with Dr. Anderson office. PAST MEDICAL HISTORY Diagnosis Date Abdominal pain, left upper quadrant Benign neoplasm of colon CKD (chronic kidney disease) stage 3, GFR 30-59 ml/min (HCC) DDD (degenerative disc disease), lumbar Diverticulosis of colon (without mention of hemorrhage) Fibromyalgia syndrome HTN (hypertension) Hypothyroidism Migraine without aura Morbid obesity (HCC) Myalgia and myositis, unspecified Other acne Rectal bleeding 05/2016 Rosacea Sleep apnea cpap with o2. Spinal stenosis Unspecified constipation Unspecified vitamin D deficiency 12/20/2007 Vit D-18.5 on 02/16/07 PAST SURGICAL HISTORY Procedure Laterality Date ARTHRP ACETBLR/PROX FEM PROSTC AGRFT/ALGRFT 2010 right ARTHRP ACETBLR/PROX FEM PROSTC AGRFT/ALGRFT Left 10/01/2018 Dr. Pete Méndez ARTHRP KNE CONDYLEANDPLATU MEDIALANDLAT COMPARTMENTS 2008 right ARTHRP KNE CONDYLEANDPLATU MEDIALANDLAT COMPARTMENTS 04/16/2018 COLONOSCOPY 06/01/2016 COLONOSCOPY FLX DX W/COLLJ SPEC WHEN PFRMD 2001 Colonoscopy COLONOSCOPY FLX DX W/COLLJ SPEC WHEN PFRMD 2002 Colonoscopy COLONOSCOPY FLX DX W/COLLJ SPEC WHEN PFRMD 12/13/05 COLONOSCOPY FLX DX W/COLLJ SPEC WHEN PFRMD 02/24/2011 Colonoscopy COLONOSCOPY W/BIOPSY SINGLE/MULTIPLE 08/20/2019 EGD 08/20/2019 FNA WITH IMAGING 03/04/10 U/S FNA right thyroid x 2 and left x 1 LAPS SURG CHOLECYSTECTOMY W/CHOLANGIOGRAPHY 07-25-11 PAST SURGICAL HISTORY OF 1973 removal tumors ana ovaries PAST SURGICAL HISTORY OF x 2 ingrown toenails PAST SURGICAL HISTORY OF cystoscopy x2 and tumors removed from both ovaries. TOTAL ABDOMINAL HYSTERECT W/WO RMVL TUBE OVARY 09/17/92 Hysterectomy, SAE Dr Schmitt Social History: Social History Tobacco Use Smoking status: Former Types: Cigarettes Quit date: 07/05/1980 Years since quittin.0 Smokeless tobacco: Never Substance Use Topics Alcohol use: Yes Comment: rarely Drug use: No FAMILY HISTORY Problem Relation Age of Onset Heart Father OR / PE Coronary Artery Disease Father OR Cancer Mother bladder Coronary Artery Disease Brother stent x 5 on 2 occasions Current Outpatient prescriptions: lovastatin 40 mg tablet Take 1 tablet by mouth daily at bedtime. lisinopril-hydroCHLOROthiazide (ZESTORETIC) 10-12.5 mg per tablet Take 1 tablet by mouth once daily. fluticasone (FLONASE) 50 mcg/actuation nasal spray Use 1 Putnam in each nostril twice daily. ergocalciferol 50,000 unit capsule (VITAMIN D2, DRISDOL) Take 1 capsule by mouth one time a week. levothyroxine (SYNTHROID) 75 mcg tablet Take 1 tablet by mouth once daily. ursodiol (HERBER) 250 mg tablet Take 250 mg by mouth twice daily. Vitamin E, dl, acetate, (VITAMIN E) 400 unit capsule Take 400 Units by mouth twice daily. amitriptyline (ELAVIL) 10 mg tablet Take 3 tablets by mouth daily at bedtime. FLUoxetine (PROZAC) 20 mg capsule Take 3 capsules by mouth once daily. dicyclomine (BENTYL) 10 mg capsule Take 1 capsule by mouth once daily. as needed if severe take 20 mg magnesium oxide (MAG-OX) 400 mg (241.3 mg magnesium) tablet Take 400 mg by mouth once daily. CPAP Mask (per patient preference) optional chin strap (if indicated) , filters, tubing, humidifier and lifetime supplies. G47.33 potassium gluconate 600 mg (99 mg) tab Take 1 tablet by mouth once daily. latanoprost (XALATAN) 0.005 % ophthalmic solution Use 1 Drop in both eyes daily at bedtime. TO AFFECTED EYE(S) B Complex Vitam (more content not included)... [facility] 06-15-2022 Miscellaneous Notes Patient has been identified by name and date of : Yes, Provider Dr. Al Date 06/15/22 Time 7:59 am Patient phones for refill(s): Requested Prescriptions Pending Prescriptions Disp Refills fluticasone (FLONASE) 50 mcg/actuation nasal spray 3 Each 3 Sig: Use 1 Putnam in each nostril twice daily. Date of last office visit in primary care: 01/25/22 next apt 07/26/22 Last 2 Encounter Wt Readings: Date: Wt: 05/01/2022 142 kg (313 lb) 04/21/2022 143 kg (315 lb 4.1 oz) Previous labs/tests for medication: Not applicable Thank you. Lisa Howell LPN documented in this encounter [facility] 05-02-2022 Miscellaneous Notes Patient given results and verbalized understanding of instructions given. Adore Barton Patient was negative for shingles but did test positive for the herpes virus. Continue Valtrex prescribed at her visit. Herpes outbreaks are contagious and often recurrent. She may schedule follow-up with her PCP if she would like to discuss treatment plans. documented in this encounter [facility] 05-01-2022 Note HNO ID: [id number] Author: Kellie George PA-C Service: ? Author Type: Physician Senior Designer Type: Progress Notes Filed: 05/01/2022 1:59 PM Note Text: This note was created using Yodioriter. Subjective Marlee Shin is a 71 year old female. HPI Presents with a rash on her left buttock for 2 days. She states is not painful or itchy. She noticed it was there because she had some seepage on her underwear. Her took a picture of it and it look like blisters. No significant redness. Denies any new exposures. She did get her first shingles shot 2 months ago. She has never had shingles previously. She did have chickenpox as a child. Review of Systems Constitutional: Negative. HENT: Negative. Respiratory: Negative. Cardiovascular: Negative. Gastrointestinal: Negative. Skin: Positive for rash. All other systems reviewed and are negative. PAST MEDICAL HISTORY Diagnosis Date Abdominal pain, left upper quadrant Benign neoplasm of colon CKD (chronic kidney disease) stage 3, GFR 30-59 ml/min ([facility]) DDD (degenerative disc disease), lumbar Diverticulosis of colon (without mention of hemorrhage) Fibromyalgia syndrome HTN (hypertension) Hypothyroidism Migraine without aura Morbid obesity (HCC) Myalgia and myositis, unspecified Other acne Rectal bleeding 05/2016 Rosacea Sleep apnea cpap with o2. Spinal stenosis Unspecified constipation Unspecified vitamin D deficiency 12/20/2007 Vit D-18.5 on 02/16/07 Current Outpatient Medications Medication Sig Dispense Refill ergocalciferol 50,000 unit capsule (VITAMIN D2, DRISDOL) Take 1 capsule by mouth one time a week. 12 capsule 3 levothyroxine (SYNTHROID) 75 mcg tablet Take 1 tablet by mouth once daily. 90 tablet 1 lisinopril-hydroCHLOROthiazide (PRINZIDE,ZESTORETIC) 10-12.5 mg per tablet Take 1 tablet by mouth once daily. 90 tablet 1 ursodiol (HERBER) 250 mg tablet Take 250 mg by mouth twice daily. Vitamin E, dl, acetate, (VITAMIN E) 400 unit capsule Take 400 Units by mouth twice daily. amitriptyline (ELAVIL) 10 mg tablet Take 3 tablets by mouth daily at bedtime. 270 tablet 3 FLUoxetine (PROZAC) 20 mg capsule Take 3 capsules by mouth once daily. 270 capsule 3 gabapentin (NEURONTIN) 800 mg tablet Take 1 tablet by mouth three times daily. 270 tablet 3 lovastatin 40 mg tablet Take 1 tablet by mouth daily at bedtime. 90 tablet 3 dicyclomine (BENTYL) 10 mg capsule Take 1 capsule by mouth once daily. as needed if severe take 20 mg 30 capsule 11 fluticasone (FLONASE) 50 mcg/actuation nasal spray Use 1 Putnam in each nostril twice daily. 3 Each 3 magnesium oxide (MAG-OX) 400 mg (241.3 mg magnesium) tablet Take 400 mg by mouth once daily. CPAP Mask (per patient preference) optional chin strap (if indicated) , filters, tubing, humidifier and lifetime supplies. G47.33 1 Device 0 potassium gluconate 600 mg (99 mg) tab Take 1 tablet by mouth once daily. latanoprost (XALATAN) 0.005 % ophthalmic solution Use 1 Drop in both eyes daily at bedtime. TO AFFECTED EYE(S) 0 B Complex Vitamins capsule Take 1 capsule by mouth once daily. L.ACID/L.CASEI/B.BIF/B.PONCHO/FOS (PROBIOTIC BLEND ORAL) Take by mouth once daily. TURMERIC (CURCUMIN MISC) 500 mg twice daily. multivitamin ORAL tablet Take one(1) tablet daily. 0 omega-3 fatty acids/vitamin e(FISH OIL 1,000 MG CAP) 2 cap daily 1 0 ascorbic acid(VITAMIN C 500 MG TAB) 500 mg once daily 0 FIBER TAB 1000 mg daily 0 valACYclovir (VALTREX) 1 gram Take 1 tablet by mouth three times daily for 7 days. 21 tablet 0 Amoxicillin 500 mg tablet Take 4 tablets by mouth 1 hour before dental procedure (Patient not taking: Reported on 05/01/2022) 4 tablet 1 No current facility-administered medications for this visit. PAST SURGICAL HISTORY Procedure Laterality Date ARTHRP ACETBLR/PROX FEM PROSTC AGRFT/ALGRFT 2009 right ARTHRP ACETBLR/PROX FEM PROSTC AGRFT/ALGRFT Left 10/01/2018 Dr. Pete Méndez ARTHRP KNE CONDYLEANDPLATU MEDIALANDLAT COMPARTMENTS 2007 right ARTHRP KNE CONDYLEANDPLATU MEDIALANDLAT COMPARTMENTS 04/16/2018 COLONOSCOPY 06/01/2016 COLONOSCOPY FLX DX W/COLLJ SPEC WHEN PFRMD 2001 Colonoscopy COLONOSCOPY FLX DX W/COLLJ SPEC WHEN PFRMD 2002 Colonoscopy COLONOSCOPY FLX DX W/COLLJ SPEC WHEN PFRMD 12/13/05 COLONOSCOPY FLX DX W/COLLJ SPEC WHEN PFRMD 02/24/2011 Colonoscopy COLONOSCOPY W/BIOPSY SINGLE/MULTIPLE 08/20/2019 EGD 08/20/2019 FNA WITH IMAGING 03/04/10 U/S FNA right thyroid x 2 and left x 1 LAPS SURG CHOLECYSTECTOMY W/CHOLANGIOGRAPHY 07-25-11 PAST SURGICAL HISTORY OF 1973 removal tumors ana ovaries PAST SURGICAL HISTORY OF x 2 ingrown toenails PAST SURGICAL HISTORY OF cystoscopy x2 and tumors removed from both ovaries. TOTAL ABDOMINAL HYSTERECT W/WO RMVL TUBE OVARY 09/17/92 Hysterectomy, SAE Dr Schmitt FAMILY HISTORY Problem Relation Age of Onset Heart Father OR / PE Coronary Artery Disease Father OR Cancer Mother bladder Co (more content not included)... [facility] 05-01-2022 History of Present illness Narrative Images from the original note were not included. This note was created using untapt. Subjective Marlee Shin is a 71 year old female. HPI Presents with a rash on her left buttock for 2 days. She states is not painful or itchy. She noticed it was there because she had some seepage on her underwear. Her took a picture of it and it look like blisters. No significant redness. Denies any new exposures. She did get her first shingles shot 2 months ago. She has never had shingles previously. She did have chickenpox as a child. Review of Systems Constitutional: Negative. HENT: Negative. Respiratory: Negative. Cardiovascular: Negative. Gastrointestinal: Negative. Skin: Positive for rash. All other systems reviewed and are negative. PAST MEDICAL HISTORY Diagnosis Date Abdominal pain, left upper quadrant Benign neoplasm of colon CKD (chronic kidney disease) stage 3, GFR 30-59 ml/min (HCC) DDD (degenerative disc disease), lumbar Diverticulosis of colon (without mention of hemorrhage) Fibromyalgia syndrome HTN (hypertension) Hypothyroidism Migraine without aura Morbid obesity (HCC) Myalgia and myositis, unspecified Other acne Rectal bleeding 05/2016 Rosacea Sleep apnea cpap with o2. Spinal stenosis Unspecified constipation Unspecified vitamin D deficiency 12/20/2007 Vit D-18.5 on 02/16/07 Current Outpatient Medications Medication Sig Dispense Refill ergocalciferol 50,000 unit capsule (VITAMIN D2, DRISDOL) Take 1 capsule by mouth one time a week. 12 capsule 3 levothyroxine (SYNTHROID) 75 mcg tablet Take 1 tablet by mouth once daily. 90 tablet 1 lisinopril-hydroCHLOROthiazide (PRINZIDE,ZESTORETIC) 10-12.5 mg per tablet Take 1 tablet by mouth once daily. 90 tablet 1 ursodiol (HERBER) 250 mg tablet Take 250 mg by mouth twice daily. Vitamin E, dl, acetate, (VITAMIN E) 400 unit capsule Take 400 Units by mouth twice daily. amitriptyline (ELAVIL) 10 mg tablet Take 3 tablets by mouth daily at bedtime. 270 tablet 3 FLUoxetine (PROZAC) 20 mg capsule Take 3 capsules by mouth once daily. 270 capsule 3 gabapentin (NEURONTIN) 800 mg tablet Take 1 tablet by mouth three times daily. 270 tablet 3 lovastatin 40 mg tablet Take 1 tablet by mouth daily at bedtime. 90 tablet 3 dicyclomine (BENTYL) 10 mg capsule Take 1 capsule by mouth once daily. as needed if severe take 20 mg 30 capsule 11 fluticasone (FLONASE) 50 mcg/actuation nasal spray Use 1 Putnam in each nostril twice daily. 3 Each 3 magnesium oxide (MAG-OX) 400 mg (241.3 mg magnesium) tablet Take 400 mg by mouth once daily. CPAP Mask (per patient preference) optional chin strap (if indicated) , filters, tubing, humidifier and lifetime supplies. G47.33 1 Device 0 potassium gluconate 600 mg (99 mg) tab Take 1 tablet by mouth once daily. latanoprost (XALATAN) 0.005 % ophthalmic solution Use 1 Drop in both eyes daily at bedtime. TO AFFECTED EYE(S) 0 B Complex Vitamins capsule Take 1 capsule by mouth once daily. L.ACID/L.CASEI/B.BIF/B.PONCHO/FOS (PROBIOTIC BLEND ORAL) Take by mouth once daily. TURMERIC (CURCUMIN MISC) 500 mg twice daily. multivitamin ORAL tablet Take one(1) tablet daily. 0 omega-3 fatty acids/vitamin e(FISH OIL 1,000 MG CAP) 2 cap daily 1 0 ascorbic acid(VITAMIN C 500 MG TAB) 500 mg once daily 0 FIBER TAB 1000 mg daily 0 valACYclovir (VALTREX) 1 gram Take 1 tablet by mouth three times daily for 7 days. 21 tablet 0 Amoxicillin 500 mg tablet Take 4 tablets by mouth 1 hour before dental procedure (Patient not taking: Reported on 05/01/2022) 4 tablet 1 No current facility-administered medications for this visit. PAST SURGICAL HISTORY Procedure Laterality Date ARTHRP ACETBLR/PROX FEM PROSTC AGRFT/ALGRFT 2010 right ARTHRP ACETBLR/PROX FEM PROSTC AGRFT/ALGRFT Left 10/01/2018 Dr. Pete Méndez ARTHRP KNE CONDYLE&PLATU MEDIAL&LAT COMPARTMENTS 2008 right ARTHRP KNE CONDYLE&PLATU MEDIAL&LAT COMPARTMENTS 04/16/2018 COLONOSCOPY 06/01/2016 COLONOSCOPY FLX DX W/COLLJ SPEC WHEN PFRMD 2001 Colonoscopy COLONOSCOPY FLX DX W/COLLJ SPEC WHEN PFRMD 2002 Colonoscopy COLONOSCOPY FLX DX W/COLLJ SPEC WHEN PFRMD 12/13/05 COLONOSCOPY FLX DX W/COLLJ SPEC WHEN PFRMD 02/24/2011 Colonoscopy COLONOSCOPY W/BIOPSY SINGLE/MULTIPLE 08/20/2019 EGD 08/20/2019 FNA WITH IMAGING 03/04/10 U/S FNA right thyroid x 2 and left x 1 LAPS SURG CHOLECYSTECTOMY W/CHOLANGIOGRAPHY 07-25-11 PAST SURGICAL HISTORY OF 1973 removal tumors ana ovaries PAST SURGICAL HISTORY OF x 2 ingrown toenails PAST SURGICAL HISTORY OF cystoscopy x2 and tumors removed from both ovaries. TOTAL ABDOMINAL HYSTERECT W/WO RMVL TUBE OVARY 09/17/92 Hysterectomy, SAE Dr Schmitt FAMILY HISTORY Problem Relation Age of Onset Heart Father OR / PE Coronary Artery Disease Father OR Cancer Mother bladder Coronary Artery Disease Brother stent x 5 on 2 occasions Social History Tobacco Use Smoking status: Former Types: Cigarettes Quit date: 07/05/1980 Years since quittin.8 Smokeless tobacco: Never Substance Use Topics Alcohol use: Yes Comment: rarely Drug use: No Objective BP 138/74 Pulse 88 Temp 37.4 C (99.3 F) (Tympanic) Resp 20 Wt (!) 142 kg (313 lb) SpO2 97% BMI 55.45 kg/m Physical Exam Vitals reviewed. Constitutional: Appearance: Normal appearance. HENT: Head: Normocephalic and atraumatic. Skin: General: Skin is warm and dry. Comments: Patient has an area of coalesced small vesicular lesions in the left buttock. No significant surrounding erythema. Neurological: Mental Status: She is alert. Assessment and Plan ASSESSMENT/PLAN: 1. Vesicular rash - ICD9: 782.1, ICD10: R23.8 Herpes/varicella testing pending. I did start her on Valtrex. Creatinine clearance calculated above 50, last GFR was 52 as well. Discussed the contagiousness of the potential shingles. Discussed skin care. Magnetic Tape Typewriter Operator in room, VICKY Blanca. - ABSCESS AND WOUND CULTURE WITH GRAM STAIN - HSV1,2/VZV NAAT LESION Kellie George PA-C documented in this encounter [facility] 04-25-2022 Miscellaneous Notes Madelin--01/25/22 Nov--07/26/22 Last refill--05/19/21 12 with 3 refills Last labs--07/26/21 documented in this encounter [facility] 04-22-2022 Miscellaneous Notes Patient phones requesting refills as follows: Requested Prescriptions Pending Prescriptions Disp Refills levothyroxine (SYNTHROID) 75 mcg tablet 90 tablet 1 Sig: Take 1 tablet by mouth once daily. [facility] 01/25/2022 NOV 07/26/2022 Please review and advise. Briseida Robert LPN documented in this encounter [facility] 04-21-2022 Note HNO ID: [id number] Author: Derek Francisco MD, PhD Service: ? Author Type: Physician Type: Progress Notes Filed: 04/21/2022 1:22 PM Note Text: NEUROSURGERY FOLLOW UP OFFICE NOTE Derek Francisco MD, PhD Date of visit: April 21, 2022 Patient Name: Ms.Karen Megan Shin Date of : 1950 Current Age: [age] year old Sex: female MRN/E# [id number] Last Office Visit: Visit date not found Chief Complaint: Patient presents with: Established Patient SUBJECTIVE: HPI At her last visit on 02/09/2022 she noted cervical pain for 20 years that radiated down her left arm. She noted participating in physical therapy at that time and her symptoms had resolved. She noted a few years ago, her symptoms returned. She denied neck pain or any radiation down her arms. She noted numbness and tingling into the last 2 digits to the right hand. She noted numbness and tingling into the last 3 digits on her left hand. She noted difficulties with dexterity and opening/dropping items. She felt her symptoms were worse on the left than the right. She noted bilateral hand weakness with the left being worse than the right. She noted chronic low back pain and difficulties with ambulating. She is currently under care of pain management. It was recommended that she participate in a course of physical therapy. She was to obtain cervical xray's and to follow up once completed, prompting her visit today. Today she states since her last visit she had underwent a Cervical epidural steroid injection, interlaminar at [id number] fluoroscopic guidance- Dr. Cruz 03/21/2022. She notes this has somewhat improved the numbness and tingling into her hands. She notes she has been participating with physical therapy, but this has been worsening her symptoms and flaring up her fibromyalgia. She continues with cervical pain radiating down th left arm with numbness and tingling into the last 2 digits on the right and the last 3 digits on the left. She continues with weakness and low back pain with difficulties ambulating. She denies any falls. She presents for imaging review, evaluation and plan of care. Symptoms: cervical pain to left arm with weakness, numbness and tingling into the last 2 digits on the right and the last 3 digits on the left. Low back pain. Difficulties ambulating Smoker: former Diabetic: denies Anticoagulants / Antiplatelets: denies PREVIOUS CONSERVATIVE TREATMENTS: Gabapentin Nabumetone Celebrex Pain management- [place] pain Cervical epidural steroid injection, interlaminar at [id number] fluoroscopic guidance- Dr. Cruz 03/21/2022. Some relief [facility]- [facility] [place]- worsening symptoms and fibromyalgia PREVIOUS SURGERY: None PAIN EVALUATION No data found in the last 1 encounters. PAST MEDICAL HISTORY Diagnosis Date Abdominal pain, left upper quadrant Benign neoplasm of colon CKD (chronic kidney disease) stage 3, GFR 30-59 ml/min (HCC) DDD (degenerative disc disease), lumbar Diverticulosis of colon (without mention of hemorrhage) Fibromyalgia syndrome HTN (hypertension) Hypothyroidism Migraine without aura Morbid obesity (HCC) Myalgia and myositis, unspecified Other acne Rectal bleeding 05/2016 Rosacea Sleep apnea cpap with o2. Spinal stenosis Unspecified constipation Unspecified vitamin D deficiency 12/20/2007 Vit D-18.5 on 02/16/07 PAST SURGICAL HISTORY Procedure Laterality Date ARTHRP ACETBLR/PROX FEM PROSTC AGRFT/ALGRFT 2010 right ARTHRP ACETBLR/PROX FEM PROSTC AGRFT/ALGRFT Left 10/01/2018 Dr. ePte Méndez ARTHRP KNE CONDYLEANDPLATU MEDIALANDLAT COMPARTMENTS 2007 right ARTHRP KNE CONDYLEANDPLATU MEDIALANDLAT COMPARTMENTS 04/16/2018 COLONOSCOPY 06/01/2016 COLONOSCOPY FLX DX W/COLLJ SPEC WHEN PFRMD 2001 Colonoscopy COLONOSCOPY FLX DX W/COLLJ SPEC WHEN PFRMD 2002 Colonoscopy COLONOSCOPY FLX DX W/COLLJ SPEC WHEN PFRMD 12/13/05 COLONOSCOPY FLX DX W/COLLJ SPEC WHEN PFRMD 02/24/2011 Colonoscopy COLONOSCOPY W/BIOPSY SINGLE/MULTIPLE 08/20/2019 EGD 08/20/2019 FNA WITH IMAGING 03/04/10 U/S FNA right thyroid x 2 and left x 1 LAPS SURG CHOLECYSTECTOMY W/CHOLANGIOGRAPHY 07-25-11 PAST SURGICAL HISTORY OF 1973 removal tumors ana ovaries PAST SURGICAL HISTORY OF x 2 ingrown toenails PAST SURGICAL HISTORY OF cystoscopy x2 and tumors removed from both ovaries. TOTAL ABDOMINAL HYSTERECT W/WO RMVL TUBE OVARY 09/17/92 Hysterectomy, SAEKhurram Schmitt FAMILY HISTORY Problem Relation Age of Onset Heart Father OR / PE Coronary Artery Disease Father OR Cancer Mother bladder Coronary Artery Disease Brother stent x 5 on 2 occasions ALLERGIES Allergen Reactions Atorvastatin Other: See Comments myalgia,elevated CK Morphine Itching Tetracycline Other: See Comments tattooing all over Current Outpatient Medications Medication Sig Dispense Refill lisinopril-hydroCHLOROthiazide (PRINZIDE,ZESTORETIC) 11-24 (more content not included)... [facility] 04-21-2022 History of Present illness Narrative NEUROSURGERY FOLLOW UP OFFICE NOTE Derek Francisco MD, PhD Date of visit: April 21, 2022 Patient Name: Ms.Karen Megan Shin Date of : 1950 Current Age: [age] year old Sex: female MRN/E# [id number] Last Office Visit: Visit date not found Chief Complaint: Patient presents with: Established Patient SUBJECTIVE: HPI At her last visit on 02/09/2022 she noted cervical pain for 20 years that radiated down her left arm. She noted participating in physical therapy at that time and her symptoms had resolved. She noted a few years ago, her symptoms returned. She denied neck pain or any radiation down her arms. She noted numbness and tingling into the last 2 digits to the right hand. She noted numbness and tingling into the last 3 digits on her left hand. She noted difficulties with dexterity and opening/dropping items. She felt her symptoms were worse on the left than the right. She noted bilateral hand weakness with the left being worse than the right. She noted chronic low back pain and difficulties with ambulating. She is currently under care of pain management. It was recommended that she participate in a course of physical therapy. She was to obtain cervical xray's and to follow up once completed, prompting her visit today. Today she states since her last visit she had underwent a Cervical epidural steroid injection, interlaminar at [id number] fluoroscopic guidance- Dr. Cruz 03/21/2022. She notes this has somewhat improved the numbness and tingling into her hands. She notes she has been participating with physical therapy, but this has been worsening her symptoms and flaring up her fibromyalgia. She continues with cervical pain radiating down th left arm with numbness and tingling into the last 2 digits on the right and the last 3 digits on the left. She continues with weakness and low back pain with difficulties ambulating. She denies any falls. She presents for imaging review, evaluation and plan of care. Symptoms: cervical pain to left arm with weakness, numbness and tingling into the last 2 digits on the right and the last 3 digits on the left. Low back pain. Difficulties ambulating Smoker: former Diabetic: denies Anticoagulants / Antiplatelets: denies PREVIOUS CONSERVATIVE TREATMENTS: Gabapentin Nabumetone Celebrex Pain management- [place] pain Cervical epidural steroid injection, interlaminar at [id number] fluoroscopic guidance- Dr. Cruz 03/21/2022. Some relief [facility] [place]- worsening symptoms and fibromyalgia PREVIOUS SURGERY: None PAIN EVALUATION No data found in the last 1 encounters. PAST MEDICAL HISTORY Diagnosis Date Abdominal pain, left upper quadrant Benign neoplasm of colon CKD (chronic kidney disease) stage 3, GFR 30-59 ml/min (HCC) DDD (degenerative disc disease), lumbar Diverticulosis of colon (without mention of hemorrhage) Fibromyalgia syndrome HTN (hypertension) Hypothyroidism Migraine without aura Morbid obesity (HCC) Myalgia and myositis, unspecified Other acne Rectal bleeding 05/2016 Rosacea Sleep apnea cpap with o2. Spinal stenosis Unspecified constipation Unspecified vitamin D deficiency 12/20/2007 Vit D-18.5 on 02/16/07 PAST SURGICAL HISTORY Procedure Laterality Date ARTHRP ACETBLR/PROX FEM PROSTC AGRFT/ALGRFT 2010 right ARTHRP ACETBLR/PROX FEM PROSTC AGRFT/ALGRFT Left 10/01/2018 Dr. Pete Méndez ARTHRP KNE CONDYLE&PLATU MEDIAL&LAT COMPARTMENTS 2007 right ARTHRP KNE CONDYLE&PLATU MEDIAL&LAT COMPARTMENTS 04/16/2018 COLONOSCOPY 06/01/2016 COLONOSCOPY FLX DX W/COLLJ SPEC WHEN PFRMD 2001 Colonoscopy COLONOSCOPY FLX DX W/COLLJ SPEC WHEN PFRMD 2002 Colonoscopy COLONOSCOPY FLX DX W/COLLJ SPEC WHEN PFRMD 12/13/05 COLONOSCOPY FLX DX W/COLLJ SPEC WHEN PFRMD 02/24/2011 Colonoscopy COLONOSCOPY W/BIOPSY SINGLE/MULTIPLE 08/20/2019 EGD 08/20/2019 FNA WITH IMAGING 03/04/10 U/S FNA right thyroid x 2 and left x 1 LAPS SURG CHOLECYSTECTOMY W/CHOLANGIOGRAPHY 07-25-11 PAST SURGICAL HISTORY OF 1973 removal tumors ana ovaries PAST SURGICAL HISTORY OF x 2 ingrown toenails PAST SURGICAL HISTORY OF cystoscopy x2 and tumors removed from both ovaries. TOTAL ABDOMINAL HYSTERECT W/WO RMVL TUBE OVARY 09/17/92 Hysterectomy, SAE Schmitt FAMILY HISTORY Problem Relation Age of Onset Heart Father OR / PE Coronary Artery Disease Father OR Cancer Mother bladder Coronary Artery Disease Brother stent x 5 on 2 occasions ALLERGIES Allergen Reactions Atorvastatin Other: See Comments myalgia,elevated CK Morphine Itching Tetracycline Other: See Comments tattooing all over Current Outpatient Medications Medication Sig Dispense Refill lisinopril-hydroCHLOROthiazide (PRINZIDE,ZESTORETIC) 10-12.5 mg per tablet Take 1 tablet by mouth once daily. 90 tablet 1 ursodiol (HERBER) 250 mg tablet Take 250 mg by mouth twice daily. Vitamin E, dl, acetate, (VITAMIN E) 400 unit capsule Take 400 Units by mouth twice daily. levothyroxine (SYNTHROID) 75 mcg tablet Take 1 tablet by mouth once daily. 90 tablet 1 amitriptyline (ELAVIL) 10 mg tablet Take 3 tablets by mouth daily at bedtime. 270 tablet 3 Amoxicillin 500 mg tablet Take 4 tablets by mouth 1 hour before dental procedure 4 tablet 1 FLUoxetine (PROZAC) 20 mg capsule Take 3 capsules by mouth once daily. 270 capsule 3 gabapentin (NEURONTIN) 800 mg tablet Take 1 tablet by mouth three times daily. 270 tablet 3 lovastatin 40 mg tablet Take 1 tablet by mouth daily at bedtime. 90 tablet 3 dicyclomine (BENTYL) 10 mg capsule Take 1 capsule by mouth once daily. as needed if severe take 20 mg 30 capsule 11 ergocalciferol 50,000 unit capsule (VITAMIN D2, DRISDOL) Take 1 capsule by mouth one time a week. 12 capsule 3 fluticasone (FLONASE) 50 mcg/actuation nasal spray Use 1 [place]nam in each nostril twice daily. 3 Each 3 magnesium oxide (MAG-OX) 400 mg (241.3 mg magnesium) tablet Take 400 mg by mouth once daily. CPAP Mask (per patient preference) optional chin strap (if indicated) , filters, tubing, humidifier and lifetime supplies. G47.33 1 Device 0 potassium gluconate 600 mg (99 mg) tab Take 1 tablet by mouth once daily. latanoprost (XALATAN) 0.005 % ophthalmic solution Use 1 Drop in both eyes daily at bedtime. TO AFFECTED EYE(S) 0 B Complex Vitamins capsule Take 1 capsule by mouth once daily. L.ACID/L.CASEI/B.BIF/B.PONCHO/FOS (PROBIOTIC BLEND ORAL) Take by mouth once daily. TURMERIC (CURCUMIN MISC) 500 mg twice daily. multivitamin ORAL tablet Take one(1) tablet daily. 0 omega-3 fatty acids/vitamin e(FISH OIL 1,000 MG CAP) 2 cap daily 1 0 ascorbic acid(VITAMIN C 500 MG TAB) 500 mg once daily 0 FIBER TAB 1000 mg daily 0 No current facility-administered medications for this visit. REVIEW OF SYSTEMS Review of Systems Constitutional: Negative for chills, fatigue and fever. HENT: Negative for congestion and sore throat. Eyes: Negative for discharge, itching and visual disturbance. Respiratory: Negative for cough and shortness of breath. Cardiovascular: Negative for chest pain and palpitations. Gastrointestinal: Negative for constipation, diarrhea, nausea and vomiting. Endocrine: Negative for cold intolerance and heat intolerance. Genitourinary: Negative for difficulty urinating, frequency and urgency. Musculoskeletal: Positive for back pain, gait problem, neck pain and neck stiffness. Skin: Negative for rash and wound. Allergic/Immunologic: Negative for environmental allergies and food allergies. Neurological: Positive for weakness. Negative for dizziness, light-headedness, numbness and headaches. Hematological: Does not bruise/bleed easily. Psychiatric/Behavioral: Negative for agitation. The patient is not nervous/anxious. OBJECTIVE: BP 146/72 Pulse 76 Ht 5' 3 (1.60m) Wt 315 lb 4.1 oz (143.0kg) SpO2 98% BMI 55.86 kg/(m^2). Physical Exam I repeated padilla aspects of the physical examination with Marlee this morning. I confirmed that at this point she does not have any signs of cervical spinal cord compression. More specifically she does not have a Sandra sign or hyperreflexia. Data Review IMAGING STUDIES: XR Cervical 02/21/2022: IMPRESSION: Advanced cervical spine degenerative changes with multilevel disc space narrowing. Assessment and Plan: Marlee has BMI elevation that would preclude safe elective surgery. If she had signs of myelopathy we would have to consider surgical management more strongly but she does not currently have this. There are currently some deficiencies in her imaging. We had requested her flexion-extension films be performed in the swimmer's position but instead we were given flexion-extension films as well as a swimmer's film which does not show us what we need to see. I have asked that these be repeated correctly. The other challenge that I am having is that her T2 axial MRI images are not loading correctly. If we were ever to seriously consider surgery with Marlee we would need to repeat her MR but this is not currently on the table. I will be pleased to reassess Marlee in 6 months time. She has been encouraged to contact my office in the interim should she have any problems or concerns. Attestation: The following portions of the patient's history were reviewed, confirmed, and updated as necessary: allergies, current medications, past family history, past medical history, past social history, past surgical history, problem list, HPI, and ROS obtained by others. Some elements may be copied from a previous office note and have been reviewed/updated where appropriate. All portions reflect current medical decision making from today. The clinical and radiographic findings as well as the risks, benefits and alternatives of treatment have been reviewed in detail with the patient. The patient was advised to call the office if symptoms worsen or new symptoms develop. The patient expressed understanding and is in agreement with plan. Derek Francisco MD, PhD This note was partially generated using Wipit voice recognition system, and there may be some incorrect words, spellings, and punctuation that were not noted in checking the note before saving. documented in this encounter [facility] 02-22-2022 Miscellaneous Notes February 22, 2022 PID: [id number] Marlee Shin [address] [place] [address] Dear Ms. Shin, We are pleased to inform you that the results of your recent breast imaging exam on 02/21/2022 are normal. Early detection of cancer is very important. We also understand recommendations regarding breast cancer screening are controversial. Please discuss with your primary care provider which strategy is best for you and whether a mammogram is right for you. Your imaging studies and report will be kept on file at [facility] as part of your permanent medical record and are available for your continuing care. Thank you for allowing us to help in meeting your health care needs. Sincerely, Dr. Claros Interpreting Radiologist [facility] (Normal over 40) documented in this encounter [facility] 02-21-2022 Note HNO ID: [id number] Author: RT Leonor(R) Service: ? Author Type: Alignment Mechanic Type: Progress Notes Filed: 02/21/2022 12:41 PM Note Text: Radiology Service Progress Note PATIENT NAME: Marlee Shin DATE OF SERVICE: February 21, 2022 TIME: 12:13 PM PATIENT IDENTITY VERIFICATION COMPLETED USING TWO (2) IDENTIFIERS: Name and Date of confirmed by patient verbally. FALL SCREENING: Has the patient had 2 falls in the last year or 1 fall with injury or currently using an Ambulatory Assistive Device (Walker, Cane, Wheelchair, Crutches, etc.)? Yes, Patient High Risk for Falls What interventions were put in place to prevent falls during this visit? Instructed Patient to Call for Help if Needed, Offered Assistance with Transfers/Clothing, Instructed Patient to Remain Seated (Not on Exam Table) Until Exam, and Increased Observations by Caregivers PATIENT GENDER DATA: Female. status: : No status: NO. PATIENT RELEVANT IMPLANT DATA REVIEWED: Yes RADIOLOGY DEPARTMENT: General X-ray: Exam(s) Completed: Spine X-Ray(s): Cervical AP / LAT / FLEX-EXT PERIPHERAL IV DATA: Not applicable SIGNED BY: RT Leonor(R) February 21, 2022 12:13 PM [facility] 02-21-2022 Note HNO ID: [id number] Author: RT Angeline(Pascale) Service: ? Author Type: Alignment Mechanic Type: Progress Notes Filed: 02/21/2022 11:27 AM Note Text: Radiology Service Progress Note PATIENT NAME: Marlee Shin DATE OF SERVICE: February 21, 2022 TIME: 11:27 AM PATIENT IDENTITY VERIFICATION COMPLETED USING TWO (2) IDENTIFIERS: Name and Date of confirmed by patient verbally. FALL SCREENING: Has the patient had 2 falls in the last year or 1 fall with injury or currently using an Ambulatory Assistive Device (Walker, Cane, Wheelchair, Crutches, etc.)? No PATIENT GENDER DATA: Female. status: : No status: NO. PATIENT RELEVANT IMPLANT DATA REVIEWED: Not Applicable RADIOLOGY DEPARTMENT: Mammography PERIPHERAL IV DATA: Not applicable SIGNED BY: RT Angeline(R) February 21, 2022 11:27 AM [facility] 02-21-2022 History of Present illness Narrative Radiology Service Progress Note PATIENT NAME: Marlee Shin DATE OF SERVICE: February 21, 2022 TIME: 11:27 AM PATIENT IDENTITY VERIFICATION COMPLETED USING TWO (2) IDENTIFIERS: Name and Date of confirmed by patient verbally. FALL SCREENING: Has the patient had 2 falls in the last year or 1 fall with injury or currently using an Ambulatory Assistive Device (Walker, Cane, Wheelchair, Crutches, etc.)? No PATIENT GENDER DATA: Female. status: : No status: NO. PATIENT RELEVANT IMPLANT DATA REVIEWED: Not Applicable RADIOLOGY DEPARTMENT: Mammography PERIPHERAL IV DATA: Not applicable SIGNED BY: RT Angeline(R) February 21, 2022 11:27 AM documented in this encounter [facility] 02-09-2022 Note HNO ID: [id number] Author: Derek Francisco MD, PhD Service: ? Author Type: Physician Type: Progress Notes Filed: 02/09/2022 11:52 AM Note Text: NEUROSURGERY CONSULT NOTE Derek Francisco MD, PhD Date of visit: February 09, 2022 Patient Name: Ms.Karen Megan Shin Date of : 1950 Current Age: [age] year old Sex: female MRN/E# [id number] Chief Complaint: No chief complaint on file. HISTORY OF PRESENT ILLNESS : The patient is a 71 year old, right handed female with a past medical history of benign neiplasm of colon, CKD 3, DDD, diverticulosis, fibromyalgia, HTN, hypothyroidism, migraines, myalgia, SUMMER, and spinal stenosis who is referred by Dr. Al for neurosurgical evaluation. Today she states she had endorsed cervical pain 20 years ago that radiated down her left arm. She noted she participated in physical therapy at that time and her symptoms resolved. She notes today that her current symptoms developed a few years ago. She denies any neck pain or radiation down her arms. She notes numbness and tingling into the last 2 digits on the right hand. She notes numbness and tingling into the last 3 digits on the left. She reports dexterity difficulties, difficulties opening and dropping items. She feels her symptoms are worse on the left than the right. She notes weakness to her bilateral hands with the left being worse than the right. She notes her last fall was a year ago. She also notes chronic low back pain. She notes difficulties ambulating and has use of a walker and wheelchair. She is currently units under the care of pain management at [facility]. She is currently on gabapentin and feels this helps slightly. She has not had any injections or recent physical therapy for her cervical spine. She presents for imaging review, evaluation and plan of care. Smoker: former Diabetic: denies Anticoagulants / Antiplatelets: denies PREVIOUS CONSERVATIVE TREATMENTS: Gabapentin Nabumetone Celebrex Pain management- [facility] Physical therapy- no recent participation. PREVIOUS SURGERY: None PAIN EVALUATION No data found in the last 1 encounters. PAST MEDICAL HISTORY Diagnosis Date Abdominal pain, left upper quadrant Benign neoplasm of colon CKD (chronic kidney disease) stage 3, GFR 30-59 ml/min ([facility]) DDD (degenerative disc disease), lumbar Diverticulosis of colon (without mention of hemorrhage) Fibromyalgia syndrome HTN (hypertension) Hypothyroidism Migraine without aura Morbid obesity (HCC) Myalgia and myositis, unspecified Other acne Rectal bleeding 05/2016 Rosacea Sleep apnea cpap with o2. Spinal stenosis Unspecified constipation Unspecified vitamin D deficiency 12/20/2007 Vit D-18.5 on 02/16/07 PAST SURGICAL HISTORY Procedure Laterality Date ARTHRP ACETBLR/PROX FEM PROSTC AGRFT/ALGRFT 2010 right ARTHRP ACETBLR/PROX FEM PROSTC AGRFT/ALGRFT Left 10/01/2018 Dr. Pete Méndez ARTHRP KNE CONDYLEANDPLATU MEDIALANDLAT COMPARTMENTS 2008 right ARTHRP KNE CONDYLEANDPLATU MEDIALANDLAT COMPARTMENTS 04/16/2018 COLONOSCOPY 06/01/2016 COLONOSCOPY FLX DX W/COLLJ SPEC WHEN PFRMD 2001 Colonoscopy COLONOSCOPY FLX DX W/COLLJ SPEC WHEN PFRMD 2002 Colonoscopy COLONOSCOPY FLX DX W/COLLJ SPEC WHEN PFRMD 12/13/05 COLONOSCOPY FLX DX W/COLLJ SPEC WHEN PFRMD 02/24/2011 Colonoscopy COLONOSCOPY W/BIOPSY SINGLE/MULTIPLE 08/20/2019 EGD 08/20/2019 FNA WITH IMAGING 03/04/10 U/S FNA right thyroid x 2 and left x 1 LAPS SURG CHOLECYSTECTOMY W/CHOLANGIOGRAPHY 07-25-11 PAST SURGICAL HISTORY OF 1973 removal tumors ana ovaries PAST SURGICAL HISTORY OF x 2 ingrown toenails PAST SURGICAL HISTORY OF cystoscopy x2 and tumors removed from both ovaries. TOTAL ABDOMINAL HYSTERECT W/WO RMVL TUBE OVARY 09/17/92 Hysterectomy, SAE Dr Schmitt FAMILY HISTORY Problem Relation Age of Onset Heart Father OR / PE Coronary Artery Disease Father OR Cancer Mother bladder Coronary Artery Disease Brother stent x 5 on 2 occasions ALLERGIES Allergen Reactions Atorvastatin Other: See Comments myalgia,elevated CK Morphine Itching Tetracycline Other: See Comments tattooing all over Current Outpatient Medications Medication Sig Dispense Refill lisinopril-hydroCHLOROthiazide (PRINZIDE,ZESTORETIC) 10-12.5 mg per tablet Take 1 tablet by mouth once daily. 90 tablet 1 ursodiol (HERBER 250) 250 mg tablet Take 250 mg by mouth twice daily. Vitamin E, dl, acetate, (VITAMIN E) 400 unit capsule Take 400 Units by mouth twice daily. levothyroxine (SYNTHROID) 75 mcg tablet Take 1 tablet by mouth once daily. 90 tablet 1 amitriptyline (ELAVIL) 10 mg tablet Take 3 tablets by mouth daily at bedtime. 270 tablet 3 Amoxicillin 500 mg tablet Take 4 tablets by mouth 1 hour before dental procedure 4 tablet 1 FLUoxetine (PROZAC) 20 mg capsule Take 3 capsules by mouth once daily. 270 capsule 3 gabapentin (NEURONTIN) 800 mg tablet Take 1 tablet by (more content not included)... [facility] 02-09-2022 History of Present illness Narrative NEUROSURGERY CONSULT NOTE Derek Francisco MD, PhD Date of visit: February 09, 2022 Patient Name: Ms.Karen Megan Shin Date of : 1950 Current Age: [age] year old Sex: female MRN/E# [id number] Chief Complaint: No chief complaint on file. HISTORY OF PRESENT ILLNESS : The patient is a 71 year old, right handed female with a past medical history of benign neiplasm of colon, CKD 3, DDD, diverticulosis, fibromyalgia, HTN, hypothyroidism, migraines, myalgia, SUMMER, and spinal stenosis who is referred by Dr. Al for neurosurgical evaluation. Today she states she had endorsed cervical pain 20 years ago that radiated down her left arm. She noted she participated in physical therapy at that time and her symptoms resolved. She notes today that her current symptoms developed a few years ago. She denies any neck pain or radiation down her arms. She notes numbness and tingling into the last 2 digits on the right hand. She notes numbness and tingling into the last 3 digits on the left. She reports dexterity difficulties, difficulties opening and dropping items. She feels her symptoms are worse on the left than the right. She notes weakness to her bilateral hands with the left being worse than the right. She notes her last fall was a year ago. She also notes chronic low back pain. She notes difficulties ambulating and has use of a walker and wheelchair. She is currently units under the care of pain management at [facility]. She is currently on gabapentin and feels this helps slightly. She has not had any injections or recent physical therapy for her cervical spine. She presents for imaging review, evaluation and plan of care. Smoker: former Diabetic: denies Anticoagulants / Antiplatelets: denies PREVIOUS CONSERVATIVE TREATMENTS: Gabapentin Nabumetone Celebrex Pain management- [facility] Physical therapy- no recent participation. PREVIOUS SURGERY: None PAIN EVALUATION No data found in the last 1 encounters. PAST MEDICAL HISTORY Diagnosis Date Abdominal pain, left upper quadrant Benign neoplasm of colon CKD (chronic kidney disease) stage 3, GFR 30-59 ml/min ([facility]) DDD (degenerative disc disease), lumbar Diverticulosis of colon (without mention of hemorrhage) Fibromyalgia syndrome HTN (hypertension) Hypothyroidism Migraine without aura Morbid obesity ([facility]) Myalgia and myositis, unspecified Other acne Rectal bleeding 05/2016 Rosacea Sleep apnea cpap with o2. Spinal stenosis Unspecified constipation Unspecified vitamin D deficiency 12/20/2007 Vit D-18.5 on 02/16/07 PAST SURGICAL HISTORY Procedure Laterality Date ARTHRP ACETBLR/PROX FEM PROSTC AGRFT/ALGRFT 2009 right ARTHRP ACETBLR/PROX FEM PROSTC AGRFT/ALGRFT Left 10/01/2018 Dr. Pete Méndez ARTHRP KNE CONDYLE&PLATU MEDIAL&LAT COMPARTMENTS 2007 right ARTHRP KNE CONDYLE&PLATU MEDIAL&LAT COMPARTMENTS 04/16/2018 COLONOSCOPY 06/01/2016 COLONOSCOPY FLX DX W/COLLJ SPEC WHEN PFRMD 2001 Colonoscopy COLONOSCOPY FLX DX W/COLLJ SPEC WHEN PFRMD 2002 Colonoscopy COLONOSCOPY FLX DX W/COLLJ SPEC WHEN PFRMD 12/13/05 COLONOSCOPY FLX DX W/COLLJ SPEC WHEN PFRMD 02/24/2011 Colonoscopy COLONOSCOPY W/BIOPSY SINGLE/MULTIPLE 08/20/2019 EGD 08/20/2019 FNA WITH IMAGING 03/04/10 U/S FNA right thyroid x 2 and left x 1 LAPS SURG CHOLECYSTECTOMY W/CHOLANGIOGRAPHY 07-25-11 PAST SURGICAL HISTORY OF 1973 removal tumors ana ovaries PAST SURGICAL HISTORY OF x 2 ingrown toenails PAST SURGICAL HISTORY OF cystoscopy x2 and tumors removed from both ovaries. TOTAL ABDOMINAL HYSTERECT W/WO RMVL TUBE OVARY 09/17/92 Hysterectomy, SAE Schmitt FAMILY HISTORY Problem Relation Age of Onset Heart Father OR / PE Coronary Artery Disease Father OR Cancer Mother bladder Coronary Artery Disease Brother stent x 5 on 2 occasions ALLERGIES Allergen Reactions Atorvastatin Other: See Comments myalgia,elevated CK Morphine Itching Tetracycline Other: See Comments tattooing all over Current Outpatient Medications Medication Sig Dispense Refill lisinopril-hydroCHLOROthiazide (PRINZIDE,ZESTORETIC) 10-12.5 mg per tablet Take 1 tablet by mouth once daily. 90 tablet 1 ursodiol (HERBER 250) 250 mg tablet Take 250 mg by mouth twice daily. Vitamin E, dl, acetate, (VITAMIN E) 400 unit capsule Take 400 Units by mouth twice daily. levothyroxine (SYNTHROID) 75 mcg tablet Take 1 tablet by mouth once daily. 90 tablet 1 amitriptyline (ELAVIL) 10 mg tablet Take 3 tablets by mouth daily at bedtime. 270 tablet 3 Amoxicillin 500 mg tablet Take 4 tablets by mouth 1 hour before dental procedure 4 tablet 1 FLUoxetine (PROZAC) 20 mg capsule Take 3 capsules by mouth once daily. 270 capsule 3 gabapentin (NEURONTIN) 800 mg tablet Take 1 tablet by mouth three times daily. 270 tablet 3 lovastatin 40 mg tablet Take 1 tablet by mouth daily at bedtime. 90 tablet 3 dicyclomine (BENTYL) 10 mg capsule Take 1 capsule by mouth once daily. as needed if severe take 20 mg 30 capsule 11 ergocalciferol 50,000 unit capsule (VITAMIN D2, DRISDOL) Take 1 capsule by mouth one time a week. 12 capsule 3 fluticasone (FLONASE) 50 mcg/actuation nasal spray Use 1 [place] in each nostril twice daily. 3 Each 3 omeprazole (PRILOSEC) 20 mg capsule Take 1 capsule by mouth daily before breakfast. 1/2 hr before meal. 90 capsule 1 magnesium oxide (MAG-OX) 400 mg (241.3 mg magnesium) tablet Take 400 mg by mouth once daily. azelastine (ASTELIN,ASTEPRO) 0.1% nasal spray One spray to each nostril one to two times a day. 3 Bottle 3 hydrocortisone (HEMORRHOIDAL HC) 25 mg suppository 1 Suppository by RECTAL route twice daily. 12 Suppository 2 CPAP Mask (per patient preference) optional chin strap (if indicated) , filters, tubing, humidifier and lifetime supplies. G47.33 1 Device 0 potassium gluconate 600 mg (99 mg) tab Take 1 tablet by mouth once daily. latanoprost (XALATAN) 0.005 % ophthalmic solution Use 1 Drop in both eyes daily at bedtime. TO AFFECTED EYE(S) 0 B Complex Vitamins capsule Take 1 capsule by mouth once daily. baclofen (LIORESAL) 10 mg tablet Take 10 mg by mouth as needed. celecoxib (CELEBREX) 200 mg capsule Take 1 capsule by mouth twice daily. 180 capsule 3 Ipratropium [place] (ATROVENT) 0.03 % nasal spray Use 2 Sprays in each nostril four times daily. As needed for runny nose. 1 Bottle 11 L.ACID/L.CASEI/B.BIF/B.PONCHO/FOS (PROBIOTIC BLEND ORAL) Take by mouth once daily. TURMERIC (CURCUMIN MISC) 500 mg twice daily. Polyethylene Glycol 3350 (MIRALAX) 17 gram/dose ORAL powder Take 17 g by mouth. Drink a mix of 1 scoop in 8oz of water/beverage once daily as needed for constipation. 1 Bottle 0 multivitamin ORAL tablet Take one(1) tablet daily. 0 omega-3 fatty acids/vitamin e(FISH OIL 1,000 MG CAP) 2 cap daily 1 0 ascorbic acid(VITAMIN C 500 MG TAB) 500 mg once daily 0 FIBER TAB 1000 mg daily 0 No current facility-administered medications for this visit. REVIEW OF SYSTEMS Review of Systems Constitutional: Negative for chills, fatigue and fever. HENT: Negative for congestion and sore throat. Eyes: Negative for discharge, itching and visual disturbance. Respiratory: Negative for cough and shortness of breath. Cardiovascular: Negative for chest pain and palpitations. Gastrointestinal: Positive for constipation. Negative for diarrhea, nausea and vomiting. Endocrine: Negative for cold intolerance and heat intolerance. Genitourinary: Negative for difficulty urinating, frequency and urgency. Incontinence. Musculoskeletal: Positive for back pain and gait problem. Negative for neck pain and neck stiffness. Skin: Negative for rash and wound. Allergic/Immunologic: Negative for environmental allergies and food allergies. Neurological: Positive for dizziness and weakness. Negative for light-headedness, numbness and headaches. Hematological: Does not bruise/bleed easily. Psychiatric/Behavioral: Negative for agitation. The patient is not nervous/anxious. OBJECTIVE: There were no vitals taken for this visit. PHYSICAL EXAM: General appearance: Well nourished, well developed, and no apparent distress. Mental State : Alert, memory function unremarkable. Oriented to person, place and time. Recent and remote memory normal. Pulmonary: Respirations regular and unlabored. Cardiac: Regular rate and rhythm. Skin: Intact, warm, dry. MUSCULOSKELETAL Sensory: Sensation intact to light touch Palpation: SPINOUS PROCESS: No pain. PARASPINALS: No pain. Motor: Normal muscle tone and bulk. No tremor or uncontrollable movements. No spasticity or tremor. Gait and Station: Normal gait. No assistive device usage. Able to perform toe and heel walk. Able to perform tandem gait. Range of motion: Cervical: Normal range of motion, no tenderness. Lumbar: Normal range of motion, no tenderness. Long tract signs: No clonus. No Hoffmanns. Reflexes: symmetric non-brisk MUSCLE TONE and BULK: Symmetrical in the upper & lower extremities. Upper Extremity Strength Exam Right Left Deltoid 5/5 5/5 Biceps 5/5 5/5 Triceps 5/5 5/5 Wrist Extension 5/5 5/5 Interossei 5/5 5/5 Lower Extremity Strength Exam Right Left Psoas 5/5 5/5 Quadriceps 5/5 5/5 DF 5/5 5/5 EHL 5/5 5/5 PF 5/5 5/5 Marlee reported numbness to her fifth digit bilaterally and discern extend her fourth digit with sparing of her radial digits. Marlee did not exhibit a positive Sandra sign. She did not exhibit hyperreflexia and she did not have ankle clonus. Data Review IMAGING STUDIES: To bring a disc Marlee's outside MRI demonstrates a step-off at C7-T1 approximately 2 to 3 mm. She also has bilateral disc herniations of her lower cervical disks. I believe that the disc herniations could contribute to her bilateral hand numbness. ASSESSMENT: I do not feel that Marlee has cervical myelopathy. I am suspicious of a C8 radiculopathy bilaterally. It is causing numbness without pain or weakness at this point time. Although she denies having had car accident or other cervical trauma she has had a couple falls over the years which I suppose are a potential source of injury to her neck. She does have step-off which exceeds the threshold for normal at C7-T1. Of prime concern in Marlee's case is her high perioperative risk. Her BMI is over 50 and I discussed with her that this is well above a safety threshold for considering surgery in most cases. PLAN: I would like to refer Marlee to physical therapy with the goals of general conditioning weight loss and working on hand dexterity. I would like to obtain cervical flexion-extension films to better characterize the step-off that we are seeing in her lower neck. Most likely these x-rays will need to be completed in the swimmer's position as I anticipate having difficulty visualizing her cervical thoracic junction by x-ray. As noted above I think it is unlikely that we are headed towards surgical management in this case. Attestation: The following portions of the patient's history were reviewed, confirmed, and updated as necessary: allergies, current medications, past family history, past medical history, past social history, past surgical history, problem list, HPI, and ROS obtained by others. Some elements may be copied from a previous office note and have been reviewed/updated where appropriate. All portions reflect current medical decision making from today. The clinical and radiographic findings as well as the risks, benefits and alternatives of treatment have been reviewed in detail with the patient. The patient was advised to call the office if symptoms worsen or new symptoms develop. The patient expressed understanding and is in agreement with plan. Derek Francisco MD, PhD This note was partially generated using Wipit voice recognition system, and there may be some incorrect words, spellings, and punctuation that were not noted in checking the note before saving. documented in this encounter [facility] 02-08-2022 Miscellaneous Notes Patient phones requesting refills as follows: Requested Prescriptions Pending Prescriptions Disp Refills lisinopril-hydroCHLOROthiazide (PRINZIDE,ZESTORETIC) 10-12.5 mg per tablet 90 tablet 1 Sig: Take 1 tablet by mouth once daily. MADELIN-01/25/22 Labs-07/26/21 NOV-07/25/22 med filled 07/14/21 Please review and advise. Becky Bianchi LPN documented in this encounter [facility] 01-25-2022 History of Present illness Narrative CC: Marlee Shin is a 71 year old female who presents to the office for 6 months follow up HPI: Spinal stenosis and DDD and DJD cervical spine, chronic, will be seeing spine surgeon specialist due to the concerns seen on her EMG/Nerve conduction which was ordered by Dr. Méndez in orthopedics- has this upcoming opinion coming up. HTN, taking medication as prescribed, well controlled. Hypothyroidism, taking levothyroxine, no SE with medication. No recent falls, still using Rollator walker. Found to have fatty liver disease and elevated LFTs, seeing Gastroenterology specialist Dr. Anderson recently - was started on Urosidiol and Vitamin E Skin lesions, around side and flank and getting caught on her bra and clothes, would like to have them removed if able PAST MEDICAL HISTORY Diagnosis Date Abdominal pain, left upper quadrant Benign neoplasm of colon CKD (chronic kidney disease) stage 3, GFR 30-59 ml/min (HCC) DDD (degenerative disc disease), lumbar Diverticulosis of colon (without mention of hemorrhage) Fibromyalgia syndrome HTN (hypertension) Hypothyroidism Migraine without aura Morbid obesity (HCC) Myalgia and myositis, unspecified Other acne Rectal bleeding 05/2016 Rosacea Sleep apnea cpap with o2. Spinal stenosis Unspecified constipation Unspecified vitamin D deficiency 12/20/2007 Vit D-18.5 on 02/16/07 PAST SURGICAL HISTORY Procedure Laterality Date ARTHRP ACETBLR/PROX FEM PROSTC AGRFT/ALGRFT 2010 right ARTHRP ACETBLR/PROX FEM PROSTC AGRFT/ALGRFT Left 10/01/2018 Dr. Pete Méndez ARTHRP KNE CONDYLE&PLATU MEDIAL&LAT COMPARTMENTS 2007 right ARTHRP KNE CONDYLE&PLATU MEDIAL&LAT COMPARTMENTS 04/16/2018 COLONOSCOPY 06/01/2016 COLONOSCOPY FLX DX W/COLLJ SPEC WHEN PFRMD 2001 Colonoscopy COLONOSCOPY FLX DX W/COLLJ SPEC WHEN PFRMD 2002 Colonoscopy COLONOSCOPY FLX DX W/COLLJ SPEC WHEN PFRMD 12/13/05 COLONOSCOPY FLX DX W/COLLJ SPEC WHEN PFRMD 02/24/2011 Colonoscopy COLONOSCOPY W/BIOPSY SINGLE/MULTIPLE 08/20/2019 EGD 08/20/2019 FNA WITH IMAGING 03/04/10 U/S FNA right thyroid x 2 and left x 1 LAPS SURG CHOLECYSTECTOMY W/CHOLANGIOGRAPHY 07-25-11 PAST SURGICAL HISTORY OF 1973 removal tumors ana ovaries PAST SURGICAL HISTORY OF x 2 ingrown toenails PAST SURGICAL HISTORY OF cystoscopy x2 and tumors removed from both ovaries. TOTAL ABDOMINAL HYSTERECT W/WO RMVL TUBE OVARY 09/17/92 Hysterectomy, SAE Dr Schmitt Current Outpatient Medications Medication Sig omeprazole (PRILOSEC) 20 mg capsule Take 1 capsule by mouth daily before breakfast. 1/2 hr before meal. magnesium oxide (MAG-OX) 400 mg (241.3 mg magnesium) tablet Take 400 mg by mouth once daily. azelastine (ASTELIN,ASTEPRO) 0.1% nasal spray One spray to each nostril one to two times a day. hydrocortisone (HEMORRHOIDAL HC) 25 mg suppository 1 Suppository by RECTAL route twice daily. potassium gluconate 600 mg (99 mg) tab Take 1 tablet by mouth once daily. latanoprost (XALATAN) 0.005 % ophthalmic solution Use 1 Drop in both eyes daily at bedtime. TO AFFECTED EYE(S) B Complex Vitamins capsule Take 1 capsule by mouth once daily. Ipratropium [place] (ATROVENT) 0.03 % nasal spray Use 2 Sprays in each nostril four times daily. As needed for runny nose. L.ACID/L.CASEI/B.BIF/B.PONCHO/FOS (PROBIOTIC BLEND ORAL) Take by mouth once daily. TURMERIC (CURCUMIN MISC) 500 mg twice daily. Polyethylene Glycol 3350 (MIRALAX) 17 gram/dose ORAL powder Take 17 g by mouth. Drink a mix of 1 scoop in 8oz of water/beverage once daily as needed for constipation. multivitamin ORAL tablet Take one(1) tablet daily. omega-3 fatty acids/vitamin e(FISH OIL 1,000 MG CAP) 2 cap daily ascorbic acid(VITAMIN C 500 MG TAB) 500 mg once daily FIBER TAB 1000 mg daily ursodiol (HERBER 250) 250 mg tablet Take 250 mg by mouth twice daily. Vitamin E, dl, acetate, (VITAMIN E) 400 unit capsule Take 400 Units by mouth twice daily. levothyroxine (SYNTHROID) 75 mcg tablet Take 1 tablet by mouth once daily. amitriptyline (ELAVIL) 10 mg tablet Take 3 tablets by mouth daily at bedtime. Amoxicillin 500 mg tablet Take 4 tablets by mouth 1 hour before dental procedure FLUoxetine (PROZAC) 20 mg capsule Take 3 capsules by mouth once daily. gabapentin (NEURONTIN) 800 mg tablet Take 1 tablet by mouth three times daily. lisinopril-hydroCHLOROthiazide (PRINZIDE,ZESTORETIC) 10-12.5 mg per tablet Take 1 tablet by mouth once daily. lovastatin 40 mg tablet Take 1 tablet by mouth daily at bedtime. dicyclomine (BENTYL) 10 mg capsule Take 1 capsule by mouth once daily. as needed if severe take 20 mg ergocalciferol 50,000 unit capsule (VITAMIN D2, DRISDOL) Take 1 capsule by mouth one time a week. fluticasone (FLONASE) 50 mcg/actuation nasal spray Use 1 [place] in each nostril twice daily. CPAP Mask (per patient preference) optional chin strap (if indicated) , filters, tubing, humidifier and lifetime supplies. G47.33 baclofen (LIORESAL) 10 mg tablet Take 10 mg by mouth as needed. celecoxib (CELEBREX) 200 mg capsule Take 1 capsule by mouth twice daily. No current facility-administered medications for this visit. ALLERGIES Allergen Reactions Atorvastatin Other: See Comments myalgia,elevated CK Morphine Itching Tetracycline Other: See Comments tattooing all over Social History Tobacco Use Smoking status: Former Types: Cigarettes Quit date: 07/05/1980 Years since quittin.5 Smokeless tobacco: Never Substance Use Topics Alcohol use: Yes Comment: rarely Drug use: No ROS: See HPI PE: BP 130/80 Pulse 80 Temp (Src) 98.6 (Left Tympanic) Resp 20 Wt 315 lb (142.9kg) Gen: A&OX3, NAD, non-toxic appearing HEENT: PERRLA, wearing glasses, EOMs intact b/l, nares without drainage, pharynx without erythema, exudate, lesions, or drainage. Uvula midline. Neck: No LAD, no thyromegaly, no meningismus. CV: RRR, no murmur, normal s1s2 Lungs: CTA b/l, no wheezing Obese Slowed gait Skin: skin tags x 8 inflamed right and left flank at bra line and right groin, inflamed seborrheic keratoses b/l bra line and right groin- 10 total No edema Abd: soft, obese ,NT, ND ASSESSMENT/PLAN: 1. Elevated LFTs - ICD9: 790.6, ICD10: R79.89 (primary diagnosis) Follow up with Dr. Anderson as scheduled, has been started on medication and will be monitored for fatty liver 2. Fatty liver - ICD9: 571.8, ICD10: K76.[address] Anderson as scheduled, has been started on medication and will be monitored for fatty liver 3. Acquired hypothyroidism - ICD9: 244.9, ICD10: E03.9 - Instructed patient on importance of taking on an empty stomach either first thing in the morning or at bedtime. Stable - Behavioral intervention and - Pharmacological intervention 4. Fibromyalgia - ICD9: 729.1, ICD10: M79.7 - chronic, stable 5. Urgency of urination - ICD9: 788.63, ICD10: R39.15 - CONSULT TO FEMALE UROLOGY/URO GYNECOLOGY 6. Encounter for screening mammogram for malignant neoplasm of breast - ICD9: V76.12, ICD10: Z12.31 - Set up for mammogram, yearly mammogram recommended - Encouraged monthly BSE - EDA SCREENING 7. Seborrheic keratoses - ICD9: 702.19, ICD10: L82.1 - treated x 10 in the office today with cryotherapy, tolerated well and aware of care after procedure 8. Inflamed acrochordon - ICD9: 701.9, 686.9, ICD10: L91.8 - treated x 8 in the office today with cryotherapy, tolerated well and aware of care after procedure 9. Mixed hyperlipidemia - ICD9: 272.2, ICD10: E78.2 - good control - Encouraged following a low fat, low cholesterol diet. - Discussed the benefits of regular aerobic exercise and weight loss. 10. Essential hypertension - ICD9: 401.9, ICD10: I10 - good control - Continue current medication(s) - Encouraged dietary sodium restriction/DASH diet - Recommended regular aerobic exercise. - Recommend home blood pressure monitoring, to bring results in on next visit - Goal of BP <130/80 Josep Al DO Return if no improvement. Follow up with Josep Al DO. To ER if develops chest pain, shortness of breath Discussed risks, benefits, alternatives, and potential side effects of medications. Patient/Guardian expressed understanding and agreed with the plan. See patient instructions. Josep Al DO [address] [place] [address] documented in this encounter [facility] 01-13-2022 Miscellaneous Notes Patient phones requesting refills as follows: Requested Prescriptions Pending Prescriptions Disp Refills levothyroxine (SYNTHROID) 75 mcg tablet 90 tablet 1 Sig: Take 1 tablet by mouth once daily. MADELIN-07/26/21 Labs-07/26/21 NOV-01/25/22 med filled 07/14/21 Please review and advise. Becky Bianchi LPN documented in this encounter [facility] 12-13-2021 Miscellaneous Notes Madelin--07/26/21 Nov--01/25/22 Last refill--12/25/20 270 with 3 refills Last labs--07/26/21 documented in this encounter [facility] 11-24-2021 Miscellaneous Notes MADELIN--07/26/21 Nov-01/25/22 Last refill--07/26/21 4 with 1 refill Last labs--07/26/21 documented in this encounter [facility] 09-14-2021 Miscellaneous Notes Patient has been identified by name and date of : Yes Patient phones for refill(s): Pending Prescriptions Disp Refills FLUOXETINE 20 MG CAPSULE 270 capsule 3 Sig: Take 3 capsules by mouth once daily. ROSE: No Date of last office visit in primary care: 07/26/21 next apt 01/25/22 Last 2 Encounter Wt Readings: Date: Wt: 07/26/2021 144.7 kg (319 lb) 01/06/2021 143.8 kg (317 lb) Previous labs/tests for medication: Not applicable Please advise. Thank you. Lisa Howell LPN documented in this encounter [facility] 08-05-2021 Miscellaneous Notes Pt called and is notified of providers message. Pt voices understanding. Marleni Conley RN TC to pt. Spouse states she is still sleeping and will have her return call. Referral and all information faxed to Dr. Lazo office. Jamil Kenny Ma Yes, please inform patient that she can consider seeing Dr. Anderson at [facility], referral placed, please fax with recent labs and RUQ US Josep Al DO Patient calls and provider message given. Patient would like to have a gastroenterology referral but would prefer to stay local. Patient asking if provider has any recommendations for a local kitchen and counter worker. Anusha Domingo RN Message left to return call. Tanja Moise LPN Please inform patient that her RUQ US of the liver shows: IMPRESSION: Increase in echogenicity of the liver, likely secondary to diffuse liver parenchymal disease or hepatic steatosis. Status post cholecystectomy. I can order elastography of the liver at [facility] or [facility] or have her see Retail Performance Coach for opinion. What is her preference ? Josep Al DO documented in this encounter [facility] 07-29-2021 History of Present illness Narrative Radiology Service Progress Note PATIENT NAME: Marlee Shin DATE OF SERVICE: July 29, 2021 TIME: 11:25 AM PATIENT IDENTITY VERIFICATION COMPLETED USING TWO (2) IDENTIFIERS: Name and Date of confirmed by patient verbally. FALL SCREENING: Has the patient had 2 falls in the last year or 1 fall with injury or currently using an Ambulatory Assistive Device (Walker, Cane, Wheelchair, Crutches, etc.)? No PATIENT GENDER DATA: Female. status: : No status: N/A PATIENT RELEVANT IMPLANT DATA REVIEWED: Not Applicable RADIOLOGY DEPARTMENT: Ultrasound PERIPHERAL IV DATA: Not applicable SIGNED BY: Whitley Lee RDMS RVT July 29, 2021 11:25 AM documented in this encounter [facility] 07-27-2021 Miscellaneous Notes Patient returned call and went over results, notes from Dr Al with understanding. Assisted with transfer to load tester to get Ultrasound appt set up. Left message for patient to return call to office Shirlene Botello Cma Please inform patient that her labs are showing that her LFTs AST and ALT are slightly elevated. I would like her to have a liver/RUQ Ultrasound completed when able to check to see cause. Also her serum creatinine is slighlty elevated at 1.08. needs to avoid dehydration. Need for adequate hydration of at least 60-80 oz of water a day. Josep Al DO documented in this encounter [facility] 07-26-2021 History of Present illness Narrative CC: Marlee Shin is a 71 year old female who presents to the office for follow up HPI: Overall still struggling with her low back pain and inability to have prolonged sitting. Is still seeing Dr. Cruz for pain mgmt. has had multiple spine injections in the recent past without benefit. Use of gabapentin as prescribed, needing rx refilled. Needing handicap placard Needing antibiotic before dental procedure- seeing corporate sales representative Dr. Fuentes upcoming HTN, taking medication as prescribed, well controlled. Hypothyroidism, taking levothyroxine, no SE with medication. No recent falls, still using Rollator walker. PAST MEDICAL HISTORY Diagnosis Date Abdominal pain, left upper quadrant Benign neoplasm of colon CKD (chronic kidney disease) stage 3, GFR 30-59 ml/min ([facility]) DDD (degenerative disc disease), lumbar Diverticulosis of colon (without mention of hemorrhage) Fibromyalgia syndrome HTN (hypertension) Hypothyroidism Migraine without aura Morbid obesity (HCC) Myalgia and myositis, unspecified Other acne Rectal bleeding 05/2016 Rosacea Sleep apnea cpap with o2. Spinal stenosis Unspecified constipation Unspecified vitamin D deficiency 12/20/2007 Vit D-18.5 on 02/16/07 PAST SURGICAL HISTORY Procedure Laterality Date ARTHRP ACETBLR/PROX FEM PROSTC AGRFT/ALGRFT 2010 right ARTHRP ACETBLR/PROX FEM PROSTC AGRFT/ALGRFT Left 10/01/2018 Dr. Pete Méndez ARTHRP KNE CONDYLE&PLATU MEDIAL&LAT COMPARTMENTS 2007 right ARTHRP KNE CONDYLE&PLATU MEDIAL&LAT COMPARTMENTS 04/16/2018 COLONOSCOPY 06/01/2016 COLONOSCOPY FLX DX W/COLLJ SPEC WHEN PFRMD 2001 Colonoscopy COLONOSCOPY FLX DX W/COLLJ SPEC WHEN PFRMD 2002 Colonoscopy COLONOSCOPY FLX DX W/COLLJ SPEC WHEN PFRMD 12/13/05 COLONOSCOPY FLX DX W/COLLJ SPEC WHEN PFRMD 02/24/2011 Colonoscopy COLONOSCOPY W/BIOPSY SINGLE/MULTIPLE 08/20/2019 EGD 08/20/2019 FNA WITH IMAGING 03/04/10 U/S FNA right thyroid x 2 and left x 1 LAPS SURG CHOLECYSTECTOMY W/CHOLANGIOGRAPHY 07-25-11 PAST SURGICAL HISTORY OF 1973 removal tumors ana ovaries PAST SURGICAL HISTORY OF x 2 ingrown toenails PAST SURGICAL HISTORY OF cystoscopy x2 and tumors removed from both ovaries. TOTAL ABDOMINAL HYSTERECT W/WO RMVL TUBE OVARY 09/17/92 Hysterectomy, SAE Dr Schmitt Social History: Social History Tobacco Use Smoking status: Former Smoker Quit date: 07/05/1980 Years since quittin.0 Smokeless tobacco: Never Used Substance Use Topics Alcohol use: Yes Comment: rarely Drug use: No FAMILY HISTORY Problem Relation Age of Onset Heart Father OR / PE Coronary Artery Disease Father OR Cancer Mother bladder Coronary Artery Disease Brother stent x 5 on 2 occasions Current Outpatient prescriptions: lisinopril-hydroCHLOROthiazide (PRINZIDE,ZESTORETIC) 10-12.5 mg per tablet Take 1 tablet by mouth once daily. lovastatin 40 mg tablet Take 1 tablet by mouth daily at bedtime. levothyroxine (SYNTHROID) 75 mcg tablet Take 1 tablet by mouth once daily. dicyclomine (BENTYL) 10 mg capsule Take 1 capsule by mouth once daily. as needed if severe take 20 mg ergocalciferol 50,000 unit capsule (VITAMIN D2, DRISDOL) Take 1 capsule by mouth one time a week. fluticasone (FLONASE) 50 mcg/actuation nasal spray Use 1 [place] in each nostril twice daily. amitriptyline (ELAVIL) 10 mg tablet Take 3 tablets by mouth daily at bedtime. FLUoxetine (PROZAC) 20 mg capsule Take 3 capsules by mouth once daily. gabapentin (NEURONTIN) 800 mg tablet Take 1 tablet by mouth three times daily. omeprazole (PRILOSEC) 20 mg capsule Take 1 capsule by mouth daily before breakfast. 1/2 hr before meal. magnesium oxide (MAG-OX) 400 mg (241.3 mg magnesium) tablet Take 400 mg by mouth once daily. azelastine (ASTELIN,ASTEPRO) 0.1% nasal spray One spray to each nostril one to two times a day. hydrocortisone (HEMORRHOIDAL HC) 25 mg suppository 1 Suppository by RECTAL route twice daily. CPAP Mask (per patient preference) optional chin strap (if indicated) , filters, tubing, humidifier and lifetime supplies. G47.33 potassium gluconate 600 mg (99 mg) tab Take 1 tablet by mouth once daily. latanoprost (XALATAN) 0.005 % ophthalmic solution Use 1 Drop in both eyes daily at bedtime. TO AFFECTED EYE(S) B Complex Vitamins capsule Take 1 capsule by mouth once daily. baclofen (LIORESAL) 10 mg tablet Take 10 mg by mouth as needed. celecoxib (CELEBREX) 200 mg capsule Take 1 capsule by mouth twice daily. Ipratropium [place] (ATROVENT) 0.03 % nasal spray Use 2 Sprays in each nostril four times daily. As needed for runny nose. L.ACID/L.CASEI/B.BIF/B.PONCHO/FOS (PROBIOTIC BLEND ORAL) Take by mouth once daily. TURMERIC (CURCUMIN MISC) 500 mg twice daily. Polyethylene Glycol 3350 (MIRALAX) 17 gram/dose ORAL powder Take 17 g by mouth. Drink a mix of 1 scoop in 8oz of water/beverage once daily as needed for constipation. multivitamin ORAL tablet Take one(1) tablet daily. omega-3 fatty acids/vitamin e(FISH OIL 1,000 MG CAP) 2 cap daily ascorbic acid(VITAMIN C 500 MG TAB) 500 mg once daily FIBER TAB 1000 mg daily Allergies: ALLERGIES Allergen Reactions Atorvastatin Other: See Comments myalgia,elevated CK Morphine Itching Tetracycline Other: See Comments tattooing all over ROS: See HPI PE: 07/26/21 1100 BP: 120/80 Pulse: 80 Resp: 16 Temp: 36.4 C (97.5 F) TempSrc: Right Tympanic Weight: (!) 144.7 kg (319 lb) Gen: A&OX3, NAD, non-toxic appearing HEENT: PERRLA, wearing glasses, EOMs intact b/l, nares without drainage, pharynx without erythema, exudate, lesions, or drainage. Uvula midline. Neck: No LAD, no thyromegaly, no meningismus. CV: RRR, no murmur, normal s1s2 Lungs: CTA b/l, no wheezing Obese Slowed gait Skin: No rashes, lesions, or wounds on exposed skin No edema Abd: soft, obese ,NT, ND ASSESSMENT/PLAN: 1. Arthritis, multiple joint involvement - ICD9: 716.99, ICD10: M12.9 (primary diagnosis) - rx as below for gabapentin refilled, chronic, stable - PARKING FOR HANDICAPPED 2. Dental infection - ICD9: 522.4, ICD10: K04.7 - rx prior to dental procedure. - AMOXICILLIN 500 MG TABLET 3. Encounter for screening mammogram for malignant neoplasm of breast - ICD9: V76.12, ICD10: Z12.31 - Encouraged monthly BSE - Increase calcium intake with supplements or by diet (goal of 9955-1443 mg/day 4. Elevated LFTs - ICD9: 790.6, ICD10: R79.89 - recheck labs as ordered. 5. Mixed hyperlipidemia - ICD9: 272.2, ICD10: E78.2 - to be determined upon return of lab results - Encouraged following a low fat, low cholesterol diet. - Discussed the benefits of regular aerobic exercise and weight loss. - Check fasting lipid panel - COMP METABOLIC PANEL - LIPID PANEL BASIC - CBC + DIFF 6. Acquired hypothyroidism - ICD9: 244.9, ICD10: E03.9 - Instructed patient on importance of taking on an empty stomach either first thing in the morning or at bedtime. - continue current dose of Synthroid Stable - Behavioral intervention, - Eat well program and - Continue current medications - TSH BLD - T4 FREE/FREE THYROX 7. Essential hypertension - ICD9: 401.9, ICD10: I10 - good control - Continue current medication(s) - Encouraged dietary sodium restriction/DASH diet - Recommended regular aerobic exercise. - Recommend home blood pressure monitoring, to bring results in on next visit - Discussed need and benefit for weight loss. - Goal of BP <130/80 8. Elevated glucose - ICD9: 790.29, ICD10: R73.09 - recheck labs - HGB A1C 9. Vitamin D deficiency - ICD9: 268.9, ICD10: E55.9 Continue supplement, recheck labs - VITAMIN D 25 HYDROXY 10. Vitamin B12 deficiency - ICD9: 266.2, ICD10: E53.8 Continue supplement, recheck labs. - VITAMIN B12 BLOOD Josep Al DO To ER if develops chest pain, shortness of breath, or severe worsening of symptoms. Discussed risks, benefits, alternatives, and potential side effects of medications. Patient expressed understanding and agreed with the plan. Josep Al DO [address] [place] [address] documented in this encounter [facility] 07-13-2021 Miscellaneous Notes Patient has been identified by name and date of : Yes Patient phones for refill(s): Pending Prescriptions Disp Refills LOVASTATIN 40 MG TABLET 90 tablet 3 Sig: Take 1 tablet by mouth daily at bedtime. ROSE: No LEVOTHYROXINE 75 MCG TABLET 90 tablet 1 Sig: Take 1 tablet by mouth once daily. ROSE: No Date of last office visit in primary care: MADELIN 01/06/2021 Appointment scheduled for 07/26/2021 Last 2 Encounter Wt Readings: Date: Wt: 01/06/2021 143.8 kg (317 lb) 05/04/2020 140.6 kg (310 lb) Please advise. Thank you. JORJE Torres documented in this encounter [facility] 07-13-2021 Miscellaneous Notes Patient has been identified by name and date of : Yes Patient phones for refill(s): Pending Prescriptions Disp Refills LISINOPRIL 10 MG-HYDROCHLOROTHIAZIDE 12.5 MG TABLET 90 tablet 1 Sig: Take 1 tablet by mouth once daily. ROSE: No Date of last office visit in primary care: [facility] 01/06/2021 Appointment scheduled for 07/26/2021 Last 2 Encounter Wt Readings: Date: Wt: 01/06/2021 143.8 kg (317 lb) 05/04/2020 140.6 kg (310 lb) Please advise. Thank you. JORJE Torres documented in this encounter [facility] 05-18-2021 Miscellaneous Notes Patient has been identified by name and date of : Yes Patient phones for refill(s): Pending Prescriptions Disp Refills ERGOCALCIFEROL (VITAMIN D2) 1,250 MCG (50,000 UNIT) CAPSULE 12 capsule 3 Sig: Take 1 capsule by mouth one time a week. ROSE: No Date of last office visit in primary care: 01/06/21 Please advise. Thank you. Lidia Dee LPN documented in this encounter [facility] documented as of this encounter (statuses as of 05/19/2021) [facility] History of Past illness Narrative* Problem Noted Date Resolved Date Hypothyroid 04/13/2010 02/19/2015 Other specified dermatoses 09/04/200508/20 documented as of this encounter (statuses as of 05/19/2021) [facility] History of Past illness Narrative* Problem Noted Date Resolved Date Hypothyroid 04/13/2010 02/19/2015 Other specified dermatoses 09/04/200508/20 documented as of this encounter (statuses as of 07/14/2021) [facility] History of Past illness Narrative* Problem Noted Date Resolved Date Hypothyroid 04/13/2010 02/19/2015 Other specified dermatoses 09/04/200508/20 documented as of this encounter (statuses as of 07/14/2021) [facility] History of Past illness Narrative* Problem Noted Date Resolved Date Hypothyroid 04/13/2010 02/19/2015 Other specified dermatoses 09/04/200508/20 documented as of this encounter (statuses as of 07/26/2021) [facility] History of Past illness Narrative* Problem Noted Date Resolved Date Hypothyroid 04/13/2010 02/19/2015 Other specified dermatoses 09/04/200508/20 documented as of this encounter (statuses as of 07/27/2021) [facility] History of Past illness Narrative* Problem Noted Date Resolved Date Hypothyroid 04/13/2010 02/19/2015 Other specified dermatoses 09/04/200508/20 documented as of this encounter (statuses as of 07/30/2021) [facility] History of Past illness Narrative* Problem Noted Date Resolved Date Hypothyroid 04/13/2010 02/19/2015 Other specified dermatoses 09/04/200508/20 documented as of this encounter (statuses as of 08/05/2021) [facility] History of Past illness Narrative* Problem Noted Date Resolved Date Hypothyroid 04/13/2010 02/19/2015 Other specified dermatoses 09/04/200508/20 documented as of this encounter (statuses as of 09/15/2021) [facility] History of Past illness Narrative* Problem Noted Date Resolved Date Hypothyroid 04/13/2010 02/19/2015 Other specified dermatoses 09/04/200508/20 documented as of this encounter (statuses as of 12/13/2021) [facility] History of Past illness Narrative* Problem Noted Date Resolved Date Hypothyroid 04/13/2010 02/19/2015 Other specified dermatoses 09/04/200508/20 documented as of this encounter (statuses as of 01/13/2022) [facility] History of Past illness Narrative* Problem Noted Date Resolved Date Hypothyroid 04/13/2010 02/19/2015 Other specified dermatoses 09/04/200508/20 documented as of this encounter (statuses as of 01/25/2022) [facility] History of Past illness Narrative* Problem Noted Date Resolved Date Hypothyroid 04/13/2010 02/19/2015 Other specified dermatoses 09/04/200508/20 documented as of this encounter (statuses as of 02/15/2022) [facility] History of Past illness Narrative* Problem Noted Date Resolved Date Hypothyroid 04/13/2010 02/19/2015 Other specified dermatoses 09/04/200508/20 documented as of this encounter (statuses as of 02/15/2022) [facility] History of Past illness Narrative* Problem Noted Date Resolved Date Hypothyroid 04/13/2010 02/19/2015 Other specified dermatoses 09/04/200508/20 documented as of this encounter (statuses as of 02/24/2022) [facility] History of Past illness Narrative* Problem Noted Date Resolved Date Hypothyroid 04/13/2010 02/19/2015 Other specified dermatoses 09/04/200508/20 documented as of this encounter (statuses as of 04/21/2022) [facility] History of Past illness Narrative* Problem Noted Date Resolved Date Hypothyroid 04/13/2010 02/19/2015 Other specified dermatoses 09/04/200508/20 documented as of this encounter (statuses as of 04/22/2022) [facility] History of Past illness Narrative* Problem Noted Date Resolved Date Hypothyroid 04/13/2010 02/19/2015 Other specified dermatoses 09/04/200508/20 documented as of this encounter (statuses as of 04/25/2022) [facility] History of Past illness Narrative* Problem Noted Date Resolved Date Hypothyroid 04/13/2010 02/19/2015 Other specified dermatoses 09/04/200508/20 documented as of this encounter (statuses as of 05/01/2022) [facility] History of Past illness Narrative* Problem Noted Date Resolved Date Hypothyroid 04/13/2010 02/19/2015 Other specified dermatoses 09/04/200508/20 documented as of this encounter (statuses as of 05/02/2022) [facility] History of Past illness Narrative* Problem Noted Date Resolved Date Hypothyroid 04/13/2010 02/19/2015 Other specified dermatoses 09/04/200508/20 documented as of this encounter (statuses as of 05/20/2022) [facility] History of Past illness Narrative* Problem Noted Date Resolved Date Hypothyroid 04/13/2010 02/19/2015 Other specified dermatoses 09/04/200508/20 documented as of this encounter (statuses as of 06/15/2022) [facility] History of Past illness Narrative* Problem Noted Date Resolved Date Hypothyroid 04/13/2010 02/19/2015 Other specified dermatoses 09/04/200508/20 documented as of this encounter (statuses as of 07/28/2022) [address] History of Past illness Narrative* Problem Noted Date Diagnosed Date Resolved Date Hypothyroid 04/13/2010 02/19/2015 Other specified dermatoses 09/04/2005 0 08/21/2015 documented as of this encounter (statuses as of 08/29/2022) [facility] History of Past illness Narrative* Problem Noted Date Diagnosed Date Resolved Date Hypothyroid 04/13/2010 02/19/2015 Other specified dermatoses 09/04/2005 0 08/21/2015 documented as of this encounter (statuses as of 10/19/2022) [facility] History of Past illness Narrative* Problem Noted Date Diagnosed Date Resolved Date Hypothyroid 04/13/2010 02/19/2015 Other specified dermatoses 09/04/2005 0 08/21/2015 documented as of this encounter (statuses as of 12/14/2022) [facility] History of Past illness Narrative* Problem Noted Date Diagnosed Date Resolved Date Hypothyroid 04/13/2010 02/19/2015 Other specified dermatoses 09/04/2005 0 08/21/2015 documented as of this encounter (statuses as of 12/17/2022) [facility] History of Past illness Narrative* Problem Noted Date Diagnosed Date Resolved Date Hypothyroid 04/13/2010 02/19/2015 Other specified dermatoses 09/04/2005 0 08/21/2015 documented as of this encounter (statuses as of 12/22/2022) [address] History of Past illness Narrative* Problem Noted Date Diagnosed Date Resolved Date Hypothyroid 04/13/2010 02/19/2015 Other specified dermatoses 09/04/2005 0 08/21/2015 documented as of this encounter (statuses as of 12/22/2022) [facility] History of Past illness Narrative* Problem Noted Date Diagnosed Date Resolved Date Hypothyroid 04/13/2010 02/19/2015 Other specified dermatoses 09/04/2005 0 08/21/2015 documented as of this encounter (statuses as of 01/24/2023) [facility] History of Past illness Narrative* Problem Noted Date Diagnosed Date Resolved Date Hypothyroid 04/13/2010 02/19/2015 Other specified dermatoses 09/04/2005 0 08/21/2015 documented as of this encounter (statuses as of 01/26/2023) [facility] Diagnosis Mixed hyperlipidemia [facility] Diagnosis Arthritis, multiple joint involvement- Primary Unspecified arthropathy, multiple sites Dental infection Acute apical periodontitis of pulpal origin Encounter for screening mammogram for malignant neoplasm of breast Other screening mammogram Elevated LFTs Other abnormal blood chemistry Mixed hyperlipidemia Acquired hypothyroidism Unspecified hypothyroidism Essential hypertension Unspecified essential hypertension Elevated glucose Other abnormal glucose Vitamin D deficiency Unspecified vitamin D deficiency Vitamin B12 deficiency Other B-complex deficiencies [facility] Elevated LFTs- Primary Other abnormal blood chemistry [facility] Diagnosis Elevated LFTs Other abnormal blood chemistry [facility] Diagnosis Elevated LFTs- Primary Other abnormal blood chemistry Fatty liver Other chronic nonalcoholic liver disease [facility] Diagnosis Elevated LFTs- Primary Other abnormal blood chemistry Fatty liver Other chronic nonalcoholic liver disease Acquired hypothyroidism Unspecified hypothyroidism Fibromyalgia Mylagia and myositis, unspecified Urgency of urination Encounter for screening mammogram for malignant neoplasm of breast Other screening mammogram Seborrheic keratoses Other seborrheic keratosis Inflamed acrochordon Unspecified hypertrophic and atrophic condition of skin Mixed hyperlipidemia Essential hypertension Unspecified essential hypertension [facility] Diagnosis Deformity of cervical vertebra- Primary [facility] Diagnosis Deformity of cervical vertebra- Primary [facility] Diagnosis Vesicular rash- Primary Rash and other nonspecific skin eruption [facility] Diagnosis Dental infection Acute apical periodontitis of pulpal origin [facility] Diagnosis Encounter for screening mammogram for malignant neoplasm of breast Other screening mammogram [facility] Diagnosis Dysmetabolic syndrome- Primary Dysmetabolic Syndrome X Central obesity Localized adiposity Hyperinsulinemia Other specified hypoglycemia Obesity, morbid, BMI 50 or higher (HCC) Morbid obesity Hyperglycemia Other abnormal glucose MENDEZ (nonalcoholic steatohepatitis) Other chronic nonalcoholic liver disease Mixed hyperlipidemia Elevated LFTs Other abnormal blood chemistry Pedal edema Edema documented in this encounter [facility] for referral (narrative)* Diagnostic Procedure Only (Routine) - Authorized Specialty Diagnoses / [facility] Diagnoses Elevated LFTs Procedures US ABD RT UPPER QUADRANT US ABDOMINAL REAL TIME W/IMAGE LIMITED Josep Al DO [address] [id number] Us Imaging Referral ID Status Reason Start Date Expiration Date Visits Requested Visits Authorized [id number] Authorized Auto-Generat ed Referral 07/27/2021 08/26/2022 1 1 T [facility] for referral (narrative)* Diagnostic Procedure Only (Routine) - Closed Specialty Diagnoses / Procedures Referred By Contac t Referred To Contact US IMAGING Diagnoses Elevated LFTs Procedures US ABD RT UPPER QUADRANT US ABDOMINAL REAL TIME W/IMAGE LIMITED Josep Al DO [address] [id number] Us Imaging Referral ID Status Reason Start Date Expiration Date V isits Requested Visits Authorized [id number] Closed Auto-Generate d Referral 07/27/2021 08/26/2022 1 1 [facility] for referral (narrative)* Diagnostic Procedure Only (Routine) - Pending Review Specialty Diagnoses / Procedures Referred By Contac t Referred To Contact XR IMAGING Diagnoses Deformity of cervical vertebra Procedures XR CERV OTHER 4V AP/LAT/FLX/EXT XR CERV OTHER 4V AP/LAT/FLX/EXT RADEX SPINE CERVICAL 4 OR 5 VIEWS Derek Francisco MD, PhD [address] [place] [address] Xr Imaging Referral ID Status Reason Start Date Expiration Date Visits Requested Visits Authorized [id number] Pending Review Auto-Generat ed Referral 2 03/11/2023 1 1 * Physical Therapy (Routine) - Authorized Specialty Diagnoses / Procedures Referred By Contac t Referred To Contact [facility] Diagnoses Deformity of cervical vertebra Procedures CONSULT TO PHYSICAL THERAPY PHYSICAL THERAPY EVALUATION HIGH COMPLEX 45 MINS Derek Francisco MD, PhD [address] [place] [address] [facility] [address] [address] Referral ID Status Reason Start Date Expiration Date Visits Requested Visits Authorized [id number] Authorized PCP Requested Referral Auto-Generate d Referral 2 02/09/2023 99 99 [facility] for referral (narrative)* Diagnostic Procedure Only (Routine) - Authorized Specialty Diagnoses / Procedures Referred By Contac t Referred To Contact XR IMAGING Diagnoses Deformity of cervical vertebra Procedures XR CERV OTHER 4V AP/LAT/FLX/EXT RADEX SPINE CERVICAL 4 OR 5 VIEWS Derek Francisco MD, PhD [address] [place] [address] Xr Imaging Referral ID Status Reason Start Date Expiration Date Visits Requested Visits Authorized [id number] Authorized Auto-Generat ed Referral 04/21/2022 05/21/2023 1 [facility] Diagnostic Procedure Only (Routine) - Closed Specialty Diagnoses / Procedures Referred By Contac t Referred To Contact BR IMAGING Diagnoses Encounter for screening mammogram for malignant neoplasm of breast Procedures EDA SCREENING SCREENING MAMMOGRAPHY BI 2-VIEW BREAST INC Josep Hernandez, DO [address] [place] [address] [facility] [address] [place] [address] Referral ID Status Reason Start Date Expiration Date V isits Requested Visits Authorized [id number] Closed Auto-Generate d Referral 01/25/2022 02/24/2023 1 1 [facility] Diagnostic Procedure Only (Routine) - Closed Specialty Diagnoses / [facility] Diagnoses Encounter for screening mammogram for malignant neoplasm of breast Procedures EDA SCREENING SCREENING MAMMOGRAPHY BI 2-VIEW BREAST INC Josep Hernandez, DO [address] [place] [address] [facility] [address] [place] [address] Referral ID Status Reason Start Date Expiration Date V isits Requested Visits Authorized [id number] Closed Auto-Generate d Referral 01/25/2022 02/24/2023 1 1 [facility] Chief Complaint Chief Complaint Description Start Date lower back pain Preliminary chief co mplaint data, not yet signed by the author as of Instructions Instruction Description Start Date CompletedPatient advised to follow-up with Primary Care Physician for BMI management. Advance Directives There may be information available, but it has not been provided by the sender. No Advanced Directives Records FoundNo Advanced Directives Records Found Assessments There may be information available, but it has not been provided by the sender. Review of System There may be information available, but it has not been provided by the sender. Family History There may be information available, but it has not been provided by the sender.No Family History Records FoundNo Family History Records Found History of Present Illness There may be information available, but it has not been provided by the sender. Reason for Referral Specialty Diagnoses / Procedures Referred By Maggie t Referred To Contact Gastroenterology Diagnoses Elevated LFTs Fatty liver Procedures CONSULT TO GASTROENTEROLOGY OFFICE/OUTPATIENT [facility] 60-74 MINUTES Josep Al, DO [address] [place] [address] Referral ID Status Reason Start Date Expiration Date Visits Requested Visits Authorized [id number] Authorized PCP Requested Referral 08/03/2021 08/03/2022 1 1 Specialty Diagnoses / Procedures Referred By Contac t Referred To Contact Diagnoses Urgency of urination Procedures CONSULT TO FEMALE UROLOGY/URO GYNECOLOGY OFFICE/OUTPATIENT [facility] MDM 60-74 MINUTES Josep Al, DO [address] [place] [address] Referral ID Status Reason Start Date Expiration Date Visits Requested Visits Authorized [id number] Authorized PCP Requested Referral 2 01/25/2023 1 1 Specialty Diagnoses / Procedures Referred By Contac t Referred To Contact BR IMAGING Diagnoses Encounter for screening mammogram for malignant neoplasm of breast Procedures EDA SCREENING SCREENING MAMMOGRAPHY BI 2-VIEW BREAST INC CAD Josep Al, DO [address] [place] [address] [facility] [address] [facility] [place] [address] Referral ID Status Reason Start Date Expiration Date Visits Requested Visits Authorized [id number] Authorized Auto-Generat ed Referral 2 02/24/2023 1 1 Summary Purpose Additional Source Comments Reason for Visit (unrecogniz ed section and content) Reason Onset Date Comments Refill Request 05/18/2021 Reason Onset Date Comments Refill Request 07/13/2021 Reason Comments 6 Month Exam Reason Comments Results Reason Comments Radiology US Specialty Diagnoses / Procedures Referred By Contac t Referred To Contact US IMAGING Diagnoses Elevated LFTs Procedures US ABD RT UPPER QUADRANT US ABDOMINAL REAL TIME W/IMAGE LIMITED Josep Al, DO [address] [place] [address] Us Imaging Referral ID Status Reason Start Date Expiration Date V isits Requested Visits Authorized [id number] Closed Auto-Generate d Referral 07/27/2021 08/26/2022 1 1 Reason Onset Date Comments Refill Request 09/14/2021 Reason Onset Date Comments Refill Request 12/12/2021 Reason Onset Date Comments Refill Request 01/12/2022 Reason Comments 6 Month Exam Reason Onset Date Comments Refill Request 02/07/2022 Reason Comments Numbness/Tingling New Patient Evaluation Reason Comments Established Patient Reason Onset Date Comments Refill Request 04/22/2022 Reason Onset Date Comments Refill Request 04/24/2022 Reason Comments Rash Pt reported red, peraza sed rash located on (LT) buttocks x4 days, denied pain. Reason Comments Results HSV+ Reason Onset Date Comments Refill Request 11/24/2021 Refill Request 05/20/2022 Reason Onset Date Comments Refill Request 06/14/2022 Reason Onset Date Comments Refill Request 10/18/2022 Reason Onset Date Comments Refill Request 12/18/2022 Reason Onset Date Comments Refill Request 01/22/2023 Reason Comments Medication Follow-up Source Comments (unrecognize d section and content) In the event this informatio n is protected by the Federal Confidentiality of Alcohol and Drug Abuse Patient Records regulations: The Federal rules restrict any use of the information to criminally investigate or prosecute any alcohol or drug abuse patient.[facility] the event this information is protected by the Federal Confidentiality of Alcohol and Drug Abuse Patient Records regulations: The Federal rules restrict any use of the information to criminally investigate or prosecute any alcohol or drug abuse patient.[facility] the event this information is protected by the Federal Confidentiality of Alcohol and Drug Abuse Patient Records regulations: The Federal rules restrict any use of the information to criminally investigate or prosecute any alcohol or drug abuse patient.[facility] the event this information is protected by the Federal Confidentiality of Alcohol and Drug Abuse Patient Records regulations: The Federal rules restrict any use of the information to criminally investigate or prosecute any alcohol or drug abuse patient.[facility] the event this information is protected by the Federal Confidentiality of Alcohol and Drug Abuse Patient Records regulations: The Federal rules restrict any use of the information to criminally investigate or prosecute any alcohol or drug abuse patient.[facility] the event this information is protected by the Federal Confidentiality of Alcohol and Drug Abuse Patient Records regulations: The Federal rules restrict any use of the information to criminally investigate or prosecute any alcohol or drug abuse patient.[facility] the event this information is protected by the Federal Confidentiality of Alcohol and Drug Abuse Patient Records regulations: The Federal rules restrict any use of the information to criminally investigate or prosecute any alcohol or drug abuse patient.[facility] the event this information is protected by the Federal Confidentiality of Alcohol and Drug Abuse Patient Records regulations: The Federal rules restrict any use of the information to criminally investigate or prosecute any alcohol or drug abuse patient.[facility] the event this information is protected by the Federal Confidentiality of Alcohol and Drug Abuse Patient Records regulations: The Federal rules restrict any use of the information to criminally investigate or prosecute any alcohol or drug abuse patient.[facility] the event this information is protected by the Federal Confidentiality of Alcohol and Drug Abuse Patient Records regulations: The Federal rules restrict any use of the information to criminally investigate or prosecute any alcohol or drug abuse patient.[facility] the event this information is protected by the Federal Confidentiality of Alcohol and Drug Abuse Patient Records regulations: The Federal rules restrict any use of the information to criminally investigate or prosecute any alcohol or drug abuse patient.[facility] the event this information is protected by the Federal Confidentiality of Alcohol and Drug Abuse Patient Records regulations: The Federal rules restrict any use of the information to criminally investigate or prosecute any alcohol or drug abuse patient.[facility] the event this information is protected by the Federal Confidentiality of Alcohol and Drug Abuse Patient Records regulations: The Federal rules restrict any use of the information to criminally investigate or prosecute any alcohol or drug abuse patient.[facility] the event this information is protected by the Federal Confidentiality of Alcohol and Drug Abuse Patient Records regulations: The Federal rules restrict any use of the information to criminally investigate or prosecute any alcohol or drug abuse patient.[facility] the event this information is protected by the Federal Confidentiality of Alcohol and Drug Abuse Patient Records regulations: The Federal rules restrict any use of the information to criminally investigate or prosecute any alcohol or drug abuse patient.[facility] the event this information is protected by the Federal Confidentiality of Alcohol and Drug Abuse Patient Records regulations: The Federal rules restrict any use of the information to criminally investigate or prosecute any alcohol or drug abuse patient.[facility] the event this information is protected by the Federal Confidentiality of Alcohol and Drug Abuse Patient Records regulations: The Federal rules restrict any use of the information to criminally investigate or prosecute any alcohol or drug abuse patient.[facility] HospitalIn the event this information is protected by the Federal Confidentiality of Alcohol and Drug Abuse Patient Records regulations: The Federal rules restrict any use of the information to criminally investigate or prosecute any alcohol or drug abuse patient.[facility] HospitalIn the event this information is protected by the Federal Confidentiality of Alcohol and Drug Abuse Patient Records regulations: The Federal rules restrict any use of the information to criminally investigate or prosecute any alcohol or drug abuse patient.[facility] HospitalIn the event this information is protected by the Federal Confidentiality of Alcohol and Drug Abuse Patient Records regulations: The Federal rules restrict any use of the information to criminally investigate or prosecute any alcohol or drug abuse patient.[facility] HospitalIn the event this information is protected by the Federal Confidentiality of Alcohol and Drug Abuse Patient Records regulations: The Federal rules restrict any use of the information to criminally investigate or prosecute any alcohol or drug abuse patient.[facility] Hospital[facility] the event this information is protected by the Federal Confidentiality of Alcohol and Drug Abuse Patient Records regulations: The Federal rules restrict any use of the information to criminally investigate or prosecute any alcohol or drug abuse patient.[facility] HospitalIn the event this information is protected by the Federal Confidentiality of Alcohol and Drug Abuse Patient Records regulations: The Federal rules restrict any use of the information to criminally investigate or prosecute any alcohol or drug abuse patient.[facility] HospitalIn the event this information is protected by the Federal Confidentiality of Alcohol and Drug Abuse Patient Records regulations: The Federal rules restrict any use of the information to criminally investigate or prosecute any alcohol or drug abuse patient.[facility] HospitalIn the event this information is protected by the Federal Confidentiality of Alcohol and Drug Abuse Patient Records regulations: The Federal rules restrict any use of the information to criminally investigate or prosecute any alcohol or drug abuse patient.[facility] HospitalIn the event this information is protected by the Federal Confidentiality of Alcohol and Drug Abuse Patient Records regulations: The Federal rules restrict any use of the information to criminally investigate or prosecute any alcohol or drug abuse patient.[facility] HospitalIn the event this information is protected by the Federal Confidentiality of Alcohol and Drug Abuse Patient Records regulations: The Federal rules restrict any use of the information to criminally investigate or prosecute any alcohol or drug abuse patient.[facility] HospitalIn the event this information is protected by the Federal Confidentiality of Alcohol and Drug Abuse Patient Records regulations: The Federal rules restrict any use of the information to criminally investigate or prosecute any alcohol or drug abuse patient.[facility] HospitalIn the event this information is protected by the Federal Confidentiality of Alcohol and Drug Abuse Patient Records regulations: The Federal rules restrict any use of the information to criminally investigate or prosecute any alcohol or drug abuse patient.[facility] HospitalIn the event this information is protected by the Federal Confidentiality of Alcohol and Drug Abuse Patient Records regulations: The Federal rules restrict any use of the information to criminally investigate or prosecute any alcohol or drug abuse patient.[facility] HospitalIn the event this information is protected by the Federal Confidentiality of Alcohol and Drug Abuse Patient Records regulations: The Federal rules restrict any use of the information to criminally investigate or prosecute any alcohol or drug abuse patient.[facility] Care Teams (unrecognized sec tion and content) 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 Relationship Specialty Start Date End Date Josep Al, DO [address] [place] [address] PCP - General Family Practice 11/14/17 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 Relationship Specialty Start Date End Date Josep Al, DO [address] [place] [address] PCP - General Family Practice 11/14/17 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 Relationship Specialty Start Date End Date Josep Al, DO [address] [place] [address] PCP - General Family Practice 11/14/17 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 Relationship Specialty Start Date End Date Josep Al, DO [address] [place] [address] PCP - General Family Practice 11/14/17 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 Relationship Specialty Start Date End Date Josep Al, DO [address] [place] [address] PCP - General Family Practice 11/14/17 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 Relationship Specialty Start Date End Date Josep Al, DO [address] [place] [address] PCP - General Family Medicine 11/14/17 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 Relationship Specialty Start Date End Date Josep Al, DO [address] [place] [address] PCP - General Family Medicine 11/14/17 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 Relationship Specialty Start Date End Date Josep Al, DO [address] [place] [address] PCP - General Family Medicine 11/14/17 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 Relationship Specialty Start Date End Date Josep Al, DO [address] [place] [address] PCP - General Family Medicine 11/14/17 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 Relationship Specialty Start Date End Date Josep Al, DO [address] [place] [address] PCP - General Family Medicine 11/14/17 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 Relationship Specialty Start Date End Date Josep Al, DO [address] [place] [address] PCP - General Family Medicine 11/14/17 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 Relationship Specialty Start Date End Date Josep Al, DO [address] [place] [address] PCP - General Family Medicine 11/14/17 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 Relationship Specialty Start Date End Date Josep Al, DO [address] [place] [address] PCP - General Family Medicine 11/14/17 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 Relationship Specialty Start Date End Date Josep Al DO [address] [facility] [place] [address] PCP - General Family Medicine 11/14/17 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 Relationship Specialty Start Date End Date Josep Al DO [address] [facility] [place] [address] PCP - General Family Medicine 11/14/17 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 Relationship Specialty Start Date End Date Josep Al DO [address] [facility] [place] [address] PCP - General Family Medicine 11/14/17 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 Relationship Specialty Start Date End Date Josep Al DO [address] [facility] [place] [address] PCP - General Family Medicine 11/14/17 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 Relationship Specialty Start Date End Date Josep Al DO [address] [facility] [place] [address] PCP - General Family Medicine 11/14/17 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 Relationship Specialty Start Date End Date Josep Al DO [address] [facility] [place] [address] PCP - General Family Medicine 11/14/17 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 Relationship Specialty Start Date End Date Josep Al DO [address] [facility] [place] [address] PCP - General Family Medicine 11/14/17 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 Relationship Specialty Start Date End Date Josep Al DO [address] [facility] [place] [address] PCP - General Family Medicine 11/14/17 INFORMATION SOURCE (unrecogn ized section and content) DATE CREATED AUTHOR AUTHOR'S KAREL BENOIT 01/28/2023 [facility] FOR RECORDS PERTAINING TO PATIENTS WHO ARE OR HAVE BEEN ENROLLED IN A CHEMICAL DEPENDENCY/SUBSTANCEABUSE PROGRAM, SOME INFORMATION MAY BE OMITTED. This clinical summary was aggregated from multiple sources. Caution should be exercised in using it in the provision of clinical care. This summary normalizes information from multiple sources, and as a consequence, information in this document may materially change the coding, format and clinical context of patient data. In addition, data may be omitted in some cases. CLINICAL DECISIONS SHOULD BE BASED ON THE PRIMARY CLINICAL RECORDS. [employer] [facility]. provides no warranty or guarantee of the accuracy or completeness of information in this document.
[2023-03-10 12:09] LABS: Erythrocyte Sedimentation Rate 19 mm/hr (0-30)
[2023-03-10 12:11] LABS: Absolute Lymphocyte Count 1.89 X10^3/uL (0.83-4.51); Absolute Neutrophil Count 4.1 X10^3/uL (2.0-7.7); Basophil# 0.06 X10^3/uL; Basophil% 0.9 % (0-1); Eosinophil# 0.18 X10^3/uL; Eosinophils% 2.6 % (0-5); Hematocrit 42.5 % (37-47); Hemoglobin 13.3 g/dL (12.0-15.0); Lymphocyte # 1.89 X10^3/ul (0.83-4.51); Lymphocyte % 27.5 % (19-41); Mean Corp Hgb Conc 31.3 g/dL (32-36); Mean Corpuscular Hgb 28.8 pg (27.0-32.0); Mean Platelet Vol. 10.7 fl (6.2-12.0); Monocyte# 0.59 X10^3/uL; Monocyte% 8.6 % (0-10); NRBC Flagged by Analyzer 0 % (0-5); Neutrophil # 4.12 X10^3/uL (2.7-7.7); Platelet Count 235 K/mm3 (150-450); RBC Distribution Width CV 15.5 % (11.6-14.6); RBC Distribution Width SD 52.4 fl (35.1-43.9); Red Blood Count 4.62 M/mm3 (4.2-5.4); White Blood Count 6.9 K/mm3 (4.4-11.0)
[2023-03-10 12:20] LABS: Prothrombin Time (Protime)PT. 12.8 SECONDS (11.7-14.9)
[2023-03-10 12:55] LABS: Hemoglobin A1c 5.2 % (3.8-5.6)
[2023-03-10 12:58] LABS: Progesterone Level < 0.21 ng/mL (See Comment)
[2023-03-10 13:01] LABS: ALB/GLOB Ratio 0.9 RATIO (0.9-2.4); AST(SGOT) 17 U/L (15-37); Alanine Aminotransfer ALT/SGPT 27 U/L (13-56); Albumin, Serum 3.4 g/dL (3.2-5.0); Alkaline Phosphatase 71 U/L (45-117); Anion Gap 3 (5-15); BUN 24 mg/dL (7-18); BUN/Creat Ratio 21.6 RATIO (10-20); CRP 4.56 mg/L (0.0-3.0); Calcium,Total 9.6 mg/dL (8.5-10.1); Chloride 105 mmol/L (98-107); Cholesterol 209 mg/dL (200); Creatinine, Serum 1.11 mg/dL (0.55-1.02); EST Glomerular Filtration Rate 51 mL/min (>60); Est Glom Filt Rate - Afr Amer 62 mL/min (>60); Estradiol 18.1 pg/mL; Follicle Stimulating Hormone 38.4 mIU/mL; Free T3 1.8 pg/mL (2.18-3.98); Globulin 3.9 g/dL (2.2-4.2); Glucose 103 mg/dL (74-106); High Density Lipoprotein 58 mg/dL; LDH 264 U/L (84-246); Luteinizing Hormone 14.4 mIU/mL; Potassium 3.8 mmol/L (3.5-5.1); Protein, Total 7.3 g/dL (6.4-8.2); Sodium Level 138 mmol/L (136-145); T4 Free Direct 1.11 ng/dL (0.76-1.46); Triglycerides 122 mg/dL; Uric Acid 6.4 mg/dL (2.6-6.0); Very Low Density Lipoprotein 24 mg/dL (5-40)
[2023-03-14 01:07] LABS: Beef <0.10 kU/L (Class 0); Chocolate <0.10 kU/L (Class 0); Codfish <0.10 kU/L (Class 0); Corn 0.11 kU/L (Class 0/I); Egg, Whole <0.10 kU/L (Class 0); Milk (Cow) <0.10 kU/L (Class 0); Mussels <0.10 kU/L (Class 0); Peanut <0.10 kU/L (Class 0); Pork <0.10 kU/L (Class 0); Salmon <0.10 kU/L (Class 0); Shrimp <0.10 kU/L (Class 0); Soybean <0.10 kU/L (Class 0); Tuna <0.10 kU/L (Class 0); Wheat <0.10 kU/L (Class 0)
[2023-03-19 10:07] LABS: Adrenocorticotropic Hormone 9.7 pg/mL (7.2-63.3); Aldosterone, Serum 2.4 ng/dL (0.0-30.0); DHEA Sulfate 29.6 ug/dL (20.4-186.6); Estrogen, Total, Serum 86 pg/mL (40-244); Testosterone, % Free 2.31 % (0.50-2.80); Testosterone, Free < 0.07 ng/dL (0.10-0.85); Testosterone, Total < 3 ng/dL (3-67)
== END | disposition home or self-care (01) ==
LOC: LAB 11:18
PROVIDERS: PCP Student in an Organized Health Care Education/Training Program; Referring Provider Internal Medicine Gastroenterology; Visit Provider Internal Medicine Gastroenterology
DX: K76.0 Fatty (change of) liver, not elsewhere classified (principal); R53.1 Weakness; T78.40XA Allergy, unspecified, initial encounter; Z79.899 Other long term (current) drug therapy
CPT/HCPCS: 36415; 80053; 80061; 82024; 82088; 82140; 82533; 82627; 82670; 82672; 83001; 83002; 83036; 83615; 84144; 84402; 84403; 84439; 84481; 84550; 85025; 85610; 85652; 86003; 86005; 86140; 82626

== ENCOUNTER 2023-05-14 17:31 | Emergency (ER) | payer MEDICARE, OTHER, SELFPAY ==
[2023-05-14 17:32] VITALS: BP 162/147; PULSE 78; RESP 16; TEMP 36.2; O2SAT 98
[2023-05-14 17:50] VITALS: BP 133/87; PULSE 72; RESP 14; TEMP 36.1; O2SAT 98
--- NOTE | 2023-05-14 17:51 | EDS_ITS ---
HPI HPI - Fall History of Present Illness Chief Complaint: Fall Informant: patient Occured/Mechanism Occurred: Hours (1-2) Mechanism/Context: Yes trip Narrative: Lost footing and tripped over her rollator as she was using it to walk Usually ambulates: Walker Pain/Injury Pain Location: face Quality of Pain: - (sore) Current Severity: Mild Maximum Severity: Mild Narrative Narrative: 72-year-old female states she uses a rollator because of chronic low back pain states that she tripped over her rollator and fell, her hands were on the rollator and she was not able to catch herself, so she fell face first into the floor, hitting the left side of her face and scraping her left hand also minor bruise of her right knee. She had on glasses that were bent and deformed as a result of the fall. She states she bruised up quickly in the area of her left face where she injured/hit. She denies any loss of consciousness, headache, vision changes, nausea, vomiting, neck pain, or other new pains or injuries. She admits that she she is here mostly because her wanted her to get checked out and was going to call an ambulance because he has a hard time lifting her up. She agreed to come if he did not call an ambulance. At this time, she still feels fine and does not have any symptoms other than soreness in her face where she hit. [facility] Medical History Abdominal pain Benign neoplasm of colon Chronic pain CKD (chronic kidney disease) Constipation CPAP (continuous positive airway pressure) dependence DDD (degenerative disc disease) Diverticulosis of colon Elevated LFTs Fatty liver Fibromyalgia Former smoker GERD (gastroesophageal reflux disease) Hypertension Hypothyroidism Irritable bowel On home oxygen therapy Rectal bleeding Renal disease Sleep apnea Spinal stenosis Vitamin D deficiency Home Medications amitriptyline 10 mg tablet 30 mg PO QHS sleep 12/05/12 [History Last Taken 02/08/18] ergocalciferol (vitamin D2) 1,250 mcg (50,000 unit) capsule (Vitamin D2) 50,000 unit PO MO supplement 12/05/12 [History Last Taken 02/05/18] fluoxetine 20 mg capsule 60 mg PO DAILY depression 12/05/12 [History Last Taken 02/09/18] fluticasone propionate 50 mcg/actuation nasal spray,suspension 1 spray BID nasal congestion 12/05/12 [History Last Taken 02/09/18] gabapentin 800 mg tablet 800 mg PO TIDCM nerve pain 12/05/12 [History Last Taken 07/02/18] levothyroxine 75 mcg tablet 75 mcg PO DAILY thyroid disease 12/05/12 [History Last Taken 10/01/18 05:00] omega-3 fatty acids-fish oil 340 mg-1,000 mg capsule (Fish Oil) 1 ea PO BID supplement 12/05/12 [History Last Taken 02/09/18] dicyclomine 10 mg capsule 10 mg PO PRN PRN Gi Cramping 05/26/16 [History Last Taken Unknown] lisinopril 10 mg-hydrochlorothiazide 12.5 mg tablet (Zestoretic) 1 tab PO DAILY bp 05/26/16 [History Last Taken 02/09/18] Lovastatin [Mevacor] 40 mg PO QHS cholesterol 06/19/17 [History Last Taken 02/08/18] ascorbate calcium-bioflavonoid 500 mg-200 mg tablet (Rocio-C with Bioflavonoids) 1 tab PO DAILY SUPPLEMENT 02/09/18 [History Last Taken 02/09/18] multivitamin-ferrous fumarate-folic acid 18 mg-400 mcg tablet (Centrum Women) 1 ea PO DAILY SUPPLEMENT 02/09/18 [History Last Taken 02/09/18] Baclofen 10 mg PO TID PRN Spasms 04/06/18 [History Last Taken Unknown] wheat dextrin 3 gram/3.5 gram oral powder packet (Benefiber Clear Sugar Free(dextrin)) 1 ea PO DAILY STOOL SOFTNER 04/06/18 [History Last Taken Unknown] vitamin B complex 0.5 ea PO DAILY SUPPLEMENT 09/17/18 [History Last Taken Unknown] turmeric root extract 500 mg capsule 500 mg PO BID 01/28/19 [History Last Taken Unknown] L.acidoph, paracasei,B. lactis 10 billion cell capsule 1 ea PO DAILY 08/07/19 [History Last Taken Unknown] potassium gluconate 595 mg (99 mg) tablet 99 mg PO DAILY 08/07/19 [History Last Taken Unknown] magnesium carbonate (bulk) 330 g PO DAILY 04/07/20 [History Last Taken Unknown] ursodiol 250 mg tablet 250 mg PO BID #60 tabs 10/25/22 [Rx Last Taken Unknown] vitamin E (dl, acetate) 180 mg (400 unit) capsule 360 mg (2 x 180 mg (400 unit)) PO DAILY #60 caps 10/25/22 [Rx Last Taken Unknown] pioglitazone 15 mg tablet (Actos) 15 mg PO DAILY #30 tabs 12/13/22 [Rx Last Taken Unknown] famotidine 20 mg tablet 20 mg PO DAILY 03/10/23 [History Last Taken Unknown] semaglutide 0.25 mg or 0.5 mg (2 mg/3 mL) subcutaneous pen injector (Ozempic) 0.25 mg subcut QWEEK 03/10/23 [History Last Taken Unknown] Allergy/AdvReac Type Severity Reaction Status Date / Time atorvastatin AdvReac Intermediate INCEASED Verified 05/14/23 17:36 MUSCLE PAIN morphine AdvReac Itching Verified 05/14/23 17:36 tetracycline AdvReac skin Verified 05/14/23 17:36 discoloration Family History Father Heart disease Mother Bladder cancer Brother CAD (coronary artery disease) Surgical History History of cholecystectomy S/P hysterectomy Social History (Updated 03/10/23 @ 10:37 by Whitley Schmidt) number of children: 1 Smoking Status: Never smoker alcohol intake: never substance use type: does not use ROS ROS ED Constitutional Constitutional ED: Denies chills or fever(s) Eyes Eyes: Denies change in vision or diplopia ENT ENT ED: Reports facial pain; Denies ear pain, epistaxis or rhinorrhea Cardiovascular Cardiovascular: Denies chest pain or palpitations Respiratory/Chest Respiratory/Chest: Denies cough or dyspnea Gastrointestinal Gastrointestinal: Denies abdominal pain, diarrhea, melena, nausea or vomiting Genitourinary Genitourinary ED: Denies dysuria or hematuria Musculoskeletal Musculoskeletal: Reports other Details: Able to walk with rollator as she does have baseline, since having her fall today ; Denies back pain, extremity pain or neck pain Integumentary Reports Abrasions; Denies abscess, laceration or rash Neurologic Neurologic: Denies confusion, headache(s), paresthesias or weakness EXAM Physical Exam Const Vital Signs: 05/14/23 17:32 05/14/23 17:46 Temperature 97.1 F L Temperature Source Temporal Pulse Rate 78 Respiratory Rate 16 Respiratory Effort Normal Non-Labored Respiratory Pattern Normal Blood Pressure 162/147 H Blood Pressure Mean 152 Pulse Ox 98 Oxygen Delivery Method Room Air Positive well nourished and well developed General Appearance ED: well developed and NAD HEENT Reports TM's clear and nasal mucous membranes and turbinates normal HEENT Narrative: Minor facial tenderness at small contusions on the left forehead and the left cheek. There are no hematomas. There is no crepitance or depression. The zygomatic arch is nontender and there are no deformities in the face or significant areas of swelling. There is no epistaxis or CSF otorhinorrhea. No hemotympanum. No Moran sign. No periorbital ecchymosis. No sign of eye trauma. No infraorbital hypoesthesia or significant tenderness even in the areas of the contusions. atraumatic Face and Sinus: facial tenderness Tympanic Membrane ED: Yes TM's clear Eyes PERRL and EOMs intact bilaterally Visual Acuity: other Other Details: no entrapment or pain with extraocular movements Neck full ROM and supple General: Negative for tenderness Chest Wall inspection of chest normal and palpation of chest normal Chest: symmetrical chest wall rise; Negative for crepitus or tenderness Resp normal respiratory effort and clear to auscultation bilaterally Percussion: other equal BS bilat Cardio no murmurs Rate: regular rate Rhythm: regular rhythm GI normal to inspection, nondistended, normoactive bowel sounds, soft to palpation and non-tender Back/Spine normal ROM Cervical Spine: Negative for cervical spine tenderness Thoracic Spine / Upper Back: Negative for thoracic spinal tenderness Lumbar Spine / Lower Back: Negative for lumbar spinal tenderness Extremity normal to inspection and full ROM Extremity Narrative: There is a very small contusion at the anterior right knee, there is no bony patella tenderness, extensor mechanism is intact, all ligaments are stable with short endpoints and no laxity on stressing, negative anterior and posterior drawer signs. Full range of motion of the right knee and all other joints of all 4 extremities. General Extremety ED: Negative for tenderness Neuro oriented x3, CN's II-XII intact bilaterally, moves all extremities, no focal motor deficits and no sensory deficits noted [place] Coma Scale: document GCS findings Spontaneous Obeys Commands Oriented 15 Sensorium / Orientation: awake and alert Psych mental status grossly normal and thought process normal Skin Skin Narrative: Minor abrasion and contusion to the lateral aspect of the left hand near the level of the MCPJ, full range of motion of the fingers similar to baseline, no rotational deformity or other deformities, or significant bony tenderness. Lesions: no lesions Rashes: no rashes MDM MDM MDM Narrative Medical decision making narrative: Patient reassured, according to the [place] head CT trauma criteria that she does not require advanced imaging at this time. She is on no antiplatelet or an ticoagulant medications. I offered an observation period to see if she develops any concussion symptoms, she does not have any right now, she declines and prefers to go home and observe herself there which I am fine with. She was offered Tylenol or ibuprofen or ice pack, she declined at all. I do not think she needs x-rays of her right knee or her hands since these are very minor injuries and she agrees that she does not think anything is fractured. I do not think he has a facial fracture, we discussed signs and symptoms of concussion and reasons to return for reevaluation possible CT scanning but I do not think it is indicated right now she is comfortable with that plan as well. Also discussed with her . Discharge Plan Triage Chief Complaint: Fall ED Provider: Zhao Chase Dx/Rx/DC Orders Clinical Impression: Fall from slip, trip, or stumble, Facial contusion, Abrasion of hand, left Instructions: ED Facial Contusion, ED Head Injury (Adult) Prescriptions: No Action famotidine 20 mg tablet 20 mg PO DAILY Ozempic 0.25 mg or 0.5 mg (2 mg/3 mL) pen injector 0.25 mg subcut QWEEK Rx Instructions: for 4 weeks levothyroxine 75 MCG tablet 75 mcg PO DAILY gabapentin 800 MG tablet 800 mg PO TIDCM amitriptyline 10 MG tablet 30 mg PO QHS ergocalciferol (vitamin D2) [Vitamin D2] 50,000 UNIT capsule 50,000 unit PO MO fluoxetine 20 MG capsule 60 mg PO DAILY fluticasone propionate 1 SPRAY spray,suspension 1 spray NASAL BID Fish Oil 1 EACH capsule 1 ea PO BID lisinopril-hydrochlorothiazide [Zestoretic] 1 TABLET tablet 1 tab PO DAILY Patient Comments: HTN dicyclomine 10 MG capsule 10 mg PO PRN PRN (Reason: Gi Cramping) Lovastatin [Mevacor] 40 MG tablet 40 mg PO QHS Rocio-C with Bioflavonoids 1 EACH tablet 1 tab PO DAILY Centrum Women 1 EACH tablet 1 ea PO DAILY Benefiber Clear SF (dextrin) 1 EACH powder in packet 1 ea PO DAILY Baclofen 10 MG tablet 10 mg PO TID PRN (Reason: Spasms) vitamin B complex 1 EACH capsule 0.5 ea PO DAILY turmeric root extract 500 MG capsule 500 mg PO BID potassium gluconate 99 MG tablet 99 mg PO DAILY L.acidoph, paracasei,B. lactis 1 EACH capsule 1 ea PO DAILY magnesium carbonate (bulk) 500 GM powder 330 g PO DAILY ursodiol 250 mg tablet 250 mg PO BID Qty: 60 11RF vitamin E (dl, acetate) 180 mg (400 unit) capsule 360 mg PO DAILY Qty: 60 11RF pioglitazone [Actos] 15 mg tablet 15 mg PO DAILY Qty: 30 5RF Primary Care Provider: Josep Huggins Referrals: Josep Huggins, [Primary Care Provider] - As Needed (or ER if you develop severe headache, vomiting, vision changes, or other new concussion symptoms in next 24 hrs) Disposition Disposition: Home, Self Care
== END 2023-05-14 18:04 | disposition home or self-care (01) ==
LOC: ED 18:00
PROVIDERS: Emergency Provider Emergency Medicine; PCP Student in an Organized Health Care Education/Training Program; Visit Provider Emergency Medicine
DX: S00.83XA Contusion of other part of head, initial encounter (principal); S60.512A Abrasion of left hand, initial encounter; W18.09XA Striking against other object with subsequent fall, initial encounter; I12.9 Hypertensive chronic kidney disease with stage 1 through stage 4 chronic kidney disease, or unspecified chronic kidney disease; N18.9 Chronic kidney disease, unspecified; Z79.899 Other long term (current) drug therapy; Z87.891 Personal history of nicotine dependence
CPT/HCPCS: 99282

== ENCOUNTER 2023-08-28 09:15 | Day surgery (SDC) | payer MEDICARE, OTHER, SELFPAY ==
[2023-08-28 08:32] VITALS: BP 122/55; PULSE 81; RESP 16; TEMP 36.6; O2SAT 96; BMI 56.1
[2023-08-28] MEDS: Lactated Ringers 1,000 ML 15 ML IV (08:40)
--- NOTE | 2023-08-28 08:40 | RAD_ITS ---
PROCEDURE: Caudal block. DATE OF EXAMINATION: August 28, 2023. INDICATION: Female, 73 years old. Chronic low back pain. FLUOROSCOPY TIME (if supplied): (5 seconds) minutes/seconds. 6.79 mgy. One image was submitted. RAD/Fluor Guidance for Spine Inj IMPRESSION: Intraoperative imaging provided for caudal block. Electronically Signed: Contreras Cook MD at 13:16 EDT ,
[2023-08-28] MEDS: 0.9% Normal Saline (Pres. free 10 ML Vial (09:30)
[2023-08-28] MEDS: MethylPREDNISolone Acetate 80 MG/ML Vial (09:30)
[2023-08-28] MEDS: Lidocaine 1% (5 ml sdv) 5 ML Vial (09:30)
--- NOTE | 2023-08-28 09:31 | OP.PCM_ITS ---
Report of Operation Date of Procedure: 08/28/23 Pre-Operative Diagnosis: Lumbosacral radiculopathy, lumbosacral degenerative di sc disease, lumbosacral spinal stenosis Post-Operative Diagnosis: Lumbosacral radiculopathy, lumbosacral degenerative disc disease, lumbosacral spinal stenosis Surgery/Procedure Performed:: Diagnostic/therapeutic caudal epidural steroid injection under fluoroscopic guidance Type of Anesthesia: MAC Estimated Blood Loss (mL): Minimal Description of Procedure: DESCRIPTION OF PROCEDURE: History and physical of today was reviewed. Risks and benefits of the procedure were explained. The patient understood and agreed to proceed. Informed consent was obtained. IV inserted per routine protocol. The patient was taken to the operating room and placed in the prone position with a pillow positioned underneath the abdomen. The lower back and tailbone area was prepped and draped in a sterile fashion using iodine x3. Under fluoroscopy guidance on a lateral view, the caudal space was identified. The skin and subcutaneous tissue was anesthetized with approximately 3 mL of 1% lidocaine using a 25-gauge regular needle. Under direct visualization with fluoroscopy, using a 22-gauge 3-1/2-inch spinal needle, the needle was advanced via the skin through the sacral hiatus. The tip of the needle was passed through the sacrococcygeal ligament and advanced to approximately S4 area. After negative aspiration of blood or CSF, a total of 3 mL of contrast was injected to confirm correct placement of the needle as well as cephalad spread. The spread was followed to approximately L5 area. After confirmation on AP as well as lateral view and repeated negative aspiration, a total of 15 mL of preservative-free 0.125% Marcaine with 80 mg of Depo-Medrol was injected easily. The needle was then removed intact. The patient experienced no sign or symptoms of intrathecal or intravascular injection. The patient experienced no paresthesia. The procedure was completed without any apparent difficulty or any complications. The patient appeared to tolerate it well. ASSESSMENT AND PLAN: This is a 73-year-old female with lumbosacral radiculopathy, lumbosacral degenerative disc disease, lumbosacral spinal stenosis status post diagnostic/therapeutic caudal epidural steroid injection, patient will continue her current medications, patient will follow up in approximately 2 weeks for reevaluation. Complications None
[2023-08-28 09:45] VITALS: BP 122/55; BP 98/76; PULSE 77; RESP 17; TEMP 37.1; O2SAT 98
== END 2023-08-28 23:00 | disposition home or self-care (01) ==
LOC: SDC 04-17 21:17
PROVIDERS: PCP Student in an Organized Health Care Education/Training Program; Referring Provider Anesthesiology Pain Medicine; Visit Provider Anesthesiology Pain Medicine
PROC: 3E0S3BZ Introduction of Anesthetic Agent into Epidural Space, Percutaneous Approach (ICD-10-PCS; CPT 62282; principal; 2023-08-28 09:35)
DX: M51.17 Intervertebral disc disorders with radiculopathy, lumbosacral region (principal); N18.30 Chronic kidney disease, stage 3 unspecified; M48.07 Spinal stenosis, lumbosacral region; I12.9 Hypertensive chronic kidney disease with stage 1 through stage 4 chronic kidney disease, or unspecified chronic kidney disease; Z79.899 Other long term (current) drug therapy; Z87.891 Personal history of nicotine dependence
CPT/HCPCS: 62323; 64483; 77003

== ENCOUNTER → 2024-08-12 | Outpatient (CLI) | payer MEDICARE, OTHER, SELFPAY ==
--- NOTE | 2024-08-12 09:58 | US_ITS ---
PROCEDURE: ABD LIMITED W/ ELASTOGRAPHY REASON FOR EXAM: FATTY LIVER COMPARISON: Abdominal ultrasound 01/23/2023 and 06/06/2022 TECHNIQUE: Right upper quadrant abdominal ultrasound. Ede ElastQ Imaging shear wave elastography for non-invasive assessment of liver tissue stiffness. Ede EPIQ Elite. FINDINGS: LIVER: Length: 19.2 cm Echotexture: Diffusely echogenic suggesting fatty infiltration Contour: Normal Lesions: None identified Elastography: EQI Med: 11.2 kPa EQI Med Ja: 1.9 m/s IQR/Med: 15.3-29.4 %* GALLBLADDER: Surgically absent. COMMON BILE DUCT: Normal measuring 5 mm. PANCREAS: Visualized portions are sonographically unremarkable. There is an anechoic avascular lesion with posterior enhancement in the lower pole of the right kidney measuring up to 4.5 cm, unchanged and in keeping with a simple cyst. No right upper quadrant ascites. US/ABD Limited w/ Elastography IMPRESSION: Hepatomegaly and hepatic steatosis, with [id number] hepatic fibrosis. Findings are similar to ultrasound on 06/06/2022. Reference Values: SRU <1.37 m/s (5.7kPa): No to mild fibrosis 1.37 m/s - 2.2 m/s: Moderate to severe fibrosis >2.2 m/s (15kPa): Significant fibrosis / cirrhosis METAVIR Score F2 or higher: 1.34 m/s (5.7kPa) F3 or higher: 1.55 m/s (7.3kPa) F4: 1.80 m/s (10kPa) * If the IQR/Med is >30%, the variance in the measurements is a large and the a ccuracy of the measurement may be in question. Reading Location: [id number]
== END | disposition home or self-care (01) ==
LOC: US 09:51
PROVIDERS: PCP Student in an Organized Health Care Education/Training Program; Referring Provider Internal Medicine Gastroenterology; Visit Provider Internal Medicine Gastroenterology
DX: K76.0 Fatty (change of) liver, not elsewhere classified (principal)
CPT/HCPCS: 76705; 76981

== ENCOUNTER → 2024-08-22 | Outpatient (CLI) | payer MEDICARE, OTHER, SELFPAY ==
--- NOTE | 2024-08-22 13:03 | US_ITS ---
PROCEDURE: THYROID 08/22/2024 REASON FOR EXAM: NODULE TECHNIQUE: THYROID FINDINGS: Right thyroid lobe size: 4.4 x 1.8 x 1.8 cm Left thyroid lobe size: 5.4 x 1.5 x 2 cm Isthmus: 0.2 cm Background parenchymal echotexture is heterogeneous. Nodules: Right thyroid lobe complex nodule measuring 1.3 x 1 x 1.2 cm is noted. Left thyroid lobe coplex heterogenous nodule measuring 2 x 1.7 x 1.4 cm is noted. US/Thyroid IMPRESSION: Heterogenous thyroid gland, this could be seen in thyroiditis. Right thyroid lobe TR 3 nodule. Left thyroid lobe TR 3 nodule. Reading Location: [facility]
== END | disposition home or self-care (01) ==
LOC: US 13:00
PROVIDERS: PCP Student in an Organized Health Care Education/Training Program; Referring Provider Pediatrics; Visit Provider Pediatrics
DX: E04.1 Nontoxic single thyroid nodule (principal)
CPT/HCPCS: 76536